=== PATIENT | male | born 1955 | race American Indian/Alaskan Native ===

== ENCOUNTER 2017-03-02 21:44 | Inpatient (IN) | payer OTHER ==
--- NOTE | 2017-03-02 22:15 | C.PDOC ---
Time Seen by Provider: 03/02/17 22:15 Chief Complaint (Nursing): Weakness/Neurological Deficit Past Medical History Reviewed: Historical Data, Nursing Documentation, Vital Signs Vital Signs: Last Vital Signs Temp 98.1 F 03/02/17 22:05 Pulse 71 03/02/17 22:05 Resp 20 03/02/17 22:05 BP 162/70 H 03/02/17 22:05 Pulse Ox 100 03/02/17 22:15 - Medical History PMH: Anemia, Benign Prostatic Hyperplasia, HTN - Social History Hx Alcohol Use: No Hx Substance Use: No - Immunization History Hx Tetanus Toxoid Vaccination: No Hx Influenza Vaccination: No Hx Pneumococcal Vaccination: No ED Course And Treatment ECG: Interpreted By Me, Viewed By Me ECG Rhythm: Sinus Rhythm (77), Nonspecific Changes O2 Sat by Pulse Oximetry: 100 Pulse Ox Interpretation: Normal Disposition Counseled Patient/Family Regarding: Studies Performed, Diagnosis - Disposition Disposition Time: 22:15
--- NOTE | 2017-03-02 22:20 | C.PDOC ---
History Of Present Illness 61 year old patient presents to the ED complaining increased generalized weakness and fatigue for the past couple of days. Patient went to see his urologist for his symptoms. Blood work was done and he was found to be anemic. Patient denies chest pain, palpitations, or shortness of breath. Time Seen by Provider: 03/02/17 22:15 Chief Complaint (Nursing): Weakness/Neurological Deficit History Per: Patient History/Exam Limitations: no limitations Onset/Duration Of Symptoms: Days (couple) Current Symptoms Are (Timing): Still Present Severity: Mild Pain Scale Rating Of: 3 Reports Recently: Treated By A Physician Recent travel outside of the [place]: No Past Medical History Reviewed: Historical Data, Nursing Documentation, Vital Signs Vital Signs: Last Vital Signs Temp 98.4 F 03/03/17 00:36 Pulse 78 03/03/17 00:36 Resp 20 03/03/17 00:36 BP 147/72 03/03/17 00:36 Pulse Ox 100 03/03/17 00:51 - Medical History PMH: Anemia, Benign Prostatic Hyperplasia, HTN Family History: States: No Known Family Hx - Social History Hx Alcohol Use: No Hx Substance Use: No - Immunization History Hx Tetanus Toxoid Vaccination: No Hx Influenza Vaccination: No Hx Pneumococcal Vaccination: No Review Of Systems Constitutional: Positive for: Weakness (generalized), Other (fatigue) Eyes: Negative for: Vision Change ENT: Negative for: Throat Pain Cardiovascular: Negative for: Chest Pain, Palpitations Respiratory: Negative for: Shortness of Breath Gastrointestinal: Positive for: Abdominal Pain. Negative for: Nausea, Vomiting Genitourinary: Positive for: Frequency Musculoskeletal: Negative for: Back Pain Skin: Negative for: Rash, Lesions, Jaundice, Bruising Neurological: Negative for: Weakness Psych: Negative for: Anxiety Physical Exam - Physical Exam Appears: Non-toxic, No Acute Distress Skin: Warm, Dry Head: Atraumatic, Normacephalic Eye(s): bilateral: Normal Inspection, Conjunctiva Pale Oral Mucosa: Moist Neck: Trachea Midline, Supple Chest: Symmetrical Cardiovascular: Rhythm Regular Respiratory: No Rales, No Rhonchi, No Wheezing Gastrointestinal/Abdominal: Soft, No Tenderness, Distention (poss bladder), No Rebound, Other (unbilical hernia) Back: No CVA Tenderness Extremity: Normal ROM Extremity: Bilateral: Atraumatic, Normal Color And Temperature, Normal ROM Pulses: Left Dorsalis Pedis: Normal, Right Dorsalis Pedis: Normal Neurological/Psych: Oriented x3, Normal Speech, Normal Cranial Nerves Gait: Steady ED Course And Treatment - Laboratory Results Result Diagrams: 03/02/17 22:13 03/02/17 22:13 O2 Sat by Pulse Oximetry: 100 (room air) Pulse Ox Interpretation: Normal - Radiology CXR: Interpreted by Me, Viewed By Me CXR Interpretation: No: Infiltrates, Fracture, Pnemothorax Progress Note: Plan: EKG, Labs, Chest x-ray, IV fluids Critical Care Time - Critical Care Note Total Time (in mins): 30 Documented critical care: time excludes all time spent performing seperately billable procedures. Disposition Discussed With DrJimmy: Karoline Reeves Comment: accepted the pt [facility] is service and took over the care at 11:33 PM Doctor Will See Patient In The: Hospital Counseled Patient/Family Regarding: Studies Performed, Diagnosis - Disposition Disposition: HOSPITALIZED Disposition Time: 22:19 Condition: GUARDED - POA Present On Arrival: None - Clinical Impression Clinical Impression: Anemia, Renal failure, acute, Acute urinary retention - Scribe Statement The provider has reviewed the documentation as recorded by the Scribe Isabela Reeves Provider Attestation: All medical record entries made by the Scribe were at my direction and personally dictated by me. I have reviewed the chart and agree that the record accurately reflects my personal performance of the history, physical exam, medical decision making, and the department course for this patient. I have also personally directed, reviewed, and agree with the discharge instructions and disposition.
[2017-03-02] MEDS ORDERED: Sodium Chloride 0.9% 1,000 ML IV ONE (22:21)
[2017-03-02 22:25] LABS: BASO # 0.1 K/uL (0.0-0.2); BASO % 1.3 % (0.0-2.0); EOS % 0.8 % (0.0-4.0); HEMATOCRIT 14.1 % (35.0-51.0); LYMPH # 0.7 K/uL (1.0-4.3); LYMPH % 12.3 % (20.0-40.0); MEAN CELL VOLUME 83.7 fL (80.0-94.0); MEAN CORPUSCULAR HEMOGLOBIN 29.4 pg (27.0-31.0); MEAN CORPUSCULAR HGB CONC 35.2 g/dL (33.0-37.0); MEAN PLATELET VOLUME 9.3 fL (7.2-11.7); MONO # 0.4 K/uL (0.0-0.8); MONO % 7.8 % (0.0-10.0); NRBC % 0.2 % (0.0-2.0); RED CELL DISTRIBUTION WIDTH 18.1 % (11.5-14.5); WHITE BLOOD COUNT 5.4 K/uL (4.8-10.8)
[2017-03-02] MEDS ORDERED: Sodium Chloride 0.9% 1,000 ML ONE (22:25)
[2017-03-02 22:29] LABS: INR 1.2
[2017-03-02 22:34] LABS: CHLORIDE 107 mmol/L (98-107); SODIUM 142 mmol/L (132-148)
[2017-03-02 22:36] LABS: GFR AFRICAN-AMERICAN 8
[2017-03-02 22:37] LABS: ALB/GLOB RATIO 1.9 (1.0-2.1); ALKALINE PHOSPHATASE 64 U/L (38-126); ALT/SGPT 18 U/L (21-72); AST/SGOT 10 U/L (17-59); BLOOD UREA NITROGEN 79 mg/dL (9-20); CARBON DIOXIDE 18 mmol/L (22-30); GLUCOSE,RANDOM 91 mg/dL (75-110); TOTAL PROTEIN 7.4 g/dL (6.3-8.3)
[2017-03-02 22:38] LABS: CALCIUM 8.3 mg/dl (8.6-10.4)
[2017-03-02] MEDS ORDERED: Lidocaine 2% Jelly (Uro-Jet) ONE (23:17)
[2017-03-02 23:44] LABS: URINE BACTERIA OCC (<OCC); URINE BILIRUBIN NEGATIVE (NEGATIVE); URINE BLOOD NEGATIVE (NEGATIVE); URINE COLOR Straw (YELLOW); URINE GLUCOSE (UA) NORMAL (Normal); URINE KETONE NEGATIVE (NEGATIVE); URINE LEUKOCYTE ESTERASE 2+ Leu/uL (Negative); URINE PROTEIN NEGATIVE (NEGATIVE); URINE UROBILINOGEN NORMAL mg/dL (0.2-1.0); WBC URINE 23 /hpf (0-5)
[2017-03-03 07:20] LABS: BASO % 1.1 % (0.0-2.0); EOS % 1.1 % (0.0-4.0); HEMATOCRIT 15.1 % (35.0-51.0); LYMPH # 0.6 K/uL (1.0-4.3); LYMPH % 13.8 % (20.0-40.0); MEAN CELL VOLUME 84.7 fL (80.0-94.0); MEAN CORPUSCULAR HEMOGLOBIN 30.2 pg (27.0-31.0); MEAN CORPUSCULAR HGB CONC 35.6 g/dL (33.0-37.0); MEAN PLATELET VOLUME 9.2 fL (7.2-11.7); MONO # 0.3 K/uL (0.0-0.8); MONO % 6.8 % (0.0-10.0); NRBC % 0.1 % (0.0-2.0); WHITE BLOOD COUNT 4.2 K/uL (4.8-10.8)
[2017-03-03 07:57] LABS: POTASSIUM 5.3 mmol/L (3.6-5.2)
[2017-03-03 08:00] LABS: ALB/GLOB RATIO 1.4 (1.0-2.1); BILIRUBIN,TOTAL 1.1 mg/dL (0.2-1.3); CALCIUM 8.1 mg/dl (8.6-10.4); TOTAL PROTEIN 6.3 g/dL (6.3-8.3)
--- NOTE | 2017-03-03 08:14 | RAD ---
PROCEDURE: CHEST RADIOGRAPH, 1 VIEW HISTORY: SOB COMPARISON: None available. FINDINGS: LUNGS: Clear. PLEURA: No pneumothorax or pleural fluid seen. CARDIOVASCULAR: Probable mild left ventricular enlargement OSSEOUS STRUCTURES: No significant abnormalities. VISUALIZED UPPER ABDOMEN: Normal. OTHER FINDINGS: None. IMPRESSION: No acute pulmonary pathology appreciated. Probable mild left ventricular enlargement
--- NOTE | 2017-03-03 08:50 | PCM.URO ---
Urology Progress Note - Objective Lab Results Last 24 Hours: Laboratory Results - last 24 hr 03/02/17 03/02/17 03/03/17 23:10 23:38 07:07 WBC 4.2 L RBC 1.78 L Hgb 5.4 L* Hct 15.1 L MCV 84.7 MCH 30.2 MCHC 35.6 RDW 17.0 H Plt Count 162 MPV 9.2 Neut % (Auto) 77.2 H Lymph % (Auto) 13.8 L [place] % (Auto) 6.8 Eos % (Auto) 1.1 Baso % (Auto) 1.1 Neut # 3.2 Lymph # 0.6 L [place] # 0.3 Eos # 0.0 Baso # 0.0 Sodium Potassium Chloride Carbon Dioxide Anion Gap BUN Creatinine Est GFR ( Amer) Est GFR (Non-Af Amer) Random Glucose Calcium Total Bilirubin AST ALT Alkaline Phosphatase Total Protein Albumin Globulin Albumin/Globulin Ratio Urine Color Straw Urine Clarity Clear Urine pH 5.0 Ur Specific [place] 1.006 Urine Protein Negative Urine Glucose (UA) Normal Urine Ketones Negative Urine Blood Negative Urine Nitrate Negative Urine Bilirubin Negative Urine Urobilinogen Normal Ur Leukocyte Esterase 2+ H Urine WBC (Auto) 23 H Urine Bacteria Occ H Stool Occult Blood Negative 03/03/17 07:07 WBC RBC Hgb Hct MCV MCH MCHC RDW Plt Count MPV Neut % (Auto) Lymph % (Auto) [place] % (Auto) Eos % (Auto) Baso % (Auto) Neut # Lymph # [place] # Eos # Baso # Sodium 142 Potassium 5.3 H Chloride 110 H Carbon Dioxide 17 L Anion Gap 20 BUN 74 H Creatinine 8.0 H* Est GFR ( Amer) 8 Est GFR (Non-Af Amer) 7 Random Glucose 92 Calcium 8.1 L Total Bilirubin 1.1 AST 9 L ALT 10 L D Alkaline Phosphatase 50 Total Protein 6.3 Albumin 3.6 Globulin 2.7 Albumin/Globulin Ratio 1.4 Urine Color Urine Clarity Urine pH Ur Specific [place] Urine Protein Urine Glucose (UA) Urine Ketones Urine Blood Urine Nitrate Urine Bilirubin Urine Urobilinogen Ur Leukocyte Esterase Urine WBC (Auto) Urine Bacteria Stool Occult Blood Intake & Output: Intake & Output 03/02/17 03/03/17 03/03/17 18:59 06:59 18:59 Intake Total 690 Output Total 3800 Balance -3110 Intake: Oral 340 Blood Product 350 Output: Urine 3800 Urethral (Garcia) 1999 Other: Voiding Method Indwelling Catheter Vital Signs: Vital Signs - 24 hr 03/03/17 03/03/17 03/03/17 00:36 01:09 01:20 Temperature 98.4 F 98.5 F Pulse Rate 78 69 Respiratory 20 20 Rate Blood Pressure 147/72 135/72 O2 Sat by Pulse 100 100 98 Oximetry 03/03/17 03/03/17 03/03/17 02:08 02:33 02:52 Temperature 97.6 F 98.7 F Pulse Rate 67 60 Respiratory 20 20 18 Rate Blood Pressure 143/73 150/76 O2 Sat by Pulse 100 100 Oximetry 03/03/17 03/03/17 03:15 04:25 Temperature 98.4 F 97.6 F Pulse Rate 67 67 Respiratory 20 20 Rate Blood Pressure 139/71 148/77 O2 Sat by Pulse 99 Oximetry
--- NOTE | 2017-03-03 09:25 | CT ---
PROCEDURE: CT Abdomen and Pelvis without intravenous contrast HISTORY: severe anemia, renal failure , hematuria COMPARISON: None. TECHNIQUE: Without contrast.. Contrast Dose: 0 Radiation dose: Total exam DLP = 589.42 mGy-cm. This CT exam was performed using one or more of the following dose reduction techniques: Automated exposure control, adjustment of the mA and/or kV according to patient size, and/or use of iterative reconstruction technique. FINDINGS: LOWER THORAX: Cardiomegaly. No infiltrate/ effusion. LIVER: Hepatomegaly. The liver measures approximately 20 cm craniocaudal. The liver is mildly increased in attenuation, diffusely. This is a nonspecific finding. Consider the possibility of hemochromatosis or amiodarone therapy. Smooth contour. No mass. No biliary dilatation. GALLBLADDER AND BILE DUCTS: Cholelithiasis. Contracted gallbladder. No evidence of cholecystitis. PANCREAS: Unremarkable. No gross lesion or ductal dilatation. SPLEEN: Splenomegaly. The spleen measures approximately 17.1 cm in greatest dimension. No focal mass. ADRENALS: Mild bilateral adrenal hypertrophy, nonspecific. KIDNEYS AND URETERS: Moderate bilateral hydronephrosis. Extra renal pelvis bilaterally. Bilateral hydroureter. Findings likely secondary to bladder wall pathology. VASCULATURE: Unremarkable. No aortic aneurysm. BOWEL: Unremarkable. No obstruction. No gross mural thickening. APPENDIX: Unremarkable. Normal appendix. PERITONEUM: No evidence of ascites or pneumoperitoneum. Small umbilical hernia containing only mesenteric fat. LYMPH NODES: Unremarkable. No enlarged lymph nodes. BLADDER: Markedly diffusely thickened bladder wall. Possible cystitis. Please correlate with urinalysis. Garcia catheter noted. Bladder decompressed. REPRODUCTIVE: Unremarkable prostate. BONES: No acute fracture. OTHER FINDINGS: None. IMPRESSION: Hepatosplenomegaly. Diffusely increased attenuation of the liver, nonspecific. Cholelithiasis without evidence of cholecystitis. Moderate bilateral hydronephrosis and hydroureter. Diffusely markedly thickened bladder wall suggestive of cystitis, possibly infectious or inflammatory. Please note that there is no significant perivesical inflammatory change. Garcia catheter noted. Cardiomegaly. Mild bilateral adrenal hypertrophy. Preliminary interpretation of this examination was reported by [employer] at 12:38 a.m. on 03/03/2017. There is concurrence of this report with the preliminary interpretation.
[2017-03-03] MEDS: Sodium Chloride 0.9% 1,000 ML IV SCH (10:55)
[2017-03-03 11:51] LABS: BASO # 0.1 K/uL (0.0-0.2); BASO % 1.3 % (0.0-2.0); HEMATOCRIT 17.2 % (35.0-51.0); LYMPH # 0.4 K/uL (1.0-4.3); LYMPH % 9.7 % (20.0-40.0); MEAN CELL VOLUME 85.1 fL (80.0-94.0); MEAN CORPUSCULAR HEMOGLOBIN 29.3 pg (27.0-31.0); MEAN CORPUSCULAR HGB CONC 34.5 g/dL (33.0-37.0); MEAN PLATELET VOLUME 9.3 fL (7.2-11.7); MONO # 0.3 K/uL (0.0-0.8); MONO % 6.8 % (0.0-10.0); PLATELET COUNT 169 K/uL (130-400); WHITE BLOOD COUNT 4.1 K/uL (4.8-10.8)
[2017-03-03 12:32] LABS: EOSINOPHIL 1 % (0-4); NEUTROPHIL 81 % (50-75); TOTAL CELLS COUNTED 100
[2017-03-03 12:36] LABS: LARGE PLATELETS PRESENT
--- NOTE | 2017-03-03 14:18 | CP.PCM.CON ---
History of Present Illness - History of Present Illness History of Present Illness: 61 year old male with a history of HTN, gout, BPH, found to be anemic and told to report to the ER. In the ER he was found to have a hgb of 5. He denies abnormal bleeding and bruising. He notes his fatigue was progressive and over several weeks. He denies chest pain and shortness of breath. He is currently receiving PRBC transfusion support and reports to feeling better. peripheral smear: no significatnt abnormality WBC, no blast, anisopoikilocytosis, no increase in schistocytes, normal platelet count Past medical history: HTN, gout, BPH Past surgical history: None Family history: Denies tobacco, alcohol, and illicit drug use. Allergies: NKA Review of systems: All remaining review of systems including HEENT, cardiovascular, respiratory, gastrointestinal, genitourinary, musculoskeletal, dermatologic and neurologic are negative unless mentioned in the HPI. Past Patient History - Past Medical History & Family History Past Medical History?: Yes - Past Social History Smoking Status: Never Smoked - CARDIAC Hx Cardiac Disorders: Yes Hx Hypertension: Yes - PULMONARY Hx Respiratory Disorders: No - NEUROLOGICAL Hx Neurological Disorder: No - HEENT Hx HEENT Problems: No - RENAL Hx Chronic Kidney Disease: No - ENDOCRINE/METABOLIC Hx Endocrine Disorders: No - HEMATOLOGICAL/ONCOLOGICAL Hx Blood Disorders: Yes Hx Anemia: Yes - INTEGUMENTARY Hx Dermatological Problems: No - MUSCULOSKELETAL/RHEUMATOLOGICAL Hx Falls: No - GASTROINTESTINAL Hx Gastrointestinal Disorders: No - GENITOURINARY/GYNECOLOGICAL Hx Genitourinary Disorders: Yes Hx Prostate Problems: Yes - PSYCHIATRIC Hx Substance Use: No - SURGICAL HISTORY Hx Surgeries: Yes Hx Parathyroidectomy: Yes (R KNEE, L FOOT) - ANESTHESIA Hx Anesthesia: Yes Hx Anesthesia Reactions: No Hx Malignant Hyperthermia: No Has any member of the family had a problem w/ anesthesia?: No Meds Allergies/Adverse Reactions: Allergies Allergy/AdvReac Type Severity Reaction Status Date / Time No Known Allergies Allergy Unverified 03/02/17 21:59 - Medications Medications: Current Medications Sodium Chloride (Sodium Chloride 0.9%) 1,000 mls @ 100 mls/hr IV .Q10H [facility] Last Admin: 03/03/17 10:55 Dose: 100 mls/hr Ceftriaxone Sodium 1 gm/ (Sodium Chloride) 100 mls @ 100 mls/hr IVPB DAILY [facility] Pantoprazole Sodium (Protonix Inj) 40 mg IVP DAILY [facility] Stop: 03/04/17 23:13 Last Admin: 03/03/17 09:50 Dose: 40 mg Pneumococcal Polyvalent Vaccine (Pneumovax 23 Vaccine) 0.5 ml IM .ONCE ONE Stop: 03/04/17 10:01 Tamsulosin HCl (Flomax) 0.4 mg PO DAILY [facility] Last Admin: 03/03/17 09:50 Dose: 0.4 mg Physical Exam - Head Exam Head Exam: ATRAUMATIC - Eye Exam Eye Exam: Normal appearance - ENT Exam ENT Exam: Mucous Membranes Dry - Respiratory Exam Respiratory Exam: NORMAL BREATHING PATTERN - Cardiovascular Exam Cardiovascular Exam: +S1, +S2 - GI/Abdominal Exam GI & Abdominal Exam: Normal Bowel Sounds - Extremities Exam Extremities exam: Positive for: normal inspection - Neurological Exam Neurological exam: Oriented x3 - Psychiatric Exam Psychiatric exam: Normal Affect, Normal Mood - Skin Skin Exam: Warm Results - Vital Signs Recent Vital Signs: Last Vital Signs Temp 98 F 03/03/17 13:51 Pulse 81 03/03/17 13:51 Resp 20 03/03/17 13:51 BP 139/79 03/03/17 13:51 Pulse Ox 100 03/03/17 08:00 - Labs Result Diagrams: 03/03/17 11:44 03/03/17 07:07 Labs: Laboratory Results - last 24 hr 03/02/17 03/02/17 03/03/17 23:10 23:38 07:07 WBC 4.2 L RBC 1.78 L Hgb 5.4 L* Hct 15.1 L MCV 84.7 MCH 30.2 MCHC 35.6 RDW 17.0 H Plt Count 162 MPV 9.2 Neut % (Auto) 77.2 H Lymph % (Auto) 13.8 L [place] % (Auto) 6.8 Eos % (Auto) 1.1 Baso % (Auto) 1.1 Neut # 3.2 Lymph # 0.6 L [place] # 0.3 Eos # 0.0 Baso # 0.0 Neutrophils % (Manual) Lymphocytes % (Manual) Monocytes % (Manual) Eosinophils % (Manual) Platelet Estimate Large Platelets Poikilocytosis (manual Anisocytosis (manual) Ovalocytes Sodium Potassium Chloride Carbon Dioxide Anion Gap BUN Creatinine Est GFR ( Amer) Est GFR (Non-Af Amer) Random Glucose Calcium Total Bilirubin AST ALT Alkaline Phosphatase Total Protein Albumin Globulin Albumin/Globulin Ratio Urine Color Straw Urine Clarity Clear Urine pH 5.0 Ur Specific [place] 1.006 Urine Protein Negative Urine Glucose (UA) Normal Urine Ketones Negative Urine Blood Negative Urine Nitrate Negative Urine Bilirubin Negative Urine Urobilinogen Normal Ur Leukocyte Esterase 2+ H Urine WBC (Auto) 23 H Urine Bacteria Occ H Stool Occult Blood Negative 03/03/17 03/03/17 07:07 11:44 WBC 4.1 L RBC 2.02 L Hgb 5.9 L* Hct 17.2 L MCV 85.1 MCH 29.3 MCHC 34.5 RDW 17.0 H Plt Count 169 MPV 9.3 Neut % (Auto) 81.2 H Lymph % (Auto) 9.7 L [place] % (Auto) 6.8 Eos % (Auto) 1.0 Baso % (Auto) 1.3 Neut # 3.3 Lymph # 0.4 L [place] # 0.3 Eos # 0.0 Baso # 0.1 Neutrophils % (Manual) 81 H Lymphocytes % (Manual) 10 L Monocytes % (Manual) 8 Eosinophils % (Manual) 1 Platelet Estimate Normal Large Platelets Present Poikilocytosis (manual Slight Anisocytosis (manual) Slight Ovalocytes Moderate Sodium 142 Potassium 5.3 H Chloride 110 H Carbon Dioxide 17 L Anion Gap 20 BUN 74 H Creatinine 8.0 H* Est GFR ( Amer) 8 Est GFR (Non-Af Amer) 7 Random Glucose 92 Calcium 8.1 L Total Bilirubin 1.1 AST 9 L ALT 10 L D Alkaline Phosphatase 50 Total Protein 6.3 Albumin 3.6 Globulin 2.7 Albumin/Globulin Ratio 1.4 Urine Color Urine Clarity Urine pH Ur Specific [place] Urine Protein Urine Glucose (UA) Urine Ketones Urine Blood Urine Nitrate Urine Bilirubin Urine Urobilinogen Ur Leukocyte Esterase Urine WBC (Auto) Urine Bacteria Stool Occult Blood Assessment & Plan (1) Anemia Assessment and Plan: will check ferritin, retic count, b12, folate, FOBT to further characterize ?CKD anemia of CKD transfusion support Status: Acute (2) Leukopenia Assessment and Plan: mild no neutropenia Thank you for this interesting consult. Status: Acute
[2017-03-03 15:46] VITALS: RESP 20
--- NOTE | 2017-03-03 16:24 | CON ---
DATE: 03/03/2017 REASON FOR CONSULTATION: Retention. HISTORY OF PRESENT ILLNESS: The patient is a very pleasant gentleman. I met him for the first time. He is 61 years old. Admitt ed for the first time Tuesday afternoon/evening in my office. He had previously seen a Dr. Levy in [facility]. He had voiding dysfunction. A very pleasant gentleman. We found a liter in his bladder. At that johanna e, we discussed options, including Garcia catheter insertion. He just wanted the Flomax. At that johanna e, though, we also check labs -- a CBC, an SMA-7, PSA, etc. Then, I got a panic call yesterday that his hematocrit was below 20% and it was repeated. Creatinine was 8. So I reached out to the patient s everal times during the day until finally I reached him in the evening hours. I called his cellphone , texted him, etc. Then, when he called back, I explained to him that there is very little that we c jackyld do in the office and this was really actually a dire emergency. Brought into the hospital. Upon evaluation in the hospital, they have done other imaging and labs, etc., and they found him to be se verely anemic, with retention. In the meantime, they put a Garcia catheter in. He actually received transfusion of a couple units of blood. Urology is consulted at this point. naye the plans listed below. PAST MEDICAL AND SURGICAL HISTORY: As listed. REVIEW OF SYSTEMS: In retrospect, he says he has been feeling a little weak. His review of systems is significant for t hat, but no other major issues. SOCIAL HISTORY: He is still actively working. PHYSICAL EXAMINATION GENERAL: He is a well-nourished male. He is currently resting comfortably in the bed. ABDOMEN: Now relatively soft. The urine is relatively clear. BACK: No real CVA tenderness. DIAGNOSES: Urinary retention, renal failure, severe anemia, severe renal failure, and urinary retention and bila teral hydronephrosis. PLAN: As follows: For now, we are going to keep the Garcia in place. At some point, we may consider further diagnostic studies but we will wait until he stabilizes. We will see what the new hematocrit is, see what the PSA is. This looks like a significant amount of urinary retention and we will see how the patient recover, de pending on his BUN and creatinine labs, etc., and then we will discuss working up his prostate. Particularly, in this setting, the patient could develop renal failure without any obvious external s igns. Further plans in the meantime as follows: 1. Labs. 2. PSA. 3. Follow the BUN and creatinine. Follow the urine output. Watch for postobstructive diuresis. Then, further diagnostic studies to be considered. Transfusions, etc., the other doctors. We will follow along. Thank you for the urology consultation. Jose Alejandro Roque MD cc: [phone] TT: 03/03/2017 16:23:30 Confirmation # [id number] Dictation # [id number] ln
[2017-03-03 18:14] LABS: FOLATE 9.3 ng/mL
--- NOTE | 2017-03-03 18:23 | CP.PCM.PN ---
Subjective - Date & Time of Evaluation Date of Evaluation: 03/03/17 Objective - Vital Signs/Intake and Output Vital Signs (last 24 hours): Temp Pulse Resp BP Pulse Ox 97 F L 56 L 20 130/78 100 03/03/17 15:55 03/03/17 15:55 03/03/17 15:55 03/03/17 15:55 03/03/17 15:55 Intake and Output: 03/03/17 03/03/17 06:59 18:59 Intake Total 690 1650 Output Total 3800 2100 Balance -3110 -450 - Medications Medications: Current Medications Sodium Chloride (Sodium Chloride 0.9%) 1,000 mls @ 100 mls/hr IV .Q10H [facility] Last Admin: 03/03/17 10:55 Dose: 100 mls/hr Ceftriaxone Sodium 1 gm/ (Sodium Chloride) 100 mls @ 100 mls/hr IVPB DAILY [facility] Last Admin: 03/03/17 14:40 Dose: 100 mls/hr Pantoprazole Sodium (Protonix Inj) 40 mg IVP DAILY [facility] Stop: 03/04/17 23:13 Last Admin: 03/03/17 09:50 Dose: 40 mg Pneumococcal Polyvalent Vaccine (Pneumovax 23 Vaccine) 0.5 ml IM .ONCE ONE Stop: 03/04/17 10:01 Tamsulosin HCl (Flomax) 0.4 mg PO DAILY [facility] Last Admin: 03/03/17 09:50 Dose: 0.4 mg - Labs Labs: 03/03/17 11:44 03/03/17 07:07 PT 13.7 SECONDS (9.7-12.2) H 03/02/17 22:13 INR 1.2 03/02/17 22:13 APTT 35 SECONDS (21-34) H 03/02/17 22:13 Assessment and Plan - Assessment and Plan (Free Text) Plan: c3cr hepb an dhp c 24horu protien renal sonogram urine na urine osmo ua rpr spip harjit same
[2017-03-03 20:21] LABS: BASO % 0.8 % (0.0-2.0); EOS # 0.1 K/uL (0.0-0.7); HEMATOCRIT 19.2 % (35.0-51.0); LYMPH # 0.4 K/uL (1.0-4.3); LYMPH % 8.3 % (20.0-40.0); MEAN CELL VOLUME 85.6 fL (80.0-94.0); MEAN CORPUSCULAR HEMOGLOBIN 29.7 pg (27.0-31.0); MEAN CORPUSCULAR HGB CONC 34.8 g/dL (33.0-37.0); MEAN PLATELET VOLUME 9.8 fL (7.2-11.7); MONO # 0.3 K/uL (0.0-0.8); MONO % 6.8 % (0.0-10.0); PLATELET COUNT 168 K/uL (130-400); RED CELL DISTRIBUTION WIDTH 16.6 % (11.5-14.5); WHITE BLOOD COUNT 5.1 K/uL (4.8-10.8)
[2017-03-03 20:33] LABS: POTASSIUM 4.9 mmol/L (3.6-5.2)
[2017-03-03 20:36] LABS: ALB/GLOB RATIO 1.3 (1.0-2.1); BILIRUBIN,TOTAL 1.2 mg/dL (0.2-1.3); CALCIUM 8.3 mg/dl (8.6-10.4); TOTAL PROTEIN 6.3 g/dL (6.3-8.3)
[2017-03-03 22:23] LABS: BASOPHIL 1 % (0-2); EOSINOPHIL 1 % (0-4); NEUTROPHIL 85 % (50-75); TOTAL CELLS COUNTED 100
[2017-03-03 22:24] LABS: GIANT PLATELETS PRESENT
[2017-03-04] MEDS: Sodium Chloride 0.9% 1,000 ML IV SCH (04:45)
[2017-03-04 06:15] LABS: BASO % 0.7 % (0.0-2.0); EOS # 0.1 K/uL (0.0-0.7); EOS % 1.1 % (0.0-4.0); HEMATOCRIT 19.8 % (35.0-51.0); LYMPH # 0.4 K/uL (1.0-4.3); LYMPH % 7.7 % (20.0-40.0); MEAN CELL VOLUME 84.6 fL (80.0-94.0); MEAN CORPUSCULAR HEMOGLOBIN 29.8 pg (27.0-31.0); MEAN CORPUSCULAR HGB CONC 35.2 g/dL (33.0-37.0); MEAN PLATELET VOLUME 9.3 fL (7.2-11.7); MONO # 0.3 K/uL (0.0-0.8); MONO % 6.8 % (0.0-10.0); PLATELET COUNT 163 K/uL (130-400); RED CELL DISTRIBUTION WIDTH 16.5 % (11.5-14.5); WHITE BLOOD COUNT 4.9 K/uL (4.8-10.8)
[2017-03-04 06:36] LABS: CHLORIDE 112 mmol/L (98-107); POTASSIUM 5.1 mmol/L (3.6-5.2); SODIUM 142 mmol/L (132-148)
[2017-03-04 06:39] LABS: BLOOD UREA NITROGEN 64 mg/dL (9-20); CARBON DIOXIDE 17 mmol/L (22-30); GFR AFRICAN-AMERICAN 10; GLUCOSE,RANDOM 97 mg/dL (75-110)
[2017-03-04 06:40] LABS: CALCIUM 8.4 mg/dl (8.6-10.4)
[2017-03-04 08:39] LABS: BASOPHIL 1 % (0-2); EOSINOPHIL 2 % (0-4); NEUTROPHIL 81 % (50-75); TOTAL CELLS COUNTED 100
[2017-03-04 09:01] LABS: ERYTHROCYTE SEDIMENTATION RATE 15 mm/hr (0-15)
[2017-03-04] MEDS ORDERED: Pneumococcal 23-Valent Vaccine IM ONE (10:00)
--- NOTE | 2017-03-04 11:24 | US ---
PROCEDURE: Ultrasound of the Kidneys HISTORY: [facility] COMPARISON: CT abdomen and pelvis from 03/02/2017. TECHNIQUE: Grayscale imaging was performed. FINDINGS: RIGHT KIDNEY: Measures: 11.4 cm. Normal in size, contour and echogenicity. There is moderate hydronephrosis and distention of the renal pelvis. No stone or solid mass lesion visualized. LEFT KIDNEY: Measures: 13.8 cm. Normal in size, contour and echogenicity. There is moderate hydronephrosis and dilatation of the visualized upper ureteral. . No stone or solid mass lesion visualized. OTHER FINDINGS: There is an indwelling Garcia catheter within the urinary bladder with echogenic debris. Incidentally noted are multiple gallstones. IMPRESSION: Moderate bilateral hydronephrosis and dilatation of the visualized left upper ureters.
[2017-03-04 11:54] LABS: ANA TITER 1:40
--- NOTE | 2017-03-04 16:43 | CP.PCM.PN ---
Subjective - Date & Time of Evaluation Date of Evaluation: 03/04/17 Time of Evaluation: 08:40 - Subjective Subjective: clinically same Objective - Vital Signs/Intake and Output Vital Signs (last 24 hours): Temp Pulse Resp BP Pulse Ox 98 F 70 20 158/80 H 99 03/04/17 16:25 03/04/17 16:25 03/04/17 16:25 03/04/17 16:25 03/04/17 16:25 Intake and Output: 03/04/17 03/04/17 06:59 18:59 Intake Total 1250 1125 Output Total 2200 1200 Balance -950 -75 - Medications Medications: Current Medications Sodium Chloride (Sodium Chloride 0.9%) 1,000 mls @ 100 mls/hr IV .Q10H [facility] Last Admin: 03/04/17 04:45 Dose: Not Given Ceftriaxone Sodium 1 gm/ (Sodium Chloride) 100 mls @ 100 mls/hr IVPB DAILY [facility] Last Admin: 03/04/17 11:10 Dose: 100 mls/hr Pantoprazole Sodium (Protonix Inj) 40 mg IVP DAILY [facility] Stop: 03/04/17 23:13 Last Admin: 03/04/17 10:07 Dose: 40 mg Tamsulosin HCl (Flomax) 0.4 mg PO DAILY [facility] Last Admin: 03/04/17 10:07 Dose: 0.4 mg - Labs Labs: 03/04/17 06:06 03/04/17 06:06 PT 13.7 SECONDS (9.7-12.2) H 03/02/17 22:13 INR 1.2 03/02/17 22:13 APTT 35 SECONDS (21-34) H 03/02/17 22:13 - Constitutional Appears: Well - Head Exam Head Exam: ATRAUMATIC, NORMAL INSPECTION, NORMOCEPHALIC - Eye Exam Eye Exam: EOMI, Normal appearance, PERRL Pupil Exam: NORMAL ACCOMODATION, PERRL - ENT Exam ENT Exam: Mucous Membranes Moist, Normal Exam - Neck Exam Neck Exam: Full ROM, Normal Inspection. absent: Lymphadenopathy - Respiratory Exam Respiratory Exam: Decreased Breath Sounds - Cardiovascular Exam Cardiovascular Exam: REGULAR RHYTHM, +S1, +S2 - GI/Abdominal Exam GI & Abdominal Exam: Soft, Diminished Bowel Sounds - Rectal Exam Rectal Exam: Deferred
--- NOTE | 2017-03-04 17:11 | PCM.URO ---
Urology Progress Note - General General: Tolerating Diet - Subjective Abdominal Pain: No Flank Pain: No Nausea: No Vomiting: No Voiding Well: No (catheter in place) Hematuria: No Chest Pain: No Fever & Chills: No - Objective Lab Studies: Reviewed (renal failure, some improvement of creatinine) Lab Results Last 24 Hours: Laboratory Results - last 24 hr 03/03/17 03/03/17 03/03/17 16:40 20:06 20:06 WBC 5.1 RBC 2.24 L Hgb 6.7 L Hct 19.2 L MCV 85.6 MCH 29.7 MCHC 34.8 RDW 16.6 H Plt Count 168 MPV 9.8 Neut % (Auto) 83.1 H Lymph % (Auto) 8.3 L [place] % (Auto) 6.8 Eos % (Auto) 1.0 Baso % (Auto) 0.8 Neut # 4.2 Lymph # 0.4 L [place] # 0.3 Eos # 0.1 Baso # 0.0 Neutrophils % (Manual) 85 H Lymphocytes % (Manual) 7 L Monocytes % (Manual) 6 Eosinophils % (Manual) 1 Basophils % (Manual) 1 Platelet Estimate Normal Giant Platelets Present Poikilocytosis (manual Anisocytosis (manual) Slight Tear Drop Cells Slight Ovalocytes Moderate ESR Sodium Potassium Chloride Carbon Dioxide Anion Gap BUN Creatinine Est GFR ( Amer) Est GFR (Non-Af Amer) Random Glucose Calcium Ferritin 1220.0 Total Bilirubin AST ALT Alkaline Phosphatase Total Protein Albumin Globulin Albumin/Globulin Ratio Vitamin B12 657 Folate 9.3 CATRACHITA 6 Profile Positive H CATRACHITA Titer 1:40 H CATRACHITA Pattern Speckled H Complement C3 Complement C4 Hep Bs Antigen Hep Bs Antibody Hepatitis C Antibody 03/03/17 03/04/17 03/04/17 20:06 06:06 06:06 WBC 4.9 RBC 2.34 L Hgb 7.0 L Hct 19.8 L MCV 84.6 MCH 29.8 MCHC 35.2 RDW 16.5 H Plt Count 163 MPV 9.3 Neut % (Auto) 83.7 H Lymph % (Auto) 7.7 L [place] % (Auto) 6.8 Eos % (Auto) 1.1 Baso % (Auto) 0.7 Neut # 4.1 Lymph # 0.4 L [place] # 0.3 Eos # 0.1 Baso # 0.0 Neutrophils % (Manual) 81 H Lymphocytes % (Manual) 10 L Monocytes % (Manual) 6 Eosinophils % (Manual) 2 Basophils % (Manual) 1 Platelet Estimate Normal Giant Platelets Poikilocytosis (manual Slight Anisocytosis (manual) Slight Tear Drop Cells Ovalocytes Moderate ESR 15 Sodium 141 142 Potassium 4.9 5.1 Chloride 112 H 112 H Carbon Dioxide 16 L 17 L Anion Gap 18 18 BUN 68 H 64 H Creatinine 7.7 H* 6.8 H Est GFR ( Amer) 9 10 Est GFR (Non-Af Amer) 7 8 Random Glucose 120 H 97 Calcium 8.3 L 8.4 L Ferritin Total Bilirubin 1.2 AST 7 L D ALT 13 L D Alkaline Phosphatase 49 Total Protein 6.3 Albumin 3.6 Globulin 2.7 Albumin/Globulin Ratio 1.3 Vitamin B12 Folate CATRACHITA 6 Profile CATRACHITA Titer CATRACHITA Pattern Complement C3 Complement C4 Hep Bs Antigen Negative Hep Bs Antibody Hepatitis C Antibody 03/04/17 03/04/17 03/04/17 06:06 06:06 06:06 WBC RBC Hgb Hct MCV MCH MCHC RDW Plt Count MPV Neut % (Auto) Lymph % (Auto) [place] % (Auto) Eos % (Auto) Baso % (Auto) Neut # Lymph # [place] # Eos # Baso # Neutrophils % (Manual) Lymphocytes % (Manual) Monocytes % (Manual) Eosinophils % (Manual) Basophils % (Manual) Platelet Estimate Giant Platelets Poikilocytosis (manual Anisocytosis (manual) Tear Drop Cells Ovalocytes ESR Sodium Potassium Chloride Carbon Dioxide Anion Gap BUN Creatinine Est GFR ( Amer) Est GFR (Non-Af Amer) Random Glucose Calcium Ferritin Total Bilirubin AST ALT Alkaline Phosphatase Total Protein Albumin Globulin Albumin/Globulin Ratio Vitamin B12 Folate CATRACHITA 6 Profile CATRACHITA Titer CATRACHITA Pattern Complement C3 48.0 L Complement C4 24.9 Hep Bs Antigen Hep Bs Antibody Negative Hepatitis C Antibody Negative Intake & Output: Intake & Output 03/03/17 03/04/17 03/04/17 18:59 06:59 18:59 Intake Total 1650 1250 1125 Output Total 2100 2200 1200 Balance -450 -950 -75 Intake: Intake, IV Amount 800 800 Right Antecubital 800 800 Oral 1000 450 0 Blood Product 650 325 Red Blood Cells Cpd As1 0 Lr Unit [id number] Red Blood Cells Cpd As1 325 Lr Unit [id number] Red Blood Cells Cpd As1 325 Lr Unit [id number] Output: Urine 2100 2200 1200 Urethral (Garcia) 2100 2200 1200 Vital Signs: Vital Signs - 24 hr 03/04/17 03/04/17 03/04/17 00:00 08:11 12:57 Temperature 98.4 F 98.6 F Pulse Rate 61 65 Respiratory 20 20 Rate Blood Pressure 159/91 H 163/90 H 150/82 O2 Sat by Pulse 100 100 Oximetry 03/04/17 03/04/17 03/04/17 13:22 13:37 13:52 Temperature 98 F 97.6 F 98 F Pulse Rate 77 78 77 Respiratory 20 20 20 Rate Blood Pressure 138/80 148/78 139/80 O2 Sat by Pulse Oximetry 03/04/17 03/04/17 15:00 16:25 Temperature 98.7 F 98 F Pulse Rate 86 70 Respiratory 18 20 Rate Blood Pressure 161/87 H 158/80 H O2 Sat by Pulse 100 99 Oximetry - Physical Exam Abdominal Exam: Soft, Non-Tender, Non-Distended Back: No CVA Tenderness Genitalia: Without Inflammation Urinary Catheter Draining Well: Yes Urine Color: Clear, Light Kenisha - Plan Additional Information: IMP: RENAL FALURE. OBSTRUCTIVE UROPATHY. UURINARY RETENTION. STABLE P CYSTO. REC/PLAN: CATHETER IN PLACE. MONITOR OUTPUT. MONITOR RENAL FUNCTION. FURTHER THERAPY T/F RE RETENTION. DISCUSSED W PT, FAMILY, AND PRIMARY PHYSICIAN - Date & Time of Note Date: 03/04/17 Time: 11:15
--- NOTE | 2017-03-04 20:53 | CP.PCM.PN ---
Subjective - Date & Time of Evaluation Date of Evaluation: 03/04/17 Time of Evaluation: 13:00 - Subjective Subjective: Feeling better s/p 2U PRBC and for 2 additional units Objective - Vital Signs/Intake and Output Vital Signs (last 24 hours): Temp Pulse Resp BP Pulse Ox 98 F 70 20 148/76 99 03/04/17 19:50 03/04/17 19:50 03/04/17 19:50 03/04/17 19:50 03/04/17 16:25 Intake and Output: 03/04/17 03/05/17 18:59 06:59 Intake Total 1125 240 Output Total 1200 Balance -75 240 - Medications Medications: Current Medications Sodium Chloride (Sodium Chloride 0.9%) 1,000 mls @ 100 mls/hr IV .Q10H MOHSEN Last Admin: 03/04/17 04:45 Dose: Not Given Ceftriaxone Sodium 1 gm/ (Sodium Chloride) 100 mls @ 100 mls/hr IVPB DAILY MOHSEN Last Admin: 03/04/17 11:10 Dose: 100 mls/hr Pantoprazole Sodium (Protonix Inj) 40 mg IVP DAILY MOHSEN Stop: 03/04/17 23:13 Last Admin: 03/04/17 10:07 Dose: 40 mg Tamsulosin HCl (Flomax) 0.4 mg PO DAILY MOHSEN Last Admin: 03/04/17 10:07 Dose: 0.4 mg - Labs Labs: 03/04/17 06:06 03/04/17 06:06 PT 13.7 SECONDS (9.7-12.2) H 03/02/17 22:13 INR 1.2 03/02/17 22:13 APTT 35 SECONDS (21-34) H 03/02/17 22:13 - Head Exam Head Exam: ATRAUMATIC - Eye Exam Eye Exam: Normal appearance - ENT Exam ENT Exam: Mucous Membranes Dry - Respiratory Exam Respiratory Exam: NORMAL BREATHING PATTERN - Cardiovascular Exam Cardiovascular Exam: +S1, +S2 - GI/Abdominal Exam GI & Abdominal Exam: Normal Bowel Sounds - Extremities Exam Extremities Exam: Normal Inspection Assessment and Plan (1) Anemia Assessment & Plan: chronic disease ?CKD s/p 2U PRBC for 2 additional units of PRBC today Status: Acute (2) Leukopenia Assessment & Plan: benign Status: Acute
[2017-03-05] MEDS: Sodium Chloride 0.9% 1,000 ML IV SCH ×3 (04:00→21:53)
--- NOTE | 2017-03-05 12:34 | CP.PCM.PN ---
Subjective - Date & Time of Evaluation Date of Evaluation: 03/05/17 Time of Evaluation: 09:00 - Subjective Subjective: clinically same Objective - Vital Signs/Intake and Output Vital Signs (last 24 hours): Temp Pulse Resp BP Pulse Ox 98.3 F 75 20 168/87 H 99 03/05/17 08:39 03/05/17 08:39 03/05/17 08:39 03/05/17 08:39 03/05/17 08:39 Intake and Output: 03/05/17 03/05/17 06:59 18:59 Intake Total 1240 Output Total 1000 Balance 240 - Medications Medications: Current Medications Sodium Chloride (Sodium Chloride 0.9%) 1,000 mls @ 100 mls/hr IV .Q10H MOHSEN Last Admin: 03/05/17 04:00 Dose: 100 mls/hr Ceftriaxone Sodium 1 gm/ (Sodium Chloride) 100 mls @ 100 mls/hr IVPB DAILY MOHSEN Last Admin: 03/05/17 10:53 Dose: 100 mls/hr Tamsulosin HCl (Flomax) 0.4 mg PO DAILY MOHSEN Last Admin: 03/05/17 10:53 Dose: 0.4 mg - Labs Labs: 03/04/17 06:06 03/05/17 10:15 PT 13.7 SECONDS (9.7-12.2) H 03/02/17 22:13 INR 1.2 03/02/17 22:13 APTT 35 SECONDS (21-34) H 03/02/17 22:13 - Constitutional Appears: Well - Head Exam Head Exam: ATRAUMATIC, NORMAL INSPECTION, NORMOCEPHALIC - Eye Exam Eye Exam: EOMI, Normal appearance, PERRL Pupil Exam: NORMAL ACCOMODATION, PERRL - ENT Exam ENT Exam: Mucous Membranes Moist, Normal Exam - Neck Exam Neck Exam: Full ROM, Normal Inspection. absent: Lymphadenopathy - Respiratory Exam Respiratory Exam: Decreased Breath Sounds - Cardiovascular Exam Cardiovascular Exam: REGULAR RHYTHM, +S1, +S2 - GI/Abdominal Exam GI & Abdominal Exam: Soft, Diminished Bowel Sounds - Rectal Exam Rectal Exam: Deferred
--- NOTE | 2017-03-05 20:27 | CP.PCM.PN ---
Subjective - Date & Time of Evaluation Date of Evaluation: 03/05/17 Time of Evaluation: 16:00 - Subjective Subjective: Feeling better Objective - Vital Signs/Intake and Output Vital Signs (last 24 hours): Temp Pulse Resp BP Pulse Ox 97.5 F L 64 20 167/90 H 98 03/05/17 15:00 03/05/17 15:00 03/05/17 15:00 03/05/17 15:00 03/05/17 15:00 Intake and Output: 03/05/17 03/06/17 18:59 06:59 Intake Total 1100 Output Total 1200 Balance -100 - Medications Medications: Current Medications Sodium Chloride (Sodium Chloride 0.9%) 1,000 mls @ 100 mls/hr IV .Q10H MOHSEN Last Admin: 03/05/17 13:56 Dose: Not Given Ceftriaxone Sodium 1 gm/ (Sodium Chloride) 100 mls @ 100 mls/hr IVPB DAILY MOHSEN Last Admin: 03/05/17 10:53 Dose: 100 mls/hr Tamsulosin HCl (Flomax) 0.4 mg PO DAILY MOHSEN Last Admin: 03/05/17 10:53 Dose: 0.4 mg - Labs Labs: 03/04/17 06:06 03/05/17 10:15 PT 13.7 SECONDS (9.7-12.2) H 03/02/17 22:13 INR 1.2 03/02/17 22:13 APTT 35 SECONDS (21-34) H 03/02/17 22:13 - Head Exam Head Exam: ATRAUMATIC - Eye Exam Eye Exam: Normal appearance - ENT Exam ENT Exam: Mucous Membranes Dry - Respiratory Exam Respiratory Exam: NORMAL BREATHING PATTERN - Cardiovascular Exam Cardiovascular Exam: +S1, +S2 - GI/Abdominal Exam GI & Abdominal Exam: Normal Bowel Sounds - Extremities Exam Extremities Exam: Normal Inspection Assessment and Plan (1) Anemia Assessment & Plan: chronic disease, ckd s/p transfusion support Status: Acute (2) Leukopenia Assessment & Plan: benign Status: Acute
[2017-03-06 01:10] VITALS: O2SAT 100
[2017-03-06] MEDS: Sodium Chloride 0.9% 1,000 ML IV SCH (06:27)
[2017-03-06 07:33] LABS: HEMATOCRIT 23.3 % (35.0-51.0); MEAN CELL VOLUME 84.4 fL (80.0-94.0); MEAN CORPUSCULAR HEMOGLOBIN 29.5 pg (27.0-31.0); MEAN PLATELET VOLUME 9.7 fL (7.2-11.7); RED CELL DISTRIBUTION WIDTH 15.9 % (11.5-14.5)
[2017-03-06 13:58] LABS: CALCIUM 8.4 mg/dl (8.6-10.4)
--- NOTE | 2017-03-06 15:22 | CP.PCM.PN ---
Subjective - Date & Time of Evaluation Date of Evaluation: 03/06/17 Time of Evaluation: 11:45 - Subjective Subjective: clinically same Objective - Vital Signs/Intake and Output Vital Signs (last 24 hours): Temp Pulse Resp BP Pulse Ox 98.8 F 69 20 171/83 H 100 03/06/17 08:37 03/06/17 08:37 03/06/17 08:37 03/06/17 08:37 03/06/17 08:37 Intake and Output: 03/06/17 03/06/17 06:59 18:59 Intake Total 2090 1800 Output Total 2300 3650 Balance -210 -1750 - Medications Medications: Current Medications Ceftriaxone Sodium 1 gm/ (Sodium Chloride) 100 mls @ 100 mls/hr IVPB DAILY MOHSEN Last Admin: 03/06/17 10:38 Dose: 100 mls/hr Tamsulosin HCl (Flomax) 0.4 mg PO DAILY MOHSEN Last Admin: 03/06/17 10:39 Dose: 0.4 mg - Labs Labs: 03/06/17 07:00 03/06/17 13:37 PT 13.7 SECONDS (9.7-12.2) H 03/02/17 22:13 INR 1.2 03/02/17 22:13 APTT 35 SECONDS (21-34) H 03/02/17 22:13 Assessment and Plan - Assessment and Plan (Free Text) Plan: f/u Dr. gabriella lombardi. Ceftriaxone harjit. Flomax
[2017-03-06 16:53] VITALS: BP 180/92; PULSE 70; TEMP 98.6
--- NOTE | 2017-03-06 17:12 | PCM.URO ---
Urology Progress Note - General General: No Complaints, Tolerating Diet - Subjective Abdominal Pain: No Flank Pain: No Nausea: No Vomiting: No Voiding Well: No (catheter in place) Hematuria: No Dsypnea: No Chest Pain: No Fever & Chills: No - Objective Lab Studies: Reviewed Lab Results Last 24 Hours: Laboratory Results - last 24 hr 03/06/17 03/06/17 07:00 13:37 WBC 5.0 RBC 2.76 L Hgb 8.1 L Hct 23.3 L MCV 84.4 MCH 29.5 MCHC 35.0 RDW 15.9 H Plt Count 159 MPV 9.7 Sodium 141 Potassium 5.0 Chloride 112 H Carbon Dioxide 18 L Anion Gap 16 BUN 50 H Creatinine 5.0 H Est GFR ( Amer) 14 Est GFR (Non-Af Amer) 12 Random Glucose 98 Calcium 8.4 L Intake & Output: Intake & Output 03/05/17 03/06/17 03/06/17 18:59 06:59 18:59 Intake Total 1100 2090 1800 Output Total 1200 2300 3650 Balance -100 -210 -1850 Intake: Intake, IV Amount 800 1600 800 Right Antecubital 800 1600 800 Oral [phone] Output: Urine 1200 2300 3650 Urethral (Garcia) 1200 2300 3650 Other: # Bowel Movements 0 0 Vital Signs: Vital Signs - 24 hr 03/06/17 03/06/17 03/06/17 00:00 06:43 08:37 Temperature 98.7 F 98.8 F Pulse Rate 73 77 69 Respiratory 20 20 Rate Blood Pressure 170/90 H 171/90 H 171/83 H O2 Sat by Pulse 100 100 Oximetry 03/06/17 15:00 Temperature 98.6 F Pulse Rate 70 Respiratory 20 Rate Blood Pressure 180/92 H O2 Sat by Pulse 100 Oximetry - Physical Exam Abdominal Exam: Soft, Non-Tender, Non-Distended Back: No CVA Tenderness Genitalia: Without Inflammation Urinary Catheter Draining Well: Yes Urine Color: Clear, Yellow - Male Phallus: Normal - Plan Catheter Care: Yes Ambulation - Out of Bed: Yes Intake & Output: Yes Additional Information: IMP: URINARY RETENTION. OBSTRUCTIVE UROPATHY. REC/ PLAN: CATHETER IN PLACE. HYDRATION. MONITOR RENAL FUNCTION. DISCUSSED W PT. - Date & Time of Note Date: 03/06/17 Time: 09:45
[2017-03-07 00:16] LABS: IGG,SERUM 1160 mg/dL (694-1618); IGM,SERUM 91 mg/dL (48-271)
[2017-03-07 06:20] LABS: KAPPA/LAMBDA FREE RATIO 1.67 (0.26-1.65)
[2017-03-07 18:30] LABS: BETA 1 GLOBULIN 0.2 g/dL (0.4-0.6); BETA 2 GLOBULIN 0.2 g/dL (0.2-0.5); GAMMA GLOBULIN 1.2 g/dL (0.8-1.7)
--- NOTE | 2017-03-08 08:03 | CON ---
DATE: 03/03/2017 REASON FOR CONSULTATION: Urinary retention. See history and physical further details and history and physical and see my office notes. A very pleasant gentleman who presents with renal failure, urinary retention with greater than a lite r and a half in the bladder. Creatinine up to 8 and urology was consulted for further recommendations. See the plan below. PAST MEDICAL AND SURGICAL HISTORY: Otherwise, as listed. REVIEW OF SYSTEMS: He says he was feeling weak, but did not make much of it. PHYSICAL EXAMINATION: GENERAL: Well-nourished male currently resting comfortably. ABDOMEN: Relatively soft. No real CVA tenderness. Garcia catheter is draining clear yellow urine. DIAGNOSES: Urinary retention, voiding dysfunction, urinary retention, renal failure and severe anemi a. I discussed with the patient options. At this point, in his course, we have to wait to see what the BUN and creatinine end up doing. See how far down they will go. And then, we will see the recoverability. Renal consult. Urology griffin, leave the Garcia in. I did briefly without being overly alarming to the patient, I mentioned all our findings and recommen dations. And our concerns that this is a development of a neurogenic, myogenic bladder situation. But perhaps there will be further recoverability. It depends really on how he does clinically and th en further plans will follow. Jose Alejandro Roque MD cc: [phone] TT: 03/07/2017 20:27:34 Confirmation # [id number] Dictation # [id number] mn
== END 2017-03-06 18:00 | disposition home or self-care (01) | DRG 694 ==
LOC: C.ER 21:44 → C.9E 23:09 → C.3T 03-03 00:47
PROVIDERS: ADMIT Internal Medicine Nephrology; ATTEND Internal Medicine Nephrology
DX: N13.30 Unspecified hydronephrosis (principal); I12.9 Hypertensive chronic kidney disease with stage 1 through stage 4 chronic kidney disease, or unspecified chronic kidney disease; N40.0 Benign prostatic hyperplasia without lower urinary tract symptoms; M10.9 Gout, unspecified; N18.9 Chronic kidney disease, unspecified; D63.1 Anemia in chronic kidney disease

== ENCOUNTER 2017-05-31 18:48 | Inpatient (IN) | payer OTHER ==
[2017-05-31 20:08] LABS: BASO # 0.1 K/uL (0.0-0.2); BASO % 1.3 % (0.0-2.0); EOS # 0.1 K/uL (0.0-0.7); EOS % 1.2 % (0.0-4.0); HEMATOCRIT 11.9 % (35.0-51.0); LYMPH # 0.5 K/uL (1.0-4.3); LYMPH % 9.1 % (20.0-40.0); MEAN CELL VOLUME 83.1 fL (80.0-94.0); MEAN CORPUSCULAR HEMOGLOBIN 30.5 pg (27.0-31.0); MEAN CORPUSCULAR HGB CONC 36.7 g/dL (33.0-37.0); MEAN PLATELET VOLUME 9.4 fL (7.2-11.7); MONO # 0.5 K/uL (0.0-0.8); MONO % 8.5 % (0.0-10.0); NRBC % 0.1 % (0.0-2.0); PLATELET COUNT 186 K/uL (130-400); RED CELL DISTRIBUTION WIDTH 17.5 % (11.5-14.5); WHITE BLOOD COUNT 5.4 K/uL (4.8-10.8)
[2017-05-31] MEDS ORDERED: Lidocaine 2% Jelly (Uro-Jet) ONE (20:15)
[2017-05-31 20:16] LABS: INR 1.2
[2017-05-31 20:30] LABS: CHLORIDE 107 mmol/L (98-107)
[2017-05-31 20:31] LABS: POTASSIUM 5.2 mmol/L (3.6-5.2); SODIUM 140 mmol/L (132-148)
[2017-05-31 20:34] LABS: ALB/GLOB RATIO 1.5 (1.0-2.1); ALKALINE PHOSPHATASE 49 U/L (38-126); ALT/SGPT 18 U/L (21-72); AST/SGOT 12 U/L (17-59); BILIRUBIN,TOTAL 0.8 mg/dL (0.2-1.3); CALCIUM 8.4 mg/dl (8.6-10.4); CARBON DIOXIDE 15 mmol/L (22-30); GLUCOSE,RANDOM 92 mg/dL (75-110); TOTAL PROTEIN 7.4 g/dL (6.3-8.3)
[2017-05-31 20:42] LABS: BASOPHIL 1 % (0-2); EOSINOPHIL 1 % (0-4); NEUTROPHIL 82 % (50-75); TOTAL CELLS COUNTED 100
[2017-05-31 20:43] LABS: LARGE PLATELETS PRESENT
[2017-05-31 20:58] LABS: GFR AFRICAN-AMERICAN 4
--- NOTE | 2017-05-31 21:05 | C.PDOC ---
History Of Present Illness 61 y/o male with a Hx of urinary retention, was referred today by Dr. Dyllan Reeves for paleness, urinary dribbling, and severe anemia with a hemoglobin of 5.5 with transfusion and BUN/creatinine of 82/7.1 in March. Patient denies fever, chills, chest pain, SOB, or any other complaints. Time Seen by Provider: 05/31/17 19:39 Chief Complaint (Nursing): Abnormal Labs History Per: Patient History/Exam Limitations: no limitations Onset/Duration Of Symptoms: Days (Since March) Current Symptoms Are (Timing): Still Present Severity: Mild Reports Recently: Treated By A Physician (Dyllan Reeves) Recent travel outside of the [place]: No Additional History Per: Patient Past Medical History Reviewed: Historical Data, Nursing Documentation, Vital Signs Vital Signs: Last Vital Signs Temp 98.4 F 06/04/17 00:00 Pulse 77 06/04/17 00:00 Resp 20 06/04/17 00:00 BP 170/101 H 06/04/17 00:00 Pulse Ox 100 06/04/17 00:00 - Medical History PMH: Anemia, Benign Prostatic Hyperplasia, HTN Denies: Chronic Kidney Disease Family History: States: Unknown Family Hx - Social History Hx Alcohol Use: No Hx Substance Use: No - Immunization History Hx Tetanus Toxoid Vaccination: No Hx Influenza Vaccination: No Hx Pneumococcal Vaccination: No Review Of Systems Except As Marked, All Systems Reviewed And Found Negative. Constitutional: Positive for: Other (Paleness. Severe anemia. Urinary dribbling. ). Negative for: Fever, Chills Cardiovascular: Negative for: Chest Pain Respiratory: Negative for: Shortness of Breath Physical Exam - Physical Exam Appears: Non-toxic, No Acute Distress, Other (Black male) Skin: Warm, Dry, Pale Head: Atraumatic, Normacephalic Eye(s): bilateral: Conjunctiva Pale Oral Mucosa: Moist Chest: Symmetrical Cardiovascular: Rhythm Regular Respiratory: Normal Breath Sounds, No Rales, No Rhonchi, No Wheezing Gastrointestinal/Abdominal: Soft, No Tenderness, Distention (Suprapubic fullness ) Back: No CVA Tenderness, Other (Bladder US greater than a litter) Extremity: Pedal Edema (2/4 pitting edema to the lower extremity), Capillary Refill (<2secs) Pulses: Left Dorsalis Pedis: Normal, Right Dorsalis Pedis: Normal Neurological/Psych: Oriented x3, Normal Speech, Normal Cognition Gait: Steady ED Course And Treatment - Laboratory Results Result Diagrams: 06/03/17 07:52 06/03/17 07:52 O2 Sat by Pulse Oximetry: 100 (RA) Pulse Ox Interpretation: Normal Medical Decision Making Medical Decision Making: Plans: * Blood work up * cart * CXR * IV fluids * UA 20:45. Spoke Dr. Cecil Roque and sullivan placed in pt. 21:00. Spoke with Dr. Motley, procedure in the morning as needed, protect the left arm. Disposition Doctor Will See Patient In The: Hospital Counseled Patient/Family Regarding: Studies Performed, Diagnosis - Disposition Disposition: HOSPITALIZED Disposition Time: 00:00 Condition: FAIR - Clinical Impression Clinical Impression: Anemia - Scribe Statement The provider has reviewed the documentation as recorded by the Scribe Daniela pina All medical record entries made by the Ericaibe were at my direction and personally dictated by me. I have reviewed the chart and agree that the record accurately reflects my personal performance of the history, physical exam, medical decision making, and the department course for this patient. I have also personally directed, reviewed, and agree with the discharge instructions and disposition.
--- NOTE | 2017-05-31 22:57 | CP.PCM.HP ---
<Terry Cooper - Last Filed: 06/01/17 09:31> History of Present Illness - History of Present Illness History of Present Illness: CC: Severe anemia HPI: Patient is a 61 year old male with a PMH of Anemia, uncontrolled HTN, Arthritis, BPH and Gout who was sent from his PMDs office to the ED due severe anemia. Patient reports associated weakness, headache, lightheadedness, SOB, 1- 2 episodes of vomiting a week ago, black stools, and muscle cramps. He was admitted to the hospital back in February of this year and was transfused 4 units of PRBCs. Anemia was thought to be due to renal failure secondary to a bladder obstruction and patient was instructed to follow up with Dr. Viktoria Roque (Urology ) to remove the obstruction. He admits to never following up and notes that his energy progressively started to worsen with symptoms of shortness of breath with exertion. He saw his PMD today because he is starting a new job soon and wanted to be sure he would be able to work without his ability being limited. Patient denies fever, chills, vision changes, chest pain, palpitations, abdominal pain, dysuria, hematuria, hematochezia and appetite changes. PMD: Dyllan Reeves PMHx: HTN (uncontrolled); Arthritis; Gout PSHx: Bunyan removal; R. Knee Arthroscopy FHx: Father at 83 due to renal failure Medications: Allopurinol, flomax and Benicar (stopped using a month ago) Allergies: None Social Hx: Lives with . 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 Admit to social drinker Present on Admission - Present on Admission Any Indicators Present on Admission: No Review of Systems - Constitutional Constitutional: Headache, Weakness. absent: Chills, Fever, Night Sweats - EENT Eyes: absent: Blurred Vision Ears: Dizziness - Cardiovascular Cardiovascular: Dyspnea, Dyspnea on Exertion, Lightheadedness. absent: Chest Pain, Chest Pain at Rest, Diaphoresis, Orthopnea, Palpitations - Respiratory Respiratory: Dyspnea, Dyspnea on Exertion - Gastrointestinal Gastrointestinal: Nausea, Vomiting. absent: Abdominal Pain, Constipation, Diarrhea - Genitourinary Genitourinary: absent: Hematuria, Pyuria, Urinary Frequency - Musculoskeletal Musculoskeletal: Muscle Cramps - Neurological Neurological: Dizziness, Weakness - Endocrine Endocrine: absent: Fatigue, Palpitations Past Patient History - Past Medical History & Family History Past Medical History?: Yes - Past Social History Smoking Status: Never Smoked - CARDIAC Hx Hypertension: Yes - PULMONARY Hx Respiratory Disorders: No - NEUROLOGICAL Hx Neurological Disorder: No - HEENT Hx HEENT Problems: No - RENAL Hx Chronic Kidney Disease: No - ENDOCRINE/METABOLIC Hx Endocrine Disorders: No - HEMATOLOGICAL/ONCOLOGICAL Hx Anemia: Yes - INTEGUMENTARY Hx Dermatological Problems: No - MUSCULOSKELETAL/RHEUMATOLOGICAL Hx Falls: No - GASTROINTESTINAL Hx Gastrointestinal Disorders: No - GENITOURINARY/GYNECOLOGICAL Hx Genitourinary Disorders: Yes Hx Prostate Problems: Yes - PSYCHIATRIC Hx Substance Use: No - SURGICAL HISTORY Hx Surgeries: Yes Hx Parathyroidectomy: Yes (R KNEE, L FOOT) - ANESTHESIA Hx Anesthesia: Yes Hx Anesthesia Reactions: No Hx Malignant Hyperthermia: No Meds Allergies/Adverse Reactions: Allergies Allergy/AdvReac Type Severity Reaction Status Date / Time No Known Allergies Allergy Verified 05/31/17 19:16 Physical Exam - Constitutional Appears: Well, No Acute Distress - Head Exam Head Exam: ATRAUMATIC, NORMAL INSPECTION - Eye Exam Eye Exam: EOMI, Normal appearance - Respiratory Exam Respiratory Exam: Clear to Auscultation Bilateral, NORMAL BREATHING PATTERN - Cardiovascular Exam Cardiovascular Exam: REGULAR RHYTHM, +S1, +S2 - GI/Abdominal Exam GI & Abdominal Exam: Normal Bowel Sounds, Soft - Extremities Exam Extremities exam: Positive for: pedal edema. Negative for: calf tenderness, tenderness - Back Exam Back exam: absent: CVA tenderness (L), CVA tenderness (R) - Neurological Exam Neurological exam: Alert, Oriented x3 - Psychiatric Exam Psychiatric exam: Normal Affect, Normal Mood - Skin Skin Exam: Warm Results - Vital Signs Recent Vital Signs: Last Vital Signs Temp 99.5 F 05/31/17 22:45 Pulse 70 05/31/17 22:45 Resp 18 05/31/17 22:45 BP 162/79 H 05/31/17 22:45 Pulse Ox 100 05/31/17 22:45 - Labs Result Diagrams: 06/01/17 07:32 06/01/17 07:32 Assessment & Plan (1) Anemia Assessment and Plan: On admission: * H/H: 4.9/11.9 * Transfused 1 unit in the ED and transfused 1 unit on the floor, - Repeat CBC: 5.9/16.5 - To be transfused 2 units F/u stool occult F/u TIBC, Iron, % Iron saturation F/u echo Status: Acute (2) Acute urinary retention Assessment and Plan: Urology, Dr. Cecil Roque---> help appreciated * F/u recommendation -Garcia in place -Flomax 0.4mg PO daily -Monitor input and output Status: Acute (3) Renal failure, acute Assessment and Plan: Possibly secondary obstructive uropathy On admission: * BUN/Cr: >20/14.7 * Volume overload, AG 23, Hco3 15, maintained K, no acute need of HD Bufferer, Dr. Garrison ( Help appreciated) Surgical Consult, Dr. Motley (Help appreciated) F/u Vit D and PTH F/u renal ultrasound Status: Acute (4) Prophylactic measure Assessment and Plan: Protonix 40mg PO daily SCDs contraindicated due to LE edema Anticoagulation due to worsening kidney function and suspicious of GI bleed Status: Acute <Sidney Jacobo P - Last Filed: 06/04/17 19:36> Results - Vital Signs Recent Vital Signs: Last Vital Signs Temp 98.4 F 06/04/17 16:24 Pulse 95 H 06/04/17 18:31 Resp 20 06/04/17 16:24 BP 155/84 H 06/04/17 16:24 Pulse Ox 99 06/04/17 16:24 - Labs Result Diagrams: 06/04/17 08:18 06/04/17 08:18 Labs: Laboratory Results - last 24 hr 06/04/17 06/04/17 08:18 08:18 WBC 10.8 D RBC 2.45 L Hgb 7.4 L Hct 20.9 L MCV 85.1 MCH 30.2 MCHC 35.5 RDW 17.5 H Plt Count 161 MPV 9.3 Neut % (Auto) 84.3 H Lymph % (Auto) 5.1 L [place] % (Auto) 8.5 Eos % (Auto) 1.4 Baso % (Auto) 0.7 Neut # 9.1 H Lymph # 0.6 L [place] # 0.9 H Eos # 0.1 Baso # 0.1 Neutrophils % (Manual) 85 H Lymphocytes % (Manual) 6 L Monocytes % (Manual) 9 Platelet Estimate Normal Polychromasia Slight Hypochromasia (manual) Slight Poikilocytosis (manual Slight Basophilic Stippling Slight Anisocytosis (manual) Moderate Microcytosis (manual) Slight Ovalocytes Slight [place] Cells Slight Schistocytes Slight Sodium 143 Potassium 4.6 Chloride 101 Carbon Dioxide 24 Anion Gap 23 H BUN 71 H Creatinine 9.1 H* Est GFR ( Amer) 7 Est GFR (Non-Af Amer) 6 Random Glucose 108 Uric Acid 8.4 Calcium 9.0 Phosphorus 6.3 H Magnesium 1.9 Total Bilirubin 1.1 AST 13 L ALT 16 L Alkaline Phosphatase 50 Total Protein 6.9 Albumin 3.7 Globulin 3.2 Albumin/Globulin Ratio 1.2 Attending/Attestation - Attestation I have personally seen and examined this patient.: Yes I have fully participated in the care of the patient.: Yes I have reviewed all pertinent clinical information: Yes Notes (Text): See note on the same day, by me.
[2017-05-31 23:02] LABS: RBC URINE 18 /hpf (0-3); URINE BACTERIA OCC (<OCC); URINE BILIRUBIN NEGATIVE (NEGATIVE); URINE BLOOD 3+ (NEGATIVE); URINE COLOR Yellow (YELLOW); URINE GLUCOSE (UA) NORMAL (Normal); URINE KETONE NEGATIVE (NEGATIVE); URINE LEUKOCYTE ESTERASE 2+ Leu/uL (Negative); URINE PROTEIN NEGATIVE (NEGATIVE); URINE UROBILINOGEN NORMAL mg/dL (0.2-1.0); WBC URINE 18 /hpf (0-5)
--- NOTE | 2017-06-01 01:09 | CP.PCM.CON ---
History of Present Illness - History of Present Illness History of Present Illness: Surgery: Dr. Motley Reason for consult: requested for permacath placement CC: fatigue HPI: Patient is a 61 y/o male w/ known history of obstructive uropathy presents from doctor's office complaining of increased lethargy and urinary hesitancy. Patient was sent in by Dr. Dyllan Reeves as well for severe anemia of Hgb 5.5. Patient reports over the past couple of weeks he has been feeling more and more fatigued. Patient was recently hospitalized back in February 2017 for anemia, and found to have new onset acute renal failure 2/2 /obstructive uropathy as well as severe anemia. Prior to previous hospitalization patient had been in normal state of health. He does state that when the fatigue kicked in he stopped taking his routine medications thinking they were causing side effects. Patient denies n/v/f/c diarrhea or constipation. Patient denies chest pain or Shortness of breath. PMH: HTN, gout, BPH, obstructive uropathy, arthritis PSH: right knee arthroscopy, left bunion; Denies: colonoscopy or EGD Social: denies ETOH, tobacco, or drug use Family: denies family history of DM, colon CA, or ESRD requiring HD Review of Systems - Review of Systems All systems: reviewed and no additional remarkable complaints except Review of Systems: unless stated in HPI Past Patient History - Past Medical History & Family History Past Medical History?: Yes - Past Social History Smoking Status: Never Smoked - CARDIAC Hx Hypertension: Yes - PULMONARY Hx Respiratory Disorders: No - NEUROLOGICAL Hx Neurological Disorder: No - HEENT Hx HEENT Problems: No - RENAL Hx Chronic Kidney Disease: No - ENDOCRINE/METABOLIC Hx Endocrine Disorders: No - HEMATOLOGICAL/ONCOLOGICAL Hx Anemia: Yes - INTEGUMENTARY Hx Dermatological Problems: No - MUSCULOSKELETAL/RHEUMATOLOGICAL Hx Falls: No - GASTROINTESTINAL Hx Gastrointestinal Disorders: No - GENITOURINARY/GYNECOLOGICAL Hx Genitourinary Disorders: Yes Hx Prostate Problems: Yes - PSYCHIATRIC Hx Substance Use: No - SURGICAL HISTORY Hx Surgeries: Yes Hx Parathyroidectomy: Yes (R KNEE, L FOOT) - ANESTHESIA Hx Anesthesia: Yes Hx Anesthesia Reactions: No Hx Malignant Hyperthermia: No Meds Allergies/Adverse Reactions: Allergies Allergy/AdvReac Type Severity Reaction Status Date / Time No Known Allergies Allergy Verified 05/31/17 19:16 - Medications Medications: Current Medications Sodium Chloride (Sodium Chloride 0.9%) 1,000 mls @ 75 mls/hr IV .[id number] [facility] Pantoprazole Sodium (Protonix Ec Tab) 40 mg PO DAILY [facility] Tamsulosin HCl (Flomax) 0.4 mg PO DAILY [facility] Physical Exam - Constitutional Appears: Non-toxic, No Acute Distress - Head Exam Head Exam: ATRAUMATIC, NORMOCEPHALIC - Eye Exam Eye Exam: EOMI, Normal appearance - ENT Exam ENT Exam: Mucous Membranes Moist - Respiratory Exam Respiratory Exam: NORMAL BREATHING PATTERN. absent: Respiratory Distress - Cardiovascular Exam Cardiovascular Exam: REGULAR RHYTHM. absent: Tachycardia - GI/Abdominal Exam GI & Abdominal Exam: Soft. absent: Distended, Tenderness - Rectal Exam Additional comments: negative FOB - Extremities Exam Extremities exam: Positive for: normal inspection. Negative for: calf tenderness - Neurological Exam Neurological exam: Alert, Oriented x3 - Psychiatric Exam Psychiatric exam: Normal Affect, Normal Mood - Skin Skin Exam: Dry, Normal Color, Warm Results - Vital Signs Recent Vital Signs: Last Vital Signs Temp 98.4 F 06/01/17 00:08 Pulse 75 06/01/17 00:08 Resp 14 06/01/17 00:08 BP 168/80 H 06/01/17 00:08 Pulse Ox 100 05/31/17 23:50 - Labs Result Diagrams: 05/31/17 20:01 05/31/17 20:01 Labs: Laboratory Results - last 24 hr 05/31/17 05/31/17 22:53 23:26 Urine Color Yellow Urine Clarity Clear Urine pH 6.0 Ur Specific [place] 1.008 Urine Protein Negative Urine Glucose (UA) Normal Urine Ketones Negative Urine Blood 3+ H Urine Nitrate Negative Urine Bilirubin Negative Urine Urobilinogen Normal Ur Leukocyte Esterase 2+ H Urine WBC (Auto) 18 H Urine RBC (Auto) 18 H Urine Bacteria Occ H Stool Occult Blood Negative Assessment & Plan - Assessment and Plan (Free Text) Assessment: 61 y/o male w/ acute renal failure 2/2 obstructive uropathy s/p sullivan insertion as well as severe anemia Plan: -agree with PRBC transfusion -plan for permacath today -f/u am labs -pending nephrology recs determines if longer HD access with be required -f/u urology recs -monitor urine output -gentle fluid hydration -NPO pmn for procedure -d/w Dr. Motley [facility] PGY3
[2017-06-01] MEDS: Sodium Chloride 0.9% 1,000 ML IV SCH ×2 (01:20→14:35)
--- NOTE | 2017-06-01 04:54 | CP.PCM.PN ---
Subjective - Date & Time of Evaluation Date of Evaluation: 05/31/17 Time of Evaluation: 22:00 - Subjective Subjective: Assessment GERI from obstructive uropathy creat 14, drained about 2lit of urine in ER cath inserted by Dr Roque Anemia from above also mentions melanotic stools intermittently, guiac sent to lab, but stool color yellow. Slight volume overload, AG 23, Hco3 15, maintained K, no acute need of HD Plan PRBC x2 IVF type and volume dependent of the urine output and electrolytes Iron, tibc, fa, b12, tsh, echo Urology, nephrology consult GI prophylaxis protonix, BD DVT prophylaxis scds/ avoid heparin due to history suspicious of the gi bleed Objective - Vital Signs/Intake and Output Vital Signs (last 24 hours): Temp Pulse Resp BP Pulse Ox 98.5 F 73 17 163/86 H 98 06/01/17 03:30 06/01/17 03:30 06/01/17 03:30 06/01/17 03:30 06/01/17 03:30 Intake and Output: 05/31/17 06/01/17 18:59 06:59 Intake Total 0 Output Total 1999 Balance -1999 - Medications Medications: Current Medications Sodium Chloride (Sodium Chloride 0.9%) 1,000 mls @ 75 mls/hr IV .[id number] [facility] Last Admin: 06/01/17 01:20 Dose: 75 mls/hr Pantoprazole Sodium (Protonix Ec Tab) 40 mg PO DAILY [facility] Tamsulosin HCl (Flomax) 0.4 mg PO DAILY [facility] - Labs Labs: PT 14.0 SECONDS (9.7-12.2) H 05/31/17 20:01 INR 1.2 05/31/17 20:01 APTT 28 SECONDS (21-34) 05/31/17 20:01
[2017-06-01 07:58] LABS: BASO # 0.1 K/uL (0.0-0.2); BASO % 1.2 % (0.0-2.0); EOS # 0.1 K/uL (0.0-0.7); EOS % 1.2 % (0.0-4.0); HEMATOCRIT 16.5 % (35.0-51.0); LYMPH # 0.7 K/uL (1.0-4.3); LYMPH % 10.3 % (20.0-40.0); MEAN CORPUSCULAR HEMOGLOBIN 30.4 pg (27.0-31.0); MEAN CORPUSCULAR HGB CONC 35.7 g/dL (33.0-37.0); MEAN PLATELET VOLUME 9.4 fL (7.2-11.7); MONO # 0.6 K/uL (0.0-0.8); WHITE BLOOD COUNT 6.9 K/uL (4.8-10.8)
[2017-06-01 08:12] LABS: MEAN CELL VOLUME 85.2 fL (80.0-94.0)
--- NOTE | 2017-06-01 08:13 | PCM.URO ---
Urology Progress Note - Objective Lab Results Last 24 Hours: Laboratory Results - last 24 hr 05/31/17 05/31/17 05/31/17 22:53 23:26 23:58 WBC RBC Hgb Hct MCV MCH MCHC RDW Plt Count MPV Neut % (Auto) Lymph % (Auto) [place] % (Auto) Eos % (Auto) Baso % (Auto) Neut # Lymph # [place] # Eos # Baso # Ferritin 1920.0 Urine Color Yellow Urine Clarity Clear Urine pH 6.0 Ur Specific [place] 1.008 Urine Protein Negative Urine Glucose (UA) Normal Urine Ketones Negative Urine Blood 3+ H Urine Nitrate Negative Urine Bilirubin Negative Urine Urobilinogen Normal Ur Leukocyte Esterase 2+ H Urine WBC (Auto) 18 H Urine RBC (Auto) 18 H Urine Bacteria Occ H Stool Occult Blood Negative 06/01/17 07:32 WBC 6.9 RBC 1.94 L Hgb 5.9 L* Hct 16.5 L MCV 85.2 D MCH 30.4 MCHC 35.7 RDW 17.0 H Plt Count 169 MPV 9.4 Neut % (Auto) 79.3 H Lymph % (Auto) 10.3 L [place] % (Auto) 8.0 Eos % (Auto) 1.2 Baso % (Auto) 1.2 Neut # 5.5 Lymph # 0.7 L [place] # 0.6 Eos # 0.1 Baso # 0.1 Ferritin Urine Color Urine Clarity Urine pH Ur Specific [place] Urine Protein Urine Glucose (UA) Urine Ketones Urine Blood Urine Nitrate Urine Bilirubin Urine Urobilinogen Ur Leukocyte Esterase Urine WBC (Auto) Urine RBC (Auto) Urine Bacteria Stool Occult Blood Intake & Output: Intake & Output 05/31/17 06/01/17 06/01/17 18:59 06:59 18:59 Intake Total 0 Output Total 2200 Balance -2200 Intake: Blood Product 0 Apheresis Rbc Cp2d As3 Lr 0 1st Unit [id number] Output: Urine 2200 Urethral (Garcia) 200 Other: Voiding Method Indwelling Catheter Vital Signs: Vital Signs - 24 hr 05/31/17 05/31/17 05/31/17 21:28 21:55 22:15 Temperature 98.7 F 98.9 F Pulse Rate 88 80 Respiratory 18 18 Rate Blood Pressure 166/83 H 166/83 H O2 Sat by Pulse 100 100 100 Oximetry 05/31/17 05/31/17 06/01/17 22:45 23:50 00:08 Temperature 99.5 F 98 F 98.4 F Pulse Rate 70 74 75 Respiratory 18 18 14 Rate Blood Pressure 162/79 H 178/87 H 168/80 H O2 Sat by Pulse 100 100 Oximetry 06/01/17 06/01/17 06/01/17 01:03 01:50 02:15 Temperature 98 F 98 F Pulse Rate 72 77 79 Respiratory 17 15 Rate Blood Pressure 163/83 H 161/84 H O2 Sat by Pulse 100 Oximetry 06/01/17 06/01/17 06/01/17 02:30 02:45 03:30 Temperature 97.8 F 98.1 F 98.5 F Pulse Rate 70 72 73 Respiratory 16 15 17 Rate Blood Pressure 166/82 H 167/81 H 163/86 H O2 Sat by Pulse 97 99 98 Oximetry 06/01/17 06/01/17 06/01/17 04:30 05:30 06:01 Temperature 98.2 F 98.4 F 98.6 F Pulse Rate 79 71 77 Respiratory 16 18 16 Rate Blood Pressure 157/81 H 160/82 H 163/83 H O2 Sat by Pulse 96 98 97 Oximetry
[2017-06-01 08:14] LABS: POTASSIUM 5.5 mmol/L (3.6-5.2)
[2017-06-01 08:16] LABS: BILIRUBIN,TOTAL 1.1 mg/dL (0.2-1.3)
[2017-06-01 08:17] LABS: ALB/GLOB RATIO 1.5 (1.0-2.1); CALCIUM 8.3 mg/dl (8.6-10.4); TOTAL PROTEIN 6.9 g/dL (6.3-8.3)
--- NOTE | 2017-06-01 09:55 | CP.PCM.PN ---
<iGovanniMelissa DamarisJimmy - Last Filed: 06/01/17 13:10> Subjective - Date & Time of Evaluation Date of Evaluation: 06/01/17 Time of Evaluation: 09:30 - Subjective Subjective: Medicine Progress Note: Patient was seen and examined at bedside in the AM. Patient states he came to the hospital because he went to his primary physician for clearance to start a new job and his doctor sent him over to the hospital right away. Patient states he felt tired early but is feeling better. Patient states he did have a bowel movement and his stool is dark but he also started taking iron supplements. Patient states he does have history of trouble urinating in the past. Objective - Vital Signs/Intake and Output Vital Signs (last 24 hours): Temp Pulse Resp BP Pulse Ox 98.3 F 68 20 161/94 H 100 06/01/17 08:12 06/01/17 08:12 06/01/17 08:12 06/01/17 08:12 06/01/17 08:12 Intake and Output: 06/01/17 06/01/17 06:59 18:59 Intake Total 0 Output Total 2200 Balance -2200 - Medications Medications: Current Medications Sodium Chloride (Sodium Chloride 0.9%) 1,000 mls @ 75 mls/hr IV .[id number] [facility] [place] Last Admin: 06/01/17 01:20 Dose: 75 mls/hr Pantoprazole Sodium (Protonix Ec Tab) 40 mg PO DAILY [facility] [place] Pneumococcal Polyvalent Vaccine (Pneumovax 23 Vaccine) 0.5 ml IM .ONCE ONE Stop: 06/03/17 10:01 Tamsulosin HCl (Flomax) 0.4 mg PO DAILY [facility] [place] - Labs Labs: 06/01/17 07:32 06/01/17 07:32 PT 14.0 SECONDS (9.7-12.2) H 05/31/17 20:01 INR 1.2 05/31/17 20:01 APTT 28 SECONDS (21-34) 05/31/17 20:01 - Constitutional Appears: No Acute Distress - Head Exam Head Exam: ATRAUMATIC, NORMAL INSPECTION, NORMOCEPHALIC - Eye Exam Eye Exam: EOMI, Normal appearance, PERRL Pupil Exam: NORMAL ACCOMODATION, PERRL - ENT Exam ENT Exam: Mucous Membranes Moist - Respiratory Exam Respiratory Exam: Clear to Ausculation Bilateral, NORMAL BREATHING PATTERN - Cardiovascular Exam Cardiovascular Exam: REGULAR RHYTHM, RRR, +S1, +S2 - GI/Abdominal Exam GI & Abdominal Exam: Soft, Normal Bowel Sounds. absent: Tenderness - Extremities Exam Extremities Exam: Normal Inspection. absent: Joint Swelling, Pedal Edema, Tenderness - Neurological Exam Neurological Exam: Alert, Awake, Oriented x3 - Psychiatric Exam Psychiatric exam: Normal Affect, Normal Mood - Skin Skin Exam: Normal Color, Warm Assessment and Plan - Assessment and Plan (Free Text) Plan: 1.) Anemia On admission: * H/H: 4.9/11.9 * Transfused 1 unit in the ED and transfused 1 unit on the floor, - Repeat CBC: 5.9/16.5 - To be transfused 2 units - Monitor repeat CBC stool occult blood (06/01): Negative F/u TIBC, % Iron saturation Ferritin: 1920 F/u echo 2.) History of urinary retention Urology, Dr. Cecil Roque---> help appreciated * F/u recommendation -Garcia in place -Flomax 0.4mg PO daily -Monitor input and output 3.) Renal failure, acute Possibly secondary obstructive uropathy On admission: * BUN/Cr: >20/14.7 * Volume overload, AG 23, Hco3 15, maintained K, no acute need of HD [employer], Dr. Garrison --> Help appreciated - f/u renal ultrasound Surgical Consult, Dr. Motley --> Help appreciated - Permacath will be placed 06/01 F/u Vit D and PTH 4.) Prophylactic measure Protonix 40mg PO daily SCDs contraindicated due to LE edema Anticoagulation due to worsening kidney function and suspicious of GI bleed Case Discussed with Dr. Sandra Davila PGY-1 <Ector Flores H - Last Filed: 06/01/17 17:30> Objective - Vital Signs/Intake and Output Vital Signs (last 24 hours): Temp Pulse Resp BP Pulse Ox 98.0 F 64 18 151/83 H 100 06/01/17 15:05 06/01/17 15:05 06/01/17 15:05 06/01/17 15:05 06/01/17 08:12 Intake and Output: 06/01/17 06/01/17 06:59 18:59 Intake Total 0 876 Output Total 2201 2158 Balance -2200 -1274 - Medications Medications: Current Medications Hydromorphone HCl (Dilaudid) 0.5 mg IVP Q10M PRN PRN Reason: Pain, severe (8-10) Stop: 06/01/17 18:46 Last Admin: 06/01/17 17:05 Dose: 0.5 mg Sodium Chloride (Sodium Chloride 0.9%) 1,000 mls @ 75 mls/hr IV .[id number] [facility] [place] Last Admin: 06/01/17 14:35 Dose: Not Given Oxycodone/Acetaminophen (Percocet 5/325 Mg Tab) 2 tab PO Q4H PRN PRN Reason: Pain, moderate (4-7) Stop: 06/04/17 16:41 Pantoprazole Sodium (Protonix Ec Tab) 40 mg PO DAILY [facility] [place] Last Admin: 06/01/17 10:26 Dose: 40 mg Pneumococcal Polyvalent Vaccine (Pneumovax 23 Vaccine) 0.5 ml IM .ONCE ONE Stop: 06/03/17 10:01 Tamsulosin HCl (Flomax) 0.4 mg PO DAILY [facility] [place] Last Admin: 06/01/17 10:26 Dose: 0.4 mg - Labs Labs: 06/01/17 07:32 06/01/17 07:32 PT 14.0 SECONDS (9.7-12.2) H 05/31/17 20:01 INR 1.2 05/31/17 20:01 APTT 28 SECONDS (21-34) 05/31/17 20:01 Attending/Attestation - Attestation I have personally seen and examined this patient.: Yes I have fully participated in the care of the patient.: Yes I have reviewed all pertinent clinical information, including history, physical exam and plan: Yes Notes (Text): 06/01/17 17:27 Medical Attending: Patient was seen and examined by me. Agree with the above note by the resident I also spoke with the patient's PMD who sent him to the hospital Patient has gotten 2 units of PRBCs so far and will be getting additional. Will need to check the CXRAY as well as monitor for shortness of breath in case he becomes fluid overload. Abdirashid anemia of chronic disease from CKD and urinary obstruction. Also there are plans for a permacath as it appears he will need temporary HD. He expressed hope that his kidney function will improve again thank you Ector Flores
[2017-06-01] MEDS: Pantoprazole 40 mg EC Tab PO SCH (10:26)
--- NOTE | 2017-06-01 10:29 | RAD ---
PROCEDURE: CHEST RADIOGRAPH, 1 VIEW HISTORY: SOB COMPARISON: Portable chest 03/02/2017. FINDINGS: LUNGS: Clear. PLEURA: No pneumothorax or pleural fluid seen. CARDIOVASCULAR: Prominent cardiac silhouette is again seen due to magnification or intrinsic enlarged once again. No pulmonary vascular derangement nevertheless. OSSEOUS STRUCTURES: No significant abnormalities. VISUALIZED UPPER ABDOMEN: Normal. OTHER FINDINGS: None. IMPRESSION: No signal change. No acute infiltrate pleural effusion or pneumothorax. Cardiomediastinal silhouette appears stable.
[2017-06-01] MEDS ORDERED: Lidocaine 1% Inj (20ml) ONE (11:17)
[2017-06-01] MEDS ORDERED: Lactated Ringer's 1,000 ML IV ONE (15:45)
[2017-06-01] MEDS ORDERED: Sodium Chloride 0.9% 500 ML IV ONE (15:45)
--- NOTE | 2017-06-01 15:59 | CP.PCM.CON ---
History of Present Illness - History of Present Illness History of Present Illness: HPI: Patient is a 61 year old male with a PMH of Anemia, uncontrolled HTN, Arthritis, BPH and Gout who was sent from his PMDs office to the ED due severe anemia. Patient reports associated weakness, headache, lightheadedness, SOB, 1- 2 episodes of vomiting a week ago, black stools, and muscle cramps. He was admitted to the hospital back in February of this year and was transfused 4 units of PRBCs. Anemia was thought to be due to renal failure secondary to a bladder obstruction and patient was instructed to follow up with Dr. Viktoria Roque (Urology ) to remove the obstruction. He admits to never following up and notes that his energy progressively started to worsen with symptoms of shortness of breath with exertion. He saw his PMD today because he is starting a new job soon and wanted to be sure he would be able to work without his ability being limited. Patient denies fever, chills, vision changes, chest pain, palpitations, abdominal pain, dysuria, hematuria, hematochezia and appetite changes. PMD: Dyllan Reeves PMHx: HTN (uncontrolled); Arthritis; Gout PSHx: Bunyan removal; R. Knee Arthroscopy FHx: Father at 83 due to renal failure Medications: Allopurinol, flomax and Benicar (stopped using a month ago) Allergies: None Social Hx: Lives with . 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 Admit to social drinker DIALYSIS CATH BEING PLACED NOW PATIENT JUST SEDATED- WILL OBTAIN CONSENT FOR DIALYSIS LATER Review of Systems - Review of Systems Systems not reviewed;Unavailable: Other Review of Systems: SEDATED NOW Past Patient History - Past Medical History & Family History Past Medical History?: Yes Past Family History: Reviewed and not pertinent - Past Social History Smoking Status: Never Smoked Chewing Tobacco Use: No Cigar Use: No Alcohol: Occasional Drugs: Denies - CARDIAC Hx Hypertension: Yes - PULMONARY Hx Respiratory Disorders: No - NEUROLOGICAL Hx Neurological Disorder: No - HEENT Hx HEENT Problems: No - RENAL Hx Chronic Kidney Disease: No - ENDOCRINE/METABOLIC Hx Endocrine Disorders: No - HEMATOLOGICAL/ONCOLOGICAL Hx Anemia: Yes - INTEGUMENTARY Hx Dermatological Problems: No - MUSCULOSKELETAL/RHEUMATOLOGICAL Hx Falls: No - GASTROINTESTINAL Hx Gastrointestinal Disorders: No - GENITOURINARY/GYNECOLOGICAL Hx Genitourinary Disorders: Yes Hx Prostate Problems: Yes - PSYCHIATRIC Hx Substance Use: No - SURGICAL HISTORY Hx Surgeries: Yes Hx Parathyroidectomy: Yes (R KNEE, L FOOT) - ANESTHESIA Hx Anesthesia: Yes Hx Anesthesia Reactions: No Hx Malignant Hyperthermia: No Meds Allergies/Adverse Reactions: Allergies Allergy/AdvReac Type Severity Reaction Status Date / Time No Known Allergies Allergy Verified 05/31/17 19:16 - Medications Medications: Current Medications Sodium Chloride (Sodium Chloride 0.9%) 1,000 mls @ 75 mls/hr IV .[id number] [facility] Last Admin: 06/01/17 01:20 Dose: 75 mls/hr Pantoprazole Sodium (Protonix Ec Tab) 40 mg PO DAILY [facility] Last Admin: 06/01/17 10:26 Dose: 40 mg Pneumococcal Polyvalent Vaccine (Pneumovax 23 Vaccine) 0.5 ml IM .ONCE ONE Stop: 06/03/17 10:01 Tamsulosin HCl (Flomax) 0.4 mg PO DAILY [facility] Last Admin: 06/01/17 10:26 Dose: 0.4 mg Physical Exam - Head Exam Head Exam: ATRAUMATIC, NORMAL INSPECTION - Eye Exam Eye Exam: EOMI, Normal appearance - Neck Exam Neck exam: Positive for: Normal Inspection. Negative for: Tenderness - Respiratory Exam Respiratory Exam: Clear to Auscultation Bilateral, NORMAL BREATHING PATTERN - Cardiovascular Exam Cardiovascular Exam: REGULAR RHYTHM, +S1 - GI/Abdominal Exam GI & Abdominal Exam: Soft. absent: Tenderness - Extremities Exam Extremities exam: Positive for: normal inspection. Negative for: tenderness - Neurological Exam Neurological exam: Altered, CN II-XII Intact - Skin Skin Exam: Dry, Warm Results - Vital Signs Recent Vital Signs: Last Vital Signs Temp 98.0 F 06/01/17 15:05 Pulse 64 06/01/17 15:05 Resp 18 06/01/17 15:05 BP 151/83 H 06/01/17 15:05 Pulse Ox 100 06/01/17 08:12 - Labs Result Diagrams: 06/01/17 07:32 06/01/17 07:32 Labs: Laboratory Results - last 24 hr 05/31/17 05/31/17 05/31/17 22:53 23:26 23:58 WBC RBC Hgb Hct MCV MCH MCHC RDW Plt Count MPV Neut % (Auto) Lymph % (Auto) [place] % (Auto) Eos % (Auto) Baso % (Auto) Neut # Lymph # [place] # Eos # Baso # Sodium Potassium Chloride Carbon Dioxide Anion Gap BUN Creatinine Est GFR ( Amer) Est GFR (Non-Af Amer) Random Glucose Calcium Ferritin 1920.0 Total Bilirubin AST ALT Alkaline Phosphatase Total Protein Albumin Globulin Albumin/Globulin Ratio Urine Color Yellow Urine Clarity Clear Urine pH 6.0 Ur Specific [place] 1.008 Urine Protein Negative Urine Glucose (UA) Normal Urine Ketones Negative Urine Blood 3+ H Urine Nitrate Negative Urine Bilirubin Negative Urine Urobilinogen Normal Ur Leukocyte Esterase 2+ H Urine WBC (Auto) 18 H Urine RBC (Auto) 18 H Urine Bacteria Occ H Stool Occult Blood Negative 06/01/17 06/01/17 07:32 07:32 WBC 6.9 RBC 1.94 L Hgb 5.9 L* Hct 16.5 L MCV 85.2 D MCH 30.4 MCHC 35.7 RDW 17.0 H Plt Count 169 MPV 9.4 Neut % (Auto) 79.3 H Lymph % (Auto) 10.3 L [place] % (Auto) 8.0 Eos % (Auto) 1.2 Baso % (Auto) 1.2 Neut # 5.5 Lymph # 0.7 L [place] # 0.6 Eos # 0.1 Baso # 0.1 Sodium 143 Potassium 5.5 H Chloride 110 H Carbon Dioxide 15 L Anion Gap 24 H BUN 119 H* D Creatinine 14.8 H* Est GFR ( Amer) 4 Est GFR (Non-Af Amer) 3 Random Glucose 92 Calcium 8.3 L Ferritin Total Bilirubin 1.1 AST 8 L D ALT 18 L Alkaline Phosphatase 45 Total Protein 6.9 Albumin 4.1 Globulin 2.8 Albumin/Globulin Ratio 1.5 Urine Color Urine Clarity Urine pH Ur Specific [place] Urine Protein Urine Glucose (UA) Urine Ketones Urine Blood Urine Nitrate Urine Bilirubin Urine Urobilinogen Ur Leukocyte Esterase Urine WBC (Auto) Urine RBC (Auto) Urine Bacteria Stool Occult Blood Assessment & Plan (1) Obstructive and reflux uropathy Status: Acute (2) Hypertensive chronic kidney disease with stage 5 chronic kidney disease or end stage renal disease Status: Acute (3) Chronic kidney disease, stage V Status: Acute - Assessment and Plan (Free Text) Plan: WILL NEED DIALYSIS POST CATH INSERTION
[2017-06-01] MEDS: HEPARIN-NS 5,000 UNITS/500 ML 5,000 UNIT/500 ML BAG IV ONE ×2 (16:10→16:14)
--- NOTE | 2017-06-01 16:44 | PCM.SURG1 ---
Surgeon's Initial Post Op Note - Surgeon's Notes Surgeon: Dr. Motley Regulatory Affairs Internship: leslie Dee PGY2 Type of Anesthesia: IV Sedation, Local Pre-Operative Diagnosis: ESRD needing HD Operative Findings: NA Post-Operative Diagnosis: Same Operation Performed: Alireza VAUGHN Specimen/Specimens Removed: none Estimated Blood Loss: EBL {In ML}: 5 Blood Products Given: N/A Drains Used: No Drains Post-Op Condition: Good Date of Surgery/Procedure: 06/01/17 Time of Surgery/Procedure: 16:44
[2017-06-01] MEDS: HYDROmorphone 0.5 mg/0.5 ml ISec IVP PRN ×2 (17:05→17:47)
[2017-06-01 17:32] LABS: BASO # 0.1 K/uL (0.0-0.2); BASO % 1.1 % (0.0-2.0); EOS # 0.1 K/uL (0.0-0.7); EOS % 1.2 % (0.0-4.0); HEMATOCRIT 20.8 % (35.0-51.0); LYMPH # 0.5 K/uL (1.0-4.3); LYMPH % 9.7 % (20.0-40.0); MEAN CELL VOLUME 86.4 fL (80.0-94.0); MEAN CORPUSCULAR HEMOGLOBIN 30.3 pg (27.0-31.0); MEAN CORPUSCULAR HGB CONC 35.1 g/dL (33.0-37.0); MEAN PLATELET VOLUME 8.9 fL (7.2-11.7); MONO # 0.5 K/uL (0.0-0.8); MONO % 8.9 % (0.0-10.0); PLATELET COUNT 138 K/uL (130-400); RED CELL DISTRIBUTION WIDTH 16.6 % (11.5-14.5); WHITE BLOOD COUNT 5.5 K/uL (4.8-10.8)
--- NOTE | 2017-06-01 17:38 | PCM.URO ---
Urology Progress Note - General General: No Complaints, Tolerating Diet - Subjective Abdominal Pain: No Flank Pain: No Nausea: No Vomiting: No Hematuria: No [place]: No Dsypnea: No Chest Pain: No Fever & Chills: No - Objective Lab Studies: Reviewed Lab Results Last 24 Hours: Laboratory Results - last 24 hr 05/31/17 05/31/17 05/31/17 22:53 23:26 23:58 WBC RBC Hgb Hct MCV MCH MCHC RDW Plt Count MPV Neut % (Auto) Lymph % (Auto) [place] % (Auto) Eos % (Auto) Baso % (Auto) Neut # Lymph # [place] # Eos # Baso # Sodium Potassium Chloride Carbon Dioxide Anion Gap BUN Creatinine Est GFR ( Amer) Est GFR (Non-Af Amer) Random Glucose Calcium Ferritin 1920.0 Total Bilirubin AST ALT Alkaline Phosphatase Total Protein Albumin Globulin Albumin/Globulin Ratio Urine Color Yellow Urine Clarity Clear Urine pH 6.0 Ur Specific [place] 1.008 Urine Protein Negative Urine Glucose (UA) Normal Urine Ketones Negative Urine Blood 3+ H Urine Nitrate Negative Urine Bilirubin Negative Urine Urobilinogen Normal Ur Leukocyte Esterase 2+ H Urine WBC (Auto) 18 H Urine RBC (Auto) 18 H Urine Bacteria Occ H Stool Occult Blood Negative 06/01/17 06/01/17 06/01/17 07:32 07:32 17:28 WBC 6.9 5.5 RBC 1.94 L 2.41 L Hgb 5.9 L* 7.3 L Hct 16.5 L 20.8 L MCV 85.2 D 86.4 MCH 30.4 30.3 MCHC 35.7 35.1 RDW 17.0 H 16.6 H Plt Count 169 138 MPV 9.4 8.9 Neut % (Auto) 79.3 H 79.1 H Lymph % (Auto) 10.3 L 9.7 L [place] % (Auto) 8.0 8.9 Eos % (Auto) 1.2 1.2 Baso % (Auto) 1.2 1.1 Neut # 5.5 4.4 Lymph # 0.7 L 0.5 L [place] # 0.6 0.5 Eos # 0.1 0.1 Baso # 0.1 0.1 Sodium 143 Potassium 5.5 H Chloride 110 H Carbon Dioxide 15 L Anion Gap 24 H BUN 119 H* D Creatinine 14.8 H* Est GFR ( Amer) 4 Est GFR (Non-Af Amer) 3 Random Glucose 92 Calcium 8.3 L Ferritin Total Bilirubin 1.1 AST 8 L D ALT 18 L Alkaline Phosphatase 45 Total Protein 6.9 Albumin 4.1 Globulin 2.8 Albumin/Globulin Ratio 1.5 Urine Color Urine Clarity Urine pH Ur Specific [place] Urine Protein Urine Glucose (UA) Urine Ketones Urine Blood Urine Nitrate Urine Bilirubin Urine Urobilinogen Ur Leukocyte Esterase Urine WBC (Auto) Urine RBC (Auto) Urine Bacteria Stool Occult Blood Intake & Output: Intake & Output 05/31/17 06/01/17 06/01/17 18:59 06:59 18:59 Intake Total 0 876 Output Total 2200 2150 Balance -2200 -1274 Intake: Blood Product 0 876 Apheresis Rbc Cp2d As3 Lr 0 325 1st Unit [id number] Apheresis Rbc Cp2d As3 Lr 273 2nd Unit [id number] Output: Urine 2200 2150 Urethral (Garcia) 200 1800 Other: Voiding Method Indwelling Catheter Vital Signs: Vital Signs - 24 hr 05/31/17 05/31/17 05/31/17 21:28 21:55 22:15 Temperature 98.7 F 98.9 F Pulse Rate 88 80 Respiratory 18 18 Rate Blood Pressure 166/83 H 166/83 H O2 Sat by Pulse 100 100 100 Oximetry 05/31/17 05/31/17 06/01/17 22:45 23:50 00:08 Temperature 99.5 F 98 F 98.4 F Pulse Rate 70 74 75 Respiratory 18 18 14 Rate Blood Pressure 162/79 H 178/87 H 168/80 H O2 Sat by Pulse 100 100 Oximetry 06/01/17 06/01/17 06/01/17 01:03 01:50 02:15 Temperature 98 F 98 F Pulse Rate 72 77 79 Respiratory 17 15 Rate Blood Pressure 163/83 H 161/84 H O2 Sat by Pulse 100 Oximetry 06/01/17 06/01/17 06/01/17 02:30 02:45 03:30 Temperature 97.8 F 98.1 F 98.5 F Pulse Rate 70 72 73 Respiratory 16 15 17 Rate Blood Pressure 166/82 H 167/81 H 163/86 H O2 Sat by Pulse 97 99 98 Oximetry 06/01/17 06/01/17 06/01/17 04:30 05:30 06:01 Temperature 98.2 F 98.4 F 98.6 F Pulse Rate 79 71 77 Respiratory 16 18 16 Rate Blood Pressure 157/81 H 160/82 H 163/83 H O2 Sat by Pulse 96 98 97 Oximetry 06/01/17 06/01/17 06/01/17 08:12 12:02 12:54 Temperature 98.3 F 98.3 F Pulse Rate 68 69 69 Respiratory 20 18 Rate Blood Pressure 161/94 H 138/74 O2 Sat by Pulse 100 Oximetry 06/01/17 06/01/17 06/01/17 13:05 13:20 13:35 Temperature 97.9 F 98.0 F 98.1 F Pulse Rate 65 65 67 Respiratory 18 18 18 Rate Blood Pressure 145/81 149/85 147/82 O2 Sat by Pulse Oximetry 06/01/17 06/01/17 06/01/17 13:50 14:05 14:20 Temperature 98.0 F 98.0 F 98.1 F Pulse Rate 66 65 66 Respiratory 18 18 18 Rate Blood Pressure 148/84 149/85 148/88 O2 Sat by Pulse Oximetry 06/01/17 06/01/17 06/01/17 14:35 14:50 15:05 Temperature 98.2 F 98.2 F 98.0 F Pulse Rate 67 66 64 Respiratory 18 18 18 Rate Blood Pressure 147/85 143/87 151/83 H O2 Sat by Pulse Oximetry - Physical Exam Abdominal Exam: Soft, Non-Tender, Non-Distended Back: No CVA Tenderness Genitalia: Without Inflammation Urinary Catheter Draining Well: Yes Urine Color: Yellow - Plan Catheter Care: Yes Additional Information: IMP: RENAL FAILURE. URINARY RETENTION. STABLE P CATHETERIZATION. REC/PLAN: MONITOR URINE OUTPUT. MONITOR RENAL FUNCTION. PSA. URINE CULTURE. HEMODIALYSIS, PER NEPHROLOGY - Date & Time of Note Date: 06/01/17 Time: 17:40
--- NOTE | 2017-06-01 17:59 | RAD ---
HISTORY: s/p PRBCs COMPARISON: Chest x-ray performed 05/31/17 TECHNIQUE: Chest, one view. FINDINGS: IJ approach central venous catheter extends to the expected location of the SVC. External wires and leads obscure evaluation of the underlying parenchyma. LUNGS: The lung apices are excluded from view. No focal consolidation. Please note that chest x-ray has limited sensitivity for the detection of pulmonary masses. PLEURA: No significant pleural effusion identified. No definite pneumothorax . CARDIOVASCULAR: Heart size appears top normal. OSSEOUS STRUCTURES: No acute osseous abnormality identified. VISUALIZED UPPER ABDOMEN: Unremarkable. OTHER FINDINGS: None. IMPRESSION: Right IJ approach central venous catheter extends to the expected location of the SVC. Superior most lung apices excluded from view.
[2017-06-01 18:36] LABS: BASOPHIL 2 % (0-2); EOSINOPHIL 2 % (0-4); TOTAL CELLS COUNTED 100
[2017-06-01 18:37] LABS: NEUTROPHIL 73 % (50-75)
[2017-06-01] MEDS: Oxycodone/Acetaminophen 5/325 mg Tab PO PRN (18:58)
--- NOTE | 2017-06-02 02:24 | OP ---
PROCEDURE DATE: 06/01/2017 PREOPERATIVE DIAGNOSIS: Renal failure. POSTOPERATIVE DIAGNOSIS: Renal failure. PROCEDURE CARRIED OUT: Placement of PermCath at the right jugular vein with C-arm fluoroscopy, ultrasound-guided puncture and micropuncture technique. SURGEON: Dr. Motley. INTRAOPERATIVE NEURO TECH: Dr. Dee. ANESTHESIOLOGIST: Dr. Johnson. TYPE OF ANESTHESIA: Local sedation. The patient is an older middle aged male with renal insufficiency, who requires a PermCath dialysis. OPERATIVE FINDINGS: Catheter was inserted uneventfully via the jugular vein. PROCEDURE: The patient was given local anesthesia using ultrasound guidance and micropuncture technique, the right jugular vein was cannulated. Under fluoroscopic control, a guidewire was advanced centrally. This was changed to an 0.35 wire. A sheath dilator was passed over this. The catheter was positioned with good flow and checked for good flow in the superior vena cava and right atrial junction.. This was then tunneled and brought down on the skin and sutured to the skin. Blood loss of the procedure was 5 to 10 mL. There were no operative complications. The operation carried out with PermCath. Right jugular vein with ultrasound guidance and micropuncture technique. Ultrasound images of the neck showed the vein was approximately 13 mm in the transverse diameter with no evidence of intraluminal thrombosis. Vasquez Motley Jr., MD
[2017-06-02 08:18] LABS: BASO % 0.8 % (0.0-2.0); EOS # 0.1 K/uL (0.0-0.7); EOS % 1.7 % (0.0-4.0); LYMPH # 0.4 K/uL (1.0-4.3); LYMPH % 6.9 % (20.0-40.0); MEAN CELL VOLUME 85.9 fL (80.0-94.0); MEAN CORPUSCULAR HEMOGLOBIN 30.2 pg (27.0-31.0); MEAN CORPUSCULAR HGB CONC 35.2 g/dL (33.0-37.0); MEAN PLATELET VOLUME 8.8 fL (7.2-11.7); MONO # 0.6 K/uL (0.0-0.8); MONO % 9.5 % (0.0-10.0); PLATELET COUNT 157 K/uL (130-400); RED CELL DISTRIBUTION WIDTH 17.2 % (11.5-14.5); WHITE BLOOD COUNT 6.3 K/uL (4.8-10.8)
[2017-06-02 08:38] LABS: ALB/GLOB RATIO 1.2 (1.0-2.1); ALKALINE PHOSPHATASE 51 U/L (38-126); ALT/SGPT 22 U/L (21-72); AST/SGOT 14 U/L (17-59); CALCIUM 8.7 mg/dl (8.6-10.4); CARBON DIOXIDE 19 mmol/L (22-30); CHLORIDE 107 mmol/L (98-107); GFR AFRICAN-AMERICAN 4; GLUCOSE,RANDOM 102 mg/dL (75-110); MAGNESIUM 1.7 mg/dL (1.6-2.3); PHOSPHOROUS 7.8 mg/dL (2.5-4.5); SODIUM 145 mmol/L (132-148); TOTAL PROTEIN 6.8 g/dL (6.3-8.3)
[2017-06-02 09:02] LABS: BLOOD UREA NITROGEN 115 mg/dL (9-20)
--- NOTE | 2017-06-02 09:02 | CP.PCM.PN ---
<Melissa Davila - Last Filed: 06/02/17 14:51> Subjective - Date & Time of Evaluation Date of Evaluation: 06/02/17 Time of Evaluation: 07:30 - Subjective Subjective: Medicine Progress Note: Patient was seen and examined in the AM at bedside. Patient states he still has dysuria. Patient denies shortness of breath, headache, lightheadedness or any other complaints at this time. Objective - Vital Signs/Intake and Output Vital Signs (last 24 hours): Temp Pulse Resp BP Pulse Ox 98.1 F 60 20 141/79 97 06/01/17 23:35 06/02/17 04:10 06/01/17 23:35 06/02/17 04:10 06/01/17 23:35 Intake and Output: 06/02/17 06/02/17 06:59 18:59 Output Total 1000 Balance -1000 - Medications Medications: Current Medications Sodium Chloride (Sodium Chloride 0.9%) 1,000 mls @ 75 mls/hr IV .[id number] [facility] Last Admin: 06/01/17 14:35 Dose: Not Given Ondansetron HCl (Zofran Inj) 4 mg IVP Q4H PRN PRN Reason: Nausea/Vomiting Last Admin: 06/01/17 23:49 Dose: 4 mg Oxycodone/Acetaminophen (Percocet 5/325 Mg Tab) 2 tab PO Q4H PRN PRN Reason: Pain, moderate (4-7) Stop: 06/04/17 16:41 Last Admin: 06/01/17 18:58 Dose: 2 tab Pantoprazole Sodium (Protonix Ec Tab) 40 mg PO DAILY [facility] Last Admin: 06/01/17 10:26 Dose: 40 mg Pneumococcal Polyvalent Vaccine (Pneumovax 23 Vaccine) 0.5 ml IM .ONCE ONE Stop: 06/03/17 10:01 Tamsulosin HCl (Flomax) 0.4 mg PO DAILY [facility] Last Admin: 06/01/17 10:26 Dose: 0.4 mg - Labs Labs: 06/02/17 08:11 06/01/17 07:32 PT 14.0 SECONDS (9.7-12.2) H 05/31/17 20:01 INR 1.2 05/31/17 20:01 APTT 28 SECONDS (21-34) 05/31/17 20:01 - Constitutional Appears: No Acute Distress - Head Exam Head Exam: ATRAUMATIC, NORMAL INSPECTION, NORMOCEPHALIC - Eye Exam Eye Exam: EOMI, Normal appearance, PERRL Pupil Exam: NORMAL ACCOMODATION - ENT Exam ENT Exam: Mucous Membranes Moist - Respiratory Exam Respiratory Exam: Clear to Ausculation Bilateral, NORMAL BREATHING PATTERN - Cardiovascular Exam Cardiovascular Exam: REGULAR RHYTHM, RRR, +S1, +S2 - GI/Abdominal Exam GI & Abdominal Exam: Soft, Normal Bowel Sounds. absent: Tenderness - Extremities Exam Extremities Exam: Normal Inspection. absent: Calf Tenderness, Pedal Edema, Tenderness - Neurological Exam Neurological Exam: Alert, Awake, Oriented x3 - Psychiatric Exam Psychiatric exam: Normal Affect, Normal Mood - Skin Skin Exam: Normal Color, Warm Assessment and Plan - Assessment and Plan (Free Text) Plan: 1.) Anemia secondary to CKD * H/H (06/02/17): 7.4/21.0 * Transfused 1 unit in the ED and transfused 1 unit on the floor (06/01/17) - To be transfused 2 units 06/01/17 - Monitor repeat CBC stool occult blood (06/01): Negative F/u TIBC, 20% Iron saturation Ferritin: 1920 F/u echo 2.) History of urinary retention Urology, Dr. Cecil Roque---> help appreciated -Garcia in place -Flomax 0.4mg PO daily -Monitor input and output 3.) Renal failure, acute secondary to chronic obstructive nephropathy History of BPH BUN/Cr: 115/13.9 Skin Piler, Dr. Garrison/Dr. Paul --> Help appreciated - f/u renal ultrasound - Dialysis started today 06/02/17 - f/u CATRACHITA, p-ANCA, c-ANCA Surgical Consult, Dr. Motley --> Help appreciated - Permacath will be placed 06/01 F/u Vit D and PTH 4.) Prophylactic measure Protonix 40mg PO daily SCDs contraindicated due to LE edema Anticoagulation due to worsening kidney function and suspicious of GI bleed Case Discussed with Dr. Sandra Davila PGY-1 <Ector Flores - Last Filed: 06/02/17 17:55> Objective - Vital Signs/Intake and Output Vital Signs (last 24 hours): Temp Pulse Resp BP Pulse Ox 97.8 F 64 16 171/106 H 97 06/02/17 14:05 06/02/17 14:05 06/02/17 14:05 06/02/17 15:45 06/01/17 23:35 Intake and Output: 06/02/17 06/02/17 06:59 18:59 Intake Total 400 Output Total 1000 Balance -1000 400 - Medications Medications: Current Medications Epoetin Johnson (Procrit) 10,000 unit IV TTS [facility] Last Admin: 06/02/17 16:36 Dose: 10,000 unit Ondansetron HCl (Zofran Inj) 4 mg IVP Q4H PRN PRN Reason: Nausea/Vomiting Last Admin: 06/01/17 23:49 Dose: 4 mg Oxycodone/Acetaminophen (Percocet 5/325 Mg Tab) 2 tab PO Q4H PRN PRN Reason: Pain, moderate (4-7) Stop: 06/04/17 16:41 Last Admin: 06/01/17 18:58 Dose: 2 tab Pantoprazole Sodium (Protonix Ec Tab) 40 mg PO DAILY [facility] Last Admin: 06/02/17 09:39 Dose: 40 mg Pneumococcal Polyvalent Vaccine (Pneumovax 23 Vaccine) 0.5 ml IM .ONCE ONE Stop: 06/03/17 10:01 Tamsulosin HCl (Flomax) 0.4 mg PO DAILY [facility] Last Admin: 06/02/17 09:39 Dose: 0.4 mg - Labs Labs: 06/02/17 15:27 06/02/17 08:11 PT 14.0 SECONDS (9.7-12.2) H 05/31/17 20:01 INR 1.2 05/31/17 20:01 APTT 28 SECONDS (21-34) 05/31/17 20:01 Attending/Attestation - Attestation I have personally seen and examined this patient.: Yes I have fully participated in the care of the patient.: Yes I have reviewed all pertinent clinical information, including history, physical exam and plan: Yes Notes (Text): Medical attending: Patient was seen and examined by me, agrees the above note by medical policy specialist. Today when we saw him, the patient's hemoglobin had came up to 7.4. He reported feeling much better than when he came in. He is not short of breath and his CXRAY appears stable after he was given 4 units of PRBCs. However we explained to him that he's not completely out of the coy yet as he does have a CK D. He now has a permacath, and it was planned is to start hemodialysis sometime later on today. We again discussed the reasons for his anemia, most likely this is secondary to ongoing CKD that he's been having. He also has had some urine output via the Garcia catheter as well. Also I spoke with the phone with the patient's primary medical doctor and gave her an update with regard to the patient's situation thank you, Ector Flores
[2017-06-02] MEDS: Pantoprazole 40 mg EC Tab PO SCH (09:39)
[2017-06-02 10:01] LABS: EOSINOPHIL 1 % (0-4); NEUTROPHIL 82 % (50-75); TOTAL CELLS COUNTED 100
--- NOTE | 2017-06-02 10:32 | CP.PCM.PN ---
Subjective - Date & Time of Evaluation Date of Evaluation: 06/02/17 Time of Evaluation: 10:28 - Subjective Subjective: Patient was seen and examined at bedside in no acute distress. Patient has no complaints and feels well. 12 point review of systems otherwise negative. Objective - Vital Signs/Intake and Output Vital Signs (last 24 hours): Temp Pulse Resp BP Pulse Ox 98.1 F 69 20 141/79 97 06/01/17 23:35 06/02/17 08:00 06/01/17 23:35 06/02/17 04:10 06/01/17 23:35 Intake and Output: 06/02/17 06/02/17 06:59 18:59 Output Total 1000 Balance -1000 - Medications Medications: Current Medications Sodium Chloride (Sodium Chloride 0.9%) 1,000 mls @ 75 mls/hr IV .[id number] [facility] Last Admin: 06/01/17 14:35 Dose: Not Given Ondansetron HCl (Zofran Inj) 4 mg IVP Q4H PRN PRN Reason: Nausea/Vomiting Last Admin: 06/01/17 23:49 Dose: 4 mg Oxycodone/Acetaminophen (Percocet 5/325 Mg Tab) 2 tab PO Q4H PRN PRN Reason: Pain, moderate (4-7) Stop: 06/04/17 16:41 Last Admin: 06/01/17 18:58 Dose: 2 tab Pantoprazole Sodium (Protonix Ec Tab) 40 mg PO DAILY [facility] Last Admin: 06/02/17 09:39 Dose: 40 mg Pneumococcal Polyvalent Vaccine (Pneumovax 23 Vaccine) 0.5 ml IM .ONCE ONE Stop: 06/03/17 10:01 Tamsulosin HCl (Flomax) 0.4 mg PO DAILY [facility] Last Admin: 06/02/17 09:39 Dose: 0.4 mg - Labs Labs: 06/02/17 08:11 06/02/17 08:11 PT 14.0 SECONDS (9.7-12.2) H 05/31/17 20:01 INR 1.2 05/31/17 20:01 APTT 28 SECONDS (21-34) 05/31/17 20:01 - Head Exam Head Exam: ATRAUMATIC, NORMAL INSPECTION - Eye Exam Eye Exam: Normal appearance - ENT Exam ENT Exam: Mucous Membranes Moist - Respiratory Exam Respiratory Exam: NORMAL BREATHING PATTERN. absent: Respiratory Distress - Cardiovascular Exam Cardiovascular Exam: +S1, +S2. absent: Bradycardia, Tachycardia - GI/Abdominal Exam GI & Abdominal Exam: Soft. absent: Distended, Firm - Neurological Exam Neurological Exam: Alert, Awake, Oriented x3 - Psychiatric Exam Psychiatric exam: Normal Affect, Normal Mood - Skin Skin Exam: Dry, Intact, Normal Color, Warm Additional comments: Permacath clean dry and intact. Assessment and Plan - Assessment and Plan (Free Text) Assessment: 61 year old male s/p permacath placement, POD #1. - Okay to use permacath. - No surgical intervention at this time. - Continue medical management as per hospitalist team.
--- NOTE | 2017-06-02 10:57 | RAD ---
PROCEDURE: Intraoperative Fluoroscopy. HISTORY: DIALYSIS INSERTION FINDINGS: Fluoroscopic assistance was provided for right central venous catheter insertion. Please refer to the operative report from
--- NOTE | 2017-06-02 11:00 | CP.PCM.PN ---
Subjective - Date & Time of Evaluation Date of Evaluation: 06/02/17 Time of Evaluation: 10:57 - Subjective Subjective: Undergoing US testing Will need dialysis today. Hg improved post transfusion Still very weak, nauseated. Objective - Vital Signs/Intake and Output Vital Signs (last 24 hours): Temp Pulse Resp BP Pulse Ox 98.1 F 69 20 141/79 97 06/01/17 23:35 06/02/17 08:00 06/01/17 23:35 06/02/17 04:10 06/01/17 23:35 Intake and Output: 06/02/17 06/02/17 06:59 18:59 Output Total 1000 Balance -1000 - Medications Medications: Current Medications Sodium Chloride (Sodium Chloride 0.9%) 1,000 mls @ 75 mls/hr IV .[id number] [facility] Last Admin: 06/01/17 14:35 Dose: Not Given Ondansetron HCl (Zofran Inj) 4 mg IVP Q4H PRN PRN Reason: Nausea/Vomiting Last Admin: 06/01/17 23:49 Dose: 4 mg Oxycodone/Acetaminophen (Percocet 5/325 Mg Tab) 2 tab PO Q4H PRN PRN Reason: Pain, moderate (4-7) Stop: 06/04/17 16:41 Last Admin: 06/01/17 18:58 Dose: 2 tab Pantoprazole Sodium (Protonix Ec Tab) 40 mg PO DAILY [facility] Last Admin: 06/02/17 09:39 Dose: 40 mg Pneumococcal Polyvalent Vaccine (Pneumovax 23 Vaccine) 0.5 ml IM .ONCE ONE Stop: 06/03/17 10:01 Tamsulosin HCl (Flomax) 0.4 mg PO DAILY [facility] Last Admin: 06/02/17 09:39 Dose: 0.4 mg - Labs Labs: 06/02/17 08:11 06/02/17 08:11 PT 14.0 SECONDS (9.7-12.2) H 05/31/17 20:01 INR 1.2 05/31/17 20:01 APTT 28 SECONDS (21-34) 05/31/17 20:01 - Constitutional Appears: No Acute Distress, Chronically Ill - Head Exam Head Exam: ATRAUMATIC, NORMAL INSPECTION - Eye Exam Eye Exam: EOMI, Normal appearance - Neck Exam Neck Exam: Normal Inspection. absent: Tenderness - Respiratory Exam Respiratory Exam: Clear to Ausculation Bilateral, NORMAL BREATHING PATTERN - Cardiovascular Exam Cardiovascular Exam: REGULAR RHYTHM, +S1 - GI/Abdominal Exam GI & Abdominal Exam: Soft. absent: Tenderness - Extremities Exam Extremities Exam: Normal Inspection. absent: Tenderness - Neurological Exam Neurological Exam: Awake, CN II-XII Intact - Skin Skin Exam: Dry, Warm Assessment and Plan (1) Obstructive and reflux uropathy Status: Acute (2) Hypertensive chronic kidney disease with stage 5 chronic kidney disease or end stage renal disease Status: Acute (3) Chronic kidney disease, stage V Status: Acute - Assessment and Plan (Free Text) Plan: Check US Will need av access Schedule dialysis today.
--- NOTE | 2017-06-02 11:29 | US ---
PROCEDURE: Ultrasound of the Kidneys HISTORY: CKD COMPARISON: Renal ultrasound performed 03/04/17 TECHNIQUE: Sonogram of the kidneys. FINDINGS: RIGHT KIDNEY: Measures: 10.8 x 5.7 x 6.6 cm. Moderate hydronephrosis. No obstructing calculus identified. LEFT KIDNEY: Measures: 4.3 x 6.2 x 6.2 cm. Moderate hydronephrosis. No obstructing calculus identified. OTHER FINDINGS: Garcia catheter within the urinary bladder. Debris is noted surrounding the Garcia catheter. IMPRESSION: Moderate bilateral hydronephrosis. Debris within the urinary bladder which is decompressed with Garcia catheter.
[2017-06-02] MEDS ORDERED: EPOETIN ALFA 10,000 UNIT/ML ML IV SCH (11:30)
[2017-06-02 15:33] LABS: MEAN CELL VOLUME 84.9 fL (80.0-94.0); MEAN CORPUSCULAR HEMOGLOBIN 30.8 pg (27.0-31.0); MEAN CORPUSCULAR HGB CONC 36.3 g/dL (33.0-37.0); MEAN PLATELET VOLUME 9.4 fL (7.2-11.7); WHITE BLOOD COUNT 6.7 K/uL (4.8-10.8)
[2017-06-02 16:23] LABS: PROSTATE SPECIFIC ANTIGEN 3.93 ng/mL (0.00-4.0)
[2017-06-02] MEDS: Epoetin Alfa 10,000 unit/ml Dialysis IV SCH (16:36)
--- NOTE | 2017-06-02 18:04 | CARD ---
APPROVED REPORT EKG Measurement Heart [id number] <Conclusion> Normal sinus rhythm Nonspecific T wave abnormality Abnormal ECG
[2017-06-03 08:05] LABS: BASO # 0.1 K/uL (0.0-0.2); BASO % 0.9 % (0.0-2.0); EOS # 0.2 K/uL (0.0-0.7); EOS % 2.7 % (0.0-4.0); HEMATOCRIT 20.4 % (35.0-51.0); LYMPH # 0.6 K/uL (1.0-4.3); LYMPH % 8.4 % (20.0-40.0); MEAN CORPUSCULAR HGB CONC 35.3 g/dL (33.0-37.0); MEAN PLATELET VOLUME 9.3 fL (7.2-11.7); MONO # 0.8 K/uL (0.0-0.8); MONO % 11.9 % (0.0-10.0); PLATELET COUNT 157 K/uL (130-400); WHITE BLOOD COUNT 6.6 K/uL (4.8-10.8)
[2017-06-03 08:14] LABS: POTASSIUM 4.8 mmol/L (3.6-5.2)
[2017-06-03 08:15] LABS: BILIRUBIN,TOTAL 1.2 mg/dL (0.2-1.3)
[2017-06-03 08:16] LABS: ALB/GLOB RATIO 1.4 (1.0-2.1); CALCIUM 8.4 mg/dl (8.6-10.4); MAGNESIUM 1.5 mg/dL (1.6-2.3); PHOSPHOROUS 5.6 mg/dL (2.5-4.5); TOTAL PROTEIN 6.8 g/dL (6.3-8.3)
--- NOTE | 2017-06-03 08:47 | PCM.URO ---
Urology Progress Note - Objective Lab Results Last 24 Hours: Laboratory Results - last 24 hr 06/02/17 06/02/17 06/02/17 08:11 08:11 08:11 WBC RBC Hgb Hct MCV MCH MCHC RDW Plt Count MPV Neut % (Auto) Lymph % (Auto) [place] % (Auto) Eos % (Auto) Baso % (Auto) Neut # Lymph # [place] # Eos # Baso # Neutrophils % (Manual) 82 H Lymphocytes % (Manual) 10 L Monocytes % (Manual) 7 Eosinophils % (Manual) 1 Platelet Estimate Normal Hypochromasia (manual) Slight Poikilocytosis (manual Slight Anisocytosis (manual) Slight Tear Drop Cells Slight Ovalocytes Slight [place] Cells Slight Sodium 145 Potassium 5.0 Chloride 107 Carbon Dioxide 19 L Anion Gap 24 H BUN 115 H* Creatinine 13.9 H* Est GFR ( Amer) 4 Est GFR (Non-Af Amer) 4 Random Glucose 102 Calcium 8.7 Phosphorus 7.8 H Magnesium 1.7 % Saturation 20 Ferritin 1770.0 Total Bilirubin 1.0 AST 14 L D ALT 22 Alkaline Phosphatase 51 Total Protein 6.8 Albumin 3.7 Globulin 3.0 Albumin/Globulin Ratio 1.2 Prostate Specific Ag 3.93 Hep Bs Antigen Negative Hep Bs Antibody Hep B Core IgM Ab Hepatitis C Antibody 06/02/17 06/02/17 06/02/17 08:11 08:11 15:27 WBC 6.7 RBC 2.36 L Hgb 7.3 L Hct 20.0 L MCV 84.9 MCH 30.8 MCHC 36.3 RDW 17.0 H Plt Count 155 MPV 9.4 Neut % (Auto) Lymph % (Auto) [place] % (Auto) Eos % (Auto) Baso % (Auto) Neut # Lymph # [place] # Eos # Baso # Neutrophils % (Manual) Lymphocytes % (Manual) Monocytes % (Manual) Eosinophils % (Manual) Platelet Estimate Hypochromasia (manual) Poikilocytosis (manual Anisocytosis (manual) Tear Drop Cells Ovalocytes [place] Cells Sodium Potassium Chloride Carbon Dioxide Anion Gap BUN Creatinine Est GFR ( Amer) Est GFR (Non-Af Amer) Random Glucose Calcium Phosphorus Magnesium % Saturation Ferritin Total Bilirubin AST ALT Alkaline Phosphatase Total Protein Albumin Globulin Albumin/Globulin Ratio Prostate Specific Ag Hep Bs Antigen Hep Bs Antibody Negative Hep B Core IgM Ab Negative Hepatitis C Antibody Negative 06/03/17 06/03/17 07:52 07:52 WBC 6.6 RBC 2.40 L Hgb 7.2 L Hct 20.4 L MCV 85.0 MCH 30.0 MCHC 35.3 RDW 17.0 H Plt Count 157 MPV 9.3 Neut % (Auto) 76.1 H Lymph % (Auto) 8.4 L [place] % (Auto) 11.9 H Eos % (Auto) 2.7 Baso % (Auto) 0.9 Neut # 5.0 Lymph # 0.6 L [place] # 0.8 Eos # 0.2 Baso # 0.1 Neutrophils % (Manual) Lymphocytes % (Manual) Monocytes % (Manual) Eosinophils % (Manual) Platelet Estimate Hypochromasia (manual) Poikilocytosis (manual Anisocytosis (manual) Tear Drop Cells Ovalocytes Feng Cells Sodium 142 Potassium 4.8 Chloride 102 Carbon Dioxide 26 Anion Gap 19 BUN 67 H Creatinine 8.7 H* D Est GFR ( Amer) 8 Est GFR (Non-Af Amer) 6 Random Glucose 95 Calcium 8.4 L Phosphorus 5.6 H Magnesium 1.5 L % Saturation Ferritin Total Bilirubin 1.2 AST 13 L ALT 19 L Alkaline Phosphatase 43 Total Protein 6.8 Albumin 3.9 Globulin 2.9 Albumin/Globulin Ratio 1.4 Prostate Specific Ag Hep Bs Antigen Hep Bs Antibody Hep B Core IgM Ab Hepatitis C Antibody Intake & Output: Intake & Output 06/02/17 06/03/17 06/03/17 18:59 06:59 18:59 Intake Total 400 Output Total 1250 Balance 400 -1250 Intake: Oral 400 Output: Urine 1250 Urethral (Garcia) 1250 Other: # Voids Urethral (Garcia) 1,050 Vital Signs: Vital Signs - 24 hr 06/02/17 06/02/17 06/02/17 14:05 15:15 15:45 Temperature 97.8 F Pulse Rate 64 Respiratory 16 Rate Blood Pressure 171/98 H Blood Pressure 161/101 H 171/106 H [Right Arm] O2 Sat by Pulse Oximetry 06/02/17 06/02/17 06/02/17 16:20 16:50 17:15 Temperature Pulse Rate Respiratory Rate Blood Pressure Blood Pressure 174/102 H 179/97 H 188/100 H [Right Arm] O2 Sat by Pulse Oximetry 06/02/17 06/02/1717 18:00 20:03 23:21 Temperature 98.1 F 99.4 F Pulse Rate 80 90 83 Respiratory 20 20 Rate Blood Pressure 154/94 H 165/90 H Blood Pressure [Right Arm] O2 Sat by Pulse 97 99 Oximetry 06/03/17 06/03/17 01:00 07:48 Temperature 99.3 F Pulse Rate 85 88 Respiratory 20 Rate Blood Pressure 151/95 H Blood Pressure [Right Arm] O2 Sat by Pulse 98 Oximetry
[2017-06-03 09:16] LABS: EOSINOPHIL 1 % (0-4); NEUTROPHIL 87 % (50-75); TOTAL CELLS COUNTED 100
--- NOTE | 2017-06-03 09:47 | CP.PCM.PN ---
<Melissa Davila - Last Filed: 06/03/17 15:36> Subjective - Date & Time of Evaluation Date of Evaluation: 06/03/17 Time of Evaluation: 09:30 - Subjective Subjective: Medicine Progress Note: Patient was seen and examined in the AM at bedside. Patient states he still has dysuria. Patient denies shortness of breath, chest pain, palpitations or lightheadedness. Patient states he did have a headache overnight but denies a current headache. Patient states he right knee is a bit swollen and slightly tender when he is ambulating. He states he did have laproscopic surgery in the past on his knee and he started ambulating more yesterday because he is not used to being so sedentary at home. Objective - Vital Signs/Intake and Output Vital Signs (last 24 hours): Temp Pulse Resp BP Pulse Ox 99.3 F 91 H 20 151/95 H 98 06/03/17 07:48 06/03/17 08:00 06/03/17 07:48 06/03/17 07:48 06/03/17 07:48 Intake and Output: 06/03/17 06/03/17 06:59 18:59 Output Total 1250 Balance -1250 - Medications Medications: Current Medications Epoetin Johnson (Procrit) 10,000 unit IV TTS [facility] Last Admin: 06/02/17 16:36 Dose: 10,000 unit Magnesium Sulfate/Dextrose (Magnesium Sulfate 1 Gm/100 Ml D5w) 1 gm in 100 mls @ 300 mls/hr IVPB Q30M [facility] Stop: 06/03/17 10:34 Ondansetron HCl (Zofran Inj) 4 mg IVP Q4H PRN PRN Reason: Nausea/Vomiting Last Admin: 06/01/17 23:49 Dose: 4 mg Oxycodone/Acetaminophen (Percocet 5/325 Mg Tab) 2 tab PO Q4H PRN PRN Reason: Pain, moderate (4-7) Stop: 06/04/17 16:41 Last Admin: 06/01/17 18:58 Dose: 2 tab Pantoprazole Sodium (Protonix Ec Tab) 40 mg PO DAILY [facility] Last Admin: 06/02/17 09:39 Dose: 40 mg Pneumococcal Polyvalent Vaccine (Pneumovax 23 Vaccine) 0.5 ml IM .ONCE ONE Stop: 06/03/17 10:01 Tamsulosin HCl (Flomax) 0.4 mg PO DAILY [facility] Last Admin: 06/02/17 09:39 Dose: 0.4 mg - Labs Labs: 06/03/17 07:52 06/03/17 07:52 PT 14.0 SECONDS (9.7-12.2) H 05/31/17 20:01 INR 1.2 05/31/17 20:01 APTT 28 SECONDS (21-34) 05/31/17 20:01 - Constitutional Appears: No Acute Distress - Head Exam Head Exam: ATRAUMATIC, NORMAL INSPECTION, NORMOCEPHALIC - Eye Exam Eye Exam: EOMI, Normal appearance, PERRL Pupil Exam: NORMAL ACCOMODATION - ENT Exam ENT Exam: Mucous Membranes Moist - Respiratory Exam Respiratory Exam: Clear to Ausculation Bilateral, NORMAL BREATHING PATTERN - Cardiovascular Exam Cardiovascular Exam: REGULAR RHYTHM, RRR, +S1, +S2 - GI/Abdominal Exam GI & Abdominal Exam: Soft, Normal Bowel Sounds. absent: Tenderness - Exam Additional comments: Garcia Catheter in place. Hematuria. - Extremities Exam Extremities Exam: Joint Swelling (right knee swelling). absent: Pedal Edema, Tenderness - Neurological Exam Neurological Exam: Alert, Awake, Oriented x3 - Psychiatric Exam Psychiatric exam: Normal Affect, Normal Mood - Skin Skin Exam: Normal Color, Warm Assessment and Plan - Assessment and Plan (Free Text) Plan: 1.) Anemia secondary to CKD * H/H (06/03/17): 7.2/20.4 * Transfused 1 unit in the ED and transfused 1 unit on the floor (06/01/17) - Transfused 2 units 06/01/17 - Monitor repeat CBC stool occult blood (06/01): Negative F/u TIBC, 20% Iron saturation Ferritin: 1920 F/u echo 2.) History of urinary retention Urology, Dr. Cecil Roque---> help appreciated -Garcia in place - continues to have hematuria - Spoke with Dr. Roque may have a cystoscopy done on Wednesday 06/06 -Flomax 0.4mg PO daily -Monitor input and output - PSA 3.93 3.) Renal failure, acute secondary to chronic obstructive nephropathy History of BPH BUN/Cr: 115/13.9 It Service Continuity Supervisor, Dr. Garrison/Dr. Paul --> Help appreciated - Renal ultrasound: Moderate bilateral hydronephrosis; Debris within the urinary bladder which is decompressed with Garcia catheter - Dialysis started today 06/02/17 - f/u [facility]RACHITA, p-ANCA, c-ANCA Surgical Consult, Dr. Motley --> Help appreciated - Permacath will be placed 06/01 F/u Vit D and PTH 4.) Right Knee Swelling - PT - Ice and elevation when on bed 5.) Hypertension - Started (06/03) 12.5mg Losartan PO daily 6.) Prophylactic measure Protonix 40mg PO daily SCDs contraindicated due to LE edema Anticoagulation due to worsening kidney function and suspicious of GI bleed Case Discussed with Dr. Sandra Davila PGY-1 <Ector Flores H - Last Filed: 06/03/17 17:06> Objective - Vital Signs/Intake and Output Vital Signs (last 24 hours): Temp Pulse Resp BP Pulse Ox 98.5 F 85 20 144/85 98 06/03/17 16:58 06/03/17 16:58 06/03/17 16:58 06/03/17 16:58 06/03/17 16:58 Intake and Output: 06/03/17 06/03/17 06:59 18:59 Intake Total 600 Output Total 1250 750 Balance -1250 -150 - Medications Medications: Current Medications Calcium Acetate (Phoslo) 667 mg PO TIDCC [facility] Last Admin: 06/03/17 16:51 Dose: 667 mg Epoetin Johnson (Procrit) 10,000 unit IV TTS [facility] Last Admin: 06/02/17 16:36 Dose: 10,000 unit Losartan Potassium (Cozaar) 12.5 mg PO DAILY [facility] Last Admin: 06/03/17 12:20 Dose: 12.5 mg Ondansetron HCl (Zofran Inj) 4 mg IVP Q4H PRN PRN Reason: Nausea/Vomiting Last Admin: 06/01/17 23:49 Dose: 4 mg Oxycodone/Acetaminophen (Percocet 5/325 Mg Tab) 2 tab PO Q4H PRN PRN Reason: Pain, moderate (4-7) Stop: 06/04/17 16:41 Last Admin: 06/03/17 16:51 Dose: 2 tab Pantoprazole Sodium (Protonix Ec Tab) 40 mg PO DAILY [facility] Last Admin: 06/03/17 10:36 Dose: 40 mg Pneumococcal Polyvalent Vaccine (Pneumovax 23 Vaccine) 0.5 ml IM .ONCE ONE Stop: 06/05/17 14:34 Tamsulosin HCl (Flomax) 0.4 mg PO DAILY [facility] Last Admin: 06/03/17 10:37 Dose: 0.4 mg - Labs Labs: 06/03/17 07:52 06/03/17 07:52 PT 14.0 SECONDS (9.7-12.2) H 05/31/17 20:01 INR 1.2 05/31/17 20:01 APTT 28 SECONDS (21-34) 05/31/17 20:01 Attending/Attestation - Attestation I have personally seen and examined this patient.: Yes I have fully participated in the care of the patient.: Yes I have reviewed all pertinent clinical information, including history, physical exam and plan: Yes Notes (Text): Medical attending: Patient was seen and examined by me, agrees the above note by medical radiation therapist. The patient successfully had session of hemodialysis yesterday he reported that he doesn't have any chest pain or shortness of breath today. He also had venous mapping done on his upper extremity or potential AV fistula creation. Today we had a discussion as to regards of what this was. Furthermore his hemoglobin has so far remained semi-stable. Today the hemoglobin was 7.2, yesterday was 7.4 - will continue to monitor this. As mentioned previously the patient had 4 units of PRBCs given. It appears the anemia is secondary to chronic kidney disease Currently the patient reported that he's feeling okay besides some suprapubic area discomfort area and he currently still has the Garcia catheter in at this time Thank you very much, Ector Flores
[2017-06-03] MEDS ORDERED: Influenza Virus Vaccine 45 mcg/0.5 ml Syr IM ONE (10:00)
[2017-06-03] MEDS ORDERED: Pneumococcal 23-Valent Vaccine IM ONE (10:00)
[2017-06-03] MEDS: Magnesium Sulfate 1 gm in D5W 1 GM/100 ML BAG IVPB SCH ×2 (10:35→11:12)
[2017-06-03] MEDS: Pantoprazole 40 mg EC Tab PO SCH (10:36)
--- NOTE | 2017-06-03 11:01 | VASCLAB ---
PROCEDURE: Bilateral Upper Extremity Vein Mapping HISTORY: ESRD, Pre-op AVF PRIORS: None. TECHNIQUE: Bilateral upper extremity, internal jugular, subclavian, axillary, brachial, ulnar, radial, basilic and upper cephalic veins were evaluated. Flow was assessed with color Doppler, compressibility, assessment of phasic flow and augmentation response. Report prepared by BRIANNE Pressley FINDINGS: RIGHT: 1. Internal Jugular Vein: Unable to image due to dialysis catheter 2. Subclavian Vein: Unable to image due to dialysis catheter 3. Axillary Vein: Compressibility - Fully compressible: Thrombus - None 4. Brachial Vein: Compressibility - Fully compressible: Thrombus - None 5. Ulnar Vein:Compressibility - Fully compressible: Thrombus - None 6. Radial Vein:Compressibility - Fully compressible: Thrombus - None 7. Cephalic Vein: Compressibility - Fully compressible: thrombus - None 7.1. Upper Arm: Proximal Diameter: 0.23cm. Mid Diameter: 0.17cm. 7.2. Forearm: Not visible due to small caliber at this level 8. Basilic Vein:Compressibility - Fully compressible: thrombus - None 8.1. Upper Arm:Proximal Diameter: 0.50cm. Mid Diameter: 0.24cm. Distal Diameter: 0.29cm. 8.2. Forearm: Proximal Diameter: 0.13cm. Mid Diameter:0.14cm. Distal Diameter: 0.11cm. LEFT: 1. Internal Jugular Vein: Compressibility - Fully compressible: Thrombus - None : Flow - Phasic 2. Subclavian Vein:Compressibility - Fully compressible: Thrombus - None : Flow - Phasic 3. Axillary Vein: Compressibility - Fully compressible: Thrombus - None 4. Brachial Vein: Compressibility - Fully compressible: Thrombus - None 5. Ulnar Vein:Compressibility - Fully compressible: Thrombus - None 6. Radial Vein:Compressibility - Fully compressible: Thrombus - None 7. Cephalic Vein: Compressibility - Fully compressible: thrombus - None 7.1. Upper Arm: Proximal Diameter: 0.10cm. Mid Diameter: 0.11cm. Distal Diameter: 0.10cm. 7.2. Forearm: Proximal Diameter: 0.10cm. Limited view 8. Basilic Vein:Compressibility - Fully compressible: thrombus - None 8.1. Upper Arm:Proximal Diameter: 0.29cm. Mid Diameter: 0.29cm. Distal Diameter: 0.18cm. 8.2. Forearm: Proximal Diameter: 0.13cm. Mid Diameter:0.13cm. Distal Diameter: 0.09cm. OTHER FINDINGS: Right: None. Left: None. IMPRESSION: 1. No evidence of venous thrombosis in bilateral upper extremities. 2. Please refer to the above listed measurements, for vein size.
[2017-06-03] MEDS: Losartan 12.5 MG TAB PO SCH (12:20)
--- NOTE | 2017-06-03 14:52 | CP.PCM.PN ---
Subjective - Date & Time of Evaluation Date of Evaluation: 06/03/17 Time of Evaluation: 14:50 - Subjective Subjective: stable first dialysis 06/02; UF 800ml Still with UO- sanguinous feels better renal US shows small left kidney; bilat moderate hydro Objective - Vital Signs/Intake and Output Vital Signs (last 24 hours): Temp Pulse Resp BP Pulse Ox 99.3 F 81 20 151/95 H 98 06/03/17 07:48 06/03/17 12:00 06/03/17 07:48 06/03/17 07:48 06/03/17 07:48 Intake and Output: 06/03/17 06/03/17 06:59 18:59 Output Total 1250 Balance -1250 - Medications Medications: Current Medications Epoetin Johnson (Procrit) 10,000 unit IV TTS [facility] Last Admin: 06/02/17 16:36 Dose: 10,000 unit Losartan Potassium (Cozaar) 12.5 mg PO DAILY [facility] Last Admin: 06/03/17 12:20 Dose: 12.5 mg Ondansetron HCl (Zofran Inj) 4 mg IVP Q4H PRN PRN Reason: Nausea/Vomiting Last Admin: 06/01/17 23:49 Dose: 4 mg Oxycodone/Acetaminophen (Percocet 5/325 Mg Tab) 2 tab PO Q4H PRN PRN Reason: Pain, moderate (4-7) Stop: 06/04/17 16:41 Last Admin: 06/01/17 18:58 Dose: 2 tab Pantoprazole Sodium (Protonix Ec Tab) 40 mg PO DAILY [facility] Last Admin: 06/03/17 10:36 Dose: 40 mg Pneumococcal Polyvalent Vaccine (Pneumovax 23 Vaccine) 0.5 ml IM .ONCE ONE Stop: 06/05/17 14:34 Tamsulosin HCl (Flomax) 0.4 mg PO DAILY [facility] Last Admin: 06/03/17 10:37 Dose: 0.4 mg - Labs Labs: 06/03/17 07:52 06/03/17 07:52 PT 14.0 SECONDS (9.7-12.2) H 05/31/17 20:01 INR 1.2 05/31/17 20:01 APTT 28 SECONDS (21-34) 05/31/17 20:01 - Constitutional Appears: No Acute Distress, Chronically Ill - Head Exam Head Exam: ATRAUMATIC, NORMAL INSPECTION - Eye Exam Eye Exam: EOMI, Normal appearance - Neck Exam Neck Exam: Normal Inspection. absent: Tenderness - Cardiovascular Exam Cardiovascular Exam: REGULAR RHYTHM, +S1 - GI/Abdominal Exam GI & Abdominal Exam: Soft. absent: Tenderness - Extremities Exam Extremities Exam: Normal Inspection. absent: Tenderness - Neurological Exam Neurological Exam: Awake, CN II-XII Intact - Skin Skin Exam: Dry, Warm Assessment and Plan (1) Obstructive and reflux uropathy Status: Acute (2) Hypertensive chronic kidney disease with stage 5 chronic kidney disease or end stage renal disease Status: Acute (3) Chronic kidney disease, stage V Status: Acute - Assessment and Plan (Free Text) Plan: follow up Renal function scan- check chronicity of obstruction Add phoslo Next HD in AM
[2017-06-03] MEDS: Oxycodone/Acetaminophen 5/325 mg Tab PO PRN (16:51)
[2017-06-04] MEDS: Oxycodone/Acetaminophen 5/325 mg Tab PO PRN ×2 (00:21→15:24)
[2017-06-04 08:31] LABS: BASO # 0.1 K/uL (0.0-0.2); BASO % 0.7 % (0.0-2.0); EOS # 0.1 K/uL (0.0-0.7); EOS % 1.4 % (0.0-4.0); HEMATOCRIT 20.9 % (35.0-51.0); LYMPH # 0.6 K/uL (1.0-4.3); LYMPH % 5.1 % (20.0-40.0); MEAN CELL VOLUME 85.1 fL (80.0-94.0); MEAN CORPUSCULAR HEMOGLOBIN 30.2 pg (27.0-31.0); MEAN CORPUSCULAR HGB CONC 35.5 g/dL (33.0-37.0); MEAN PLATELET VOLUME 9.3 fL (7.2-11.7); MONO # 0.9 K/uL (0.0-0.8); MONO % 8.5 % (0.0-10.0); PLATELET COUNT 161 K/uL (130-400); RED CELL DISTRIBUTION WIDTH 17.5 % (11.5-14.5); WHITE BLOOD COUNT 10.8 K/uL (4.8-10.8)
[2017-06-04 08:50] LABS: ALB/GLOB RATIO 1.2 (1.0-2.1); BILIRUBIN,TOTAL 1.1 mg/dL (0.2-1.3); MAGNESIUM 1.9 mg/dL (1.6-2.3); PHOSPHOROUS 6.3 mg/dL (2.5-4.5); POTASSIUM 4.6 mmol/L (3.6-5.2); TOTAL PROTEIN 6.9 g/dL (6.3-8.3)
[2017-06-04] MEDS: Losartan 12.5 MG TAB PO SCH ×2 (08:55→10:08)
[2017-06-04] MEDS: Pantoprazole 40 mg EC Tab PO SCH (09:30)
[2017-06-04 09:32] LABS: NEUTROPHIL 85 % (50-75); TOTAL CELLS COUNTED 100
[2017-06-04] MEDS: Epoetin Alfa 10,000 unit/ml Dialysis IV SCH (11:11)
--- NOTE | 2017-06-04 11:36 | NM ---
PROCEDURE: Renal scan, flow study HISTORY: check chronicity of hydro COMPARISON: 06/02/2017 renal ultrasound. Summary of findings on the comparison examination: Moderate bilateral hydronephrosis. 03/04/2017 renal ultrasound TECHNIQUE: 23.1 mCi technetium 99 M DTPA administered intravenously. Study performed per institutional protocol. FINDINGS: Right Kidney: Flow component: Asymmetrical perfusion, a diminished perfusion of the right kidney compared to the left kidney. Time to peak: 1.5 minutes Peak to T1/2 Peak: 12 minutes Left Kidney: Flow component: Asymmetrical profusion, left kidney better perfused on the right. Time to peak: 20.5 minutes Peak to T1/2 Peak: Not applicable Split Renal Function: Right kidney 40.0 % Left kidney 60.0 % IMPRESSION: Obstructive uropathy, failure to clear radionuclide bilaterally identified. The findings are consistent with bilateral hydronephrosis identified on recent renal ultrasound examinations. Split renal function studies assigned 40% of activity to the right kidney, remaining 60% to the left kidney.
--- NOTE | 2017-06-04 11:39 | CP.PCM.PN ---
Addendum entered and electronically signed by Samaria Marte DO 06/04/17 13 :13: F/U Renal Nuclear Scan results to check for chronicity of obstruction. Original Note: <Samaria Marte - Last Filed: 06/04/17 12:54> Subjective - Date & Time of Evaluation Date of Evaluation: 06/04/17 Time of Evaluation: 11:15 - Subjective Subjective: PGY 2 Medicine Note- Dr. Flores's service Pt seen and examined in no acute distress. Patient feels that he is having a gout flareup. He states that he typically experiences pain in his elbows and phalangeal joints when the flareups occur. He currently denies subjective fevers or chills, nausea, vomiting, chest pain, palpitations, lightheadedness, diarrhea or constipation at this time. Objective - Vital Signs/Intake and Output Vital Signs (last 24 hours): Temp Pulse Resp BP Pulse Ox 98.3 F 85 18 166/86 H 100 06/04/17 11:15 06/04/17 11:15 06/04/17 11:15 06/04/17 11:30 06/04/17 11:15 Intake and Output: 06/04/17 06/04/17 06:59 18:59 Intake Total 100 Output Total 1400 Balance -1300 - Medications Medications: Current Medications Calcium Acetate (Phoslo) 667 mg PO TIDCC [facility] Last Admin: 06/04/17 08:33 Dose: 667 mg Epoetin Johnson (Procrit) 10,000 unit IV TTS [facility] Last Admin: 06/04/17 11:11 Dose: 10,000 unit Losartan Potassium (Cozaar) 12.5 mg PO DAILY [facility] Last Admin: 06/04/17 08:55 Dose: 12.5 mg Ondansetron HCl (Zofran Inj) 4 mg IVP Q4H PRN PRN Reason: Nausea/Vomiting Last Admin: 06/01/17 23:49 Dose: 4 mg Oxycodone/Acetaminophen (Percocet 5/325 Mg Tab) 2 tab PO Q4H PRN PRN Reason: Pain, moderate (4-7) Stop: 06/04/17 16:41 Last Admin: 06/04/17 00:21 Dose: 2 tab Pantoprazole Sodium (Protonix Ec Tab) 40 mg PO DAILY [facility] Last Admin: 06/04/17 09:30 Dose: 40 mg Pneumococcal Polyvalent Vaccine (Pneumovax 23 Vaccine) 0.5 ml IM .ONCE ONE Stop: 06/05/17 14:34 Tamsulosin HCl (Flomax) 0.4 mg PO DAILY [facility] Last Admin: 06/04/17 09:30 Dose: 0.4 mg - Labs Labs: 06/04/17 08:18 06/04/17 08:18 PT 14.0 SECONDS (9.7-12.2) H 05/31/17 20:01 INR 1.2 05/31/17 20:01 APTT 28 SECONDS (21-34) 05/31/17 20:01 - Constitutional Appears: Non-toxic, No Acute Distress - Head Exam Head Exam: ATRAUMATIC, NORMAL INSPECTION, NORMOCEPHALIC - Eye Exam Eye Exam: EOMI, Normal appearance, PERRL Pupil Exam: NORMAL ACCOMODATION - ENT Exam ENT Exam: Mucous Membranes Moist - Neck Exam Neck Exam: Full ROM - Respiratory Exam Respiratory Exam: NORMAL BREATHING PATTERN. absent: Wheezes - Cardiovascular Exam Cardiovascular Exam: +S1, +S2 - GI/Abdominal Exam GI & Abdominal Exam: Soft, Normal Bowel Sounds. absent: Tenderness - Extremities Exam Extremities Exam: Full ROM, Joint Swelling (in elbows and second phalangeal joints bilaterally), Normal Capillary Refill, Pedal Edema, Tenderness - Back Exam Back Exam: Full ROM, NORMAL INSPECTION - Neurological Exam Neurological Exam: Alert, Awake, Oriented x3 - Psychiatric Exam Psychiatric exam: Normal Affect, Normal Mood - Skin Skin Exam: Dry, Intact, Normal Color, Warm Assessment and Plan - Assessment and Plan (Free Text) Assessment: Anemia secondary to CKD * H/H (06/04/17): 7.4/20.9. Stable at this time. 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 Motley --> Help appreciated History of urinary retention Urology, Dr. Cecil Roque---> help appreciated -Garcia in place - continues to have hematuria - Discussion with Dr. Roque regarding possible cystoscopy on Wednesday 06/06 -Flomax 0.4mg PO daily -Monitor input and output - PSA 3.93 Gout Flareup F/U Uric acid level Toradol 30mg IV Q6 PRN Solumedrol 40mg IV BID Ice therapy as well Right Knee Swelling - Continued physical therapy - Ice and elevation when on bed -Pain control (Toradol PRN) Hypertension - Started (06/03) 12.5mg Losartan PO daily Prophylactic measure Protonix 40mg PO daily SCDs contraindicated due to LE edema VTE contraindications due to suspected active hemorrhage on admission Anticoagulation due to worsening kidney function and suspicious of GI bleed <Ector Flores H - Last Filed: 06/04/17 15:58> Objective - Vital Signs/Intake and Output Vital Signs (last 24 hours): Temp Pulse Resp BP Pulse Ox 98.3 F 93 H 18 139/83 100 06/04/17 14:30 06/04/17 14:30 06/04/17 14:30 06/04/17 14:30 06/04/17 14:30 Intake and Output: 06/04/17 06/04/17 06:59 18:59 Intake Total 100 Output Total 1400 Balance -1300 - Medications Medications: Current Medications Calcium Acetate (Phoslo) 667 mg PO TIDCC [facility] Last Admin: 06/04/17 13:26 Dose: Not Given Epoetin Johnson (Procrit) 10,000 unit IV TTS [facility] Last Admin: 06/04/17 11:11 Dose: 10,000 unit Ketorolac Tromethamine (Toradol) 30 mg IVP Q6 PRN PRN Reason: Pain, Mild (1-3) Losartan Potassium (Cozaar) 12.5 mg PO DAILY [facility] Last Admin: 06/04/17 10:08 Dose: Not Given Methylprednisolone (Solu-Medrol) 40 mg IV Q12 [facility] Ondansetron HCl (Zofran Inj) 4 mg IVP Q4H PRN PRN Reason: Nausea/Vomiting Last Admin: 06/01/17 23:49 Dose: 4 mg Oxycodone/Acetaminophen (Percocet 5/325 Mg Tab) 2 tab PO Q4H PRN PRN Reason: Pain, moderate (4-7) Stop: 06/04/17 16:41 Last Admin: 06/04/17 15:24 Dose: 2 tab Pantoprazole Sodium (Protonix Ec Tab) 40 mg PO DAILY [facility] Last Admin: 06/04/17 09:30 Dose: 40 mg Pneumococcal Polyvalent Vaccine (Pneumovax 23 Vaccine) 0.5 ml IM .ONCE ONE Stop: 06/05/17 14:34 Tamsulosin HCl (Flomax) 0.4 mg PO DAILY [facility] Last Admin: 06/04/17 09:30 Dose: 0.4 mg - Labs Labs: 06/04/17 08:18 06/04/17 08:18 PT 14.0 SECONDS (9.7-12.2) H 05/31/17 20:01 INR 1.2 05/31/17 20:01 APTT 28 SECONDS (21-34) 05/31/17 20:01 Attending/Attestation - Attestation I have personally seen and examined this patient.: Yes I have fully participated in the care of the patient.: Yes I have reviewed all pertinent clinical information, including history, physical exam and plan: Yes Notes (Text): 06/04/17 15:54 Medical Attending: Patient was seen and examined by me. Agree with the above note by the resident. The patient was seen by us while he was at HD. He denied shortness of breath, denied chest pain, denied headache He did report his right knee being + swollen, + tender. There is a history of gout. Will check uric acid level. Add toradol as well as solumedrol IV BID thank you Ector Flores
[2017-06-04 11:59] LABS: URIC ACID 8.4 mg/dL (3.5-8.5)
--- NOTE | 2017-06-04 12:23 | CP.PCM.PN ---
Subjective - Date & Time of Evaluation Date of Evaluation: 06/04/17 Time of Evaluation: 12:20 - Subjective Subjective: Notes reviewed Comfortable just completed nuclear scan Seen in hd unit on dialysis qb 250 ROS 10 point negative Objective - Vital Signs/Intake and Output Vital Signs (last 24 hours): Temp Pulse Resp BP Pulse Ox 98.3 F 85 18 158/89 H 100 06/04/17 11:15 06/04/17 11:15 06/04/17 11:15 06/04/17 12:00 06/04/17 11:15 Intake and Output: 06/04/17 06/04/17 06:59 18:59 Intake Total 100 Output Total 1400 Balance -1300 - Medications Medications: Current Medications Calcium Acetate (Phoslo) 667 mg PO [facility]CC [facility] Last Admin: 06/04/17 08:33 Dose: 667 mg Epoetin Johnson (Procrit) 10,000 unit IV TTS [facility] Last Admin: 06/04/17 11:11 Dose: 10,000 unit Ketorolac Tromethamine (Toradol) 30 mg IVP Q6 [facility] Losartan Potassium (Cozaar) 12.5 mg PO DAILY [facility] Last Admin: 06/04/17 10:08 Dose: Not Given Methylprednisolone (Solu-Medrol) 40 mg IV BID [facility] Ondansetron HCl (Zofran Inj) 4 mg IVP Q4H PRN PRN Reason: Nausea/Vomiting Last Admin: 06/01/17 23:49 Dose: 4 mg Oxycodone/Acetaminophen (Percocet 5/325 Mg Tab) 2 tab PO Q4H PRN PRN Reason: Pain, moderate (4-7) Stop: 06/04/17 16:41 Last Admin: 06/04/17 00:21 Dose: 2 tab Pantoprazole Sodium (Protonix Ec Tab) 40 mg PO DAILY [facility] Last Admin: 06/04/17 09:30 Dose: 40 mg Pneumococcal Polyvalent Vaccine (Pneumovax 23 Vaccine) 0.5 ml IM .ONCE ONE Stop: 06/05/17 14:34 Tamsulosin HCl (Flomax) 0.4 mg PO DAILY [facility] Last Admin: 06/04/17 09:30 Dose: 0.4 mg - Labs Labs: 06/04/17 08:18 06/04/17 08:18 PT 14.0 SECONDS (9.7-12.2) H 05/31/17 20:01 INR 1.2 05/31/17 20:01 APTT 28 SECONDS (21-34) 05/31/17 20:01 - Constitutional Appears: Well, Non-toxic - Head Exam Head Exam: ATRAUMATIC, NORMAL INSPECTION - Eye Exam Eye Exam: EOMI, Normal appearance - ENT Exam ENT Exam: Mucous Membranes Moist, Normal Oropharynx - Respiratory Exam Respiratory Exam: Clear to Ausculation Bilateral. absent: Rales, Rhonchi - Cardiovascular Exam Cardiovascular Exam: REGULAR RHYTHM, +S1, +S2 - GI/Abdominal Exam GI & Abdominal Exam: Soft, Normal Bowel Sounds - Neurological Exam Neurological Exam: Alert, Awake, Oriented x3 - Skin Skin Exam: Dry, Intact Assessment and Plan (1) Anemia Status: Acute (2) Hypertensive chronic kidney disease with stage 5 chronic kidney disease or end stage renal disease Status: Acute (3) Obstructive and reflux uropathy Status: Acute (4) Renal failure, acute Status: Acute - Assessment and Plan (Free Text) Assessment: Tolerating start of dialysis well UF as tolerated Await renal scan and urology follow up Continue current medication monitor bp
[2017-06-04] MEDS ORDERED: MethylPREDNISolone 40 mg Vial IV SCH ×2 (13:00→15:45)
[2017-06-04] MEDS ORDERED: MethylPREDNISolone 40 mg Vial IVP SCH (22:00)
[2017-06-05] MEDS ORDERED: MethylPREDNISolone 40 mg Vial IVP SCH (03:45)
--- NOTE | 2017-06-05 08:36 | CP.PCM.PN ---
<Samaria Marte - Last Filed: 06/05/17 10:17> Subjective - Date & Time of Evaluation Date of Evaluation: 06/05/17 Time of Evaluation: 09:05 - Subjective Subjective: PGY 2 Medicine Note- Dr. Flores's service Pt seen and examined in no acute distress. Patient states that he sometimes experiences intermittent nausea and vomiting at times when he is brushing his teeth in the morning. He states that he has experienced this at home as well. He states that he still has some knee pain. He states that the pain medications and steroids helped his gout. Patient asked for his primary medical doctor ( Dr. Reeves) to be updated tomorrow. Patient denied associated headaches, trauma, chest pain, vomiting, diarrhea or constipation at this time. Objective - Vital Signs/Intake and Output Vital Signs (last 24 hours): Temp Pulse Resp BP Pulse Ox 98.9 F 98 H 20 133/88 97 06/05/17 08:04 06/05/17 08:04 06/05/17 08:04 06/05/17 08:04 06/05/17 08:04 Intake and Output: 06/05/17 06/05/17 06:59 18:59 Intake Total 740 Output Total 600 Balance 140 - Medications Medications: Current Medications Calcium Acetate (Phoslo) 667 mg PO TIDCC [facility] Last Admin: 06/04/17 17:34 Dose: 667 mg Epoetin Johnson (Procrit) 10,000 unit IV TTS [facility] Last Admin: 06/04/17 11:11 Dose: 10,000 unit Ketorolac Tromethamine (Toradol) 30 mg IVP Q6 PRN PRN Reason: Pain, Mild (1-3) Last Admin: 06/04/17 22:21 Dose: 30 mg Losartan Potassium (Cozaar) 12.5 mg PO DAILY [facility] Last Admin: 06/04/17 10:08 Dose: Not Given Methylprednisolone (Solu-Medrol) 40 mg IVP Q12H [facility] Ondansetron HCl (Zofran Inj) 4 mg IVP Q4H PRN PRN Reason: Nausea/Vomiting Last Admin: 06/01/17 23:49 Dose: 4 mg Pantoprazole Sodium (Protonix Ec Tab) 40 mg PO DAILY [facility] Last Admin: 06/04/17 09:30 Dose: 40 mg Pneumococcal Polyvalent Vaccine (Pneumovax 23 Vaccine) 0.5 ml IM .ONCE ONE Stop: 06/05/17 14:34 Tamsulosin HCl (Flomax) 0.4 mg PO DAILY [facility] Last Admin: 06/04/17 09:30 Dose: 0.4 mg - Labs Labs: 06/04/17 08:18 06/04/17 08:18 PT 14.0 SECONDS (9.7-12.2) H 05/31/17 20:01 INR 1.2 05/31/17 20:01 APTT 28 SECONDS (21-34) 05/31/17 20:01 - Constitutional Appears: Non-toxic, No Acute Distress - Head Exam Head Exam: ATRAUMATIC, NORMAL INSPECTION, NORMOCEPHALIC - Eye Exam Eye Exam: EOMI, Normal appearance, PERRL Pupil Exam: NORMAL ACCOMODATION, PERRL - ENT Exam ENT Exam: Mucous Membranes Moist - Neck Exam Neck Exam: Full ROM - Respiratory Exam Respiratory Exam: NORMAL BREATHING PATTERN. absent: Wheezes - Cardiovascular Exam Cardiovascular Exam: +S1, +S2 - GI/Abdominal Exam GI & Abdominal Exam: Soft, Normal Bowel Sounds. absent: Tenderness - Extremities Exam Extremities Exam: Full ROM, Joint Swelling ((in elbows and second phalangeal joints bilaterally),), Normal Capillary Refill, Tenderness. absent: Pedal Edema - Back Exam Back Exam: Full ROM - Neurological Exam Neurological Exam: Alert, Awake, Oriented x3 - Psychiatric Exam Psychiatric exam: Normal Affect, Normal Mood - Skin Skin Exam: Dry, Normal Color, Warm Assessment and Plan - Assessment and Plan (Free Text) Assessment: Anemia secondary to CKD H/H (06/04/17): 7.4/20.9. Stable at this time. Labs not drawn. Will likely have to wait better dialysis. 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 Motley --> Help appreciated Renal Scan confirms obstructive uropathy. Findings identifying bilateral hydronephrosis. Split renal function studies assigned 40% of activity to the right kidney; remaining 60% to the left kidney. F/U with Nephro amd Urology recommendations History of urinary retention Urology, Dr. Cecil Roque---> help appreciated -Garcia in place - continues to have hematuria - Discussion with Dr. Roque regarding possible cystoscopy on Wednesday 06/06 -Flomax 0.4mg PO daily -Monitor input and output - PSA 3.93 Gout Flareup Uric acid level 8.4 Toradol 30mg IV Q6 PRN Solumedrol 40mg IV BID Ice therapy as well Right Knee Swelling - Continued physical therapy - Ice and elevation when on bed -Pain control (Toradol PRN) -Ambulation as tolerated Hypertension - Started (06/03) 12.5mg Losartan PO daily Prophylactic measure Protonix 40mg PO daily SCDs contraindicated due to LE edema VTE contraindications due to suspected active hemorrhage on admission Anticoagulation due to worsening kidney function and suspicions of GI bleed. Now held in prep for surgical procedure tmrw <Ector Flores H - Last Filed: 06/05/17 15:09> Objective - Vital Signs/Intake and Output Vital Signs (last 24 hours): Temp Pulse Resp BP Pulse Ox 98.9 F 98 H 20 133/88 97 06/05/17 08:04 06/05/17 08:04 06/05/17 08:04 06/05/17 08:04 06/05/17 08:04 Intake and Output: 06/05/17 06/05/17 06:59 18:59 Intake Total 740 480 Output Total 600 300 Balance 140 180 - Medications Medications: Current Medications Calcium Acetate (Phoslo) 667 mg PO TIDCC [facility] Last Admin: 06/05/17 12:30 Dose: 667 mg Epoetin Johnson (Procrit) 10,000 unit IV TTS [facility] Last Admin: 06/04/17 11:11 Dose: 10,000 unit Ketorolac Tromethamine (Toradol) 30 mg IVP Q6 PRN PRN Reason: Pain, Mild (1-3) Last Admin: 06/04/17 22:21 Dose: 30 mg Losartan Potassium (Cozaar) 12.5 mg PO DAILY [facility] Last Admin: 06/05/17 09:07 Dose: 12.5 mg Methylprednisolone (Solu-Medrol) 40 mg IVP Q12H [facility] Last Admin: 06/05/17 09:08 Dose: 40 mg Ondansetron HCl (Zofran Inj) 4 mg IVP Q4H PRN PRN Reason: Nausea/Vomiting Last Admin: 06/01/17 23:49 Dose: 4 mg Pantoprazole Sodium (Protonix Ec Tab) 40 mg PO DAILY [facility] Last Admin: 06/05/17 09:07 Dose: 40 mg Tamsulosin HCl (Flomax) 0.4 mg PO DAILY [facility] Last Admin: 06/05/17 09:07 Dose: 0.4 mg - Labs Labs: 06/05/17 11:27 06/05/17 11:27 PT 14.0 SECONDS (9.7-12.2) H 05/31/17 20:01 INR 1.2 05/31/17 20:01 APTT 28 SECONDS (21-34) 05/31/17 20:01 Attending/Attestation - Attestation I have personally seen and examined this patient.: Yes I have fully participated in the care of the patient.: Yes I have reviewed all pertinent clinical information, including history, physical exam and plan: Yes Notes (Text): 06/05/17 15:07 Medical Attending: Patient was seen and examined by me. Agree with the above note by the resident. He had his second HD yesterday and did ok. Today he was not short of breath, denied chest pain, denied palpitations, he has been trying to walk around As mentioned previously the patient reported his knee and elbow were better after getting Toradol and IV solumedrol for what is likely a gouty flair up. Also later Hgb returned and it was low. He is pending two units of PRBCs to be given. Likely will be going for AVF at some point. thank you Ector Flores
[2017-06-05] MEDS: Pantoprazole 40 mg EC Tab PO SCH (09:07)
[2017-06-05] MEDS: Losartan 12.5 MG TAB PO SCH (09:07)
[2017-06-05] MEDS: MethylPREDNISolone 40 mg Vial IVP SCH ×2 (09:08→21:58)
--- NOTE | 2017-06-05 11:04 | CARD ---
APPROVED REPORT EXAM: Two-dimensional and M-mode echocardiogram with Doppler and color Doppler. Other Information Quality : GoodRhythm : NSR INDICATION Dizziness and Vertigo RISK FACTORS Hypertension 2D DIMENSIONS IVSd1.1 (0.7-1.1cm)Aortic Root (2D)3.0 (2.0-3.7cm) LVDd6.2 (3.9-5.9cm)PWd1.2 (0.7-1.1cm) LVDs4.1 (2.5-4.0cm)FS (%) 34.0 % LVEF (%)61.9 (>50%) M-Mode DIMENSIONS RVDd2.67 (2.1-3.2cm)Left Atrium (MM)4.75 (2.5-4.0cm) IVSd1.35 (0.7-1.1cm)Aortic Root3.47 (2.2-3.7cm) LVDd6.04 (4.0-5.6cm)Aortic Cusp Exc.2.19 (1.5-2.0cm) PWd1.39 (0.7-1.1cm)FS (%) 60 % LVDs2.43 (2.0-3.8cm)LVEF (%)89 (>50%) Mitral Valve MV E Ygimizwt86.2cm/sMV A Xdxmrwif11.6cm/sE/A ratio0.7 TDI E/Lateral E'0.0E/Medial E'0.0 Tricuspid Valve TR Peak [id number]/sTR Peak [id number] <Conclusion> Left ventricle: thickness: mild concentric thickening; size: normal; overall ejection fraction: 55%: diastolic filling pressures: normal Mitral valve: annulus: normal: leaflets: normal: excursion: normal; no significant trans-mitral gradient: no significant incompetence: left atrium: upper limit of normal Aortic valve: leaflets: normal: excursion: normal; no significant trans-aortic gradient: No significant incompetence: aortic root: normal Right sided Structures: Pulmonary valve: normal;mild incompetence; Tricuspid valve: normal; no significant incompetence: Intra-cardiac hemodynamics: pulmonary systolic pressures:45mmhg; central venous pressures: normal No pericardial effusion
[2017-06-05 11:31] LABS: BASO % 0.3 % (0.0-2.0); EOS % 0.4 % (0.0-4.0); HEMATOCRIT 19.3 % (35.0-51.0); LYMPH # 0.2 K/uL (1.0-4.3); LYMPH % 1.7 % (20.0-40.0); MEAN CELL VOLUME 86.4 fL (80.0-94.0); MEAN CORPUSCULAR HEMOGLOBIN 29.6 pg (27.0-31.0); MEAN CORPUSCULAR HGB CONC 34.2 g/dL (33.0-37.0); MEAN PLATELET VOLUME 9.4 fL (7.2-11.7); MONO # 0.8 K/uL (0.0-0.8); MONO % 7.1 % (0.0-10.0); PLATELET COUNT 153 K/uL (130-400); RED CELL DISTRIBUTION WIDTH 17.4 % (11.5-14.5); WHITE BLOOD COUNT 11.9 K/uL (4.8-10.8)
[2017-06-05 11:50] LABS: EOSINOPHIL 1 % (0-4); NEUTROPHIL 91 % (50-75); TOTAL CELLS COUNTED 100
[2017-06-05 11:51] LABS: ALB/GLOB RATIO 1.2 (1.0-2.1); BILIRUBIN,TOTAL 1.1 mg/dL (0.2-1.3); CALCIUM 9.1 mg/dl (8.6-10.4); MAGNESIUM 1.8 mg/dL (1.6-2.3); PHOSPHOROUS 5.4 mg/dL (2.5-4.5); POTASSIUM 4.4 mmol/L (3.6-5.2); TOTAL PROTEIN 6.7 g/dL (6.3-8.3)
[2017-06-05 11:52] LABS: LARGE PLATELETS PRESENT
[2017-06-05] MEDS ORDERED: Pneumococcal 23-Valent Vaccine IM ONE (14:33)
[2017-06-06 07:07] LABS: BASO % 0.2 % (0.0-2.0); EOS % 0.1 % (0.0-4.0); LYMPH # 0.3 K/uL (1.0-4.3); LYMPH % 3.1 % (20.0-40.0); MEAN CELL VOLUME 85.1 fL (80.0-94.0); MEAN CORPUSCULAR HEMOGLOBIN 29.4 pg (27.0-31.0); MEAN CORPUSCULAR HGB CONC 34.6 g/dL (33.0-37.0); MEAN PLATELET VOLUME 9.7 fL (7.2-11.7); MONO # 0.6 K/uL (0.0-0.8); MONO % 5.2 % (0.0-10.0); PLATELET COUNT 157 K/uL (130-400); RED CELL DISTRIBUTION WIDTH 17.5 % (11.5-14.5); WHITE BLOOD COUNT 11.1 K/uL (4.8-10.8)
[2017-06-06 07:27] LABS: ALB/GLOB RATIO 1.3 (1.0-2.1); BILIRUBIN,TOTAL 0.9 mg/dL (0.2-1.3); TOTAL PROTEIN 6.5 g/dL (6.3-8.3)
[2017-06-06 07:28] LABS: MAGNESIUM 1.8 mg/dL (1.6-2.3); PHOSPHOROUS 5.8 mg/dL (2.5-4.5)
[2017-06-06 08:33] LABS: NEUTROPHIL 89 % (50-75); TOTAL CELLS COUNTED 100
--- NOTE | 2017-06-06 09:27 | CP.PCM.PN ---
<Melissa Davila - Last Filed: 06/06/17 16:29> Subjective - Date & Time of Evaluation Date of Evaluation: 06/06/17 Time of Evaluation: 07:00 - Subjective Subjective: Medicine Progress Note: Patient was seen and examined at bedside in the AM. Patient states he slept well overnight. He states his right knee is not swollen and does not cause him pain. Patient states he usually gets gout attacks when the weather changes. Patient denies shortness of breath, difficulty breathing, chest pain, nausea or vomiting. Objective - Vital Signs/Intake and Output Vital Signs (last 24 hours): Temp Pulse Resp BP Pulse Ox 98.4 F 74 20 169/96 H 95 06/06/17 08:00 06/06/17 08:00 06/06/17 08:00 06/06/17 08:00 06/06/17 08:00 Intake and Output: 06/06/17 06/06/17 06:59 18:59 Intake Total 325 Output Total 550 Balance -225 - Medications Medications: Current Medications Calcium Acetate (Phoslo) 667 mg PO TIDCC [facility] Last Admin: 06/06/17 08:26 Dose: 667 mg Epoetin Johnson (Procrit) 10,000 unit IV TTS [facility] Last Admin: 06/04/17 11:11 Dose: 10,000 unit Ketorolac Tromethamine (Toradol) 30 mg IVP Q6 PRN PRN Reason: Pain, Mild (1-3) Last Admin: 06/04/17 22:21 Dose: 30 mg Losartan Potassium (Cozaar) 12.5 mg PO DAILY [facility] Last Admin: 06/05/17 09:07 Dose: 12.5 mg Methylprednisolone (Solu-Medrol) 40 mg IVP Q12H [facility] Last Admin: 06/05/17 21:58 Dose: 40 mg Ondansetron HCl (Zofran Inj) 4 mg IVP Q4H PRN PRN Reason: Nausea/Vomiting Last Admin: 06/01/17 23:49 Dose: 4 mg Pantoprazole Sodium (Protonix Ec Tab) 40 mg PO DAILY [facility] Last Admin: 06/05/17 09:07 Dose: 40 mg Tamsulosin HCl (Flomax) 0.4 mg PO DAILY [facility] Last Admin: 06/05/17 09:07 Dose: 0.4 mg - Labs Labs: 06/06/17 06:52 06/06/17 06:52 PT 14.0 SECONDS (9.7-12.2) H 05/31/17 20:01 INR 1.2 05/31/17 20:01 APTT 28 SECONDS (21-34) 05/31/17 20:01 - Constitutional Appears: No Acute Distress - Head Exam Head Exam: ATRAUMATIC, NORMAL INSPECTION, NORMOCEPHALIC - Eye Exam Eye Exam: EOMI, Normal appearance, PERRL Pupil Exam: NORMAL ACCOMODATION - ENT Exam ENT Exam: Mucous Membranes Moist - Respiratory Exam Respiratory Exam: Clear to Ausculation Bilateral, NORMAL BREATHING PATTERN - Cardiovascular Exam Cardiovascular Exam: REGULAR RHYTHM, RRR, +S1, +S2 - GI/Abdominal Exam GI & Abdominal Exam: Soft, Normal Bowel Sounds. absent: Tenderness - Extremities Exam Extremities Exam: absent: Joint Swelling, Normal Inspection (right knee is a bit warmer to touch; bilateral elbows have tophi deposits ), Pedal Edema, Tenderness - Neurological Exam Neurological Exam: Alert, Awake, Oriented x3 - Psychiatric Exam Psychiatric exam: Normal Affect, Normal Mood - Skin Skin Exam: Dry, Normal Color, Warm (right knee is a bit warmer than the left knee ). absent: Rash Assessment and Plan - Assessment and Plan (Free Text) Plan: 1.) Anemia secondary to CKD * H/H (06/06/17): 8.0/23.0 * Transfused 2 units of PRBC 06/05 because H/H: 6.6/19.3 * - Monitor repeat CBC * Transfused 1 unit in the ED and transfused 1 unit on the floor (06/01/17) - Transfused 2 units 06/01/17 stool occult blood (06/01): Negative 20% Iron saturation Ferritin: 1920 2.) History of urinary retention Urology, Dr. Cecil Roque---> help appreciated - Garcia in place - continues to have hematuria - Spoke with Dr. Roque cystoscopy done on Wednesday 06/06 - Flomax 0.4mg PO daily - Monitor input and output - PSA 3.93 3.) Renal failure, acute secondary to chronic obstructive nephropathy vs. 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 Garrison/Dr. Paul --> Help appreciated - Renal ultrasound: Moderate bilateral hydronephrosis; Debris within the urinary bladder which is decompressed with Garcia catheter Surgical Consult, Dr. Motley --> Help appreciated - Permacath will be placed 06/01 - Dialysis started today 06/02/17: Schedule is Tuesday, , Tuesday - CATRACHITA: Positive; CATRACHITA titer 1:80 (high); CATRACHITA pattern - homogenous (high) - PTH: 236 (high) - f/u p-ANCA, c-ANCA - F/u Vit D 4.) Hypertension - Started (06/06): Carvedilol 6.25mg PO BID - Echo: Left ventricle thickness, mild concentric thickening; ejection fraction 55% 5.) UTI - UA: Leukocyte esterase 3+; urine WBC 115; urine bacteria Occ High - Started (06/06): rocephin - f/u Urine culture 6.) Gout- Right Knee - Started on Prednisone 40mg daily - Started on Allopurinol 100mg PO daily 7.) Prophylactic measure Protonix 40mg PO daily Anticoagulation due to worsening kidney function and anemia Physical Therapy Case Discussed with Dr. Tayo Davila PGY-1 <Amilcar Cr - Last Filed: 06/06/17 17:16> Objective - Vital Signs/Intake and Output Vital Signs (last 24 hours): Temp Pulse Resp BP Pulse Ox 97.9 F 67 20 157/97 H 97 06/06/17 16:22 06/06/17 16:22 06/06/17 16:22 06/06/17 16:22 06/06/17 16:22 Intake and Output: 06/06/17 06/06/17 06:59 18:59 Intake Total 325 50 Output Total 550 350 Balance -225 -300 - Medications Medications: Current Medications Allopurinol (Zyloprim) 100 mg PO DAILY [facility] Calcium Acetate (Phoslo) 667 mg PO TIDCC [facility] Last Admin: 06/06/17 13:25 Dose: 667 mg Carvedilol (Coreg) 6.25 mg PO BID [facility] Last Admin: 06/06/17 15:20 Dose: 6.25 mg Epoetin Johnson (Procrit) 10,000 unit IV TTS [facility] Last Admin: 06/04/17 11:11 Dose: 10,000 unit Ceftriaxone Sodium 1 gm/ (Sodium Chloride) 100 mls @ 100 mls/hr IVPB Q24H [facility] Ketorolac Tromethamine (Toradol) 30 mg IVP Q6 PRN PRN Reason: Pain, Mild (1-3) Last Admin: 06/04/17 22:21 Dose: 30 mg Ondansetron HCl (Zofran Inj) 4 mg IVP Q4H PRN PRN Reason: Nausea/Vomiting Last Admin: 06/01/17 23:49 Dose: 4 mg Pantoprazole Sodium (Protonix Ec Tab) 40 mg PO DAILY [facility] Last Admin: 06/06/17 09:49 Dose: 40 mg Prednisone (Prednisone Tab) 40 mg PO DAILY [facility] Tamsulosin HCl (Flomax) 0.4 mg PO DAILY [facility] Last Admin: 06/06/17 09:48 Dose: 0.4 mg - Labs Labs: 06/06/17 06:52 06/06/17 06:52 PT 14.0 SECONDS (9.7-12.2) H 05/31/17 20:01 INR 1.2 05/31/17 20:01 APTT 28 SECONDS (21-34) 05/31/17 20:01 Attending/Attestation - Attestation I have personally seen and examined this patient.: Yes I have fully participated in the care of the patient.: Yes I have reviewed all pertinent clinical information, including history, physical exam and plan: Yes Notes (Text): 06/06/17 17:15 Patient was seen and examined at bedside with the resident Patient states that the knee swelling and pain has improved We will change IV steroids to oral prednisone for acute flare of gout. We will start the patient on allopurinol We will start the patient on medication for hypertension Plan for cystoscopy todayfollow-up recommendations of urology. start the patient on IV antibiotics for UTI. Continue hemodialysis as per schedulerenal is on board. I discussed the plan of care with the resident and agree with the history and physical and assessment/plan documented.
[2017-06-06] MEDS: MethylPREDNISolone 40 mg Vial IVP SCH (09:48)
[2017-06-06] MEDS: Losartan 12.5 MG TAB PO SCH (09:48)
[2017-06-06] MEDS: Pantoprazole 40 mg EC Tab PO SCH (09:49)
--- NOTE | 2017-06-06 13:23 | CP.PCM.PN ---
Subjective - Date & Time of Evaluation Date of Evaluation: 06/06/17 Time of Evaluation: 13:21 - Subjective Subjective: Stable dialysis sessions nuclear study confirms obstructive uropathy for cysto soon BP elevated- will start BP meds Objective - Vital Signs/Intake and Output Vital Signs (last 24 hours): Temp Pulse Resp BP Pulse Ox 98.4 F 76 20 156/97 H 95 06/06/17 08:00 06/06/17 09:50 06/06/17 08:00 06/06/17 09:50 06/06/17 08:00 Intake and Output: 06/06/17 06/06/17 06:59 18:59 Intake Total 325 Output Total 550 Balance -225 - Medications Medications: Current Medications Calcium Acetate (Phoslo) 667 mg PO TIDCC [facility] Last Admin: 06/06/17 08:26 Dose: 667 mg Epoetin Johnson (Procrit) 10,000 unit IV TTS [facility] Last Admin: 06/04/17 11:11 Dose: 10,000 unit Ketorolac Tromethamine (Toradol) 30 mg IVP Q6 PRN PRN Reason: Pain, Mild (1-3) Last Admin: 06/04/17 22:21 Dose: 30 mg Losartan Potassium (Cozaar) 12.5 mg PO DAILY [facility] Last Admin: 06/06/17 09:48 Dose: 12.5 mg Methylprednisolone (Solu-Medrol) 40 mg IVP Q12H [facility] Last Admin: 06/06/17 09:48 Dose: 40 mg Ondansetron HCl (Zofran Inj) 4 mg IVP Q4H PRN PRN Reason: Nausea/Vomiting Last Admin: 06/01/17 23:49 Dose: 4 mg Pantoprazole Sodium (Protonix Ec Tab) 40 mg PO DAILY [facility] Last Admin: 06/06/17 09:49 Dose: 40 mg Tamsulosin HCl (Flomax) 0.4 mg PO DAILY [facility] Last Admin: 06/06/17 09:48 Dose: 0.4 mg - Labs Labs: 06/06/17 06:52 06/06/17 06:52 PT 14.0 SECONDS (9.7-12.2) H 05/31/17 20:01 INR 1.2 05/31/17 20:01 APTT 28 SECONDS (21-34) 05/31/17 20:01 - Constitutional Appears: No Acute Distress, Chronically Ill - Head Exam Head Exam: ATRAUMATIC, NORMAL INSPECTION - Eye Exam Eye Exam: EOMI, Normal appearance - Neck Exam Neck Exam: Normal Inspection. absent: Tenderness - Respiratory Exam Respiratory Exam: Clear to Ausculation Bilateral, NORMAL BREATHING PATTERN - Cardiovascular Exam Cardiovascular Exam: REGULAR RHYTHM, +S1 - GI/Abdominal Exam GI & Abdominal Exam: Soft. absent: Tenderness - Extremities Exam Extremities Exam: Normal Inspection. absent: Tenderness - Neurological Exam Neurological Exam: Awake, CN II-XII Intact - Skin Skin Exam: Dry, Warm Assessment and Plan (1) Obstructive and reflux uropathy Status: Acute (2) Hypertensive chronic kidney disease with stage 5 chronic kidney disease or end stage renal disease Status: Acute (3) Chronic kidney disease, stage V Status: Acute - Assessment and Plan (Free Text) Plan: cysto pending dialysis TTS start carvedilol
[2017-06-06 14:15] LABS: RBC URINE 69 /hpf (0-3); URINE BACTERIA OCC (<OCC); URINE BILIRUBIN NEGATIVE (NEGATIVE); URINE BLOOD 3+ (NEGATIVE); URINE COLOR Yellow (YELLOW); URINE GLUCOSE (UA) NORMAL (Normal); URINE HYALINE CAST 0-2 /lpf (0-2); URINE KETONE NEGATIVE (NEGATIVE); URINE LEUKOCYTE ESTERASE 3+ Leu/uL (Negative); URINE PROTEIN 2+ mg/dL (NEGATIVE); URINE UROBILINOGEN NORMAL mg/dL (0.2-1.0); WBC URINE 115 /hpf (0-5)
--- NOTE | 2017-06-06 16:33 | PCM.URO ---
Urology Progress Note - Objective Lab Results Last 24 Hours: Laboratory Results - last 24 hr 06/03/17 06/05/17 06/05/17 07:52 14:30 16:43 WBC RBC Hgb Hct MCV MCH MCHC RDW Plt Count MPV Neut % (Auto) Lymph % (Auto) [place] % (Auto) Eos % (Auto) Baso % (Auto) Neut # Lymph # [place] # Eos # Baso # Neutrophils % (Manual) Lymphocytes % (Manual) Monocytes % (Manual) Toxic Granulation Platelet Estimate Hypochromasia (manual) Poikilocytosis (manual Basophilic Stippling Anisocytosis (manual) Ovalocytes [place] Cells Sodium Potassium Chloride Carbon Dioxide Anion Gap BUN Creatinine Est GFR ( Amer) Est GFR (Non-Af Amer) Random Glucose Uric Acid 6.4 Calcium Phosphorus Magnesium Total Bilirubin AST ALT Alkaline Phosphatase Total Protein Albumin Globulin Albumin/Globulin Ratio Urine Color Urine Clarity Urine pH Ur Specific [place] Urine Protein Urine Glucose (UA) Urine Ketones Urine Blood Urine Nitrate Urine Bilirubin Urine Urobilinogen Ur Leukocyte Esterase Urine WBC (Auto) Urine RBC (Auto) Ur Squamous Epith Cells Urine Bacteria Hyaline Casts CATRACHITA 6 Profile Positive H CATRACHITA Titer 1:80 H CATRACHITA Pattern Homogenous H Blood Type O POSITIVE Antibody Screen Negative 06/06/17 06/06/17 06/06/17 06:52 06:52 13:57 WBC 11.1 H RBC 2.71 L Hgb 8.0 L Hct 23.0 L MCV 85.1 MCH 29.4 MCHC 34.6 RDW 17.5 H Plt Count 157 MPV 9.7 Neut % (Auto) 91.4 H Lymph % (Auto) 3.1 L [place] % (Auto) 5.2 Eos % (Auto) 0.1 Baso % (Auto) 0.2 Neut # 10.1 H Lymph # 0.3 L [place] # 0.6 Eos # 0.0 Baso # 0.0 Neutrophils % (Manual) 89 H Lymphocytes % (Manual) 5 L Monocytes % (Manual) 6 Toxic Granulation Present Platelet Estimate Normal Hypochromasia (manual) Slight Poikilocytosis (manual Slight Basophilic Stippling Slight Anisocytosis (manual) Slight Ovalocytes Slight [place] Cells Slight Sodium 139 Potassium 5.0 Chloride 97 L Carbon Dioxide 25 Anion Gap 22 H BUN 75 H Creatinine 7.6 H* Est GFR ( Amer) 9 Est GFR (Non-Af Amer) 7 Random Glucose 125 H Uric Acid Calcium 9.0 Phosphorus 5.8 H Magnesium 1.8 Total Bilirubin 0.9 AST 11 L ALT 15 L Alkaline Phosphatase 47 Total Protein 6.5 Albumin 3.6 Globulin 2.9 Albumin/Globulin Ratio 1.3 Urine Color Yellow Urine Clarity Hazy Urine pH 6.0 Ur Specific [place] 1.012 Urine Protein 2+ H Urine Glucose (UA) Normal Urine Ketones Negative Urine Blood 3+ H Urine Nitrate Negative Urine Bilirubin Negative Urine Urobilinogen Normal Ur Leukocyte Esterase 3+ H Urine WBC (Auto) 115 H Urine RBC (Auto) 69 H Ur Squamous Epith Cells < 1 Urine Bacteria Occ H Hyaline Casts 0-2 CATRACHITA 6 Profile CATRACHITA Titer CATRACHITA Pattern Blood Type Antibody Screen Intake & Output: Intake & Output 06/05/17 06/06/17 06/06/17 18:59 06:59 18:59 Intake Total 480 325 Output Total 300 550 Balance 180 -225 Intake: Oral 480 Blood Product 0 325 Red Blood Cells Cpd As1 0 Lr Unit [id number] Red Blood Cells Cpd As1 0 325 Lr Unit [id number] Output: Urine 300 550 Urethral (Garcia) 300 550 Vital Signs: Vital Signs - 24 hr 06/05/17 06/05/17 06/05/17 16:39 16:54 17:24 Temperature 98.1 F 97.9 F Pulse Rate 74 72 Respiratory 20 18 Rate Blood Pressure 170/95 H 144/66 128/78 O2 Sat by Pulse Oximetry 06/05/17 06/05/17 06/05/17 18:00 20:22 22:06 Temperature 97.8 F 98.1 F Pulse Rate 30 L 82 79 Respiratory 18 18 Rate Blood Pressure 147/54 L 136/81 O2 Sat by Pulse 99 Oximetry 06/05/17 06/05/17 06/05/17 22:26 22:58 23:45 Temperature 98.1 F 98.4 F 98.3 F Pulse Rate 79 82 69 Respiratory 18 18 20 Rate Blood Pressure 136/81 164/89 H 145/82 O2 Sat by Pulse Oximetry 06/05/17 06/06/17 06/06/17 23:47 08:00 09:50 Temperature 98.3 F 98.4 F Pulse Rate 69 74 76 Respiratory 20 20 Rate Blood Pressure 145/82 169/96 H 156/97 H O2 Sat by Pulse 97 95 Oximetry 06/06/17 06/06/17 13:24 16:22 Temperature 97.9 F Pulse Rate 106 H 67 Respiratory 20 Rate Blood Pressure 159/86 H 157/97 H O2 Sat by Pulse 97 Oximetry
[2017-06-07] MEDS ORDERED: Bisacodyl 5mg EC Tab PO ONE (07:41)
[2017-06-07 08:38] LABS: BASO # 0.1 K/uL (0.0-0.2); BASO % 0.6 % (0.0-2.0); EOS # 0.1 K/uL (0.0-0.7); HEMATOCRIT 27.5 % (35.0-51.0); LYMPH # 1.3 K/uL (1.0-4.3); LYMPH % 9.2 % (20.0-40.0); MEAN CORPUSCULAR HGB CONC 35.3 g/dL (33.0-37.0); MEAN PLATELET VOLUME 9.6 fL (7.2-11.7); MONO # 1.6 K/uL (0.0-0.8); NRBC % 0.1 % (0.0-2.0); PLATELET COUNT 230 K/uL (130-400); RED CELL DISTRIBUTION WIDTH 17.6 % (11.5-14.5); WHITE BLOOD COUNT 14.2 K/uL (4.8-10.8)
[2017-06-07 08:49] LABS: POTASSIUM 4.8 mmol/L (3.6-5.2)
[2017-06-07 08:51] LABS: ALB/GLOB RATIO 1.3 (1.0-2.1); BILIRUBIN,TOTAL 0.9 mg/dL (0.2-1.3); TOTAL PROTEIN 7.1 g/dL (6.3-8.3)
[2017-06-07 08:52] LABS: CALCIUM 8.7 mg/dl (8.6-10.4); MAGNESIUM 1.9 mg/dL (1.6-2.3); PHOSPHOROUS 6.1 mg/dL (2.5-4.5)
--- NOTE | 2017-06-07 09:13 | CP.PCM.PN ---
<Melissa Davila - Last Filed: 06/07/17 14:15> Subjective - Date & Time of Evaluation Date of Evaluation: 06/07/17 Time of Evaluation: 07:40 - Subjective Subjective: Medicine Progress Note: Patient was seen and examined at bedside in the AM. Patient was sitting in the chair comfortably and well groomed. Patient denies shortness of breath, difficulty breathing, chest pain, nausea or vomiting. Patient states his right knee is still a bit swollen when he compares it to his left knee but the pain is gone. Patient states he was also working with physical therapy yesterday and that seemed to help his knee. Patient stated he did not have his surgery with Dr. Roque yesterday because the doctor told him he did not need the cystoscopy at this time. Objective - Vital Signs/Intake and Output Vital Signs (last 24 hours): Temp Pulse Resp BP Pulse Ox 97.3 F L 67 20 155/108 H 97 06/07/17 07:05 06/07/17 07:05 06/07/17 07:05 06/07/17 07:05 06/07/17 07:05 Intake and Output: 06/07/17 06/07/17 06:59 18:59 Intake Total 450 Output Total 500 Balance -50 - Medications Medications: Current Medications Allopurinol (Zyloprim) 100 mg PO DAILY [facility] Calcium Acetate (Phoslo) 667 mg PO TIDCC [facility] Last Admin: 06/07/17 07:57 Dose: 667 mg Carvedilol (Coreg) 6.25 mg PO BID [facility] Last Admin: 06/06/17 19:07 Dose: 6.25 mg Epoetin Johnson (Procrit) 10,000 unit IV TTS [facility] Last Admin: 06/04/17 11:11 Dose: 10,000 unit Ceftriaxone Sodium 1 gm/ (Sodium Chloride) 100 mls @ 100 mls/hr IVPB Q24H [facility] Last Admin: 06/06/17 21:58 Dose: 100 mls/hr Ketorolac Tromethamine (Toradol) 30 mg IVP Q6 PRN PRN Reason: Pain, Mild (1-3) Last Admin: 06/06/17 22:07 Dose: 30 mg Ondansetron HCl (Zofran Inj) 4 mg IVP Q4H PRN PRN Reason: Nausea/Vomiting Last Admin: 06/01/17 23:49 Dose: 4 mg Pantoprazole Sodium (Protonix Ec Tab) 40 mg PO DAILY [facility] Last Admin: 06/06/17 09:49 Dose: 40 mg Prednisone (Prednisone Tab) 40 mg PO DAILY [facility] Tamsulosin HCl (Flomax) 0.4 mg PO DAILY [facility] Last Admin: 06/06/17 09:48 Dose: 0.4 mg - Labs Labs: 06/07/17 08:19 06/07/17 08:19 PT 14.0 SECONDS (9.7-12.2) H 05/31/17 20:01 INR 1.2 05/31/17 20:01 APTT 28 SECONDS (21-34) 05/31/17 20:01 - Constitutional Appears: No Acute Distress - Head Exam Head Exam: ATRAUMATIC, NORMAL INSPECTION, NORMOCEPHALIC - Eye Exam Eye Exam: EOMI, Normal appearance, PERRL Pupil Exam: NORMAL ACCOMODATION - ENT Exam ENT Exam: Mucous Membranes Moist - Respiratory Exam Respiratory Exam: Clear to Ausculation Bilateral, NORMAL BREATHING PATTERN. absent: Rales, Rhonchi, Wheezes, Stridor - Cardiovascular Exam Cardiovascular Exam: REGULAR RHYTHM, RRR, +S1, +S2 - GI/Abdominal Exam GI & Abdominal Exam: Soft, Normal Bowel Sounds. absent: Tenderness - Extremities Exam Extremities Exam: Joint Swelling (right knee swelling ). absent: Calf Tenderness, Pedal Edema, Tenderness - Neurological Exam Neurological Exam: Alert, Awake, Oriented x3 - Psychiatric Exam Psychiatric exam: Normal Affect, Normal Mood - Skin Skin Exam: Normal Color, Warm Assessment and Plan - Assessment and Plan (Free Text) Plan: 1.) Chronic Anemia secondary to CKD vs. Bone Marrow Disorder - H/H (06/07/17): 9.7/27.5 * Transfused 2 units of PRBC 06/05 because H/H: 6.6/19.3 * Transfused 1 unit in the ED and transfused 1 unit on the floor (06/01/17) * Transfused 2 units 06/01/17 * Monitor CBC - stool occult blood (06/01): Negative - 20% Iron saturation; Ferritin: 1920 Heme/Onc Consult: Dr. Velez --> help appreciated 2.) History of urinary retention Urology, Dr. Cecil Roque---> help appreciated - Garcia in place - continues to have hematuria - Spoke with Dr. Roque cystoscopy was not done 06/06 and he states the patient does not a procedure at this time - Flomax 0.4mg PO daily - Monitor input and output - PSA 3.93 3.) Renal failure, acute secondary to chronic obstructive nephropathy vs. 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 Paul --> Help appreciated - Dialysis started today 06/02/17: Schedule is Tuesday, , Tuesday - Per Dr. Stark's note patient needs AV fistula - Spoke with surgical elastic knitter hand frame will evaluate patient tomorrow 06/08 Surgical Consult, Dr. Motley --> Help appreciated - Permacath placed 06/01 - CATRACHITA: Positive; CATRACHITA titer 1:80 (high); CATRACHITA pattern - homogenous (high) * f/u p-ANCA, c-ANCA - PTH: 236 (high) - F/u Vit D 4.) Hypertension - Started (06/06): Carvedilol 6.25mg PO BID - Echo: Left ventricle thickness, mild concentric thickening; ejection fraction 55% 5.) UTI - UA: Leukocyte esterase 3+; urine WBC 115; urine bacteria Occ High - Started (06/06): rocephin - Urine culture: No growth 6.) Gout- Right Knee - Started on Prednisone 40mg daily - Will start to taper 06/08 to 30mg for 2 days; 20mg x2; 10mg x2 - Started on Allopurinol 100mg PO daily 7.) Prophylactic measure Protonix 40mg PO daily Anticoagulation due to worsening kidney function and anemia Physical Therapy Disposition: Pending dialysis placement Case Discussed with Dr. Tayo Davila PGY-1 <Amilcar Cr - Last Filed: 06/07/17 17:13> Objective - Vital Signs/Intake and Output Vital Signs (last 24 hours): Temp Pulse Resp BP Pulse Ox 98.4 F 75 18 138/72 100 06/07/17 15:54 06/07/17 16:00 06/07/17 15:54 06/07/17 15:54 06/07/17 15:54 Intake and Output: 06/07/17 06/07/17 06:59 18:59 Intake Total 450 Output Total 500 300 Balance -50 -300 - Medications Medications: Current Medications Allopurinol (Zyloprim) 100 mg PO DAILY [facility] Last Admin: 06/07/17 13:47 Dose: 100 mg Calcium Acetate (Phoslo) 667 mg PO TIDCC [facility] Last Admin: 06/07/17 13:47 Dose: 667 mg Carvedilol (Coreg) 6.25 mg PO BID [facility] Last Admin: 06/07/17 13:46 Dose: 6.25 mg Epoetin Johnson (Procrit) 10,000 unit IV TTS [facility] Last Admin: 06/07/17 11:53 Dose: 10,000 unit Ceftriaxone Sodium 1 gm/ (Sodium Chloride) 100 mls @ 100 mls/hr IVPB Q24H [facility] Last Admin: 06/06/17 21:58 Dose: 100 mls/hr Ketorolac Tromethamine (Toradol) 30 mg IVP Q6 PRN PRN Reason: Pain, Mild (1-3) Last Admin: 06/06/17 22:07 Dose: 30 mg Ondansetron HCl (Zofran Inj) 4 mg IVP Q4H PRN PRN Reason: Nausea/Vomiting Last Admin: 06/01/17 23:49 Dose: 4 mg Pantoprazole Sodium (Protonix Ec Tab) 40 mg PO DAILY [facility] Last Admin: 06/07/17 13:47 Dose: 40 mg Prednisone (Prednisone Tab) 40 mg PO DAILY [facility] Last Admin: 06/07/17 13:47 Dose: 40 mg Tamsulosin HCl (Flomax) 0.4 mg PO DAILY [facility] Last Admin: 06/07/17 13:46 Dose: 0.4 mg - Labs Labs: 06/07/17 08:19 06/07/17 08:19 PT 14.0 SECONDS (9.7-12.2) H 05/31/17 20:01 INR 1.2 05/31/17 20:01 APTT 28 SECONDS (21-34) 05/31/17 20:01 Attending/Attestation - Attestation I have personally seen and examined this patient.: Yes I have fully participated in the care of the patient.: Yes I have reviewed all pertinent clinical information, including history, physical exam and plan: Yes Notes (Text): 06/07/17 17:11 Patient was seen and examined at bedside on hemodialysis Patient appears comfortable without any acute distress We will continue steroids for gout flare We'll taper the steroids Patient will need any fistula placement We will consult vascular surgery for placement of a fistula Discussed with Dr. Roque. Patient does not need cystoscopy for surgical procedure for BPH Keep the Garcia's catheter in place as per Dr. Roque. I discussed the plan of care with the resident and agree with the history and physical and assessment/plan documented.
[2017-06-07 09:30] LABS: BASOPHIL 1 % (0-2); EOSINOPHIL 3 % (0-4); TOTAL CELLS COUNTED 100
[2017-06-07 09:37] LABS: NEUTROPHIL 74 % (50-75)
[2017-06-07] MEDS: Epoetin Alfa 10,000 unit/ml Dialysis IV SCH (11:53)
--- NOTE | 2017-06-07 11:55 | CP.PCM.PN ---
Subjective - Date & Time of Evaluation Date of Evaluation: 06/07/17 Time of Evaluation: 11:53 - Subjective Subjective: seen on hd tolerating well sullivan in place Objective - Vital Signs/Intake and Output Vital Signs (last 24 hours): Temp Pulse Resp BP Pulse Ox 97.9 F 64 18 154/90 H 98 06/07/17 10:00 06/07/17 11:00 06/07/17 10:00 06/07/17 11:00 06/07/17 11:00 Intake and Output: 06/07/17 06/07/17 06:59 18:59 Intake Total 450 Output Total 500 Balance -50 - Medications Medications: Current Medications Allopurinol (Zyloprim) 100 mg PO DAILY [facility] Calcium Acetate (Phoslo) 667 mg PO TIDCC [facility] Last Admin: 06/07/17 07:57 Dose: 667 mg Carvedilol (Coreg) 6.25 mg PO BID [facility] Last Admin: 06/06/17 19:07 Dose: 6.25 mg Epoetin Johnson (Procrit) 10,000 unit IV TTS [facility] Last Admin: 06/07/17 11:53 Dose: 10,000 unit Ceftriaxone Sodium 1 gm/ (Sodium Chloride) 100 mls @ 100 mls/hr IVPB Q24H [facility] Last Admin: 06/06/17 21:58 Dose: 100 mls/hr Ketorolac Tromethamine (Toradol) 30 mg IVP Q6 PRN PRN Reason: Pain, Mild (1-3) Last Admin: 06/06/17 22:07 Dose: 30 mg Ondansetron HCl (Zofran Inj) 4 mg IVP Q4H PRN PRN Reason: Nausea/Vomiting Last Admin: 06/01/17 23:49 Dose: 4 mg Pantoprazole Sodium (Protonix Ec Tab) 40 mg PO DAILY [facility] Last Admin: 06/06/17 09:49 Dose: 40 mg Prednisone (Prednisone Tab) 40 mg PO DAILY [facility] Tamsulosin HCl (Flomax) 0.4 mg PO DAILY [facility] Last Admin: 06/06/17 09:48 Dose: 0.4 mg - Labs Labs: 06/07/17 08:19 06/07/17 08:19 PT 14.0 SECONDS (9.7-12.2) H 05/31/17 20:01 INR 1.2 05/31/17 20:01 APTT 28 SECONDS (21-34) 05/31/17 20:01 - Constitutional Appears: Non-toxic, No Acute Distress - Head Exam Head Exam: NORMAL INSPECTION - Eye Exam Eye Exam: Normal appearance - ENT Exam ENT Exam: Mucous Membranes Moist, Normal Exam - Neck Exam Neck Exam: Normal Inspection - Respiratory Exam Respiratory Exam: Clear to Ausculation Bilateral, NORMAL BREATHING PATTERN - Cardiovascular Exam Cardiovascular Exam: REGULAR RHYTHM, RRR - GI/Abdominal Exam GI & Abdominal Exam: Distended, Soft - Extremities Exam Extremities Exam: Normal Inspection Assessment and Plan (1) ESRD (end stage renal disease) on dialysis Status: Acute (2) Anemia Status: Acute (3) Obstructive and reflux uropathy Status: Acute (4) Acute urinary retention Status: Acute - Assessment and Plan (Free Text) Assessment: maintain hd needs av fistula sullivan per urology.
[2017-06-07] MEDS: Pantoprazole 40 mg EC Tab PO SCH (13:47)
--- NOTE | 2017-06-08 06:29 | CP.PCM.PN ---
<Melissa Davila - Last Filed: 06/08/17 17:38> Subjective - Date & Time of Evaluation Date of Evaluation: 06/08/17 Time of Evaluation: 07:40 - Subjective Subjective: Medicine Progress Note: Patient was seen and examined at bedside in the AM. Patient was sitting in the chair comfortably and well groomed. Patient denies shortness of breath, difficulty breathing, chest pain, nausea or vomiting. Patient states his right knee swelling has significantly improved and he denies knee pain. Objective - Vital Signs/Intake and Output Vital Signs (last 24 hours): Temp Pulse Resp BP Pulse Ox 98.5 F 67 20 144/79 98 06/07/17 23:05 06/08/17 01:00 06/07/17 23:05 06/07/17 23:05 06/07/17 23:05 Intake and Output: 06/07/17 06/08/17 18:59 06:59 Output Total 300 600 Balance -300 -600 - Medications Medications: Current Medications Allopurinol (Zyloprim) 100 mg PO DAILY [facility] Last Admin: 06/07/17 13:47 Dose: 100 mg Calcium Acetate (Phoslo) 667 mg PO TIDCC [facility] Last Admin: 06/07/17 18:12 Dose: 667 mg Carvedilol (Coreg) 6.25 mg PO BID [facility] Last Admin: 06/07/17 18:12 Dose: 6.25 mg Epoetin Johnson (Procrit) 10,000 unit IV TTS [facility] Last Admin: 06/07/17 11:53 Dose: 10,000 unit Ceftriaxone Sodium 1 gm/ (Sodium Chloride) 100 mls @ 100 mls/hr IVPB Q24H [facility] Last Admin: 06/07/17 18:12 Dose: 100 mls/hr Ketorolac Tromethamine (Toradol) 30 mg IVP Q6 PRN PRN Reason: Pain, Mild (1-3) Last Admin: 06/06/17 22:07 Dose: 30 mg Ondansetron HCl (Zofran Inj) 4 mg IVP Q4H PRN PRN Reason: Nausea/Vomiting Last Admin: 06/01/17 23:49 Dose: 4 mg Pantoprazole Sodium (Protonix Ec Tab) 40 mg PO DAILY [facility] Last Admin: 06/07/17 13:47 Dose: 40 mg Prednisone (Prednisone Tab) 40 mg PO DAILY [facility] Last Admin: 06/07/17 13:47 Dose: 40 mg Tamsulosin HCl (Flomax) 0.4 mg PO DAILY [facility] Last Admin: 06/07/17 13:46 Dose: 0.4 mg - Labs Labs: 06/07/17 08:19 06/07/17 08:19 PT 14.0 SECONDS (9.7-12.2) H 05/31/17 20:01 INR 1.2 05/31/17 20:01 APTT 28 SECONDS (21-34) 05/31/17 20:01 - Constitutional Appears: No Acute Distress - Head Exam Head Exam: ATRAUMATIC, NORMAL INSPECTION, NORMOCEPHALIC - Eye Exam Eye Exam: EOMI, Normal appearance, PERRL Pupil Exam: NORMAL ACCOMODATION - ENT Exam ENT Exam: Mucous Membranes Moist - Respiratory Exam Respiratory Exam: Clear to Ausculation Bilateral, NORMAL BREATHING PATTERN - Cardiovascular Exam Cardiovascular Exam: REGULAR RHYTHM, RRR, +S1, +S2 - GI/Abdominal Exam GI & Abdominal Exam: Soft, Normal Bowel Sounds. absent: Tenderness - Extremities Exam Extremities Exam: Normal Inspection. absent: Tenderness - Neurological Exam Neurological Exam: Alert, Awake, Oriented x3 - Psychiatric Exam Psychiatric exam: Normal Affect, Normal Mood - Skin Skin Exam: Normal Color, Warm Assessment and Plan - Assessment and Plan (Free Text) Plan: 1.) Chronic Anemia secondary to CKD vs. Bone Marrow Disorder - H/H (06/07/17): 9.7/27.5 * Transfused 2 units of PRBC 06/05 because H/H: 6.6/19.3 * Transfused 1 unit in the ED and transfused 1 unit on the floor (06/01/17) * Transfused 2 units 06/01/17 * Monitor CBC - stool occult blood (06/01): Negative - 20% Iron saturation; Ferritin: 1920 Heme/Onc Consult: Dr. Velez --> help appreciated - per Dr. Velez's note: f/u with ferritin, retic, B12, folate, monoclonal protein w/u 2.) History of urinary retention Urology, Dr. Cecil Roque---> help appreciated - Garcia in place - continues to have hematuria - Spoke with Dr. Roque cystoscopy was not done 06/06 and he states the patient does not a procedure at this time - Flomax 0.4mg PO daily - Monitor input and output - PSA 3.93 3.) Renal failure, acute secondary to chronic obstructive nephropathy vs. autoimmune disorder History of BPH - Renal ultrasound: Moderate bilateral hydronephrosis; Debris within the urinary bladder which is decompressed with Garcia catheter - BUN/Cr: 94/8.0 Pediatric Licensed Practical Nurse: Dr. Paul --> Help appreciated - Dialysis started today 06/02/17: Schedule is Tuesday, , Tuesday - Per Dr. Stark's note patient needs AV fistula Surgical Consult, Dr. Motley --> Help appreciated - Permacath placed 06/01 - Left arm brachio-basilic fistula placed 06/08/17 - CATRACHITA: Positive; CATRACHITA titer 1:80 (high); CATRACHITA pattern - homogenous (high) * f/u p-ANCA, c-ANCA - PTH: 236 (high) - F/u Vit D 4.) Hypertension - Started (06/06): Carvedilol 6.25mg PO BID - Echo: Left ventricle thickness, mild concentric thickening; ejection fraction 55% 5.) UTI - UA: Leukocyte esterase 3+; urine WBC 115; urine bacteria Occ High - Started (06/06): rocephin - Urine culture: No growth 6.) Gout- Right Knee - Started on Prednisone 40mg daily - Will start to taper 06/08 to 30mg for 2 days; 20mg x2; 10mg x2 - Started on Allopurinol 100mg PO daily 7.) Prophylactic measure Protonix 40mg PO daily Anticoagulation due to worsening kidney function and anemia Physical Therapy Disposition: Pending dialysis placement Case Discussed with Dr. Tayo Davila PGY-1 <Amilcar Cr - Last Filed: 06/09/17 09:42> Objective - Vital Signs/Intake and Output Vital Signs (last 24 hours): Temp Pulse Resp BP Pulse Ox 98.3 F 68 20 153/89 H 100 06/09/17 08:00 06/09/17 08:00 06/09/17 08:00 06/09/17 08:00 06/09/17 08:00 Intake and Output: 06/09/17 06/09/17 06:59 18:59 Output Total 400 Balance -400 - Medications Medications: Current Medications Allopurinol (Zyloprim) 100 mg PO DAILY [facility] Last Admin: 06/08/17 09:37 Dose: 100 mg Calcium Acetate (Phoslo) 667 mg PO TIDCC [facility] Last Admin: 06/08/17 16:05 Dose: 667 mg Carvedilol (Coreg) 6.25 mg PO BID [facility] Last Admin: 06/08/17 17:06 Dose: Not Given Epoetin Johnson (Procrit) 10,000 unit IV TTS [facility] Last Admin: 06/07/17 11:53 Dose: 10,000 unit Hydromorphone HCl (Dilaudid) 0.5 mg IVP Q10M PRN PRN Reason: Pain, moderate (4-7) Ceftriaxone Sodium 1 gm/ (Sodium Chloride) 100 mls @ 100 mls/hr IVPB Q24H [facility] Last Admin: 06/08/17 18:57 Dose: 100 mls/hr Sodium Chloride (Sodium Chloride 0.9%) 1,000 mls @ 100 mls/hr IV .Q10H [facility] Last Admin: 06/09/17 04:29 Dose: 100 mls/hr Ondansetron HCl (Zofran Inj) 4 mg IVP Q4H PRN PRN Reason: Nausea/Vomiting Last Admin: 06/01/17 23:49 Dose: 4 mg Oxycodone/Acetaminophen (Percocet 5/325 Mg Tab) 1 tab PO Q4H PRN PRN Reason: Pain, moderate (4-7) Stop: 06/11/17 14:24 Last Admin: 06/08/17 22:16 Dose: 1 tab Pantoprazole Sodium (Protonix Ec Tab) 40 mg PO DAILY [facility] Last Admin: 06/08/17 09:37 Dose: 40 mg Prednisone (Prednisone Tab) 30 mg PO DAILY [facility] Tamsulosin HCl (Flomax) 0.4 mg PO DAILY [facility] Last Admin: 06/08/17 09:37 Dose: 0.4 mg - Labs Labs: 06/09/17 07:42 06/09/17 07:42 PT 14.0 SECONDS (9.7-12.2) H 05/31/17 20:01 INR 1.2 05/31/17 20:01 APTT 28 SECONDS (21-34) 05/31/17 20:01 Attending/Attestation - Attestation I have personally seen and examined this patient.: Yes I have fully participated in the care of the patient.: Yes I have reviewed all pertinent clinical information, including history, physical exam and plan: Yes Notes (Text): 06/09/17 09:41 Patient was seen and examined at bedside with the resident I discussed the plan of care with the resident Patient is for AV fistula today Continue steroid taper for gout which is improving Continue hemodialysis as per schedule Discussed with hematology. Severe anemia likely secondary to chronic kidney disease. However if the patient continues to have anemia patient will be a candidate for bone marrow biopsy as per . I agree with assessment and plan documented by the resident.
[2017-06-08 08:32] LABS: BASO % 0.3 % (0.0-2.0); EOS % 0.3 % (0.0-4.0); HEMATOCRIT 26.3 % (35.0-51.0); LYMPH # 0.7 K/uL (1.0-4.3); LYMPH % 6.6 % (20.0-40.0); MEAN CELL VOLUME 84.4 fL (80.0-94.0); MEAN CORPUSCULAR HGB CONC 35.5 g/dL (33.0-37.0); MEAN PLATELET VOLUME 9.3 fL (7.2-11.7); MONO # 1.3 K/uL (0.0-0.8); MONO % 13.2 % (0.0-10.0); PLATELET COUNT 205 K/uL (130-400); RED CELL DISTRIBUTION WIDTH 17.3 % (11.5-14.5)
[2017-06-08 08:48] LABS: POTASSIUM 4.6 mmol/L (3.6-5.2)
[2017-06-08 08:50] LABS: ALB/GLOB RATIO 1.3 (1.0-2.1); CALCIUM 8.9 mg/dl (8.6-10.4)
[2017-06-08 08:51] LABS: MAGNESIUM 1.8 mg/dL (1.6-2.3)
[2017-06-08 09:18] LABS: NEUTROPHIL 82 % (50-75); TOTAL CELLS COUNTED 100
[2017-06-08] MEDS: Pantoprazole 40 mg EC Tab PO SCH (09:37)
[2017-06-08] MEDS ORDERED: HEPARIN-NS 5,000 UNITS/500 ML 5,000 UNIT/500 ML BAG IV ONE (12:09)
--- NOTE | 2017-06-08 12:21 | CP.PCM.CON ---
History of Present Illness - History of Present Illness History of Present Illness: 61 year old male with a history of HTN, gout, BPH, admitted with anemia and found to be in renal failure, now on dialysis. In the ER he was found to have a hgb of 4.4. He denies abnormal bleeding and bruising. He notes his fatigue was progressive and over several weeks. He denies chest pain and shortness of breath. He is PRBC transfusion support and reports to feeling better. peripheral smear: no significatnt abnormality WBC, no blast, anisopoikilocytosis, no increase in schistocytes, normal platelet count Past medical history: HTN, gout, BPH Past surgical history: None Family history: Denies tobacco, alcohol, and illicit drug use. Allergies: NKA Review of systems: All remaining review of systems including HEENT, cardiovascular, respiratory, gastrointestinal, genitourinary, musculoskeletal, dermatologic and neurologic are negative unless mentioned in the HPI. Past Patient History - Past Medical History & Family History Past Medical History?: Yes Past Family History: Reviewed and not pertinent - Past Social History Smoking Status: Never Smoked Chewing Tobacco Use: No Cigar Use: No Alcohol: Occasional Drugs: Denies - CARDIAC Hx Hypertension: Yes - PULMONARY Hx Respiratory Disorders: No - NEUROLOGICAL Hx Neurological Disorder: No - HEENT Hx HEENT Problems: No - RENAL Hx Chronic Kidney Disease: No - ENDOCRINE/METABOLIC Hx Endocrine Disorders: No - HEMATOLOGICAL/ONCOLOGICAL Hx Anemia: Yes - INTEGUMENTARY Hx Dermatological Problems: No - MUSCULOSKELETAL/RHEUMATOLOGICAL Hx Falls: No - GASTROINTESTINAL Hx Gastrointestinal Disorders: No - GENITOURINARY/GYNECOLOGICAL Hx Genitourinary Disorders: Yes Hx Prostate Problems: Yes - PSYCHIATRIC Hx Substance Use: No - SURGICAL HISTORY Hx Surgeries: Yes Hx Parathyroidectomy: Yes (R KNEE, L FOOT) - ANESTHESIA Hx Anesthesia: Yes Hx Anesthesia Reactions: No Hx Malignant Hyperthermia: No Meds Allergies/Adverse Reactions: Allergies Allergy/AdvReac Type Severity Reaction Status Date / Time No Known Allergies Allergy Verified 05/31/17 19:16 - Medications Medications: Current Medications Allopurinol (Zyloprim) 100 mg PO DAILY [facility] Last Admin: 06/08/17 09:37 Dose: 100 mg Calcium Acetate (Phoslo) 667 mg PO TIDCC [facility] Last Admin: 06/08/17 08:10 Dose: 667 mg Carvedilol (Coreg) 6.25 mg PO BID [facility] Last Admin: 06/08/17 09:37 Dose: 6.25 mg Epoetin Johnson (Procrit) 10,000 unit IV TTS [facility] Last Admin: 06/07/17 11:53 Dose: 10,000 unit Ceftriaxone Sodium 1 gm/ (Sodium Chloride) 100 mls @ 100 mls/hr IVPB Q24H [facility] Last Admin: 06/07/17 18:12 Dose: 100 mls/hr Ketorolac Tromethamine (Toradol) 30 mg IVP Q6 PRN PRN Reason: Pain, Mild (1-3) Last Admin: 06/06/17 22:07 Dose: 30 mg Ondansetron HCl (Zofran Inj) 4 mg IVP Q4H PRN PRN Reason: Nausea/Vomiting Last Admin: 06/01/17 23:49 Dose: 4 mg Pantoprazole Sodium (Protonix Ec Tab) 40 mg PO DAILY [facility] Last Admin: 06/08/17 09:37 Dose: 40 mg Prednisone (Prednisone Tab) 30 mg PO DAILY [facility] Tamsulosin HCl (Flomax) 0.4 mg PO DAILY [facility] Last Admin: 06/08/17 09:37 Dose: 0.4 mg Physical Exam - Head Exam Head Exam: ATRAUMATIC - Eye Exam Eye Exam: Normal appearance - ENT Exam ENT Exam: Mucous Membranes Dry - Respiratory Exam Respiratory Exam: NORMAL BREATHING PATTERN - Cardiovascular Exam Cardiovascular Exam: +S1, +S2 - GI/Abdominal Exam GI & Abdominal Exam: Normal Bowel Sounds - Extremities Exam Extremities exam: Positive for: normal inspection - Neurological Exam Neurological exam: Oriented x3 - Psychiatric Exam Psychiatric exam: Normal Affect, Normal Mood - Skin Skin Exam: Warm Results - Vital Signs Recent Vital Signs: Last Vital Signs Temp 98.1 F 06/08/17 08:00 Pulse 75 06/08/17 08:00 Resp 20 06/08/17 08:00 BP 154/94 H 06/08/17 08:00 Pulse Ox 97 06/08/17 08:00 - Labs Result Diagrams: 06/08/17 08:15 06/08/17 08:15 Labs: Laboratory Results - last 24 hr 06/08/17 06/08/17 08:15 08:15 WBC 10.0 RBC 3.12 L Hgb 9.3 L Hct 26.3 L MCV 84.4 MCH 30.0 MCHC 35.5 RDW 17.3 H Plt Count 205 MPV 9.3 Neut % (Auto) 79.6 H Lymph % (Auto) 6.6 L [place] % (Auto) 13.2 H Eos % (Auto) 0.3 Baso % (Auto) 0.3 Neut # 7.9 H Lymph # 0.7 L [place] # 1.3 H Eos # 0.0 Baso # 0.0 Neutrophils % (Manual) 82 H Lymphocytes % (Manual) 6 L Monocytes % (Manual) 12 H Platelet Estimate Normal Polychromasia Slight Hypochromasia (manual) Slight Poikilocytosis (manual Slight Anisocytosis (manual) Slight Microcytosis (manual) Slight Tear Drop Cells Slight Ovalocytes Slight Sodium 139 Potassium 4.6 Chloride 99 Carbon Dioxide 27 Anion Gap 18 BUN 55 H Creatinine 5.4 H Est GFR ( Amer) 13 Est GFR (Non-Af Amer) 11 Random Glucose 89 Calcium 8.9 Phosphorus 4.0 Magnesium 1.8 Total Bilirubin 1.0 AST 13 L ALT 17 L Alkaline Phosphatase 50 Total Protein 7.0 Albumin 3.9 Globulin 3.1 Albumin/Globulin Ratio 1.3 Assessment & Plan (1) Anemia Assessment and Plan: likely CKD agree with procrit will check ferritin, retic, b12, folate to further characterize monoclonal protein w/u Thank you for this interesting consult. Status: Acute
[2017-06-08] MEDS ORDERED: ceFAZolin IV 1 gm in Dextrose 1 GM/50 ML BAG IVPB ONE (12:24)
[2017-06-08] MEDS ORDERED: Lidocaine 1% Inj (20ml) ONE (12:24)
[2017-06-08] MEDS ORDERED: Sodium Chloride 0.9% 500 ML IV ONE (12:30)
[2017-06-08] MEDS ORDERED: Midazolam 2 MG/2 ML VIAL ONE (12:42)
[2017-06-08] MEDS ORDERED: Propofol 10 mg/ml Inj (20 ML) ONE ×2 (12:42→13:54)
--- NOTE | 2017-06-08 14:23 | PCM.SURG1 ---
Surgeon's Initial Post Op Note - Surgeon's Notes Surgeon: Dr Motley Weight Analyst: Dr Orta PGY3, Matthew MS3 Type of Anesthesia: General IV, Local Pre-Operative Diagnosis: renal failure Operative Findings: see report Post-Operative Diagnosis: as above Operation Performed: left arm brachio-basilic fistula Specimen/Specimens Removed: none Estimated Blood Loss: EBL {In ML}: 25 Blood Products Given: N/A Drains Used: No Drains Post-Op Condition: Good Date of Surgery/Procedure: 06/08/17 Time of Surgery/Procedure: 14:23
[2017-06-08] MEDS ORDERED: HYDROmorphone 0.5 mg/0.5 ml ISec IVP PRN (14:41)
[2017-06-08] MEDS: Sodium Chloride 0.9% 1,000 ML IV SCH ×2 (15:54→16:08)
[2017-06-08] MEDS: Oxycodone/Acetaminophen 5/325 mg Tab PO PRN ×2 (16:05→22:16)
--- NOTE | 2017-06-08 16:09 | CP.PCM.PN ---
Subjective - Date & Time of Evaluation Date of Evaluation: 06/08/17 Time of Evaluation: 14:30 - Subjective Subjective: seen in pacu post left colt no acute complaints good bruit feels better with HD sullivan remains in no chest pain no sob, wearing nasal cannula no rash no headache no fever appetite good no abdominal pain muscle aches - Objective - Vital Signs/Intake and Output Vital Signs (last 24 hours): Temp Pulse Resp BP Pulse Ox 97.3 F L 64 14 153/78 H 100 06/08/17 15:25 06/08/17 15:25 06/08/17 15:25 06/08/17 15:25 06/08/17 15:25 Intake and Output: 06/08/17 06/08/17 06:59 18:59 Intake Total 60 Output Total 600 200 Balance -600 -140 - Medications Medications: Current Medications Allopurinol (Zyloprim) 100 mg PO DAILY [facility] Last Admin: 06/08/17 09:37 Dose: 100 mg Calcium Acetate (Phoslo) 667 mg PO TIDCC [facility] Last Admin: 06/08/17 12:37 Dose: Not Given Carvedilol (Coreg) 6.25 mg PO BID [facility] Last Admin: 06/08/17 09:37 Dose: 6.25 mg Epoetin Johnson (Procrit) 10,000 unit IV TTS [facility] Last Admin: 06/07/17 11:53 Dose: 10,000 unit Hydromorphone HCl (Dilaudid) 0.5 mg IVP Q10M PRN PRN Reason: Pain, moderate (4-7) Ceftriaxone Sodium 1 gm/ (Sodium Chloride) 100 mls @ 100 mls/hr IVPB Q24H [facility] Last Admin: 06/07/17 18:12 Dose: 100 mls/hr Sodium Chloride (Sodium Chloride 0.9%) 1,000 mls @ 100 mls/hr IV .Q10H [facility] Last Admin: 06/08/17 15:54 Dose: Not Given Ondansetron HCl (Zofran Inj) 4 mg IVP Q4H PRN PRN Reason: Nausea/Vomiting Last Admin: 06/01/17 23:49 Dose: 4 mg Oxycodone/Acetaminophen (Percocet 5/325 Mg Tab) 1 tab PO Q4H PRN PRN Reason: Pain, moderate (4-7) Stop: 06/11/17 14:24 Pantoprazole Sodium (Protonix Ec Tab) 40 mg PO DAILY [facility] Last Admin: 06/08/17 09:37 Dose: 40 mg Prednisone (Prednisone Tab) 30 mg PO DAILY [facility] Tamsulosin HCl (Flomax) 0.4 mg PO DAILY [facility] Last Admin: 06/08/17 09:37 Dose: 0.4 mg - Labs Labs: 06/08/17 08:15 06/08/17 08:15 PT 14.0 SECONDS (9.7-12.2) H 05/31/17 20:01 INR 1.2 05/31/17 20:01 APTT 28 SECONDS (21-34) 05/31/17 20:01 - Constitutional Appears: Non-toxic, No Acute Distress - Head Exam Head Exam: ATRAUMATIC, NORMAL INSPECTION - ENT Exam ENT Exam: Mucous Membranes Moist - Neck Exam Neck Exam: Full ROM. absent: Lymphadenopathy - Respiratory Exam Respiratory Exam: Clear to Ausculation Bilateral. absent: Accessory Muscle Use - GI/Abdominal Exam GI & Abdominal Exam: Soft. absent: Tenderness - Extremities Exam Extremities Exam: absent: Pedal Edema - Neurological Exam Neurological Exam: Alert, Oriented x3 Assessment and Plan - Assessment and Plan (Free Text) Assessment: dialyis dependent, obstructive uropathy sullivan in anemia improved HD in am await placement to HD unit
--- NOTE | 2017-06-08 22:37 | OP ---
PROCEDURE DATE: 06/08/2017 PREOPERATIVE DIAGNOSIS: Renal failure. POSTOPERATIVE DIAGNOSIS: Renal failure. PROCEDURE CARRIED OUT: Brachio-brachial fistula, left elbow. SURGEON: Dr. Motley. BOX SHOOK PATCHER: Dr. Orta. ANESTHESIOLOGIST: Mr. Alea Montoya. INDICATIONS: The patient is a older middle-aged man with renal insufficiency, who requires dialysis access. He had a Perm-A-Cath inserted previously. Preoperative vein mapping did not note any veins in his arms, which could be utilized for access except for the adjacent brachial vein. Because of this, a [id number] fistula was created with ligation of the distal segment at the elbow. The anastomosis was carried out using loop magnification and heparin anticoagulation, which was regressed at the end of the procedure. PROCEDURE: The patient was given local anesthesia, intravenous antibiotics. Incision was made after vein mapping having carried out, both previously and also today looking for better veins, but then we created a [id number] anastomosis after the vessels were mobilized. There were two adjacent veins, one was ligated. After the anastomoses had been completed and there was excellent thrill and excellent pulse of the wrist. We terminated the procedure and closed the wounds with Monocryl and fine sutures on the skin. Blood loss was less than 25 mL. Operation carried out is brachio-brachial fistula of left elbow. Vasquez Motley Jr., MD
[2017-06-09] MEDS: Sodium Chloride 0.9% 1,000 ML IV SCH ×2 (04:29→13:20)
[2017-06-09 07:58] LABS: BASO # 0.1 K/uL (0.0-0.2); BASO % 0.5 % (0.0-2.0); EOS # 0.1 K/uL (0.0-0.7); EOS % 0.8 % (0.0-4.0); HEMATOCRIT 26.8 % (35.0-51.0); LYMPH # 1.2 K/uL (1.0-4.3); LYMPH % 10.1 % (20.0-40.0); MEAN CELL VOLUME 84.4 fL (80.0-94.0); MEAN CORPUSCULAR HEMOGLOBIN 29.5 pg (27.0-31.0); MEAN CORPUSCULAR HGB CONC 34.9 g/dL (33.0-37.0); MEAN PLATELET VOLUME 9.2 fL (7.2-11.7); MONO # 1.4 K/uL (0.0-0.8); MONO % 12.2 % (0.0-10.0); NRBC % 0.1 % (0.0-2.0); RED CELL DISTRIBUTION WIDTH 17.6 % (11.5-14.5); WHITE BLOOD COUNT 11.7 K/uL (4.8-10.8)
[2017-06-09 08:20] LABS: POTASSIUM 4.6 mmol/L (3.6-5.2)
[2017-06-09 08:23] LABS: ALB/GLOB RATIO 1.2 (1.0-2.1); BILIRUBIN,TOTAL 0.8 mg/dL (0.2-1.3); CALCIUM 8.5 mg/dl (8.6-10.4); MAGNESIUM 1.8 mg/dL (1.6-2.3); PHOSPHOROUS 4.6 mg/dL (2.5-4.5); TOTAL PROTEIN 6.8 g/dL (6.3-8.3)
--- NOTE | 2017-06-09 08:37 | CP.PCM.PN ---
Subjective - Date & Time of Evaluation Date of Evaluation: 06/09/17 Time of Evaluation: 06:00 - Subjective Subjective: Vascular Surgery- Dr. Motley Pt S&E at bedside. LUE Dressing had strikethrough last night. bandage was changed, no hematoma detected, site actively oozing. clean dressing was reapplied in sterile fashion. Dressing now C/D/I no strikethrough. Good radial pulse. Palpable thrill. Denies F/C CP/SOB N/V/D heart palpitation. Objective - Vital Signs/Intake and Output Vital Signs (last 24 hours): Temp Pulse Resp BP Pulse Ox 98.3 F 68 20 153/89 H 100 06/09/17 08:00 06/09/17 08:00 06/09/17 08:00 06/09/17 08:00 06/09/17 08:00 Intake and Output: 06/09/17 06/09/17 06:59 18:59 Output Total 400 Balance -400 - Medications Medications: Current Medications Allopurinol (Zyloprim) 100 mg PO DAILY [facility] Last Admin: 06/08/17 09:37 Dose: 100 mg Calcium Acetate (Phoslo) 667 mg PO TIDCC [facility] Last Admin: 06/08/17 16:05 Dose: 667 mg Carvedilol (Coreg) 6.25 mg PO BID [facility] Last Admin: 06/08/17 17:06 Dose: Not Given Epoetin Johnson (Procrit) 10,000 unit IV TTS [facility] Last Admin: 06/07/17 11:53 Dose: 10,000 unit Hydromorphone HCl (Dilaudid) 0.5 mg IVP Q10M PRN PRN Reason: Pain, moderate (4-7) Ceftriaxone Sodium 1 gm/ (Sodium Chloride) 100 mls @ 100 mls/hr IVPB Q24H [facility] Last Admin: 06/08/17 18:57 Dose: 100 mls/hr Sodium Chloride (Sodium Chloride 0.9%) 1,000 mls @ 100 mls/hr IV .Q10H [facility] Last Admin: 06/09/17 04:29 Dose: 100 mls/hr Ondansetron HCl (Zofran Inj) 4 mg IVP Q4H PRN PRN Reason: Nausea/Vomiting Last Admin: 06/01/17 23:49 Dose: 4 mg Oxycodone/Acetaminophen (Percocet 5/325 Mg Tab) 1 tab PO Q4H PRN PRN Reason: Pain, moderate (4-7) Stop: 06/11/17 14:24 Last Admin: 06/08/17 22:16 Dose: 1 tab Pantoprazole Sodium (Protonix Ec Tab) 40 mg PO DAILY [facility] Last Admin: 06/08/17 09:37 Dose: 40 mg Prednisone (Prednisone Tab) 30 mg PO DAILY [facility] Tamsulosin HCl (Flomax) 0.4 mg PO DAILY [facility] Last Admin: 06/08/17 09:37 Dose: 0.4 mg - Labs Labs: 06/09/17 07:42 06/09/17 07:42 PT 14.0 SECONDS (9.7-12.2) H 05/31/17 20:01 INR 1.2 05/31/17 20:01 APTT 28 SECONDS (21-34) 05/31/17 20:01 - Constitutional Appears: No Acute Distress - Head Exam Head Exam: ATRAUMATIC - Eye Exam Eye Exam: EOMI - ENT Exam ENT Exam: Mucous Membranes Moist - Respiratory Exam Respiratory Exam: NORMAL BREATHING PATTERN. absent: Accessory Muscle Use, Rhonchi, Wheezes - Cardiovascular Exam Cardiovascular Exam: +S1, +S2 - GI/Abdominal Exam GI & Abdominal Exam: Soft. absent: Distended, Tenderness - Extremities Exam Additional comments: dressing C/D/I radial pulse +2 - Neurological Exam Neurological Exam: Alert, Awake, Oriented x3 - Psychiatric Exam Psychiatric exam: Normal Mood - Skin Skin Exam: Normal Color, Warm Assessment and Plan - Assessment and Plan (Free Text) Assessment: 61M renal failure s/p left arm brachio-basilic fistula POD#1 Plan: - monitor H/H and dressing site - OOB - medical recs - further recs per Dr. Tiesha Al PGY1
--- NOTE | 2017-06-09 09:23 | CP.PCM.PN ---
<Melissa Davila - Last Filed: 06/09/17 13:45> Subjective - Date & Time of Evaluation Date of Evaluation: 06/09/17 Time of Evaluation: 08:00 - Subjective Subjective: Medicine Progress note: Patient was seen and examined at bedside in the AM. Patient states he is well today. He states they placed the fistula yesterday in his left arm and it is taking him some time to get used to it. He states the pain on urination has subsided and the hematuria has subsided. He denies shortness of breath, chest pain, nausea, vomiting. He states his right knee is doing much better and it is back to his normal. Objective - Vital Signs/Intake and Output Vital Signs (last 24 hours): Temp Pulse Resp BP Pulse Ox 98.3 F 68 20 153/89 H 100 06/09/17 08:00 06/09/17 08:00 06/09/17 08:00 06/09/17 08:00 06/09/17 08:00 Intake and Output: 06/09/17 06/09/17 06:59 18:59 Output Total 400 Balance -400 - Medications Medications: Current Medications Allopurinol (Zyloprim) 100 mg PO DAILY REPLACED BY [facility] Last Admin: 06/08/17 09:37 Dose: 100 mg Calcium Acetate (Phoslo) 667 mg PO TIDCC REPLACED BY [facility] Last Admin: 06/08/17 16:05 Dose: 667 mg Carvedilol (Coreg) 6.25 mg PO BID REPLACED BY [facility] Last Admin: 06/08/17 17:06 Dose: Not Given Epoetin Johnson (Procrit) 10,000 unit IV TTS REPLACED BY [facility] Last Admin: 06/07/17 11:53 Dose: 10,000 unit Hydromorphone HCl (Dilaudid) 0.5 mg IVP Q10M PRN PRN Reason: Pain, moderate (4-7) Ceftriaxone Sodium 1 gm/ (Sodium Chloride) 100 mls @ 100 mls/hr IVPB Q24H REPLACED BY [facility] Last Admin: 06/08/17 18:57 Dose: 100 mls/hr Sodium Chloride (Sodium Chloride 0.9%) 1,000 mls @ 100 mls/hr IV .Q10H REPLACED BY [facility] Last Admin: 06/09/17 04:29 Dose: 100 mls/hr Ondansetron HCl (Zofran Inj) 4 mg IVP Q4H PRN PRN Reason: Nausea/Vomiting Last Admin: 06/01/17 23:49 Dose: 4 mg Oxycodone/Acetaminophen (Percocet 5/325 Mg Tab) 1 tab PO Q4H PRN PRN Reason: Pain, moderate (4-7) Stop: 06/11/17 14:24 Last Admin: 06/08/17 22:16 Dose: 1 tab Pantoprazole Sodium (Protonix Ec Tab) 40 mg PO DAILY REPLACED BY [facility] Last Admin: 06/08/17 09:37 Dose: 40 mg Prednisone (Prednisone Tab) 30 mg PO DAILY REPLACED BY [facility] Tamsulosin HCl (Flomax) 0.4 mg PO DAILY REPLACED BY [facility] Last Admin: 06/08/17 09:37 Dose: 0.4 mg - Labs Labs: 06/09/17 07:42 06/09/17 07:42 PT 14.0 SECONDS (9.7-12.2) H 05/31/17 20:01 INR 1.2 05/31/17 20:01 APTT 28 SECONDS (21-34) 05/31/17 20:01 - Constitutional Appears: No Acute Distress - Head Exam Head Exam: ATRAUMATIC, NORMAL INSPECTION, NORMOCEPHALIC - Eye Exam Eye Exam: EOMI, Normal appearance, PERRL Pupil Exam: NORMAL ACCOMODATION - ENT Exam ENT Exam: Mucous Membranes Moist - Respiratory Exam Respiratory Exam: Clear to Ausculation Bilateral, NORMAL BREATHING PATTERN - Cardiovascular Exam Cardiovascular Exam: REGULAR RHYTHM, +S1, +S2 - GI/Abdominal Exam GI & Abdominal Exam: Soft, Normal Bowel Sounds. absent: Tenderness - Extremities Exam Extremities Exam: Normal Inspection. absent: Pedal Edema, Tenderness Additional comments: Left arm AV fistula - Neurological Exam Neurological Exam: Alert, Awake, Oriented x3 - Psychiatric Exam Psychiatric exam: Normal Affect, Normal Mood - Skin Skin Exam: Normal Color, Warm Assessment and Plan - Assessment and Plan (Free Text) Plan: 1.) Chronic Anemia secondary to CKD - H/H (06/09/17): 9.3/26.8 * Transfused 2 units of PRBC 06/05 because H/H: 6.6/19.3 * Transfused 1 unit in the ED and transfused 1 unit on the floor (06/01/17) * Transfused 2 units 06/01/17 * Monitor CBC - stool occult blood (06/01): Negative - 20% Iron saturation; Ferritin: 1920 Heme/Onc Consult: Dr. Velez --> help appreciated - per Dr. Velez's note: monoclonal protein w/u - B12 859; folate 4.9; Ferritin 2180; Retic 2.7 - Spoke with Dr. Velez and he believes the Chronic Anemia is due to patient' s renal failure if his hemoglobin become unstable again then possible bone marrow biopsy 2.) History of urinary retention Urology, Dr. Cecil Roque---> help appreciated - Garcia in place - continues to have hematuria - Spoke with Dr. Roque cystoscopy was not done 06/06 and he states the patient does not a procedure at this time - Flomax 0.4mg PO daily - Monitor input and output - PSA 3.93 3.) Renal failure, acute secondary to chronic obstructive nephropathy vs. autoimmune disorder History of BPH - Renal ultrasound: Moderate bilateral hydronephrosis; Debris within the urinary bladder which is decompressed with Garcia catheter - BUN/Cr: 94/8.0 Piccoloist: Dr. Paul --> Help appreciated - Dialysis started today 06/02/17: Schedule is Tuesday, , Tuesday - Per Dr. Stark's note patient needs AV fistula Surgical Consult, Dr. Motley --> Help appreciated - Permacath placed 06/01 - Left arm brachio-basilic fistula placed 06/08/17 - CATRACHITA: Positive; CATRACHITA titer 1:80 (high); CATRACHITA pattern - homogenous (high) * f/u p-ANCA, c-ANCA - PTH: 236 (high) - F/u Vit D 4.) Hypertension - Carvedilol 12.5mg PO BID - spoke with Dr. Paul and increased the Carvedilol 06/09 for better B/P control - Echo: Left ventricle thickness, mild concentric thickening; ejection fraction 55% 5.) UTI - UA: Leukocyte esterase 3+; urine WBC 115; urine bacteria Occ High - Started (06/06): rocephin (day 5 for a total of 7 days) - Urine culture: No growth 6.) Gout- Right Knee - Started on Prednisone 40mg daily - Will start to taper 06/08 to 30mg for 2 days; 20mg x2; 10mg x2 (orders have been placed) - Started on Allopurinol 100mg PO daily 7.) Prophylactic measure Protonix 40mg PO daily Anticoagulation due to worsening kidney function and anemia Physical Therapy Disposition: Pending dialysis placement Case Discussed with Dr. Tayo Davila PGY-1 <Amilcar Cr - Last Filed: 06/14/17 00:03> Objective - Vital Signs/Intake and Output Vital Signs (last 24 hours): Temp Pulse Resp BP Pulse Ox 97.9 F 71 20 146/85 100 06/11/17 13:15 06/11/17 13:15 06/11/17 13:15 06/11/17 15:37 06/11/17 13:15 - Labs Labs: 06/11/17 09:10 06/11/17 09:10 PT 14.0 SECONDS (9.7-12.2) H 05/31/17 20:01 INR 1.2 05/31/17 20:01 APTT 28 SECONDS (21-34) 05/31/17 20:01 Attending/Attestation - Attestation I have personally seen and examined this patient.: Yes I have fully participated in the care of the patient.: Yes I have reviewed all pertinent clinical information, including history, physical exam and plan: Yes Notes (Text): 06/14/17 00:02 patient was seen and examined at bedside with the resident he is status post AV fistula placement Continue hemodialysis as per schedule Discharge planning when outpatient hemodialysis spot is available.
[2017-06-09 09:29] LABS: FOLATE 4.9 ng/mL
[2017-06-09] MEDS: Pantoprazole 40 mg EC Tab PO SCH (10:30)
--- NOTE | 2017-06-09 11:16 | CP.PCM.PN ---
Subjective - Date & Time of Evaluation Date of Evaluation: 06/09/17 Time of Evaluation: 11:14 - Subjective Subjective: Alert; NAD s/p av fistula- mhas bruit for dialysis today outpt dialysis arranged Objective - Vital Signs/Intake and Output Vital Signs (last 24 hours): Temp Pulse Resp BP Pulse Ox 98.3 F 68 20 153/89 H 100 06/09/17 08:00 06/09/17 08:00 06/09/17 08:00 06/09/17 08:00 06/09/17 08:00 Intake and Output: 06/09/17 06/09/17 06:59 18:59 Output Total 400 Balance -400 - Medications Medications: Current Medications Allopurinol (Zyloprim) 100 mg PO DAILY [facility] Last Admin: 06/08/17 09:37 Dose: 100 mg Calcium Acetate (Phoslo) 667 mg PO TIDCC [facility] Last Admin: 06/08/17 16:05 Dose: 667 mg Carvedilol (Coreg) 6.25 mg PO BID [facility] Last Admin: 06/08/17 17:06 Dose: Not Given Epoetin Johnson (Procrit) 10,000 unit IV TTS [facility] Last Admin: 06/07/17 11:53 Dose: 10,000 unit Hydromorphone HCl (Dilaudid) 0.5 mg IVP Q10M PRN PRN Reason: Pain, moderate (4-7) Ceftriaxone Sodium 1 gm/ (Sodium Chloride) 100 mls @ 100 mls/hr IVPB Q24H [facility] Last Admin: 06/08/17 18:57 Dose: 100 mls/hr Sodium Chloride (Sodium Chloride 0.9%) 1,000 mls @ 100 mls/hr IV .Q10H [facility] Last Admin: 06/09/17 04:29 Dose: 100 mls/hr Ondansetron HCl (Zofran Inj) 4 mg IVP Q4H PRN PRN Reason: Nausea/Vomiting Last Admin: 06/01/17 23:49 Dose: 4 mg Oxycodone/Acetaminophen (Percocet 5/325 Mg Tab) 1 tab PO Q4H PRN PRN Reason: Pain, moderate (4-7) Stop: 06/11/17 14:24 Last Admin: 06/08/17 22:16 Dose: 1 tab Pantoprazole Sodium (Protonix Ec Tab) 40 mg PO DAILY [facility] Last Admin: 06/08/17 09:37 Dose: 40 mg Prednisone (Prednisone Tab) 30 mg PO DAILY [facility] Tamsulosin HCl (Flomax) 0.4 mg PO DAILY [facility] Last Admin: 06/08/17 09:37 Dose: 0.4 mg - Labs Labs: 06/09/17 07:42 06/09/17 07:42 PT 14.0 SECONDS (9.7-12.2) H 05/31/17 20:01 INR 1.2 05/31/17 20:01 APTT 28 SECONDS (21-34) 05/31/17 20:01 - Constitutional Appears: No Acute Distress, Chronically Ill - Head Exam Head Exam: ATRAUMATIC, NORMAL INSPECTION - Eye Exam Eye Exam: EOMI, Normal appearance - Neck Exam Neck Exam: Normal Inspection. absent: Tenderness - Respiratory Exam Respiratory Exam: Clear to Ausculation Bilateral, NORMAL BREATHING PATTERN - Cardiovascular Exam Cardiovascular Exam: REGULAR RHYTHM, +S1 - GI/Abdominal Exam GI & Abdominal Exam: Soft. absent: Tenderness - Extremities Exam Extremities Exam: Normal Inspection. absent: Tenderness - Neurological Exam Neurological Exam: Alert, CN II-XII Intact - Skin Skin Exam: Dry, Warm Assessment and Plan (1) Obstructive and reflux uropathy Status: Acute (2) Hypertensive chronic kidney disease with stage 5 chronic kidney disease or end stage renal disease Status: Acute (3) Chronic kidney disease, stage V Status: Acute (4) ESRD (end stage renal disease) on dialysis Status: Acute - Assessment and Plan (Free Text) Plan: dialysis TTS arrange for starting outpt dialysis soon
[2017-06-09] MEDS: Epoetin Alfa 10,000 unit/ml Dialysis IV SCH (16:26)
[2017-06-09] MEDS: Oxycodone/Acetaminophen 5/325 mg Tab PO PRN (19:09)
--- NOTE | 2017-06-10 02:26 | CP.PCM.PN ---
Subjective - Date & Time of Evaluation Date of Evaluation: 06/09/17 Time of Evaluation: 15:15 - Subjective Subjective: No complaints. Objective - Vital Signs/Intake and Output Vital Signs (last 24 hours): Temp Pulse Resp BP Pulse Ox 97.7 F 76 20 128/72 97 06/10/17 00:00 06/10/17 00:00 06/10/17 00:00 06/10/17 00:00 06/10/17 00:00 Intake and Output: 06/09/17 06/10/17 18:59 06:59 Intake Total 450 Output Total 350 650 Balance 100 -650 - Medications Medications: Current Medications Allopurinol (Zyloprim) 100 mg PO DAILY [facility] Last Admin: 06/09/17 10:30 Dose: 100 mg Calcium Acetate (Phoslo) 667 mg PO TIDCC [facility] Last Admin: 06/09/17 18:05 Dose: 667 mg Carvedilol (Coreg) 12.5 mg PO BID [facility] Last Admin: 06/09/17 18:06 Dose: 12.5 mg Epoetin Johnson (Procrit) 10,000 unit IV TTS [facility] Last Admin: 06/09/17 16:26 Dose: 10,000 unit Hydromorphone HCl (Dilaudid) 0.5 mg IVP Q10M PRN PRN Reason: Pain, moderate (4-7) Ceftriaxone Sodium 1 gm/ (Sodium Chloride) 100 mls @ 100 mls/hr IVPB Q24H [facility] Stop: 06/12/17 00:00 Last Admin: 06/09/17 18:06 Dose: 100 mls/hr Ondansetron HCl (Zofran Inj) 4 mg IVP Q4H PRN PRN Reason: Nausea/Vomiting Last Admin: 06/01/17 23:49 Dose: 4 mg Oxycodone/Acetaminophen (Percocet 5/325 Mg Tab) 1 tab PO Q4H PRN PRN Reason: Pain, moderate (4-7) Stop: 06/11/17 14:24 Last Admin: 06/09/17 19:09 Dose: 1 tab Pantoprazole Sodium (Protonix Ec Tab) 40 mg PO DAILY [facility] Last Admin: 06/09/17 10:30 Dose: 40 mg Prednisone (Prednisone Tab) 20 mg PO DAILY [facility] Stop: 06/12/17 00:00 Prednisone (Prednisone Tab) 10 mg PO DAILY [facility] Stop: 06/14/17 00:00 Tamsulosin HCl (Flomax) 0.4 mg PO DAILY [facility] Last Admin: 06/09/17 10:30 Dose: 0.4 mg - Labs Labs: 06/09/17 07:42 06/09/17 07:42 PT 14.0 SECONDS (9.7-12.2) H 05/31/17 20:01 INR 1.2 05/31/17 20:01 APTT 28 SECONDS (21-34) 05/31/17 20:01 - Head Exam Head Exam: ATRAUMATIC - Eye Exam Eye Exam: Normal appearance - ENT Exam ENT Exam: Mucous Membranes Dry - Respiratory Exam Respiratory Exam: NORMAL BREATHING PATTERN - Cardiovascular Exam Cardiovascular Exam: +S1, +S2 - GI/Abdominal Exam GI & Abdominal Exam: Normal Bowel Sounds - Extremities Exam Extremities Exam: Normal Inspection Assessment and Plan (1) Anemia Assessment & Plan: anemia of CKD Procrit per renal H/H stable s/p PRBC transfusion Status: Acute
[2017-06-10 04:45] LABS: TOTAL PROTEIN, SERUM 6.5 g/dL (6.1-8.1)
[2017-06-10 07:39] LABS: BASO % 0.5 % (0.0-2.0); EOS # 0.1 K/uL (0.0-0.7); EOS % 0.8 % (0.0-4.0); HEMATOCRIT 21.1 % (35.0-51.0); LYMPH # 0.9 K/uL (1.0-4.3); LYMPH % 12.7 % (20.0-40.0); MEAN CELL VOLUME 83.9 fL (80.0-94.0); MEAN CORPUSCULAR HEMOGLOBIN 29.7 pg (27.0-31.0); MEAN CORPUSCULAR HGB CONC 35.4 g/dL (33.0-37.0); MEAN PLATELET VOLUME 8.9 fL (7.2-11.7); MONO # 0.9 K/uL (0.0-0.8); MONO % 12.1 % (0.0-10.0); RED CELL DISTRIBUTION WIDTH 17.5 % (11.5-14.5); WHITE BLOOD COUNT 7.1 K/uL (4.8-10.8)
[2017-06-10 08:07] LABS: POTASSIUM 4.3 mmol/L (3.6-5.2)
[2017-06-10 08:09] LABS: ALB/GLOB RATIO 1.2 (1.0-2.1); BILIRUBIN,TOTAL 0.7 mg/dL (0.2-1.3); PHOSPHOROUS 3.8 mg/dL (2.5-4.5); TOTAL PROTEIN 5.3 g/dL (6.3-8.3)
[2017-06-10 08:10] LABS: CALCIUM 7.9 mg/dl (8.6-10.4); MAGNESIUM 1.6 mg/dL (1.6-2.3)
[2017-06-10] MEDS: Pantoprazole 40 mg EC Tab PO SCH (10:32)
[2017-06-10 10:59] LABS: BETA 1 GLOBULIN 0.3 g/dL (0.4-0.6); BETA 2 GLOBULIN 0.3 g/dL (0.2-0.5); GAMMA GLOBULIN 1.2 g/dL (0.8-1.7)
--- NOTE | 2017-06-10 12:48 | CP.PCM.PN ---
<Phuong Genao - Last Filed: 06/10/17 17:35> Subjective - Date & Time of Evaluation Date of Evaluation: 06/10/17 Time of Evaluation: 07:00 - Subjective Subjective: PGY1- Medicine Note- Dr. Flores's Service Patient seen and examined at bedside and in no acute distress. Patient says he is more tired today because he did not sleep well from noise, but overall feeling better than yesterday. Patient's left arm av fistula is not causing him pain. Patient's knee pain has also diminished. Patient denies headache, shortness of breath, chest pain, abdominal pain, nausea, vomiting, constipation or diarrhea. Objective - Vital Signs/Intake and Output Vital Signs (last 24 hours): Temp Pulse Resp BP Pulse Ox 98.7 F 70 20 116/64 97 06/10/17 07:52 06/10/17 07:52 06/10/17 07:52 06/10/17 10:33 06/10/17 07:52 Intake and Output: 06/10/17 06/10/17 06:59 18:59 Output Total 650 Balance -650 - Medications Medications: Current Medications Allopurinol (Zyloprim) 100 mg PO DAILY [facility] Last Admin: 06/10/17 10:32 Dose: 100 mg Calcium Acetate (Phoslo) 667 mg PO TIDCC [facility] Last Admin: 06/10/17 12:03 Dose: 667 mg Carvedilol (Coreg) 12.5 mg PO BID [facility] Last Admin: 06/10/17 10:33 Dose: Not Given Epoetin Johnson (Procrit) 10,000 unit IV TTS [facility] Last Admin: 06/09/17 16:26 Dose: 10,000 unit Hydromorphone HCl (Dilaudid) 0.5 mg IVP Q10M PRN PRN Reason: Pain, moderate (4-7) Ceftriaxone Sodium 1 gm/ (Sodium Chloride) 100 mls @ 100 mls/hr IVPB Q24H [facility] Stop: 06/12/17 00:00 Last Admin: 06/09/17 18:06 Dose: 100 mls/hr Ondansetron HCl (Zofran Inj) 4 mg IVP Q4H PRN PRN Reason: Nausea/Vomiting Last Admin: 06/01/17 23:49 Dose: 4 mg Oxycodone/Acetaminophen (Percocet 5/325 Mg Tab) 1 tab PO Q4H PRN PRN Reason: Pain, moderate (4-7) Stop: 06/11/17 14:24 Last Admin: 06/09/17 19:09 Dose: 1 tab Pantoprazole Sodium (Protonix Ec Tab) 40 mg PO DAILY [facility] Last Admin: 06/10/17 10:32 Dose: 40 mg Prednisone (Prednisone Tab) 20 mg PO DAILY [facility] Stop: 06/12/17 00:00 Prednisone (Prednisone Tab) 10 mg PO DAILY [facility] Stop: 06/14/17 00:00 Tamsulosin HCl (Flomax) 0.4 mg PO DAILY [facility] Last Admin: 06/10/17 10:32 Dose: 0.4 mg - Labs Labs: 06/10/17 07:23 06/10/17 07:23 PT 14.0 SECONDS (9.7-12.2) H 05/31/17 20:01 INR 1.2 05/31/17 20:01 APTT 28 SECONDS (21-34) 05/31/17 20:01 - Constitutional Appears: Non-toxic, No Acute Distress - Head Exam Head Exam: ATRAUMATIC, NORMAL INSPECTION, NORMOCEPHALIC - Eye Exam Eye Exam: EOMI, Normal appearance - ENT Exam ENT Exam: Mucous Membranes Moist - Neck Exam Neck Exam: Full ROM. absent: Tenderness - Respiratory Exam Respiratory Exam: Clear to Ausculation Bilateral, NORMAL BREATHING PATTERN. absent: Rales, Rhonchi, Wheezes, Respiratory Distress, Stridor - Cardiovascular Exam Cardiovascular Exam: REGULAR RHYTHM, RRR. absent: Gallop, Rubs, Murmur - GI/Abdominal Exam GI & Abdominal Exam: Soft, Normal Bowel Sounds - Extremities Exam Extremities Exam: Full ROM. absent: Pedal Edema Additional comments: left arm av fistula bandaged, clear, dry and intact - Neurological Exam Neurological Exam: Alert, Awake, Oriented x3 - Psychiatric Exam Psychiatric exam: Normal Affect, Normal Mood - Skin Skin Exam: Intact, Normal Color, Warm Assessment and Plan - Assessment and Plan (Free Text) Assessment: 1.) Chronic Anemia secondary to CKD -H/H (06/10): 7.5/21.1, will transfuse tomorrow if Hg drops below 6 - H/H (06/09/17): 9.3/26.8 * Transfused 2 units of PRBC 06/05 because H/H: 6.6/19.3 * Transfused 4 units (06/01/17) * Monitor CBC - stool occult blood (06/01): Negative - 20% Iron saturation; Ferritin: 1920 Heme/Onc Consult: Dr. Velez --> help appreciated - per Dr. Velez's note: monoclonal protein w/u - B12 859; folate 4.9; Ferritin 2180; Retic 2.7 - Spoke with Dr. Velez and he believes the Chronic Anemia is due to patient' s renal failure if his hemoglobin become unstable again then possible bone marrow biopsy - f/u stool occult blood 2.) History of urinary retention Urology, Dr. Cecil Roque---> help appreciated - Garcia in place - continues to have hematuria - Spoke with Dr. Roque cystoscopy was not done 06/06 and he states the patient does not a procedure at this time - Flomax 0.4mg PO daily - Monitor input and output - PSA 3.93 3.) Renal failure, acute secondary to chronic obstructive nephropathy vs. autoimmune disorder History of BPH - Renal ultrasound: Moderate bilateral hydronephrosis; Debris within the urinary bladder which is decompressed with Garcia catheter - BUN/Cr: 94/8.0 Sealer Sander: Dr. Paul --> Help appreciated - Dialysis started today 06/02/17: Schedule is Tuesday, , Tuesday - Per Dr. Stark's note patient needs AV fistula Surgical Consult, Dr. Motley --> Help appreciated - Permacath placed 06/01 - Left arm brachio-basilic fistula placed 06/08/17 - CATRACHITA: Positive; CATRACHITA titer 1:80 (high); CATRACHITA pattern - homogenous (high) * f/u p-ANCA, c-ANCA - PTH: 236 (high) - F/u Vit D 4.) Hypertension - Carvedilol 12.5mg PO BID - spoke with Dr. Paul and increased the Carvedilol 06/09 for better B/P control - Echo: Left ventricle thickness, mild concentric thickening; ejection fraction 55% 5.) UTI - UA: Leukocyte esterase 3+; urine WBC 115; urine bacteria Occ High - Started (06/06): rocephin (day 5 for a total of 7 days) - Urine culture: No growth 6.) Gout- Right Knee - Started on Prednisone 40mg daily - Will start to taper 06/08 to 30mg for 2 days; 20mg x2; 10mg x2 (orders have been placed) - Started on Allopurinol 100mg PO daily 7.) Prophylactic measure Protonix 40mg PO daily Anticoagulation due to worsening kidney function and anemia Physical Therapy Disposition: Pending dialysis placement Case Discussed with Dr. Flores <Ector Flores - Last Filed: 06/11/17 07:22> Objective - Vital Signs/Intake and Output Vital Signs (last 24 hours): Temp Pulse Resp BP Pulse Ox 97.9 F 75 18 142/75 100 06/10/17 23:23 06/10/17 23:23 06/10/17 23:23 06/10/17 23:23 06/10/17 23:23 Intake and Output: 06/11/17 06/11/17 06:59 18:59 Output Total 950 Balance -950 - Medications Medications: Current Medications Allopurinol (Zyloprim) 100 mg PO DAILY [facility] Last Admin: 06/10/17 10:32 Dose: 100 mg Calcium Acetate (Phoslo) 667 mg PO TIDCC [facility] Last Admin: 06/10/17 17:24 Dose: 667 mg Carvedilol (Coreg) 12.5 mg PO BID [facility] Last Admin: 06/10/17 17:24 Dose: 12.5 mg Epoetin Johnson (Procrit) 10,000 unit IV TTS [facility] Last Admin: 06/09/17 16:26 Dose: 10,000 unit Hydromorphone HCl (Dilaudid) 0.5 mg IVP Q10M PRN PRN Reason: Pain, moderate (4-7) Ceftriaxone Sodium 1 gm/ (Sodium Chloride) 100 mls @ 100 mls/hr IVPB Q24H [facility] Stop: 06/12/17 00:00 Last Admin: 06/10/17 17:24 Dose: 100 mls/hr Ondansetron HCl (Zofran Inj) 4 mg IVP Q4H PRN PRN Reason: Nausea/Vomiting Last Admin: 06/01/17 23:49 Dose: 4 mg Oxycodone/Acetaminophen (Percocet 5/325 Mg Tab) 1 tab PO Q4H PRN PRN Reason: Pain, moderate (4-7) Stop: 06/11/17 14:24 Last Admin: 06/10/17 17:24 Dose: 1 tab Pantoprazole Sodium (Protonix Ec Tab) 40 mg PO DAILY [facility] Last Admin: 06/10/17 10:32 Dose: 40 mg Prednisone (Prednisone Tab) 20 mg PO DAILY [facility] Stop: 06/12/17 00:00 Prednisone (Prednisone Tab) 10 mg PO DAILY [facility] Stop: 06/14/17 00:00 Tamsulosin HCl (Flomax) 0.4 mg PO DAILY [facility] Last Admin: 06/10/17 10:32 Dose: 0.4 mg - Labs Labs: 06/10/17 07:23 06/10/17 07:23 PT 14.0 SECONDS (9.7-12.2) H 05/31/17 20:01 INR 1.2 05/31/17 20:01 APTT 28 SECONDS (21-34) 05/31/17 20:01 Attending/Attestation - Attestation I have personally seen and examined this patient.: Yes I have fully participated in the care of the patient.: Yes I have reviewed all pertinent clinical information, including history, physical exam and plan: Yes Notes (Text): Medical Attending: Patient was seen and examined by me. Agree with the above note by the resident. The patient reported feeling ok. There is a low Hgb noted - he has had several transfusions in the past. When we asked the patient if he felt fatigued or symptomatic, he said no. For now will monitor the patient's CBC. If it remains this level then will not transfuse. However should it decrease further then will transfuse. His feccult occult blood studies have been negative in the past thank you Ector Flores
--- NOTE | 2017-06-10 14:43 | CP.PCM.PN ---
Subjective - Date & Time of Evaluation Date of Evaluation: 06/10/17 Time of Evaluation: 14:41 - Subjective Subjective: stable dialysis 06/09 +bruit AV fistula Hg dropped post surgery feels well otherwise Objective - Vital Signs/Intake and Output Vital Signs (last 24 hours): Temp Pulse Resp BP Pulse Ox 98.7 F 70 20 116/64 97 06/10/17 07:52 06/10/17 07:52 06/10/17 07:52 06/10/17 10:33 06/10/17 07:52 Intake and Output: 06/10/17 06/10/17 06:59 18:59 Output Total 650 Balance -650 - Medications Medications: Current Medications Allopurinol (Zyloprim) 100 mg PO DAILY [facility] Last Admin: 06/10/17 10:32 Dose: 100 mg Calcium Acetate (Phoslo) 667 mg PO TIDCC [facility] Last Admin: 06/10/17 12:03 Dose: 667 mg Carvedilol (Coreg) 12.5 mg PO BID [facility] Last Admin: 06/10/17 10:33 Dose: Not Given Epoetin Johnson (Procrit) 10,000 unit IV TTS [facility] Last Admin: 06/09/17 16:26 Dose: 10,000 unit Hydromorphone HCl (Dilaudid) 0.5 mg IVP Q10M PRN PRN Reason: Pain, moderate (4-7) Ceftriaxone Sodium 1 gm/ (Sodium Chloride) 100 mls @ 100 mls/hr IVPB Q24H [facility] Stop: 06/12/17 00:00 Last Admin: 06/09/17 18:06 Dose: 100 mls/hr Ondansetron HCl (Zofran Inj) 4 mg IVP Q4H PRN PRN Reason: Nausea/Vomiting Last Admin: 06/01/17 23:49 Dose: 4 mg Oxycodone/Acetaminophen (Percocet 5/325 Mg Tab) 1 tab PO Q4H PRN PRN Reason: Pain, moderate (4-7) Stop: 06/11/17 14:24 Last Admin: 06/09/17 19:09 Dose: 1 tab Pantoprazole Sodium (Protonix Ec Tab) 40 mg PO DAILY [facility] Last Admin: 06/10/17 10:32 Dose: 40 mg Prednisone (Prednisone Tab) 20 mg PO DAILY [facility] Stop: 06/12/17 00:00 Prednisone (Prednisone Tab) 10 mg PO DAILY [facility] Stop: 06/14/17 00:00 Tamsulosin HCl (Flomax) 0.4 mg PO DAILY [facility] Last Admin: 06/10/17 10:32 Dose: 0.4 mg - Labs Labs: 06/10/17 07:23 06/10/17 07:23 PT 14.0 SECONDS (9.7-12.2) H 05/31/17 20:01 INR 1.2 05/31/17 20:01 APTT 28 SECONDS (21-34) 05/31/17 20:01 - Constitutional Appears: No Acute Distress, Chronically Ill - Head Exam Head Exam: ATRAUMATIC, NORMAL INSPECTION - Eye Exam Eye Exam: EOMI, Normal appearance - Neck Exam Neck Exam: Normal Inspection. absent: Tenderness - Respiratory Exam Respiratory Exam: Clear to Ausculation Bilateral, NORMAL BREATHING PATTERN - Cardiovascular Exam Cardiovascular Exam: REGULAR RHYTHM, +S1 - GI/Abdominal Exam GI & Abdominal Exam: Soft. absent: Tenderness - Extremities Exam Extremities Exam: Normal Inspection. absent: Tenderness - Neurological Exam Neurological Exam: Alert, CN II-XII Intact - Skin Skin Exam: Dry, Warm Assessment and Plan (1) Obstructive and reflux uropathy Status: Acute (2) Hypertensive chronic kidney disease with stage 5 chronic kidney disease or end stage renal disease Status: Acute (3) Chronic kidney disease, stage V Status: Acute (4) ESRD (end stage renal disease) on dialysis Status: Acute - Assessment and Plan (Free Text) Plan: Dialysis 06/11 trnsfuse 1 unit prbcs at dialysis 06/11 then ok for discharge
[2017-06-10] MEDS: Oxycodone/Acetaminophen 5/325 mg Tab PO PRN (17:24)
--- NOTE | 2017-06-11 05:40 | CP.PCM.PN ---
<Melissa Davila - Last Filed: 06/11/17 05:37> Subjective - Date & Time of Evaluation Date of Evaluation: 06/11/17 Time of Evaluation: 00:00 - Subjective Subjective: Medicine Progress Note: Patient was seen and examined in the AM at bedside. Patient states he is doing well but his hemoglobin decreased today so his dialysis placement is getting pushed back to Tuesday. Patient states he hopes he does not have to spend his birthday next week in the hospital. Otherwise he states he is doing well and has no complaints. Objective - Vital Signs/Intake and Output Vital Signs (last 24 hours): Temp Pulse Resp BP Pulse Ox 97.9 F 75 18 142/75 100 06/10/17 23:23 06/10/17 23:23 06/10/17 23:23 06/10/17 23:23 06/10/17 23:23 Intake and Output: 06/10/17 06/11/17 18:59 06:59 Intake Total 820 Output Total 400 Balance 420 - Medications Medications: Current Medications Allopurinol (Zyloprim) 100 mg PO DAILY [facility] Last Admin: 06/10/17 10:32 Dose: 100 mg Calcium Acetate (Phoslo) 667 mg PO TIDCC [facility] Last Admin: 06/10/17 17:24 Dose: 667 mg Carvedilol (Coreg) 12.5 mg PO BID [facility] Last Admin: 06/10/17 17:24 Dose: 12.5 mg Epoetin Johnson (Procrit) 10,000 unit IV TTS [facility] Last Admin: 06/09/17 16:26 Dose: 10,000 unit Hydromorphone HCl (Dilaudid) 0.5 mg IVP Q10M PRN PRN Reason: Pain, moderate (4-7) Ceftriaxone Sodium 1 gm/ (Sodium Chloride) 100 mls @ 100 mls/hr IVPB Q24H [facility] Stop: 06/12/17 00:00 Last Admin: 06/10/17 17:24 Dose: 100 mls/hr Ondansetron HCl (Zofran Inj) 4 mg IVP Q4H PRN PRN Reason: Nausea/Vomiting Last Admin: 06/01/17 23:49 Dose: 4 mg Oxycodone/Acetaminophen (Percocet 5/325 Mg Tab) 1 tab PO Q4H PRN PRN Reason: Pain, moderate (4-7) Stop: 06/11/17 14:24 Last Admin: 06/10/17 17:24 Dose: 1 tab Pantoprazole Sodium (Protonix Ec Tab) 40 mg PO DAILY [facility] Last Admin: 06/10/17 10:32 Dose: 40 mg Prednisone (Prednisone Tab) 20 mg PO DAILY [facility] Stop: 06/12/17 00:00 Prednisone (Prednisone Tab) 10 mg PO DAILY [facility] Stop: 06/14/17 00:00 Tamsulosin HCl (Flomax) 0.4 mg PO DAILY [facility] Last Admin: 06/10/17 10:32 Dose: 0.4 mg - Labs Labs: 06/10/17 07:23 06/10/17 07:23 PT 14.0 SECONDS (9.7-12.2) H 05/31/17 20:01 INR 1.2 05/31/17 20:01 APTT 28 SECONDS (21-34) 05/31/17 20:01 - Constitutional Appears: No Acute Distress - Head Exam Head Exam: ATRAUMATIC, NORMAL INSPECTION, NORMOCEPHALIC - Eye Exam Eye Exam: EOMI, Normal appearance, PERRL Pupil Exam: NORMAL ACCOMODATION - ENT Exam ENT Exam: Mucous Membranes Moist - Respiratory Exam Respiratory Exam: Clear to Ausculation Bilateral, NORMAL BREATHING PATTERN - Cardiovascular Exam Cardiovascular Exam: REGULAR RHYTHM, RRR, +S1, +S2 - GI/Abdominal Exam GI & Abdominal Exam: Soft, Normal Bowel Sounds. absent: Tenderness - Extremities Exam Extremities Exam: Normal Inspection. absent: Pedal Edema, Tenderness Additional comments: AV fistula in left arm - Neurological Exam Neurological Exam: Alert, Awake, Oriented x3 - Psychiatric Exam Psychiatric exam: Normal Affect, Normal Mood - Skin Skin Exam: Normal Color, Warm Assessment and Plan - Assessment and Plan (Free Text) Assessment: 1.) Chronic Anemia secondary to CKD -H/H (06/10): 7.5/21.1, will transfuse tomorrow if Hg drops below 6 - H/H (06/09/17): 9.3/26.8 * Transfused 2 units of PRBC 06/05 because H/H: 6.6/19.3 * Transfused 4 units (06/01/17) * Monitor CBC - stool occult blood (06/01): Negative - 20% Iron saturation; Ferritin: 1920 Heme/Onc Consult: Dr. Velez --> help appreciated - per Dr. Velez's note: monoclonal protein w/u - B12 859; folate 4.9; Ferritin 2180; Retic 2.7 - Spoke with Dr. Velez and he believes the Chronic Anemia is due to patient' s renal failure if his hemoglobin become unstable again then possible bone marrow biopsy 2.) History of urinary retention Urology, Dr. Cecil Roque---> help appreciated - Garcia in place - continues to have hematuria - Spoke with Dr. Roque cystoscopy was not done 06/06 and he states the patient does not a procedure at this time - Flomax 0.4mg PO daily - Monitor input and output - PSA 3.93 3.) Renal failure, acute secondary to chronic obstructive nephropathy vs. autoimmune disorder History of BPH - Renal ultrasound: Moderate bilateral hydronephrosis; Debris within the urinary bladder which is decompressed with Garcia catheter - BUN/Cr: 94/8.0 Chief Dispatcher: Dr. Paul --> Help appreciated - Dialysis started today 06/02/17: Schedule is Tuesday, , Tuesday - Per Dr. Stark's note patient needs AV fistula Surgical Consult, Dr. Motley --> Help appreciated - Permacath placed 06/01 - Left arm brachio-basilic fistula placed 06/08/17 - CATRACHITA: Positive; CATRACHITA titer 1:80 (high); CATRACHITA pattern - homogenous (high) * f/u p-ANCA, c-ANCA - PTH: 236 (high) - F/u Vit D 4.) Hypertension - Carvedilol 12.5mg PO BID - spoke with Dr. Paul and increased the Carvedilol 06/09 for better B/P control - Echo: Left ventricle thickness, mild concentric thickening; ejection fraction 55% 5.) UTI - UA: Leukocyte esterase 3+; urine WBC 115; urine bacteria Occ High - Started (06/06): rocephin (day 5 for a total of 7 days) - Urine culture: No growth 6.) Gout- Right Knee - Started on Prednisone 40mg daily - Will start to taper 06/08 to 30mg for 2 days; 20mg x2; 10mg x2 (orders have been placed) - Started on Allopurinol 100mg PO daily 7.) Prophylactic measure Protonix 40mg PO daily Anticoagulation due to worsening kidney function and anemia Physical Therapy Disposition: Dialysis placement for Tuesday <SandraEctor H - Last Filed: 06/11/17 14:39> Objective - Vital Signs/Intake and Output Vital Signs (last 24 hours): Temp Pulse Resp BP Pulse Ox 97.9 F 71 20 136/86 100 06/11/17 13:15 06/11/17 13:15 06/11/17 13:15 06/11/17 13:15 06/11/17 13:15 Intake and Output: 06/11/17 06/11/17 06:59 18:59 Intake Total 50 Output Total 950 Balance -950 50 - Medications Medications: Current Medications Allopurinol (Zyloprim) 100 mg PO DAILY [facility] Last Admin: 06/10/17 10:32 Dose: 100 mg Calcium Acetate (Phoslo) 667 mg PO TIDCC [facility] Last Admin: 06/11/17 08:23 Dose: 667 mg Carvedilol (Coreg) 12.5 mg PO BID [facility] Last Admin: 06/10/17 17:24 Dose: 12.5 mg Epoetin Johnson (Procrit) 10,000 unit IV TTS [facility] Last Admin: 06/11/17 13:00 Dose: 10,000 unit Hydromorphone HCl (Dilaudid) 0.5 mg IVP Q10M PRN PRN Reason: Pain, moderate (4-7) Ceftriaxone Sodium 1 gm/ (Sodium Chloride) 100 mls @ 100 mls/hr IVPB Q24H [facility] Stop: 06/12/17 00:00 Last Admin: 06/10/17 17:24 Dose: 100 mls/hr Ondansetron HCl (Zofran Inj) 4 mg IVP Q4H PRN PRN Reason: Nausea/Vomiting Last Admin: 06/01/17 23:49 Dose: 4 mg Pantoprazole Sodium (Protonix Ec Tab) 40 mg PO DAILY [facility] Last Admin: 06/10/17 10:32 Dose: 40 mg Prednisone (Prednisone Tab) 20 mg PO DAILY [facility] Stop: 06/12/17 00:00 Prednisone (Prednisone Tab) 10 mg PO DAILY [facility] Stop: 06/14/17 00:00 Tamsulosin HCl (Flomax) 0.4 mg PO DAILY [facility] Last Admin: 06/10/17 10:32 Dose: 0.4 mg - Labs Labs: 06/11/17 09:10 06/11/17 09:10 PT 14.0 SECONDS (9.7-12.2) H 05/31/17 20:01 INR 1.2 05/31/17 20:01 APTT 28 SECONDS (21-34) 05/31/17 20:01 Attending/Attestation - Attestation I have personally seen and examined this patient.: Yes I have fully participated in the care of the patient.: Yes I have reviewed all pertinent clinical information, including history, physical exam and plan: Yes Notes (Text): 06/11/17 14:37 Medical attending: Patient was seen and examined by me. Agree with the above note by the resident. The patient feels well when we saw him in HD. He now has an outpatient HD center to go to with [facility] in [place] on TTS at 2PM. His first HD session with them is this comming Tuesday. Please also see the DC summary thank you Ector Flores
[2017-06-11 08:24] VITALS: RESP 20
[2017-06-11 09:14] LABS: BASO # 0.1 K/uL (0.0-0.2); EOS # 0.2 K/uL (0.0-0.7); EOS % 1.8 % (0.0-4.0); LYMPH # 0.7 K/uL (1.0-4.3); LYMPH % 6.8 % (20.0-40.0); MEAN CELL VOLUME 84.9 fL (80.0-94.0); MEAN CORPUSCULAR HEMOGLOBIN 29.4 pg (27.0-31.0); MEAN CORPUSCULAR HGB CONC 34.6 g/dL (33.0-37.0); MEAN PLATELET VOLUME 8.1 fL (7.2-11.7); MONO # 1.2 K/uL (0.0-0.8); MONO % 11.6 % (0.0-10.0); PLATELET COUNT 199 K/uL (130-400); RED CELL DISTRIBUTION WIDTH 17.5 % (11.5-14.5); WHITE BLOOD COUNT 10.4 K/uL (4.8-10.8)
[2017-06-11 09:29] LABS: POTASSIUM 4.5 mmol/L (3.6-5.2)
[2017-06-11 09:31] LABS: BILIRUBIN,TOTAL 0.9 mg/dL (0.2-1.3)
[2017-06-11 09:32] LABS: ALB/GLOB RATIO 1.2 (1.0-2.1); PHOSPHOROUS 3.8 mg/dL (2.5-4.5); TOTAL PROTEIN 6.3 g/dL (6.3-8.3)
[2017-06-11 09:33] LABS: CALCIUM 8.6 mg/dl (8.6-10.4); MAGNESIUM 1.6 mg/dL (1.6-2.3)
--- NOTE | 2017-06-11 11:09 | CP.PCM.PN ---
Subjective - Date & Time of Evaluation Date of Evaluation: 06/11/17 Time of Evaluation: 11:07 - Subjective Subjective: seen on dialysis feels fine no SOB Hb 8.6 today ROS- as per HPI, other than that 10 point RO S negative Objective - Vital Signs/Intake and Output Vital Signs (last 24 hours): Temp Pulse Resp BP Pulse Ox 98.4 F 73 20 142/74 98 06/11/17 10:54 06/11/17 10:54 06/11/17 10:54 06/11/17 10:54 06/11/17 08:22 Intake and Output: 06/11/17 06/11/17 06:59 18:59 Intake Total 0 Output Total 950 Balance -950 0 - Medications Medications: Current Medications Allopurinol (Zyloprim) 100 mg PO DAILY [facility] Last Admin: 06/10/17 10:32 Dose: 100 mg Calcium Acetate (Phoslo) 667 mg PO TIDCC [facility] Last Admin: 06/11/17 08:23 Dose: 667 mg Carvedilol (Coreg) 12.5 mg PO BID [facility] Last Admin: 06/10/17 17:24 Dose: 12.5 mg Epoetin Johnson (Procrit) 10,000 unit IV TTS [facility] Last Admin: 06/09/17 16:26 Dose: 10,000 unit Hydromorphone HCl (Dilaudid) 0.5 mg IVP Q10M PRN PRN Reason: Pain, moderate (4-7) Ceftriaxone Sodium 1 gm/ (Sodium Chloride) 100 mls @ 100 mls/hr IVPB Q24H [facility] Stop: 06/12/17 00:00 Last Admin: 06/10/17 17:24 Dose: 100 mls/hr Ondansetron HCl (Zofran Inj) 4 mg IVP Q4H PRN PRN Reason: Nausea/Vomiting Last Admin: 06/01/17 23:49 Dose: 4 mg Oxycodone/Acetaminophen (Percocet 5/325 Mg Tab) 1 tab PO Q4H PRN PRN Reason: Pain, moderate (4-7) Stop: 06/11/17 14:24 Last Admin: 06/10/17 17:24 Dose: 1 tab Pantoprazole Sodium (Protonix Ec Tab) 40 mg PO DAILY [facility] Last Admin: 06/10/17 10:32 Dose: 40 mg Prednisone (Prednisone Tab) 20 mg PO DAILY [facility] Stop: 06/12/17 00:00 Prednisone (Prednisone Tab) 10 mg PO DAILY [facility] Stop: 06/14/17 00:00 Tamsulosin HCl (Flomax) 0.4 mg PO DAILY [facility] Last Admin: 06/10/17 10:32 Dose: 0.4 mg - Labs Labs: 06/11/17 09:10 06/11/17 09:10 PT 14.0 SECONDS (9.7-12.2) H 05/31/17 20:01 INR 1.2 05/31/17 20:01 APTT 28 SECONDS (21-34) 05/31/17 20:01 - Constitutional Appears: Well, Non-toxic - Head Exam Head Exam: ATRAUMATIC, NORMOCEPHALIC - Eye Exam Eye Exam: EOMI, PERRL - ENT Exam ENT Exam: Mucous Membranes Moist - Neck Exam Neck Exam: Full ROM. absent: Lymphadenopathy - Respiratory Exam Respiratory Exam: Clear to Ausculation Bilateral. absent: Rhonchi, Wheezes - Cardiovascular Exam Cardiovascular Exam: REGULAR RHYTHM, +S1, +S2 - Neurological Exam Neurological Exam: Alert, Awake, Oriented x3 - Psychiatric Exam Psychiatric exam: Normal Affect, Normal Mood - Skin Skin Exam: Normal Color, Warm Assessment and Plan (1) Anemia Status: Acute (2) ESRD (end stage renal disease) on dialysis Status: Acute (3) Obstructive and reflux uropathy Status: Acute - Assessment and Plan (Free Text) Plan: HD today transfuse one unit Prbc
[2017-06-11 12:12] LABS: NEUTROPHIL 81 % (50-75); TOTAL CELLS COUNTED 100
[2017-06-11 12:13] LABS: SPHEROCYTES SLIGHT
[2017-06-11] MEDS: Epoetin Alfa 10,000 unit/ml Dialysis IV SCH (13:00)
[2017-06-11 14:08] VITALS: PULSE 71; TEMP 97.9; O2SAT 100
[2017-06-11] MEDS: Pantoprazole 40 mg EC Tab PO SCH (15:36)
[2017-06-11 15:38] VITALS: BP 146/85
--- NOTE | 2017-06-11 20:18 | CP.PCM.DIS ---
<Phuong Genao - Last Filed: 06/11/17 20:00> Provider - Provider Date of Admission: 05/31/17 21:21 Attending physician: Amilcar Cr MD Consults: Dr. Contreras (nephro), Dr. Duque (surgery) Dr. Roque (urology) Dr. Velez (heme/onc) Time Spent in preparation of Discharge (in minutes): 45 Hospital Course - Lab Results Lab Results: Micro Results 06/06/17 Unknown Urine,Catheterized Urine Culture - Final No Growth (<1,000 CFU/ML) Most Recent Lab Values WBC 10.4 K/uL (4.8-10.8) 06/11/17 09:10 RBC 2.94 Mil/uL (4.40-5.90) L 06/11/17 09:10 Hgb 8.6 g/dL (12.0-18.0) L 06/11/17 09:10 Hct 25.0 % (35.0-51.0) L 06/11/17 09:10 MCV 84.9 fL (80.0-94.0) 06/11/17 09:10 MCH 29.4 pg (27.0-31.0) 06/11/17 09:10 MCHC 34.6 g/dL (33.0-37.0) 06/11/17 09:10 RDW 17.5 % (11.5-14.5) H 06/11/17 09:10 Plt Count 199 K/uL (130-400) 06/11/17 09:10 MPV 8.1 fL (7.2-11.7) 06/11/17 09:10 Neut % (Auto) 78.8 % (50.0-75.0) H 06/11/17 09:10 Lymph % (Auto) 6.8 % (20.0-40.0) L 06/11/17 09:10 [place] % (Auto) 11.6 % (0.0-10.0) H 06/11/17 09:10 Eos % (Auto) 1.8 % (0.0-4.0) 06/11/17 09:10 Baso % (Auto) 1.0 % (0.0-2.0) 06/11/17 09:10 Neut # 8.2 K/uL (1.8-7.0) H 06/11/17 09:10 Lymph # 0.7 K/uL (1.0-4.3) L 06/11/17 09:10 [place] # 1.2 K/uL (0.0-0.8) H 06/11/17 09:10 Eos # 0.2 K/uL (0.0-0.7) 06/11/17 09:10 Baso # 0.1 K/uL (0.0-0.2) 06/11/17 09:10 Neutrophils % (Manual) 81 % (50-75) H 06/11/17 09:10 Band Neutrophils % 1 % (0-2) 06/11/17 09:10 Lymphocytes % (Manual) 7 % (20-40) L 06/11/17 09:10 Monocytes % (Manual) 11 % (0-10) H 06/11/17 09:10 Eosinophils % (Manual) 3 % (0-4) 06/07/17 08:19 Basophils % (Manual) 1 % (0-2) 06/07/17 08:19 Toxic Granulation Present 06/06/17 06:52 Platelet Estimate Normal (NORMAL) 06/11/17 09:10 Large Platelets Present 06/05/17 11:27 Polychromasia Slight 06/08/17 08:15 Hypochromasia (manual) Slight 06/08/17 08:15 Poikilocytosis (manual Slight 06/11/17 09:10 Basophilic Stippling Slight 06/06/17 06:52 Anisocytosis (manual) Slight 06/11/17 09:10 Microcytosis (manual) Slight 06/11/17 09:10 Macrocytosis (manual) Slight 05/31/17 20:01 Spherocytes Slight 06/11/17 09:10 Tear Drop Cells Slight 06/08/17 08:15 Ovalocytes Slight 06/11/17 09:10 [place]a Cells Slight 06/07/17 08:19 Schistocytes Slight 06/04/17 08:18 Retic Count 2.7 % (0.5-1.5) H D 06/09/17 07:42 PT 14.0 SECONDS (9.7-12.2) H 05/31/17 20:01 INR 1.2 05/31/17 20:01 APTT 28 SECONDS (21-34) 05/31/17 20:01 Sodium 140 mmol/L (132-148) 06/11/17 09:10 Potassium 4.5 mmol/L (3.6-5.2) 06/11/17 09:10 Chloride 99 mmol/L (98-107) 06/11/17 09:10 Carbon Dioxide 28 mmol/L (22-30) 06/11/17 09:10 Anion Gap 17 (10-20) 06/11/17 09:10 BUN 41 mg/dL (9-20) H 06/11/17 09:10 Creatinine 5.4 MG/DL (0.8-1.5) H 06/11/17 09:10 Est GFR ( Amer) 13 06/11/17 09:10 Est GFR (Non-Af Amer) 11 06/11/17 09:10 Random Glucose 103 mg/dL (75-110) 06/11/17 09:10 Uric Acid 6.4 mg/dL (3.5-8.5) 06/05/17 16:43 Calcium 8.6 mg/dl (8.6-10.4) 06/11/17 09:10 Phosphorus 3.8 mg/dL (2.5-4.5) 06/11/17 09:10 Magnesium 1.6 mg/dL (1.6-2.3) 06/11/17 09:10 % Saturation 20 (20-55) 06/02/17 08:11 Ferritin 2180.0 ng/mL 06/09/17 07:42 Total Bilirubin 0.9 mg/dL (0.2-1.3) 06/11/17 09:10 AST 11 U/L (17-59) L D 06/11/17 09:10 ALT 24 U/L (21-72) 06/11/17 09:10 Alkaline Phosphatase 48 U/L (38-126) 06/11/17 09:10 Troponin I < 0.0120 ng/mL (0.00-0.120) 05/31/17 20:01 NT-Pro-B Natriuret Pep 1580 pg/mL (0-900) H 05/31/17 20:01 Total Protein 6.3 g/dL (6.3-8.3) 06/11/17 09:10 Total Protein (PEP) 6.5 g/dL (6.1-8.1) 06/09/17 07:42 Albumin 3.5 g/dL (3.5-5.0) D 06/11/17 09:10 Albumin (PEP) 3.8 g/dL (3.8-4.8) 06/09/17 07:42 Globulin 2.8 gm/dL (2.2-3.9) 06/11/17 09:10 Albumin/Globulin Ratio 1.2 (1.0-2.1) 06/11/17 09:10 Hveaz-6-Txwnqmjqk 0.4 g/dL (0.2-0.3) H 06/09/17 07:42 Mctfr-8-Tpwfwlxki 0.5 g/dL (0.5-0.9) 06/09/17 07:42 Grpl-1-Gltiwplt 0.3 g/dL (0.4-0.6) L 06/09/17 07:42 Lcbs-6-Uaehtrak 0.3 g/dL (0.2-0.5) 06/09/17 07:42 Gamma Globulins 1.2 g/dL (0.8-1.7) 06/09/17 07:42 Abnorm Protein Band 1 TEST NOT PERFORMED 06/09/17 07:42 Abnorm Protein Band 2 TEST NOT PERFORMED 06/09/17 07:42 Abnorm Protein Band 3 TEST NOT PERFORMED 06/09/17 07:42 Prostate Specific Ag 3.93 ng/mL (0.00-4.0) 06/02/17 08:11 Vitamin B12 859 pg/mL (239-931) 06/09/17 07:42 Folate 4.9 ng/mL 06/09/17 07:42 PTH Intact Whole Molec 236 pg/mL (14-64) H 06/02/17 07:26 Urine Color Yellow (YELLOW) 06/06/17 13:57 Urine Clarity Hazy (Clear) 06/06/17 13:57 Urine pH 6.0 (5.0-8.0) 06/06/17 13:57 Ur Specific Dwight 1.012 (1.003-1.030) 06/06/17 13:57 Urine Protein 2+ mg/dL (NEGATIVE) H 06/06/17 13:57 Urine Glucose (UA) Normal mg/dL (Normal) 06/06/17 13:57 Urine Ketones Negative mg/dL (NEGATIVE) 06/06/17 13:57 Urine Blood 3+ (NEGATIVE) H 06/06/17 13:57 Urine Nitrate Negative (NEGATIVE) 06/06/17 13:57 Urine Bilirubin Negative (NEGATIVE) 06/06/17 13:57 Urine Urobilinogen Normal mg/dL (0.2-1.0) 06/06/17 13:57 Ur Leukocyte Esterase 3+ Dr/uL (Negative) H 06/06/17 13:57 Urine WBC (Auto) 115 /hpf (0-5) H 06/06/17 13:57 Urine RBC (Auto) 69 /hpf (0-3) H 06/06/17 13:57 Ur Squamous Epith Cells < 1 /hpf (0-5) 06/06/17 13:57 Urine Bacteria Occ (<OCC) H 06/06/17 13:57 Hyaline Casts 0-2 /lpf (0-2) 06/06/17 13:57 Stool Occult Blood Negative (NEGATIVE) 05/31/17 23:26 LASHONDA & SPEP Interp See note 06/09/17 07:42 Serum Immunofixation Not detected (Not Detected) 06/09/17 07:42 CATRACHITA 6 Profile Positive (NEGATIVE) H 06/03/17 07:52 CATRACHITA Titer 1:80 H 06/03/17 07:52 CATRACHITA Pattern Homogenous H 06/03/17 07:52 Proteinase 3 (PR3) <1.0 AI (<1.0) 06/03/17 14:03 Myeloperoxidase Ab <1.0 AI (<1.0) 06/03/17 14:03 Hep Bs Antigen Negative (NEGATIVE) 06/02/17 08:11 Hep Bs Antibody Negative (NEGATIVE) 06/02/17 08:11 Hep B Core IgM Ab Negative (NEGATIVE) 06/02/17 08:11 Hepatitis C Antibody Negative (NEGATIVE) 06/02/17 08:11 Blood Type O POSITIVE 06/10/17 14:45 Antibody Screen Negative 06/10/17 14:45 - Hospital Course Hospital Course: "CC: Severe anemia Patient is a 61 year old male with a PMH of Anemia, uncontrolled HTN, Arthritis , BPH and Gout who was sent from his PMDs office to the ED due severe anemia. Patient reports associated weakness, headache, lightheadedness, SOB, 1-2 episodes of vomiting a week ago, black stools, and muscle cramps. He was admitted to the hospital back in February of this year and was transfused 4 units of PRBCs. Anemia was thought to be due to renal failure secondary to a bladder obstruction and patient was instructed to follow up with Dr. Viktoria Roque (Urology ) to remove the obstruction. He admits to never following up and notes that his energy progressively started to worsen with symptoms of shortness of breath with exertion. He saw his PMD today because he is starting a new job soon and wanted to be sure he would be able to work without his ability being limited. Patient denies fever, chills, vision changes, chest pain, palpitations, abdominal pain, dysuria, hematuria, hematochezia and appetite changes. " Hospital course: Chronic Anemia secondary to CKD: On admission H/H: 4.9/11.9 and transfused 4 units (06/01/17). Stool occult blood was negative. Transfused 2 units of PRBC because H/H: 6.6/19.3. H/H (06/10): 7.5/21.1, transfused 2 units PRBC during dialysis on 06/11. Lab results showed B12 859; folate 4.9; Ferritin 2180; Retic 2.7. Dr. Velez (heme/onc) believes the Chronic Anemia is due to patient's renal failure if his hemoglobin become unstable again then possible bone marrow biopsy History of urinary retention: sullivan put in place. Flomax 0.4mg PO given daily. Input and output monitored. PSA was 3.93. Urology, Dr. Cecil Roque will follow up with patient as an outpatient. Renal failure, acute secondary to chronic obstructive nephropathy vs. autoimmune disorder :Renal ultrasound: Moderate bilateral hydronephrosis; Debris within the urinary bladder which is decompressed with Sullivan catheter. BUN /Cr: 94/8.0. 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 Surgical Consult, Dr. Tiesha spainacatliam placed 06/01. Left arm brachio-basilic fistula placed 06/08/17. CATRACHITA: Positive; CATRACHITA titer 1:80 (high); CATRACHITA pattern - homogenous (high), PTH: 236 (high) Hypertension: Patient treated with Carvedilol 12.5mg PO BID (Dr. Paul wanted Carvedilol at higher dose of 12.5 on 06/09 for better B/P control) Echo showed Left ventricle thickness, mild concentric thickening; ejection fraction 55% UTI: UA: Leukocyte esterase 3+; urine WBC 115; urine bacteria Occ High. Started (06/06): rocephin (day 5 for a total of 7 days). Urine culture showed no growth. Gout- Right Knee: Started on Prednisone 40mg daily. Started to taper 06/08 to 30mg for 2 days; 20mg x2; 10mg x2 Started on Allopurinol 100mg PO daily. Prophylactic measure: Protonix 40mg PO daily, anticoagulation due to worsening kidney function and anemia, physical therap Patient stable for discharge as per Dr. Flores. Please see chart for full details. Discharge Exam - Head Exam Head Exam: ATRAUMATIC, NORMOCEPHALIC - Eye Exam Eye Exam: EOMI, Normal appearance - ENT Exam ENT Exam: Mucous Membranes Moist - Neck Exam Neck exam: Full Rom - Respiratory Exam Respiratory Exam: Clear to PA & Lateral, NORMAL BREATHING PATTERN, UNREMARKABLE - Cardiovascular Exam Cardiovascular Exam: REGULAR RHYTHM, RRR - GI/Abdominal Exam GI & Abdominal Exam: Normal Bowel Sounds, Soft - Extremities Exam Extremities exam: full ROM, normal inspection - Neurological Exam Neurological exam: Alert, Oriented x3 - Psychiatric Exam Psychiatric exam: Normal Affect, Normal Mood - Skin Skin Exam: Intact, Normal Color, Warm Discharge Plan - Discharge Medications Prescriptions: Allopurinol [Zyloprim] 100 mg PO DAILY #30 tab Calcium Acetate [Phoslo] 667 mg PO TIDCC #90 tab Carvedilol [Coreg] 12.5 mg PO BID #60 tab Tamsulosin [Flomax] 0.4 mg PO DAILY #30 cap - Follow Up Plan Condition: FAIR Disposition: HOME/ ROUTINE Instructions: Allopurinol (By mouth), Pneumococcal Polyvalent Vaccine (By injection), Tamsulosin (By mouth), Carvedilol (By mouth), Calcium Acetate (By mouth), Hib Vaccine (DC), Care For Your Stitches (DC), Dialysis Diet (GEN), Sullivan Catheter Placement and Care (DC), Arteriovenous Fistula Creation for Hemodialysis (DC), Anemia (DC), End Stage Kidney Disease (DC), Urinary Leg Bag ( GEN) Additional Instructions: Patient stable for discharge as per Dr. Flores. Patient to follow up with Dr. Roque (urology) on Wednesday 06/13. Patient should follow up with PMD Dr. Reeves within two weeks. Patient will go to [facility] in [place] for dialysis , , Tuesday. Patient to take medications as prescribed. Patient should please return to emergency room immediately if symptoms worsen. Patient explained instructions who understands and agrees. Referrals: Goldy Reeves MD [Staff Provider] - Cecil Roque MD [Staff Provider] - <Ector Flores - Last Filed: 06/13/17 07:38> Provider - Provider Date of Admission: 05/31/17 21:21 Attending physician: Amilcar Cr MD Hospital Course - Lab Results Lab Results: Micro Results 06/06/17 Unknown Urine,Catheterized Urine Culture - Final No Growth (<1,000 CFU/ML) Most Recent Lab Values WBC 10.4 K/uL (4.8-10.8) 06/11/17 09:10 RBC 2.94 Mil/uL (4.40-5.90) L 06/11/17 09:10 Hgb 8.6 g/dL (12.0-18.0) L 06/11/17 09:10 Hct 25.0 % (35.0-51.0) L 06/11/17 09:10 MCV 84.9 fL (80.0-94.0) 06/11/17 09:10 MCH 29.4 pg (27.0-31.0) 06/11/17 09:10 MCHC 34.6 g/dL (33.0-37.0) 06/11/17 09:10 RDW 17.5 % (11.5-14.5) H 06/11/17 09:10 Plt Count 199 K/uL (130-400) 06/11/17 09:10 MPV 8.1 fL (7.2-11.7) 06/11/17 09:10 Neut % (Auto) 78.8 % (50.0-75.0) H 06/11/17 09:10 Lymph % (Auto) 6.8 % (20.0-40.0) L 06/11/17 09:10 [place] % (Auto) 11.6 % (0.0-10.0) H 06/11/17 09:10 Eos % (Auto) 1.8 % (0.0-4.0) 06/11/17 09:10 Baso % (Auto) 1.0 % (0.0-2.0) 06/11/17 09:10 Neut # 8.2 K/uL (1.8-7.0) H 06/11/17 09:10 Lymph # 0.7 K/uL (1.0-4.3) L 06/11/17 09:10 [place] # 1.2 K/uL (0.0-0.8) H 06/11/17 09:10 Eos # 0.2 K/uL (0.0-0.7) 06/11/17 09:10 Baso # 0.1 K/uL (0.0-0.2) 06/11/17 09:10 Neutrophils % (Manual) 81 % (50-75) H 06/11/17 09:10 Band Neutrophils % 1 % (0-2) 06/11/17 09:10 Lymphocytes % (Manual) 7 % (20-40) L 06/11/17 09:10 Monocytes % (Manual) 11 % (0-10) H 06/11/17 09:10 Eosinophils % (Manual) 3 % (0-4) 06/07/17 08:19 Basophils % (Manual) 1 % (0-2) 06/07/17 08:19 Toxic Granulation Present 06/06/17 06:52 Platelet Estimate Normal (NORMAL) 06/11/17 09:10 Large Platelets Present 06/05/17 11:27 Polychromasia Slight 06/08/17 08:15 Hypochromasia (manual) Slight 06/08/17 08:15 Poikilocytosis (manual Slight 06/11/17 09:10 Basophilic Stippling Slight 06/06/17 06:52 Anisocytosis (manual) Slight 06/11/17 09:10 Microcytosis (manual) Slight 06/11/17 09:10 Macrocytosis (manual) Slight 05/31/17 20:01 Spherocytes Slight 06/11/17 09:10 Tear Drop Cells Slight 06/08/17 08:15 Ovalocytes Slight 06/11/17 09:10 Feng Cells Slight 06/07/17 08:19 Schistocytes Slight 06/04/17 08:18 Retic Count 2.7 % (0.5-1.5) H D 06/09/17 07:42 PT 14.0 SECONDS (9.7-12.2) H 05/31/17 20:01 INR 1.2 05/31/17 20:01 APTT 28 SECONDS (21-34) 05/31/17 20:01 Sodium 140 mmol/L (132-148) 06/11/17 09:10 Potassium 4.5 mmol/L (3.6-5.2) 06/11/17 09:10 Chloride 99 mmol/L (98-107) 06/11/17 09:10 Carbon Dioxide 28 mmol/L (22-30) 06/11/17 09:10 Anion Gap 17 (10-20) 06/11/17 09:10 BUN 41 mg/dL (9-20) H 06/11/17 09:10 Creatinine 5.4 MG/DL (0.8-1.5) H 06/11/17 09:10 Est GFR ( Amer) 13 06/11/17 09:10 Est GFR (Non-Af Amer) 11 06/11/17 09:10 Random Glucose 103 mg/dL (75-110) 06/11/17 09:10 Uric Acid 6.4 mg/dL (3.5-8.5) 06/05/17 16:43 Calcium 8.6 mg/dl (8.6-10.4) 06/11/17 09:10 Phosphorus 3.8 mg/dL (2.5-4.5) 06/11/17 09:10 Magnesium 1.6 mg/dL (1.6-2.3) 06/11/17 09:10 % Saturation 20 (20-55) 06/02/17 08:11 Ferritin 2180.0 ng/mL 06/09/17 07:42 Total Bilirubin 0.9 mg/dL (0.2-1.3) 06/11/17 09:10 AST 11 U/L (17-59) L D 06/11/17 09:10 ALT 24 U/L (21-72) 06/11/17 09:10 Alkaline Phosphatase 48 U/L (38-126) 06/11/17 09:10 Troponin I < 0.0120 ng/mL (0.00-0.120) 05/31/17 20:01 NT-Pro-B Natriuret Pep 1580 pg/mL (0-900) H 05/31/17 20:01 Total Protein 6.3 g/dL (6.3-8.3) 06/11/17 09:10 Total Protein (PEP) 6.5 g/dL (6.1-8.1) 06/09/17 07:42 Albumin 3.5 g/dL (3.5-5.0) D 06/11/17 09:10 Albumin (PEP) 3.8 g/dL (3.8-4.8) 06/09/17 07:42 Globulin 2.8 gm/dL (2.2-3.9) 06/11/17 09:10 Albumin/Globulin Ratio 1.2 (1.0-2.1) 06/11/17 09:10 Ylrps-0-Rrwptowqf 0.4 g/dL (0.2-0.3) H 06/09/17 07:42 Rsszg-3-Epmhdwaws 0.5 g/dL (0.5-0.9) 06/09/17 07:42 Tqno-2-Kffjrlro 0.3 g/dL (0.4-0.6) L 06/09/17 07:42 Fntp-9-Qkpiswyd 0.3 g/dL (0.2-0.5) 06/09/17 07:42 Gamma Globulins 1.2 g/dL (0.8-1.7) 06/09/17 07:42 Abnorm Protein Band 1 TEST NOT PERFORMED 06/09/17 07:42 Abnorm Protein Band 2 TEST NOT PERFORMED 06/09/17 07:42 Abnorm Protein Band 3 TEST NOT PERFORMED 06/09/17 07:42 Prostate Specific Ag 3.93 ng/mL (0.00-4.0) 06/02/17 08:11 Vitamin B12 859 pg/mL (239-931) 06/09/17 07:42 Folate 4.9 ng/mL 06/09/17 07:42 PTH Intact Whole Molec 236 pg/mL (14-64) H 06/02/17 07:26 Urine Color Yellow (YELLOW) 06/06/17 13:57 Urine Clarity Hazy (Clear) 06/06/17 13:57 Urine pH 6.0 (5.0-8.0) 06/06/17 13:57 Ur Specific [place] 1.012 (1.003-1.030) 06/06/17 13:57 Urine Protein 2+ mg/dL (NEGATIVE) H 06/06/17 13:57 Urine Glucose (UA) Normal mg/dL (Normal) 06/06/17 13:57 Urine Ketones Negative mg/dL (NEGATIVE) 06/06/17 13:57 Urine Blood 3+ (NEGATIVE) H 06/06/17 13:57 Urine Nitrate Negative (NEGATIVE) 06/06/17 13:57 Urine Bilirubin Negative (NEGATIVE) 06/06/17 13:57 Urine Urobilinogen Normal mg/dL (0.2-1.0) 06/06/17 13:57 Ur Leukocyte Esterase 3+ Rd/uL (Negative) H 06/06/17 13:57 Urine WBC (Auto) 115 /hpf (0-5) H 06/06/17 13:57 Urine RBC (Auto) 69 /hpf (0-3) H 06/06/17 13:57 Ur Squamous Epith Cells < 1 /hpf (0-5) 06/06/17 13:57 Urine Bacteria Occ (<OCC) H 06/06/17 13:57 Hyaline Casts 0-2 /lpf (0-2) 06/06/17 13:57 Stool Occult Blood Negative (NEGATIVE) 05/31/17 23:26 LASHONDA & SPEP Interp See note 06/09/17 07:42 Serum Immunofixation Not detected (Not Detected) 06/09/17 07:42 CATRACHITA 6 Profile Positive (NEGATIVE) H 06/03/17 07:52 CATRACHITA Titer 1:80 H 06/03/17 07:52 CATRACHITA Pattern Homogenous H 06/03/17 07:52 Proteinase 3 (PR3) <1.0 AI (<1.0) 06/03/17 14:03 Myeloperoxidase Ab <1.0 AI (<1.0) 06/03/17 14:03 Hep Bs Antigen Negative (NEGATIVE) 06/02/17 08:11 Hep Bs Antibody Negative (NEGATIVE) 06/02/17 08:11 Hep B Core IgM Ab Negative (NEGATIVE) 06/02/17 08:11 Hepatitis C Antibody Negative (NEGATIVE) 06/02/17 08:11 Blood Type O POSITIVE 06/10/17 14:45 Antibody Screen Negative 06/10/17 14:45 Attending/Attestation - Attestation I have personally seen and examined this patient.: Yes I have fully participated in the care of the patient.: Yes I have reviewed all pertinent clinical information, including history, physical exam and plan: Yes Notes (Text): Medical Attending: Patient was seen and examined by me. Agree with the above note by the resident The patient now has HD placement in [facility]. He reported feeling well. He has been getting HD via permacath. He also has an AVF as well. He was discharged with the sullivan catheter and will need to follow up with urology for removal as well as likley intervention of prostate / obstruction thank you Ector Flores
== END 2017-06-11 16:16 | disposition home or self-care (01) | DRG 315 ==
LOC: C.ER 18:48 → C.9E 21:21 → C.5T 22:07 → C.5S 06-01 09:11
PROVIDERS: ADMIT Internal Medicine; ATTEND Internal Medicine
PROC: 02HV33Z Insertion of Infusion Device into Superior Vena Cava, Percutaneous Approach (ICD-10-PCS; principal; 2017-06-01 16:14)
PROC: 5A1D60Z (ICD-10-PCS; 2017-06-02)
PROC: 03180ZD Bypass Left Brachial Artery to Upper Arm Vein, Open Approach (ICD-10-PCS; 2017-06-08)
DX: N13.30 Unspecified hydronephrosis (principal); N17.9 Acute kidney failure, unspecified; I12.0 Hypertensive chronic kidney disease with stage 5 chronic kidney disease or end stage renal disease; E87.70 Fluid overload, unspecified; N13.8 Other obstructive and reflux uropathy; N39.0 Urinary tract infection, site not specified; N18.6 End stage renal disease; D63.1 Anemia in chronic kidney disease; M10.9 Gout, unspecified; N40.0 Benign prostatic hyperplasia without lower urinary tract symptoms; Z99.2 Dependence on renal dialysis

== ENCOUNTER 2017-09-02 10:58 | Emergency (ER) | payer MEDICARE, OTHER ==
[2017-09-02 11:03] VITALS: O2SAT 98
--- NOTE | 2017-09-02 13:16 | C.PDOC ---
History Of Present Illness 62 y/o male, with history of chronic anemia, is referred to ED from dialysis center for low hemoglobin levels. Pt has dialysis on Mon., Wed., Fri. Pt was due for dialysis today but was not able to complete it due to low hemoglobin of 5.6. Pt has been referred to hematology but has not followed up yet. Denies any active physical complaints at this time. Chief Complaint (Nursing): Abnormal Labs History Per: Patient History/Exam Limitations: no limitations Past Medical History Reviewed: Historical Data, Nursing Documentation, Vital Signs Vital Signs: Last Vital Signs Temp 98.7 F 09/02/17 13:16 Pulse 91 H 09/02/17 13:16 Resp 16 09/02/17 13:16 BP 173/82 H 09/02/17 13:16 Pulse Ox 98 09/02/17 15:26 - Medical History PMH: Anemia, Benign Prostatic Hyperplasia, HTN Denies: Chronic Kidney Disease - [facility] Procedures BYPASS LEFT BRACHIAL ARTERY TO UPPER ARM VEIN, OPEN APPROACH (05/31/17) INSERTION OF INFUSION DEV INTO SUP VENA CAVA, PERC APPROACH (05/31/17) PERFORMANCE OF URINARY FILTRATION, MULTIPLE (05/31/17) Family History: States: Unknown Family Hx - Social History Hx Alcohol Use: No Hx Substance Use: No - Immunization History Hx Tetanus Toxoid Vaccination: No Hx Influenza Vaccination: No Hx Pneumococcal Vaccination: No Review Of Systems Except As Marked, All Systems Reviewed And Found Negative. Constitutional: Negative for: Fever, Chills Cardiovascular: Negative for: Chest Pain, Palpitations Respiratory: Negative for: Shortness of Breath Gastrointestinal: Negative for: Nausea, Vomiting, Abdominal Pain Musculoskeletal: Negative for: Back Pain Neurological: Negative for: Headache, Dizziness Physical Exam - Physical Exam Appears: Non-toxic, No Acute Distress Skin: Warm, Dry, Pale (mild) Head: Atraumatic, Normacephalic Eye(s): bilateral: Normal Inspection Oral Mucosa: Moist Chest: Symmetrical Cardiovascular: Rhythm Regular, No Murmur Respiratory: Normal Breath Sounds, No Rales, No Rhonchi, No Wheezing Gastrointestinal/Abdominal: Soft, No Tenderness Extremity: Normal ROM Neurological/Psych: Oriented x3, Normal Speech ED Course And Treatment O2 Sat by Pulse Oximetry: 98 Pulse Ox Interpretation: Normal Medical Decision Making Medical Decision Making: HD pt with chronic anemia of ? 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 and f/u in ED tomorrow AM for Stat HD (brief admission as needed) with transfusion of 2 units of PRBC's pt to return to ED @ 0700 tomorrow 129 anticipating HD in AM Disposition Doctor Will See Patient In The: Office Counseled Patient/Family Regarding: Studies Performed, Diagnosis - Disposition Referrals: [facility] [Outside] [facility] [Outside] Frandy Paul MD [Staff Provider] - Disposition: HOME/ ROUTINE Disposition Time: 13:16 Condition: GOOD Additional Instructions: Return to ED @ 0700 in anticipating of brief admission and STAT HD with transfusion of [address] Paul- Nephrology. Then d/c home. Instructions: Anemia (ED), End Stage Kidney Disease (ED) Forms: [place] [employer] (Lithuanian) - Clinical Impression Clinical Impression: ESRD (end stage renal disease) on dialysis, Chronic anemia - Scribe Statement The provider has reviewed the documentation as recorded by the Scribnaye Reeves All medical record entries made by the Scribe were at my direction and personally dictated by me. I have reviewed the chart and agree that the record accurately reflects my personal performance of the history, physical exam, medical decision making, and the department course for this patient. I have also personally directed, reviewed, and agree with the discharge instructions and disposition.
[2017-09-02 13:17] VITALS: BP 173/82; PULSE 91; RESP 16; TEMP 98.7
== END 2017-09-02 13:21 | disposition home or self-care (01) ==
LOC: C.ER 10:58
DX: I12.0 Hypertensive chronic kidney disease with stage 5 chronic kidney disease or end stage renal disease (principal); N18.6 End stage renal disease; D63.1 Anemia in chronic kidney disease; Z99.2 Dependence on renal dialysis

== ENCOUNTER 2017-09-03 07:10 | Observation (INO) | payer MEDICARE ==
--- NOTE | 2017-09-03 08:03 | C.PDOC ---
History Of Present Illness 62 year old male, with PMHx of ESRD on hemodialysis, presents to ED for evaluation. Patient states he went for dialysis yesterday, but did not get dialyzed because his hemoglobin level was too low (5.6). Patient admits to history of chronic anemia, and has had multiple blood transfusions in the past. Patient was seen in ER yesterday, patient was discussed with Dr. Paul who instructed return today for admission for dialysis and transfusion. Pt denies chest pain, shortness of breath, cough, fever, abdominal pain, rectal bleeding. Time Seen by Provider: 09/03/17 07:31 Chief Complaint (Nursing): Medical Clearance History Per: Patient History/Exam Limitations: no limitations Reports Recently: Seen In ED (yesterday) Additional History Per: Patient Past Medical History Reviewed: Historical Data, Nursing Documentation, Vital Signs Vital Signs: Last Vital Signs Temp 98.1 F 09/03/17 18:30 Pulse 88 09/03/17 18:30 Resp 20 09/03/17 18:30 BP 175/85 H 09/03/17 18:42 Pulse Ox 98 09/03/17 18:30 - Medical History PMH: Anemia, Benign Prostatic Hyperplasia, HTN - [facility] Procedures BYPASS LEFT BRACHIAL ARTERY TO UPPER ARM VEIN, OPEN APPROACH (05/31/17) INSERTION OF INFUSION DEV INTO SUP VENA CAVA, PERC APPROACH (05/31/17) PERFORMANCE OF URINARY FILTRATION, MULTIPLE (05/31/17) Family History: States: No Known Family Hx - Social History Hx Alcohol Use: No Hx Substance Use: No - Immunization History Hx Tetanus Toxoid Vaccination: No Hx Influenza Vaccination: No Hx Pneumococcal Vaccination: No Review Of Systems Except As Marked, All Systems Reviewed And Found Negative. Constitutional: Negative for: Fever, Chills Cardiovascular: Negative for: Chest Pain, Palpitations Respiratory: Negative for: Cough, Shortness of Breath, Sputum Gastrointestinal: Negative for: Nausea, Vomiting, Abdominal Pain Neurological: Negative for: Headache, Dizziness Physical Exam - Physical Exam Appears: Well, Non-toxic, No Acute Distress Skin: Normal Color, Warm, Dry Eye(s): bilateral: Normal Inspection Oral Mucosa: Moist Cardiovascular: Rhythm Regular Respiratory: Normal Breath Sounds, No Rales, No Rhonchi, No Wheezing, Other ( speaking in full sentences) Gastrointestinal/Abdominal: Normal Exam, Bowel Sounds, Soft, No Tenderness Rectal: Rectal Tone (normal), No Heme Negative, No Melena, No Blood Streaked Stool, No Hemorrhoids, No Mass, No Tenderness Extremity: Normal ROM, No Deformity Neurological/Psych: Oriented x3 ED Course And Treatment - Laboratory Results Result Diagrams: 09/03/17 18:56 09/03/17 18:56 O2 Sat by Pulse Oximetry: 99 (RA) Pulse Ox Interpretation: Normal Progress Note: Blood work, UA ordered and reviewed. Blood transfusion ordered to be given with hemodialysis. Patient's side sawyer spoken with (Dr. Kumari) and will set up dialysis. Hospitalist spoken with and agrees with admisison to her service. - Physician Consult Information Physician Contacted: Brandy Mauricio Disposition - Disposition Disposition: HOSPITALIZED Disposition Time: 09:31 Condition: STABLE - Clinical Impression Clinical Impression: Severe anemia, ESRD (end stage renal disease) on dialysis - Scribe Statement The provider has reviewed the documentation as recorded by the Scribe Manuel Reeves All medical record entries made by the Scribe were at my direction and personally dictated by me. I have reviewed the chart and agree that the record accurately reflects my personal performance of the history, physical exam, medical decision making, and the department course for this patient. I have also personally directed, reviewed, and agree with the discharge instructions and disposition. Decision To Admit - Pt Status Changed To: Hospital Disposition Of: Observation - . Bed Request Type: Regular Admitting Physician: Brandy Mauricio Patient Diagnosis: Severe anemia, ESRD (end stage renal disease) on dialysis
[2017-09-03 08:31] LABS: BASO # 0.1 K/uL (0.0-0.2); BASO % 1.1 % (0.0-2.0); EOS # 0.1 K/uL (0.0-0.7); EOS % 1.5 % (0.0-4.0); LYMPH # 1.5 K/uL (1.0-4.3); LYMPH % 16.3 % (20.0-40.0); MEAN CORPUSCULAR HEMOGLOBIN 34.6 pg (27.0-31.0); MEAN CORPUSCULAR HGB CONC 36.6 g/dL (33.0-37.0); MEAN PLATELET VOLUME 8.9 fL (7.2-11.7); MONO # 0.7 K/uL (0.0-0.8); NRBC % 0.1 % (0.0-2.0); RED CELL DISTRIBUTION WIDTH 23.3 % (11.5-14.5); WHITE BLOOD COUNT 9.5 K/uL (4.8-10.8)
[2017-09-03 08:38] LABS: INR 1.1
[2017-09-03 08:42] LABS: MEAN CELL VOLUME 94.7 fL (80.0-94.0)
[2017-09-03 09:27] LABS: ALB/GLOB RATIO 1.8 (1.0-2.1); BILIRUBIN,TOTAL 1.4 mg/dL (0.2-1.3); POTASSIUM 3.7 mmol/L (3.6-5.2)
[2017-09-03] MEDS ORDERED: Epoetin Alfa 10,000 unit/ml Dialysis IV ONE ×2 (09:30→16:15)
--- NOTE | 2017-09-03 09:38 | CP.PCM.CON ---
History of Present Illness - History of Present Illness History of Present Illness: 62 yo male with ESRD since May 2017, history of obstructive uropathy. Last HD on 08/31. Pt referred for declining hemoglobin of 5.8 in HD unit. Noted to have hemoglobin less then 8 since May. Pt denies chest pain, sob, fatigue, blood in stool, change in stool. Patient has been referred to Heme and GI but has been "busy with work" and has been unable to follow up. Still using permcath for HD as well. Decreased u/o. Review of Systems - Constitutional Constitutional: absent: Fatigue, Fever - EENT Eyes: absent: Blurred Vision, Change in Vision Nose/Mouth/Throat: absent: Epistaxis, Nasal Congestion - Cardiovascular Cardiovascular: absent: Chest Pain, Diaphoresis - Respiratory Respiratory: absent: Cough, Dyspnea - Gastrointestinal Gastrointestinal: absent: Abdominal Pain, Bloating - Genitourinary Genitourinary: absent: Change in Urinary Stream, Difficulty Urinating - Musculoskeletal Musculoskeletal: absent: Abnormal Gait, Arthralgias - Neurological Neurological: absent: Abnormal Gait, Behavioral Changes - Hematologic/Lymphatic Hematologic: absent: Easy Bleeding, Easy Bruising Past Patient History - Infectious Disease Hx of Infectious Diseases: None - Past Medical History & Family History Past Medical History?: Yes - Past Social History Smoking Status: Never Smoked - CARDIAC Hx Hypertension: Yes - PULMONARY Hx Respiratory Disorders: No - NEUROLOGICAL Hx Neurological Disorder: No - HEENT Hx HEENT Problems: No - RENAL Hx Chronic Kidney Disease: Yes Type of Dialysis Access: permcath - ENDOCRINE/METABOLIC Hx Endocrine Disorders: No - HEMATOLOGICAL/ONCOLOGICAL Hx Anemia: Yes - INTEGUMENTARY Hx Dermatological Problems: No - MUSCULOSKELETAL/RHEUMATOLOGICAL Hx Musculoskeletal Disorders: Yes Hx Falls: No Hx Gout: Yes - GASTROINTESTINAL Hx Gastrointestinal Disorders: No - GENITOURINARY/GYNECOLOGICAL Hx Genitourinary Disorders: Yes Hx Prostate Problems: Yes - PSYCHIATRIC Hx Substance Use: No - SURGICAL HISTORY Hx Surgeries: Yes Hx Parathyroidectomy: Yes (R KNEE, L FOOT) - ANESTHESIA Hx Anesthesia: Yes Hx Anesthesia Reactions: No Hx Malignant Hyperthermia: No Meds Allergies/Adverse Reactions: Allergies Allergy/AdvReac Type Severity Reaction Status Date / Time No Known Allergies Allergy Verified 09/03/17 07:40 Physical Exam - Constitutional Appears: Non-toxic, No Acute Distress - Eye Exam Eye Exam: EOMI, Normal appearance - ENT Exam ENT Exam: Mucous Membranes Moist - Neck Exam Neck exam: Positive for: Full Rom. Negative for: Lymphadenopathy - Respiratory Exam Respiratory Exam: Clear to Auscultation Bilateral. absent: Accessory Muscle Use - Cardiovascular Exam Cardiovascular Exam: REGULAR RHYTHM. absent: Rubs - GI/Abdominal Exam GI & Abdominal Exam: Normal Bowel Sounds, Soft. absent: Tenderness - Extremities Exam Extremities exam: Negative for: pedal edema - Neurological Exam Neurological exam: Alert, Oriented x3 - Psychiatric Exam Psychiatric exam: Normal Affect, Normal Mood Results - Vital Signs Recent Vital Signs: Last Vital Signs Temp 98.5 F 09/03/17 07:22 Pulse 83 09/03/17 07:22 Resp 18 09/03/17 07:22 BP 169/88 H 09/03/17 07:22 Pulse Ox 99 09/03/17 08:52 - Labs Result Diagrams: 09/03/17 08:15 09/03/17 08:15 Labs: Laboratory Results - last 24 hr 09/03/17 09/03/17 09/03/17 08:15 08:15 08:15 WBC 9.5 RBC 1.58 L Hgb 5.5 L* Hct 15.0 L MCV 94.7 H D MCH 34.6 H MCHC 36.6 RDW 23.3 H Plt Count 197 D MPV 8.9 Neut % (Auto) 74.1 Lymph % (Auto) 16.3 L Pope % (Auto) 7.0 Eos % (Auto) 1.5 Baso % (Auto) 1.1 Neut # 7.0 Lymph # 1.5 Pope # 0.7 Eos # 0.1 Baso # 0.1 PT 12.2 INR 1.1 APTT 31 Sodium 143 Potassium 3.7 Chloride 103 Carbon Dioxide 27 Anion Gap 17 BUN 65 H Creatinine 8.8 H* D Est GFR ( Amer) 7 Est GFR (Non-Af Amer) 6 Random Glucose 95 Calcium 8.0 L Total Bilirubin 1.4 H AST 11 L ALT 25 Alkaline Phosphatase 74 Total Protein 6.0 L Albumin 3.8 Globulin 2.2 Albumin/Globulin Ratio 1.8 Stool Occult Blood Blood Type 09/03/17 09/03/17 08:15 08:52 WBC RBC Hgb Hct MCV MCH MCHC RDW Plt Count MPV Neut % (Auto) Lymph % (Auto) Pope % (Auto) Eos % (Auto) Baso % (Auto) Neut # Lymph # Pope # Eos # Baso # PT INR APTT Sodium Potassium Chloride Carbon Dioxide Anion Gap BUN Creatinine Est GFR ( Amer) Est GFR (Non-Af Amer) Random Glucose Calcium Total Bilirubin AST ALT Alkaline Phosphatase Total Protein Albumin Globulin Albumin/Globulin Ratio Stool Occult Blood Negative Blood Type O POSITIVE Assessment & Plan - Assessment and Plan (Free Text) Assessment: severe anemia, although asx esrd htn obstructive uropathy blood transfusion on HD today stool guaiac pending Heme and GI w/u
--- NOTE | 2017-09-03 15:49 | CP.PCM.HP ---
Addendum entered and electronically signed by Shwetha Shafer DO 09/03/17 16: 16: stool occult blood negative Original Note: <Shwetha Shafer - Last Filed: 09/03/17 15:43> History of Present Illness - History of Present Illness History of Present Illness: CC: Severe anemia HPI: Patient is a 62 year old male with a PMH of ESRD on dialysis MWF through [facility]acat, Anemia, uncontrolled HTN, Arthritis, BPH and Gout who had severe anemia at dialysis yesterday and was therefore sent to the ED. Patient has no complaints. He says he feels tired because he was unable to sleep last night but has not been feeling weak in general. Patient denies fatigue, dizziness, palpitations, gum bleeding, vomiting, diarrhea, melena, hematochezia, hematuria , blurry vision, recent travel. He was admitted to the hospital back in February and May of this year and was transfused 4 units of PRBCs. Anemia was thought to be due to renal failure secondary to a bladder obstruction and patient was instructed to follow up with Dr. Viktoria Roque (Urology) to remove the obstruction. He admits to never following up and says he has a lot of things to follow up in the new year. 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 PMD: AngelaJimmy Reeves PMHx: HTN (uncontrolled); Arthritis; Gout; ESRD PSHx: Bunyan removal; R. Knee Arthroscopy; permacath FHx: Father at 83 due to renal failure Allergies: NNKDA Social Hx: Lives with . 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 Admit to social drinker Present on Admission - Present on Admission Any Indicators Present on Admission: No Review of Systems - Constitutional Constitutional: absent: Chills, Fever - EENT Ears: absent: Dizziness Nose/Mouth/Throat: absent: Sore Throat - Cardiovascular Cardiovascular: absent: Chest Pain, Palpitations - Respiratory Respiratory: absent: Cough, Dyspnea, Wheezing - Gastrointestinal Gastrointestinal: absent: Abdominal Pain, Constipation, Diarrhea, Hematemesis, Hematochezia, Melena, Nausea, Vomiting - Genitourinary Genitourinary: absent: Dysuria, Hematuria - Musculoskeletal Musculoskeletal: absent: Back Pain - Integumentary Integumentary: absent: Dry Skin - Neurological Neurological: absent: Dizziness, Headaches - Psychiatric Psychiatric: absent: Anxiety - Endocrine Endocrine: absent: Fatigue, Palpitations - Hematologic/Lymphatic Hematologic: absent: Easy Bleeding, Easy Bruising Past Patient History - Infectious Disease Hx of Infectious Diseases: None - Past Medical History & Family History Past Medical History?: Yes Pertinent Family History: Father at 83 due to renal failure - Past Social History Smoking Status: Never Smoked 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 [employer] Alcohol: Occasional Drugs: Denies Home Situation {Lives}: With Family - CARDIAC Hx Hypertension: Yes - PULMONARY Hx Respiratory Disorders: No - NEUROLOGICAL Hx Neurological Disorder: No - HEENT Hx HEENT Problems: No - RENAL Hx Chronic Kidney Disease: Yes Type of Dialysis Access: permcath - ENDOCRINE/METABOLIC Hx Endocrine Disorders: No - HEMATOLOGICAL/ONCOLOGICAL Hx Anemia: Yes Other/Comment: chronic anemia - INTEGUMENTARY Hx Dermatological Problems: No - MUSCULOSKELETAL/RHEUMATOLOGICAL Hx Falls: No - GASTROINTESTINAL Hx Gastrointestinal Disorders: No - GENITOURINARY/GYNECOLOGICAL Hx Genitourinary Disorders: Yes Hx Prostate Problems: Yes - PSYCHIATRIC Hx Substance Use: No - SURGICAL HISTORY Hx Surgeries: Yes Hx Parathyroidectomy: Yes (R KNEE, L FOOT) - ANESTHESIA Hx Anesthesia: Yes Hx Anesthesia Reactions: No Hx Malignant Hyperthermia: No Meds Allergies/Adverse Reactions: Allergies Allergy/AdvReac Type Severity Reaction Status Date / Time No Known Allergies Allergy Verified 09/03/17 07:40 Physical Exam - Constitutional Appears: Non-toxic, No Acute Distress - Head Exam Head Exam: NORMAL INSPECTION - Eye Exam Eye Exam: EOMI Additional comments: conjunctival pallor - ENT Exam ENT Exam: Mucous Membranes Moist Additional comments: frenulum pallor - Respiratory Exam Respiratory Exam: Clear to Auscultation Bilateral, NORMAL BREATHING PATTERN. absent: Rales, Rhonchi, Wheezes - Cardiovascular Exam Cardiovascular Exam: REGULAR RHYTHM, +S1, +S2. absent: Gallop, Rubs, Systolic Murmur - GI/Abdominal Exam GI & Abdominal Exam: Normal Bowel Sounds, Soft. absent: Distended, Firm, Tenderness Additional comments: umbilical hernia - Extremities Exam Extremities exam: Negative for: pedal edema - Neurological Exam Neurological exam: Alert, Oriented x3 - Psychiatric Exam Psychiatric exam: Normal Affect, Normal Mood - Skin Skin Exam: Pallor, Warm Results - Vital Signs Recent Vital Signs: Last Vital Signs Temp 97.8 F 09/03/17 15:30 Pulse 68 09/03/17 15:30 Resp 20 09/03/17 15:30 BP 139/80 09/03/17 15:30 Pulse Ox 100 09/03/17 14:10 - Labs Result Diagrams: 09/03/17 08:15 09/03/17 08:15 Labs: Laboratory Results - last 24 hr 09/03/17 09/03/17 09/03/17 08:15 08:15 08:15 WBC 9.5 RBC 1.58 L Hgb 5.5 L* Hct 15.0 L MCV 94.7 H D MCH 34.6 H MCHC 36.6 RDW 23.3 H Plt Count 197 D MPV 8.9 Neut % (Auto) 74.1 Lymph % (Auto) 16.3 L [place] % (Auto) 7.0 Eos % (Auto) 1.5 Baso % (Auto) 1.1 Neut # 7.0 Lymph # 1.5 [place] # 0.7 Eos # 0.1 Baso # 0.1 PT 12.2 INR 1.1 APTT 31 Sodium 143 Potassium 3.7 Chloride 103 Carbon Dioxide 27 Anion Gap 17 BUN 65 H Creatinine 8.8 H* D Est GFR ( Amer) 7 Est GFR (Non-Af Amer) 6 Random Glucose 95 Calcium 8.0 L Total Bilirubin 1.4 H AST 11 L ALT 25 Alkaline Phosphatase 74 Total Protein 6.0 L Albumin 3.8 Globulin 2.2 Albumin/Globulin Ratio 1.8 Stool Occult Blood Blood Type Antibody Screen 09/03/17 09/03/17 08:15 08:52 WBC RBC Hgb Hct MCV MCH MCHC RDW Plt Count MPV Neut % (Auto) Lymph % (Auto) [place] % (Auto) Eos % (Auto) Baso % (Auto) Neut # Lymph # [place] # Eos # Baso # PT INR APTT Sodium Potassium Chloride Carbon Dioxide Anion Gap BUN Creatinine Est GFR ( Amer) Est GFR (Non-Af Amer) Random Glucose Calcium Total Bilirubin AST ALT Alkaline Phosphatase Total Protein Albumin Globulin Albumin/Globulin Ratio Stool Occult Blood Negative Blood Type O POSITIVE Antibody Screen Negative Assessment & Plan - Assessment and Plan (Free Text) Assessment: Severe Anemia Hgb 5.5 Hgb in the past is usually under 8 Transfuse 1 unit pRBCs Epoetin 10U IV stat in ER F/U CBC after transfusion Patient is adamant that he must go home today Will review bloodwork and make decision ESRD HD MWF, patient missed Tuesday so he is getting it today in the hospital with transfusion Nephrology consult - Dr. Contreras - help appreciated BUN/Cr: 65/8.8 F/U BMP after dialysis Continue home Phoslo 667mg PO TIDCC History of Gout Continue home Allopurinol 100mg PO daily History of HTN Continue home Coreg 12.5mg PO BID History of BPH Continue home Flomax 0.4mg PO daily Prophylaxis Protonix 40mg PO daily Heparin 5000U SC Q12 SCDs Discuss[address] with Dr. Mauricio, Shwetha Shafer, PGY3, DO <Brandy Mauricio - Last Filed: 09/03/17 17:36> Results - Vital Signs Recent Vital Signs: Last Vital Signs Temp 97.5 F L 09/03/17 16:55 Pulse 70 09/03/17 16:55 Resp 18 09/03/17 16:55 BP 150/85 09/03/17 17:25 Pulse Ox 100 09/03/17 14:10 - Labs Result Diagrams: 09/03/17 08:15 09/03/17 08:15 Labs: Laboratory Results - last 24 hr 09/03/17 09/03/17 09/03/17 08:15 08:15 08:15 WBC 9.5 RBC 1.58 L Hgb 5.5 L* Hct 15.0 L MCV 94.7 H D MCH 34.6 H MCHC 36.6 RDW 23.3 H Plt Count 197 D MPV 8.9 Neut % (Auto) 74.1 Lymph % (Auto) 16.3 L [place] % (Auto) 7.0 Eos % (Auto) 1.5 Baso % (Auto) 1.1 Neut # 7.0 Lymph # 1.5 [place] # 0.7 Eos # 0.1 Baso # 0.1 PT 12.2 INR 1.1 APTT 31 Sodium 143 Potassium 3.7 Chloride 103 Carbon Dioxide 27 Anion Gap 17 BUN 65 H Creatinine 8.8 H* D Est GFR ( Amer) 7 Est GFR (Non-Af Amer) 6 Random Glucose 95 Calcium 8.0 L Total Bilirubin 1.4 H AST 11 L ALT 25 Alkaline Phosphatase 74 Total Protein 6.0 L Albumin 3.8 Globulin 2.2 Albumin/Globulin Ratio 1.8 Stool Occult Blood Blood Type Antibody Screen 09/03/17 09/03/17 08:15 08:52 WBC RBC Hgb Hct MCV MCH MCHC RDW Plt Count MPV Neut % (Auto) Lymph % (Auto) [place] % (Auto) Eos % (Auto) Baso % (Auto) Neut # Lymph # [place] # Eos # Baso # PT INR APTT Sodium Potassium Chloride Carbon Dioxide Anion Gap BUN Creatinine Est GFR ( Amer) Est GFR (Non-Af Amer) Random Glucose Calcium Total Bilirubin AST ALT Alkaline Phosphatase Total Protein Albumin Globulin Albumin/Globulin Ratio Stool Occult Blood Negative Blood Type O POSITIVE Antibody Screen Negative Attending/Attestation - Attestation I have personally seen and examined this patient.: Yes I have fully participated in the care of the patient.: Yes I have reviewed all pertinent clinical information: Yes Notes (Text): Patient was seen and examined. Discussed with the resident Vivian wants to go home today after transfusion and dialysis 09/03/17 17:35
--- NOTE | 2017-09-03 18:42 | CP.PCM.DIS ---
Provider - Provider Date of Admission: 09/03/17 09:31 Attending physician: Brandy Mauricio MD Primary care physician: Dr. Dyllan Reeves Consults: Nephro - Dr. Contreras Time Spent in preparation of Discharge (in minutes): 35 Diagnosis - Discharge Diagnosis (1) Anemia Status: Acute Comment: Transfused 1 unit pRBCs. F/U CBC outpatient. Patient wants to go home very badly. Nephrology said this is okay. Patient needs to follow up outpatient with Dr. Velez (2) ESRD (end stage renal disease) on dialysis Status: Acute Comment: Patient missed Tuesday dialysis because of anemia. Patient had transfusions and dialysis in hospital today. Patient needs to follow up for Hd on Tuesday and with re recording mixer next week Hospital Course - Lab Results Lab Results: Most Recent Lab Values WBC 9.5 K/uL (4.8-10.8) 09/03/17 08:15 RBC 1.58 Mil/uL (4.40-5.90) L 09/03/17 08:15 Hgb 5.5 g/dL (12.0-18.0) L* 09/03/17 08:15 Hct 15.0 % (35.0-51.0) L 09/03/17 08:15 MCV 94.7 fL (80.0-94.0) H D 09/03/17 08:15 MCH 34.6 pg (27.0-31.0) H 09/03/17 08:15 MCHC 36.6 g/dL (33.0-37.0) 09/03/17 08:15 RDW 23.3 % (11.5-14.5) H 09/03/17 08:15 Plt Count 197 K/uL (130-400) D 09/03/17 08:15 MPV 8.9 fL (7.2-11.7) 09/03/17 08:15 Neut % (Auto) 74.1 % (50.0-75.0) 09/03/17 08:15 Lymph % (Auto) 16.3 % (20.0-40.0) L 09/03/17 08:15 [place] % (Auto) 7.0 % (0.0-10.0) 09/03/17 08:15 Eos % (Auto) 1.5 % (0.0-4.0) 09/03/17 08:15 Baso % (Auto) 1.1 % (0.0-2.0) 09/03/17 08:15 Neut # 7.0 K/uL (1.8-7.0) 09/03/17 08:15 Lymph # 1.5 K/uL (1.0-4.3) 09/03/17 08:15 [place] # 0.7 K/uL (0.0-0.8) 09/03/17 08:15 Eos # 0.1 K/uL (0.0-0.7) 09/03/17 08:15 Baso # 0.1 K/uL (0.0-0.2) 09/03/17 08:15 PT 12.2 SECONDS (9.7-12.2) 09/03/17 08:15 INR 1.1 09/03/17 08:15 APTT 31 SECONDS (21-34) 09/03/17 08:15 Sodium 143 mmol/L (132-148) 09/03/17 08:15 Potassium 3.7 mmol/L (3.6-5.2) 09/03/17 08:15 Chloride 103 mmol/L (98-107) 09/03/17 08:15 Carbon Dioxide 27 mmol/L (22-30) 09/03/17 08:15 Anion Gap 17 (10-20) 09/03/17 08:15 BUN 65 mg/dL (9-20) H 09/03/17 08:15 Creatinine 8.8 mg/dL (0.8-1.5) H* D 09/03/17 08:15 Est GFR ( Amer) 7 09/03/17 08:15 Est GFR (Non-Af Amer) 6 09/03/17 08:15 Random Glucose 95 mg/dL (75-110) 09/03/17 08:15 Calcium 8.0 mg/dl (8.6-10.4) L 09/03/17 08:15 Total Bilirubin 1.4 mg/dL (0.2-1.3) H 09/03/17 08:15 AST 11 U/L (17-59) L 09/03/17 08:15 ALT 25 U/L (21-72) 09/03/17 08:15 Alkaline Phosphatase 74 U/L (38-126) 09/03/17 08:15 Total Protein 6.0 g/dL (6.3-8.3) L 09/03/17 08:15 Albumin 3.8 g/dL (3.5-5.0) 09/03/17 08:15 Globulin 2.2 gm/dL (2.2-3.9) 09/03/17 08:15 Albumin/Globulin Ratio 1.8 (1.0-2.1) 09/03/17 08:15 Stool Occult Blood Negative (NEGATIVE) 09/03/17 08:52 Blood Type O POSITIVE 09/03/17 08:15 Antibody Screen Negative 09/03/17 08:15 - Hospital Course Hospital Course: On admission: CC: Severe anemia HPI: Patient is a 62 year old male with a PMH of ESRD on dialysis MWF through [facility], Anemia, uncontrolled HTN, Arthritis, BPH and Gout who had severe anemia at dialysis yesterday and was therefore sent to the ED. Patient has no complaints. He says he feels tired because he was unable to sleep last night but has not been feeling weak in general. Patient denies fatigue, dizziness, palpitations, gum bleeding, vomiting, diarrhea, melena, hematochezia, hematuria , blurry vision, recent travel. He was admitted to the hospital back in February and May of this year and was transfused 4 units of PRBCs. Anemia was thought to be due to renal failure secondary to a bladder obstruction and patient was instructed to follow up with Dr. Viktoria Roque (Urology) to remove the obstruction. He admits to never following up and says he has a lot of things to follow up in the new year. 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 PMD: Angela. Leandro PMHx: HTN (uncontrolled); Arthritis; Gout; ESRD PSHx: Bunyan removal; R. Knee Arthroscopy; permacath FHx: Father at 83 due to renal failure Allergies: NNKDA Social Hx: Lives with . 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 Admit to social drinker Hospital course; Patient was admitted for severe anemia. MCV is elevated. Stool occult blood is negative. Patient recieved 10U of Epoetin IV in the ER. Patient transfused 1 unit pRBCs. Patient dialyzed in hospital per Dr. Contreras's recommendations. Patient can be discharged home per Dr. Contreras. Patient will need to follow up with Dr. Velez outpatient. Patient will need to get HD on Tuesday. Discharge Exam - Head Exam Head Exam: NORMAL INSPECTION Discharge Plan - Follow Up Plan Condition: GOOD Disposition: HOME/ ROUTINE Additional Instructions: Patient to be discharged home per Dr. Mauricio and Dr. Contreras. Patient needs to follow up at HD on Tuesday and with Nephro and Heme/Onc, Dr. Velez, next week. Patient should resume all home medications. Patient should return to ED immediately if symptoms return or worsen. Referrals: Branden Velez MD [Staff Provider] - Frandy Paul MD [Staff Provider] - Kiel Zuñiga MD [Staff Provider] -
[2017-09-03 18:43] VITALS: BP 175/85
[2017-09-03 19:01] LABS: BASO # 0.1 K/uL (0.0-0.2); BASO % 1.4 % (0.0-2.0); EOS # 0.2 K/uL (0.0-0.7); EOS % 2.2 % (0.0-4.0); HEMATOCRIT 21.7 % (35.0-51.0); LYMPH # 1.5 K/uL (1.0-4.3); MEAN CORPUSCULAR HEMOGLOBIN 31.5 pg (27.0-31.0); MEAN CORPUSCULAR HGB CONC 36.4 g/dL (33.0-37.0); MEAN PLATELET VOLUME 8.1 fL (7.2-11.7); MONO # 0.3 K/uL (0.0-0.8); MONO % 3.9 % (0.0-10.0); NRBC % 0.1 % (0.0-2.0); RED CELL DISTRIBUTION WIDTH 26.4 % (11.5-14.5); WHITE BLOOD COUNT 8.8 K/uL (4.8-10.8)
[2017-09-03 19:11] VITALS: PULSE 88; RESP 20; TEMP 98.1
[2017-09-03 19:15] LABS: CALCIUM 7.9 mg/dl (8.6-10.4)
[2017-09-03 19:19] LABS: MEAN CELL VOLUME 86.6 fL (80.0-94.0)
[2017-09-04] MEDS ORDERED: Pantoprazole 40 mg EC Tab PO SCH (10:00)
[2017-09-04 16:58] VITALS: O2SAT 99
== END 2017-09-03 19:20 | disposition home or self-care (01) ==
LOC: C.ER 07:10 → UNDOADMOB 09:31 → C.9E 09:31 → C.3T 10:22 → C.9E 11:59 → C.3T 11:59 → UNDODISOB 19:20
PROVIDERS: ADMIT Internal Medicine; ATTEND Internal Medicine
DX: D64.9 Anemia, unspecified (principal); I12.0 Hypertensive chronic kidney disease with stage 5 chronic kidney disease or end stage renal disease; M10.9 Gout, unspecified; N18.6 End stage renal disease; N40.0 Benign prostatic hyperplasia without lower urinary tract symptoms; Z99.2 Dependence on renal dialysis
CPT/HCPCS: 36430; 80048; 80053; 85025; 85610; 85730; 86850; 86900; 86920; 99284; G0257; G0328; G0378; P9051; Q4081

== ENCOUNTER 2017-09-30 08:28 | Observation (INO) | payer MEDICARE, MEDICAID ==
[2017-09-30 08:32] VITALS: BMI 25.7
--- NOTE | 2017-09-30 09:46 | C.PDOC ---
History Of Present Illness 62yr old male with PMHx of ESRD, on dialysis M/W/F, presents to the ER stating yesterday he received a call stating his hemoglobin was 5.3 and was not able to be dialyzed. Last ER visit was 09/02/17 for anemia. Patient has a right anterior chest wall dialysis catheter and maturing left AV fistula. Denies fever, chills , chest pain, SOB, nausea, vomiting, abdominal pain, weakness or numbness. Time Seen by Provider: 09/30/17 09:19 Chief Complaint (Nursing): Medical Clearance History Per: Patient History/Exam Limitations: no limitations Past Medical History Reviewed: Historical Data, Nursing Documentation, Vital Signs Vital Signs: Last Vital Signs Temp 97.7 F 09/30/17 08:34 Pulse 78 09/30/17 08:34 Resp 18 09/30/17 08:34 BP 142/78 09/30/17 08:34 Pulse Ox 97 09/30/17 11:55 - Medical History PMH: Anemia, Benign Prostatic Hyperplasia, HTN, Chronic Kidney Disease - [facility] Procedures BYPASS LEFT BRACHIAL ARTERY TO UPPER ARM VEIN, OPEN APPROACH (05/31/17) INSERTION OF INFUSION DEV INTO SUP VENA CAVA, PERC APPROACH (05/31/17) PERFORMANCE OF URINARY FILTRATION, MULTIPLE (05/31/17) Family History: States: No Known Family Hx - Social History Hx Alcohol Use: No Hx Substance Use: No - Immunization History Hx Tetanus Toxoid Vaccination: Yes Hx Influenza Vaccination: Yes Hx Pneumococcal Vaccination: Yes Review Of Systems Except As Marked, All Systems Reviewed And Found Negative. Constitutional: Negative for: Fever, Chills Cardiovascular: Negative for: Chest Pain Respiratory: Negative for: Shortness of Breath Gastrointestinal: Negative for: Nausea, Vomiting, Abdominal Pain Neurological: Negative for: Weakness, Numbness Physical Exam - Physical Exam Appears: Non-toxic, No Acute Distress Skin: Warm, Dry, No Rash Head: Atraumatic, Normacephalic Eye(s): bilateral: Normal Inspection, PERRL, EOMI Oral Mucosa: Moist Chest: Other (Right anterior chest wall dialysis catheter) Cardiovascular: Rhythm Regular, No Murmur Respiratory: Normal Breath Sounds, No Rales, No Rhonchi, No Stridor, No Wheezing Gastrointestinal/Abdominal: Normal Exam, Soft, No Tenderness, No Guarding, No Rebound Extremity: Other (maturing left AV fistula with thrill) Neurological/Psych: Oriented x3, Normal Speech, Normal Motor ED Course And Treatment - Laboratory Results Result Diagrams: 09/30/17 10:17 09/30/17 10:17 ECG: Interpreted By Me, Viewed By Me ECG Rhythm: Sinus Rhythm ECG Interpretation: Normal Interpretation Of ECG: No ST/T wave abnormalities. Rate From EC (BPM) O2 Sat by Pulse Oximetry: 97 (RA) Pulse Ox Interpretation: Normal - Other Rad CXR X-Ray: Viewed By Me, Read By Radiologist Interpretation: PROCEDURE: CHEST RADIOGRAPH, 1 VIEW. HISTORY: Chest pain. COMPARISON: 06/01/2017. FINDINGS: The right-sided dialysis catheter terminates in the distal SVC. LUNGS: The lungs are well inflated and clear. PLEURA: No pneumothorax or pleural fluid seen. CARDIOVASCULAR: Normal. OSSEOUS STRUCTURES: No significant abnormalities. VISUALIZED UPPER ABDOMEN: Normal. OTHER FINDINGS: None. IMPRESSION: Right-sided dialysis catheter terminates in the distal SVC. No active pulmonary disease. Progress Note: Patient to be admitted under Dr. Price. Dr. Paul made aware of the patient. Patient to be admitted for symptomatic anemia and ESRD. Medical Decision Making Medical Decision Making: PLAN: * CXR * EKG * Troponin * CBC * CMP * BNP Disposition Discussed With : Kelsi Price Doctor Will See Patient In The: Hospital Counseled Patient/Family Regarding: Studies Performed, Diagnosis - Disposition Disposition: HOSPITALIZED Disposition Time: 11:55 Condition: FAIR - Clinical Impression Clinical Impression: Anemia, ESRD (end stage renal disease) on dialysis - Scribe Statement The provider has reviewed the documentation as recorded by the Mary Llanos Provider Attestation: All medical record entries made by the Mary were at my direction and personally dictated by me. I have reviewed the chart and agree that the record accurately reflects my personal performance of the history, physical exam, medical decision making, and the department course for this patient. I have also personally directed, reviewed, and agree with the discharge instructions and disposition.
[2017-09-30 10:23] LABS: BASO # 0.1 K/uL (0.0-0.2); BASO % 1.3 % (0.0-2.0); EOS # 0.1 K/uL (0.0-0.7); EOS % 0.7 % (0.0-4.0); LYMPH # 0.8 K/uL (1.0-4.3); LYMPH % 8.8 % (20.0-40.0); MEAN CELL VOLUME 86.4 fL (80.0-94.0); MEAN CORPUSCULAR HEMOGLOBIN 31.7 pg (27.0-31.0); MEAN CORPUSCULAR HGB CONC 36.7 g/dL (33.0-37.0); MEAN PLATELET VOLUME 8.4 fL (7.2-11.7); MONO # 0.4 K/uL (0.0-0.8); MONO % 4.1 % (0.0-10.0); NEUT # 7.5 K/uL (1.8-7.0); NEUT % 85.1 % (50.0-75.0); PLATELET COUNT 236 K/uL (130-400); RBC 1.76 Mil/uL (4.40-5.90); RED CELL DISTRIBUTION WIDTH 25.5 % (11.5-14.5); WHITE BLOOD COUNT 8.8 K/uL (4.8-10.8)
[2017-09-30 10:31] LABS: INR 1.2; PROTHROMBIN TIME 13.2 SECONDS (9.7-12.2)
[2017-09-30 10:32] LABS: HEMOGLOBIN 5.6 g/dL (12.0-18.0)
--- NOTE | 2017-09-30 10:35 | RAD ---
PROCEDURE: CHEST RADIOGRAPH, 1 VIEW HISTORY: Chest pain COMPARISON: 06/01/2017. FINDINGS: The right-sided dialysis catheter terminates in the distal SVC. LUNGS: The lungs are well inflated and clear. PLEURA: No pneumothorax or pleural fluid seen. CARDIOVASCULAR: Normal. OSSEOUS STRUCTURES: No significant abnormalities. VISUALIZED UPPER ABDOMEN: Normal. OTHER FINDINGS: None. IMPRESSION: Right-sided dialysis catheter terminates in the distal SVC. No active pulmonary disease.
[2017-09-30 11:22] LABS: ALB/GLOB RATIO 1.5 (1.0-2.1); ALT/SGPT 19 U/L (21-72); AST/SGOT 22 U/L (17-59); BLOOD UREA NITROGEN 38 mg/dL (9-20); CALCIUM 8.4 mg/dl (8.6-10.4); GFR AFRICAN-AMERICAN 9; GFR NON-AFRICAN AMERICAN 7
[2017-09-30 11:28] LABS: ANISOCYTOSIS MODERATE; LYMPHOCYTE 8 % (20-40); MICROCYTOSIS SLIGHT; MONOCYTE 3 % (0-10); NEUTROPHIL 89 % (50-75); PLATELET ESTIMATE NORMAL (NORMAL); TOTAL CELLS COUNTED 100
[2017-09-30 11:29] LABS: HYPOCHROMIC SLIGHT; OVALOCYTES SLIGHT; POLYCHROMIC SLIGHT
[2017-09-30 11:42] LABS: B-TYPE NATRIURETIC PEPTIDE 2100 pg/mL (0-900)
--- NOTE | 2017-09-30 13:45 | CP.PCM.HP ---
History of Present Illness - History of Present Illness History of Present Illness: pt was called to come his hgb 5.5 he has esrf on dialysis Present on Admission - Present on Admission Any Indicators Present on Admission: No Review of Systems - Review of Systems Systems not reviewed;Unavailable: Acuity of Condition - Constitutional Constitutional: As Per HPI - EENT Eyes: As Per HPI Ears: As Per HPI Nose/Mouth/Throat: As Per HPI - Cardiovascular Cardiovascular: As Per HPI - Respiratory Respiratory: As Per HPI - Gastrointestinal Gastrointestinal: As Per HPI - Genitourinary Genitourinary: As Per HPI - Reproductive: Male Reproductive:Male: As Per HPI - Musculoskeletal Musculoskeletal: As Per HPI - Integumentary Integumentary: As Per HPI - Neurological Neurological: As Per HPI - Psychiatric Psychiatric: As Per HPI - Endocrine Endocrine: As Per HPI - Hematologic/Lymphatic Hematologic: As Per HPI Past Patient History - Infectious Disease Hx of Infectious Diseases: None - Past Medical History & Family History Past Medical History?: Yes - Past Social History Smoking Status: Never Smoked - CARDIAC Hx Hypertension: Yes - PULMONARY Hx Respiratory Disorders: No - NEUROLOGICAL Hx Neurological Disorder: No - HEENT Hx HEENT Problems: No - RENAL Hx Chronic Kidney Disease: Yes - ENDOCRINE/METABOLIC Hx Endocrine Disorders: No - HEMATOLOGICAL/ONCOLOGICAL Hx Anemia: Yes - INTEGUMENTARY Hx Dermatological Problems: No - MUSCULOSKELETAL/RHEUMATOLOGICAL Hx Falls: No - GASTROINTESTINAL Hx Gastrointestinal Disorders: No - GENITOURINARY/GYNECOLOGICAL Hx Genitourinary Disorders: Yes - PSYCHIATRIC Hx Substance Use: No - SURGICAL HISTORY Hx Surgeries: Yes Hx Orthopedic Surgery: Yes (right knee , left foot) - ANESTHESIA Hx Anesthesia: Yes Hx Anesthesia Reactions: No Hx Malignant Hyperthermia: No Meds Allergies/Adverse Reactions: Allergies Allergy/AdvReac Type Severity Reaction Status Date / Time No Known Allergies Allergy Verified 09/30/17 08:32 Physical Exam - Constitutional Appears: Non-toxic - Head Exam Head Exam: NORMAL INSPECTION - Eye Exam Eye Exam: Normal appearance Pupil Exam: PERRL - ENT Exam ENT Exam: Mucous Membranes Moist - Neck Exam Neck exam: Positive for: Full Rom - Respiratory Exam Respiratory Exam: Clear to Auscultation Bilateral - Cardiovascular Exam Cardiovascular Exam: REGULAR RHYTHM - GI/Abdominal Exam GI & Abdominal Exam: Normal Bowel Sounds - Rectal Exam Rectal Exam: NORMAL INSPECTION - Exam Exam: NORMAL INSPECTION - Extremities Exam Extremities exam: Positive for: normal inspection - Back Exam Back exam: NORMAL INSPECTION - Neurological Exam Neurological exam: Alert, Oriented x3 - Psychiatric Exam Psychiatric exam: Normal Affect - Skin Skin Exam: Normal Color, Pallor Results - Vital Signs Recent Vital Signs: Last Vital Signs Temp 97.7 F 09/30/17 08:34 Pulse 78 09/30/17 08:34 Resp 18 09/30/17 08:34 BP 142/78 09/30/17 08:34 Pulse Ox 97 09/30/17 12:07 - Labs Result Diagrams: 09/30/17 10:17 09/30/17 10:17 Labs: Laboratory Results - last 24 hr 09/30/17 09/30/17 09/30/17 10:17 10:17 10:17 WBC 8.8 RBC 1.76 L Hgb 5.6 L* D Hct 15.2 L MCV 86.4 MCH 31.7 H MCHC 36.7 RDW 25.5 H Plt Count 236 MPV 8.4 Neut % (Auto) 85.1 H Lymph % (Auto) 8.8 L Fergus % (Auto) 4.1 Eos % (Auto) 0.7 Baso % (Auto) 1.3 Neut # 7.5 H Lymph # 0.8 L Fergus # 0.4 Eos # 0.1 Baso # 0.1 Neutrophils % (Manual) 89 H Lymphocytes % (Manual) 8 L Monocytes % (Manual) 3 Platelet Estimate Normal Polychromasia Slight Hypochromasia (manual) Slight Anisocytosis (manual) Moderate Microcytosis (manual) Slight Ovalocytes Slight PT 13.2 H INR 1.2 APTT 33 Sodium 139 Potassium 3.6 Chloride 98 Carbon Dioxide 28 Anion Gap 16 BUN 38 H Creatinine 7.5 H* D Est GFR ( Amer) 9 Est GFR (Non-Af Amer) 7 Random Glucose 129 H Calcium 8.4 L Total Bilirubin 1.9 H AST 22 ALT 19 L D Alkaline Phosphatase 50 Troponin I < 0.0120 NT-Pro-B Natriuret Pep 2100 H Total Protein 6.7 Albumin 4.0 Globulin 2.7 Albumin/Globulin Ratio 1.5 Blood Type Antibody Screen 09/30/17 10:18 WBC RBC Hgb Hct MCV MCH MCHC RDW Plt Count MPV Neut % (Auto) Lymph % (Auto) Fergus % (Auto) Eos % (Auto) Baso % (Auto) Neut # Lymph # Fergus # Eos # Baso # Neutrophils % (Manual) Lymphocytes % (Manual) Monocytes % (Manual) Platelet Estimate Polychromasia Hypochromasia (manual) Anisocytosis (manual) Microcytosis (manual) Ovalocytes PT INR APTT Sodium Potassium Chloride Carbon Dioxide Anion Gap BUN Creatinine Est GFR ( Amer) Est GFR (Non-Af Amer) Random Glucose Calcium Total Bilirubin AST ALT Alkaline Phosphatase Troponin I NT-Pro-B Natriuret Pep Total Protein Albumin Globulin Albumin/Globulin Ratio Blood Type O POSITIVE Antibody Screen Negative Assessment & Plan - Assessment and Plan (Free Text) Assessment: acaneamia require transfusion esrf Plan: admit transfuse - Date & Time Date: 09/30/17 Time: 13:46
--- NOTE | 2017-09-30 14:03 | CP.PCM.CON ---
History of Present Illness - History of Present Illness History of Present Illness: History Of Present Illness 62yr old male with PMHx of ESRD, on dialysis M/W/F, presents to the ER stating yesterday he received a call stating his hemoglobin was 5.3 and was not able to be dialyzed. Last ER visit was 09/02/17 for anemia. Patient has a right anterior chest wall dialysis catheter and maturing left AV fistula. Denies fever, chills , chest pain, SOB, nausea, vomiting, abdominal pain, weakness or numbness. H/o chronic obstrutive nephropathy, chronic anemia with poor response to ESAs Sent in for blood transfusions For eventual outpt colonoscopy, heme evaluation Review of Systems - Constitutional Constitutional: Lethargy, Malaise - EENT Eyes: absent: As Per HPI, Blind Spots, Blurred Vision, Change in Vision, Decreased Night Vision, Diplopia, Discharge, Dry Eye, Exophthalmos, Floaters, Irritation, Itchy Eyes, Loss of Peripheral Vision, Pain, Photophobia, Requires Corrective Lenses, Sees Flashes, Spots in Vision, Tunnel Vision, Other Visual Disturbances, Loss of Vision, Other Ears: absent: As Per HPI, Decreased Hearing, Ear Discharge, Ear Pain, Tinnitus, Abnormal Hearing, Disequilibrium, Dizziness, Other Nose/Mouth/Throat: absent: As Per HPI, Epistaxis, Nasal Congestion, Nasal Discharge, Nasal Obstruction, Nasal Trauma, Nose Pain, Post Nasal Drip, Sinus Pain, Sinus Pressure, Bleeding Gums, Change in Voice, Dental Pain, Dry Mouth, Dysphagia, Halitosis, Hoarsness, Lip Swelling, Mouth Lesions, Mouth Pain, Odynophagia, Sore Throat, Throat Swelling, Tongue Swelling, Facial Pain, Neck Pain, Neck Mass, Other - Cardiovascular Cardiovascular: absent: As Per HPI, Acrocyanosis, Chest Pain, Chest Pain at Rest , Chest Pain with Activity, Claudication, Diaphoresis, Dyspnea, Dyspnea on Exertion, Edema, Irregular Heart Rhythm, Pain Radiating to Arm/Neck/Jaw, Leg Edema, Leg Ulcers, Lightheadedness, Orthopnea, Palpitations, Paroxysmal Nocturnal Dyspnea, Pedal Edema, Radiating Pain, Rapid Heart Rate, Slow Heart Rate, Syncope, Other - Respiratory Respiratory: absent: As Per HPI, Cough, Dyspnea, Hemoptysis, Dyspnea on Exertion , Wheezing, Snoring, Stridor, Pain on Inspiration, Chest Congestion, Excessive Mucous Production, Change in Mucous Color, Pain with Coughing, Other - Gastrointestinal Gastrointestinal: absent: As Per HPI, Abdominal Pain, Belching, Bloating, Change in Bowel Habits, Change in Stool Character, Coffee Ground Emesis, Constipation, Cramping, Diarrhea, Dyspepsia, Dysphagia, Early Satiety, Excessive Flatus, Fecal Incontinence, Heartburn, Hematemesis, Hematochezia, Loose Stools, Melena, Nausea, Odynophagia, Temesmus, Vomiting, Other - Genitourinary Genitourinary: As Per HPI - Musculoskeletal Musculoskeletal: Muscle Cramps, Myalgias - Neurological Neurological: absent: As Per HPI, Abnormal Gait, Abnormal Hearing, Abnormal Movements, Abnormal Speech, Behavioral Changes, Burning Sensations, Confusion, Convulsions, Disequilibrium, Dizziness, Numbness, Focal Weakness, Frequent Falls , Headaches, Lack of Coordination, Loss of Vision, Memory Loss, Paresthesias, Radicular Pain, Restless Legs, Sensory Deficit, Syncope, Tingling, Tremor, Vertigo, Weakness, Other Visual Disturbances, Other Past Patient History - Infectious Disease Hx of Infectious Diseases: None - Past Medical History & Family History Past Medical History?: Yes Past Family History: Reviewed and not pertinent - Past Social History Smoking Status: Never Smoked Chewing Tobacco Use: No Cigar Use: No Alcohol: None Drugs: Denies Home Situation {Lives}: With Family - CARDIAC Hx Hypertension: Yes - PULMONARY Hx Respiratory Disorders: No - NEUROLOGICAL Hx Neurological Disorder: No - HEENT Hx HEENT Problems: No - RENAL Hx Chronic Kidney Disease: Yes - ENDOCRINE/METABOLIC Hx Endocrine Disorders: No - HEMATOLOGICAL/ONCOLOGICAL Hx Anemia: Yes - INTEGUMENTARY Hx Dermatological Problems: No - MUSCULOSKELETAL/RHEUMATOLOGICAL Hx Falls: No - GASTROINTESTINAL Hx Gastrointestinal Disorders: No - GENITOURINARY/GYNECOLOGICAL Hx Genitourinary Disorders: Yes - PSYCHIATRIC Hx Substance Use: No - SURGICAL HISTORY Hx Surgeries: Yes Hx Orthopedic Surgery: Yes (right knee , left foot) - ANESTHESIA Hx Anesthesia: Yes Hx Anesthesia Reactions: No Hx Malignant Hyperthermia: No Meds Allergies/Adverse Reactions: Allergies Allergy/AdvReac Type Severity Reaction Status Date / Time No Known Allergies Allergy Verified 09/30/17 08:32 - Medications Medications: Current Medications Allopurinol (Zyloprim) 100 mg PO DAILY [facility] Calcium Acetate (Phoslo) 667 mg PO TIDCC [facility] Carvedilol (Coreg) 12.5 mg PO BID [facility] Tamsulosin HCl (Flomax) 0.4 mg PO DAILY [facility] Physical Exam - Head Exam Head Exam: ATRAUMATIC, NORMAL INSPECTION - Eye Exam Eye Exam: EOMI, Normal appearance - Neck Exam Neck exam: Positive for: Normal Inspection. Negative for: Tenderness - Respiratory Exam Respiratory Exam: Clear to Auscultation Bilateral, NORMAL BREATHING PATTERN - Cardiovascular Exam Cardiovascular Exam: REGULAR RHYTHM, +S1 - GI/Abdominal Exam GI & Abdominal Exam: Soft. absent: Tenderness - Extremities Exam Extremities exam: Positive for: normal inspection. Negative for: tenderness - Neurological Exam Neurological exam: Alert, CN II-XII Intact - Skin Skin Exam: Dry, Warm Results - Vital Signs Recent Vital Signs: Last Vital Signs Temp 97.7 F 09/30/17 08:34 Pulse 78 09/30/17 08:34 Resp 18 09/30/17 08:34 BP 142/78 09/30/17 08:34 Pulse Ox 97 09/30/17 12:07 - Labs Result Diagrams: 09/30/17 10:17 09/30/17 10:17 Labs: Laboratory Results - last 24 hr 09/30/17 09/30/17 09/30/17 10:17 10:17 10:17 WBC 8.8 RBC 1.76 L Hgb 5.6 L* D Hct 15.2 L MCV 86.4 MCH 31.7 H MCHC 36.7 RDW 25.5 H Plt Count 236 MPV 8.4 Neut % (Auto) 85.1 H Lymph % (Auto) 8.8 L Harlan % (Auto) 4.1 Eos % (Auto) 0.7 Baso % (Auto) 1.3 Neut # 7.5 H Lymph # 0.8 L Harlan # 0.4 Eos # 0.1 Baso # 0.1 Neutrophils % (Manual) 89 H Lymphocytes % (Manual) 8 L Monocytes % (Manual) 3 Platelet Estimate Normal Polychromasia Slight Hypochromasia (manual) Slight Anisocytosis (manual) Moderate Microcytosis (manual) Slight Ovalocytes Slight PT 13.2 H INR 1.2 APTT 33 Sodium 139 Potassium 3.6 Chloride 98 Carbon Dioxide 28 Anion Gap 16 BUN 38 H Creatinine 7.5 H* D Est GFR ( Amer) 9 Est GFR (Non-Af Amer) 7 Random Glucose 129 H Calcium 8.4 L Total Bilirubin 1.9 H AST 22 ALT 19 L D Alkaline Phosphatase 50 Troponin I < 0.0120 NT-Pro-B Natriuret Pep 2100 H Total Protein 6.7 Albumin 4.0 Globulin 2.7 Albumin/Globulin Ratio 1.5 Blood Type Antibody Screen 09/30/17 10:18 WBC RBC Hgb Hct MCV MCH MCHC RDW Plt Count MPV Neut % (Auto) Lymph % (Auto) Harlan % (Auto) Eos % (Auto) Baso % (Auto) Neut # Lymph # Harlan # Eos # Baso # Neutrophils % (Manual) Lymphocytes % (Manual) Monocytes % (Manual) Platelet Estimate Polychromasia Hypochromasia (manual) Anisocytosis (manual) Microcytosis (manual) Ovalocytes PT INR APTT Sodium Potassium Chloride Carbon Dioxide Anion Gap BUN Creatinine Est GFR ( Amer) Est GFR (Non-Af Amer) Random Glucose Calcium Total Bilirubin AST ALT Alkaline Phosphatase Troponin I NT-Pro-B Natriuret Pep Total Protein Albumin Globulin Albumin/Globulin Ratio Blood Type O POSITIVE Antibody Screen Negative Assessment & Plan (1) Chronic disease anemia Status: Acute (2) Obstructive and reflux uropathy Status: Acute (3) ESRD (end stage renal disease) on dialysis Status: Acute - Assessment and Plan (Free Text) Plan: Dialysis with blood transfusion 2 units- prbcs Outpt colonoscopy/ hematology evaluation
[2017-09-30 18:08] VITALS: O2SAT 100
[2017-09-30 20:09] VITALS: BP 154/88; PULSE 72; RESP 18; TEMP 98.6
== END 2017-09-30 20:37 | disposition home or self-care (01) ==
LOC: C.ER 08:28 → C.9E 11:55 → C.3T 19:18
PROVIDERS: ADMIT Internal Medicine; ATTEND Internal Medicine
DX: I12.0 Hypertensive chronic kidney disease with stage 5 chronic kidney disease or end stage renal disease (principal); N18.6 End stage renal disease; D63.1 Anemia in chronic kidney disease; N13.9 Obstructive and reflux uropathy, unspecified; Z99.2 Dependence on renal dialysis
CPT/HCPCS: 36430; 71045; 80053; 83880; 84484; 85025; 85610; 85730; 86850; 86900; 86920; 99284; G0257; G0378; P9051

== ENCOUNTER 2017-10-18 13:23 | Inpatient (IN) | payer MEDICARE, MEDICAID ==
[2017-10-18 13:23] VITALS: BMI 26.5
[2017-10-18 14:52] LABS: BASO # 0.1 K/uL (0.0-0.2); BASO % 0.9 % (0.0-2.0); EOS % 0.1 % (0.0-4.0); LYMPH # 0.7 K/uL (1.0-4.3); LYMPH % 9.4 % (20.0-40.0); MEAN CELL VOLUME 85.7 fL (80.0-94.0); MEAN CORPUSCULAR HEMOGLOBIN 30.2 pg (27.0-31.0); MEAN CORPUSCULAR HGB CONC 35.3 g/dL (33.0-37.0); MEAN PLATELET VOLUME 8.7 fL (7.2-11.7); MONO # 0.3 K/uL (0.0-0.8); MONO % 3.8 % (0.0-10.0); NEUT # 6.5 K/uL (1.8-7.0); NEUT % 85.8 % (50.0-75.0); NRBC % 0.1 % (0.0-2.0); PLATELET COUNT 228 K/uL (130-400); RBC 1.86 Mil/uL (4.40-5.90); RED CELL DISTRIBUTION WIDTH 26.6 % (11.5-14.5); WHITE BLOOD COUNT 7.6 K/uL (4.8-10.8)
[2017-10-18 15:05] LABS: INR 1.2; PROTHROMBIN TIME 13.3 SECONDS (9.7-12.2)
[2017-10-18 15:11] LABS: HEMOGLOBIN 5.6 g/dL (12.0-18.0)
[2017-10-18 15:29] LABS: BANDS 1 % (0-2); LYMPHOCYTE 7 % (20-40); MONOCYTE 2 % (0-10); NEUTROPHIL 90 % (50-75); PLATELET ESTIMATE NORMAL (NORMAL); TOTAL CELLS COUNTED 100
[2017-10-18 15:30] LABS: ANISOCYTOSIS MODERATE; HYPOCHROMIC SLIGHT
[2017-10-18 15:40] LABS: ALB/GLOB RATIO 1.5 (1.0-2.1); CALCIUM 8.4 mg/dl (8.6-10.4)
--- NOTE | 2017-10-18 15:43 | C.PDOC ---
History Of Present Illness 62 y/o male presents to ED status post bone marrow biopsy for hemodialysis and blood transfusion for chronic anemia. Patient has labs from Yesterday done by Dr. Velez with hemoglobin of 6.2. Patient denies fever, chills, weakness, numbness or any other complaints at this time. Time Seen by Provider: 10/18/17 13:47 Chief Complaint (Nursing): Abnormal Labs History Per: Patient History/Exam Limitations: no limitations Onset/Duration Of Symptoms: Days Current Symptoms Are (Timing): Still Present Past Medical History Reviewed: Historical Data, Nursing Documentation, Vital Signs Vital Signs: Last Vital Signs Temp 98.3 F 10/18/17 13:42 Pulse 79 10/18/17 13:42 Resp 20 10/18/17 13:42 BP 123/70 10/18/17 13:42 Pulse Ox 99 10/18/17 16:01 - Medical History PMH: Anemia, Arthritis, Benign Prostatic Hyperplasia, HTN, Chronic Kidney Disease Surgical History: No Surg Hx - [facility] Procedures BYPASS LEFT BRACHIAL ARTERY TO UPPER ARM VEIN, OPEN APPROACH (05/31/17) INSERTION OF INFUSION DEV INTO SUP VENA CAVA, PERC APPROACH (05/31/17) PERFORMANCE OF URINARY FILTRATION, MULTIPLE (05/31/17) Family History: States: No Known Family Hx - Social History Hx Alcohol Use: No Hx Substance Use: No - Immunization History Hx Tetanus Toxoid Vaccination: Yes Hx Influenza Vaccination: Yes Hx Pneumococcal Vaccination: Yes Review Of Systems Constitutional: Negative for: Fever, Chills Cardiovascular: Negative for: Chest Pain Respiratory: Negative for: Shortness of Breath Gastrointestinal: Negative for: Nausea, Vomiting Skin: Negative for: Rash Neurological: Negative for: Weakness, Numbness Physical Exam - Physical Exam Appears: Non-toxic, No Acute Distress Skin: Warm, Dry, Pale Head: Atraumatic, Normacephalic Eye(s): bilateral: Normal Inspection, EOMI Oral Mucosa: Moist Chest: Other (Hemodialysis catheder right upper chest) Cardiovascular: Rhythm Regular Respiratory: Normal Breath Sounds, No Rales, No Rhonchi, No Wheezing Gastrointestinal/Abdominal: Soft, No Tenderness, No Guarding, No Rebound Extremity: Other (AV fistula to left anticubidal area) Neurological/Psych: Oriented x3 ED Course And Treatment - Laboratory Results Result Diagrams: 10/18/17 14:47 01/23/18 14:47 Lab Interpretation: Abnormal (c/w ESRD and chronic anemia) ECG: Interpreted By Me, Viewed By Me ECG Rhythm: Sinus Rhythm Rate From EC (BPM) O2 Sat by Pulse Oximetry: 99 (RA) Pulse Ox Interpretation: Normal - Radiology CXR: Interpreted by Me, Read By Radiologist CXR Interpretation: Yes: No Acute Disease Reevaluation Time: 15:58 Reassessment Condition: Unchanged - Physician Consult Information Outcome Of Conversation: 1400: d/w Dr. Motley- sara eval L AV fistula on Tuesday AM. 1400: d/w Dr. Paul- sara arrange for HD and blood TX Tue AM. 1600: d/w Dr. Jc Reeves- Medicine [employer]- ok to admit. 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 Velez earlier today pending repeat HD with blood tx in AM Disposition Doctor Will See Patient In The: Hospital Counseled Patient/Family Regarding: Studies Performed, Diagnosis - Disposition Disposition: HOSPITALIZED Disposition Time: 16:01 Condition: GOOD Forms: [email or web address] ([place]) - Clinical Impression Clinical Impression: Severe anemia, ESRD (end stage renal disease) on dialysis, AV fistula - Scribe Statement The provider has reviewed the documentation as recorded by the Scribnaye Meyer All medical record entries made by the Ericaibnaye were at my direction and personally dictated by me. I have reviewed the chart and agree that the record accurately reflects my personal performance of the history, physical exam, medical decision making, and the department course for this patient. I have also personally directed, reviewed, and agree with the discharge instructions and disposition.
--- NOTE | 2017-10-18 15:57 | RAD ---
HISTORY: adm COMPARISON: 09/30/2017. FINDINGS: There is stable position of the right-sided dialysis catheter terminating at the cavoatrial junction. LUNGS: The lungs are well inflated and clear. PLEURA: No significant pleural effusion identified, no pneumothorax apparent. CARDIOVASCULAR: Normal. OSSEOUS STRUCTURES: No significant abnormalities. VISUALIZED UPPER ABDOMEN: Normal. OTHER FINDINGS: None. IMPRESSION: No active pulmonary disease. Right-sided dialysis catheter terminates at the cavoatrial junction.
--- NOTE | 2017-10-18 18:20 | CP.PCM.HP ---
Past Patient History - Infectious Disease Hx of Infectious Diseases: None - Past Medical History & Family History Past Medical History?: Yes - Past Social History Smoking Status: Never Smoked - CARDIAC Hx Hypertension: Yes - PULMONARY Hx Respiratory Disorders: No - NEUROLOGICAL Hx Neurological Disorder: No - HEENT Hx HEENT Problems: No - RENAL Hx Chronic Kidney Disease: Yes - ENDOCRINE/METABOLIC Hx Endocrine Disorders: No - HEMATOLOGICAL/ONCOLOGICAL Hx Anemia: Yes - INTEGUMENTARY Hx Dermatological Problems: No - MUSCULOSKELETAL/RHEUMATOLOGICAL Hx Arthritis: Yes - GASTROINTESTINAL Hx Gastrointestinal Disorders: No - GENITOURINARY/GYNECOLOGICAL Hx Genitourinary Disorders: Yes - PSYCHIATRIC Hx Substance Use: No - SURGICAL HISTORY Hx Surgeries: Yes Hx Orthopedic Surgery: Yes (right knee , left foot) Other/Comment: LEFT FOOT BUNION SURGERY-10YRS. - ANESTHESIA Hx Anesthesia: Yes Hx Anesthesia Reactions: No Hx Malignant Hyperthermia: No Meds Allergies/Adverse Reactions: Allergies Allergy/AdvReac Type Severity Reaction Status Date / Time No Known Allergies Allergy Verified 10/18/17 13:45 Physical Exam - Constitutional Appears: Well - Head Exam Head Exam: ATRAUMATIC, NORMAL INSPECTION, NORMOCEPHALIC - Eye Exam Eye Exam: EOMI, Normal appearance, PERRL Pupil Exam: NORMAL ACCOMODATION, PERRL - ENT Exam ENT Exam: Mucous Membranes Moist, Normal Exam - Neck Exam Neck exam: Positive for: Normal Inspection - Respiratory Exam Respiratory Exam: Decreased Breath Sounds - Cardiovascular Exam Cardiovascular Exam: REGULAR RHYTHM, +S1, +S2 - GI/Abdominal Exam GI & Abdominal Exam: Diminished Bowel Sounds, Soft - Rectal Exam Rectal Exam: Deferred Results - Vital Signs Recent Vital Signs: Last Vital Signs Temp 98.3 F 10/18/17 13:42 Pulse 79 10/18/17 13:42 Resp 20 10/18/17 13:42 BP 123/70 10/18/17 13:42 Pulse Ox 99 10/18/17 16:28 - Labs Result Diagrams: 10/18/17 14:47 10/18/17 14:47 Labs: Laboratory Results - last 24 hr 10/18/17 10/18/17 10/18/17 14:47 14:47 14:47 WBC 7.6 RBC 1.86 L Hgb 5.6 L* Hct 16.0 L MCV 85.7 MCH 30.2 MCHC 35.3 RDW 26.6 H Plt Count 228 MPV 8.7 Neut % (Auto) 85.8 H Lymph % (Auto) 9.4 L [place] % (Auto) 3.8 Eos % (Auto) 0.1 Baso % (Auto) 0.9 Neut # 6.5 Lymph # 0.7 L [place] # 0.3 Eos # 0.0 Baso # 0.1 Neutrophils % (Manual) 90 H Band Neutrophils % 1 Lymphocytes % (Manual) 7 L Monocytes % (Manual) 2 Platelet Estimate Normal Hypochromasia (manual) Slight Anisocytosis (manual) Moderate PT 13.3 H INR 1.2 APTT 34 Sodium 135 Potassium 4.1 Chloride 94 L Carbon Dioxide 30 Anion Gap 16 BUN 32 H Creatinine 6.4 H Est GFR ( Amer) 11 Est GFR (Non-Af Amer) 9 Random Glucose 115 H Calcium 8.4 L Total Bilirubin 1.6 H AST 12 L D ALT 13 L D Alkaline Phosphatase 50 Total Protein 6.7 Albumin 4.0 Globulin 2.7 Albumin/Globulin Ratio 1.5 Blood Type Antibody Screen 10/18/17 14:47 WBC RBC Hgb Hct MCV MCH MCHC RDW Plt Count MPV Neut % (Auto) Lymph % (Auto) [place] % (Auto) Eos % (Auto) Baso % (Auto) Neut # Lymph # [place] # Eos # Baso # Neutrophils % (Manual) Band Neutrophils % Lymphocytes % (Manual) Monocytes % (Manual) Platelet Estimate Hypochromasia (manual) Anisocytosis (manual) PT INR APTT Sodium Potassium Chloride Carbon Dioxide Anion Gap BUN Creatinine Est GFR ( Amer) Est GFR (Non-Af Amer) Random Glucose Calcium Total Bilirubin AST ALT Alkaline Phosphatase Total Protein Albumin Globulin Albumin/Globulin Ratio Blood Type O POSITIVE Antibody Screen Negative
--- NOTE | 2017-10-19 10:14 | CP.PCM.CON ---
Past Patient History - Infectious Disease Hx of Infectious Diseases: None - Past Medical History & Family History Past Medical History?: Yes - Past Social History Smoking Status: Never Smoked - CARDIAC Hx Hypertension: Yes - PULMONARY Hx Respiratory Disorders: No - NEUROLOGICAL Hx Neurological Disorder: No - HEENT Hx HEENT Problems: No - RENAL Hx Chronic Kidney Disease: Yes Type of Dialysis Access: riight s/c permacath Date of Last Dialysis Treatment: 10/17/17 Hx Kidney Stones: No Hx Renal Failure: Yes - ENDOCRINE/METABOLIC Hx Endocrine Disorders: No - HEMATOLOGICAL/ONCOLOGICAL Hx Anemia: Yes - INTEGUMENTARY Hx Dermatological Problems: No - MUSCULOSKELETAL/RHEUMATOLOGICAL Hx Falls: No - GASTROINTESTINAL Hx Gastrointestinal Disorders: No - GENITOURINARY/GYNECOLOGICAL Hx Genitourinary Disorders: Yes Hx Prostate Problems: Yes (bph) - PSYCHIATRIC Hx Substance Use: No - SURGICAL HISTORY Hx Surgeries: Yes Hx Orthopedic Surgery: Yes (right knee , left foot) Other/Comment: LEFT FOOT BUNION SURGERY-10YRS. - ANESTHESIA Hx Anesthesia: Yes Hx Anesthesia Reactions: No Hx Malignant Hyperthermia: No Has any member of the family had a problem w/ anesthesia?: No Meds Allergies/Adverse Reactions: Allergies Allergy/AdvReac Type Severity Reaction Status Date / Time No Known Allergies Allergy Verified 10/18/17 13:45 - Medications Medications: Current Medications Allopurinol (Zyloprim) 100 mg PO DAILY [facility] Calcium Acetate (Phoslo) 667 mg PO TIDCC [facility] Last Admin: 10/19/17 08:31 Dose: 667 mg Carvedilol (Coreg) 12.5 mg PO BID [facility] Cinacalcet (Sensipar) 30 mg PO DAILY [facility] Colchicine (Colocrys) 0.6 mg PO DAILY [facility] Pantoprazole Sodium (Protonix Ec Tab) 40 mg PO DAILY [facility] Tamsulosin HCl (Flomax) 0.4 mg PO DAILY [facility] Results - Vital Signs Recent Vital Signs: Last Vital Signs Temp 97.6 F 10/19/17 10:11 Pulse 61 10/19/17 10:11 Resp 18 10/19/17 10:11 BP 130/93 H 10/19/17 10:11 Pulse Ox 99 10/19/17 07:48 - Labs Result Diagrams: 10/18/17 14:47 10/18/17 14:47 Labs: Laboratory Results - last 24 hr 10/18/17 10/18/17 10/18/17 14:47 14:47 14:47 WBC 7.6 RBC 1.86 L Hgb 5.6 L* Hct 16.0 L MCV 85.7 MCH 30.2 MCHC 35.3 RDW 26.6 H Plt Count 228 MPV 8.7 Neut % (Auto) 85.8 H Lymph % (Auto) 9.4 L [place] % (Auto) 3.8 Eos % (Auto) 0.1 Baso % (Auto) 0.9 Neut # 6.5 Lymph # 0.7 L [place] # 0.3 Eos # 0.0 Baso # 0.1 Neutrophils % (Manual) 90 H Band Neutrophils % 1 Lymphocytes % (Manual) 7 L Monocytes % (Manual) 2 Platelet Estimate Normal Hypochromasia (manual) Slight Anisocytosis (manual) Moderate PT 13.3 H INR 1.2 APTT 34 Sodium 135 Potassium 4.1 Chloride 94 L Carbon Dioxide 30 Anion Gap 16 BUN 32 H Creatinine 6.4 H Est GFR ( Amer) 11 Est GFR (Non-Af Amer) 9 Random Glucose 115 H Calcium 8.4 L Total Bilirubin 1.6 H AST 12 L D ALT 13 L D Alkaline Phosphatase 50 Total Protein 6.7 Albumin 4.0 Globulin 2.7 Albumin/Globulin Ratio 1.5 Blood Type Antibody Screen 10/18/17 14:47 WBC RBC Hgb Hct MCV MCH MCHC RDW Plt Count MPV Neut % (Auto) Lymph % (Auto) [place] % (Auto) Eos % (Auto) Baso % (Auto) Neut # Lymph # [place] # Eos # Baso # Neutrophils % (Manual) Band Neutrophils % Lymphocytes % (Manual) Monocytes % (Manual) Platelet Estimate Hypochromasia (manual) Anisocytosis (manual) PT INR APTT Sodium Potassium Chloride Carbon Dioxide Anion Gap BUN Creatinine Est GFR ( Amer) Est GFR (Non-Af Amer) Random Glucose Calcium Total Bilirubin AST ALT Alkaline Phosphatase Total Protein Albumin Globulin Albumin/Globulin Ratio Blood Type O POSITIVE Antibody Screen Negative
[2017-10-19] MEDS: Pantoprazole 40 mg EC Tab PO SCH ×2 (10:38→15:13)
--- NOTE | 2017-10-19 10:48 | CP.PCM.CON ---
<Rizwana Rick - Last Filed: 10/19/17 12:14> History of Present Illness - History of Present Illness History of Present Illness: Heme/Onc Consult for Dr. Damaris Velez Reason for consult: Severe anemia This is a 62 year old male with a PMHx of ESRD on dialysis MWF, Anemia, uncontrolled HTN, Arthritis, BPH and Gout who had bone marrow biopsy done by Dr. Velez on 10/18/17. Patient admitted for hemodialysis and transfusion for chronic anemia. Hgb was found to be 5.6 on admission. Patient has no complaints today. Patient denies fatigue, dizziness, palpitations, vomiting, diarrhea, blood in the stool or in the urine. Patient has history of multiple blood transfusions, most recent one 1 week ago. Patient is to have AV fistula revised with Dr. Motley. PMHx: HTN, Arthritis, Gout, ESRD on HD PSHx: Bunyan removal; R. Knee Arthroscopy; permacath FHx: Father at 83 due to renal failure Allergies: NKDA Social Hx: Lives with . 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 Admit to social drinker Review of systems: All remaining review of systems including HEENT, cardiovascular, respiratory, gastrointestinal, genitourinary, musculoskeletal, dermatologic, neurologic, and psychiatric are negative unless mentioned in the HPI. Review of Systems - Constitutional Constitutional: absent: Chills, Fever - EENT Eyes: absent: Change in Vision - Cardiovascular Cardiovascular: absent: Chest Pain, Dyspnea - Respiratory Respiratory: absent: Cough, Dyspnea - Gastrointestinal Gastrointestinal: absent: Abdominal Pain, Nausea, Vomiting - Genitourinary Genitourinary: absent: Change in Urinary Stream, Dysuria - Musculoskeletal Musculoskeletal: absent: Back Pain - Endocrine Endocrine: absent: Fatigue Past Patient History - Infectious Disease Hx of Infectious Diseases: None - Past Medical History & Family History Past Medical History?: Yes - Past Social History Smoking Status: Never Smoked - CARDIAC Hx Hypertension: Yes - PULMONARY Hx Respiratory Disorders: No - NEUROLOGICAL Hx Neurological Disorder: No - HEENT Hx HEENT Problems: No - RENAL Hx Chronic Kidney Disease: Yes Type of Dialysis Access: riight s/c permacath Date of Last Dialysis Treatment: 10/17/17 Hx Kidney Stones: No Hx Renal Failure: Yes - ENDOCRINE/METABOLIC Hx Endocrine Disorders: No - HEMATOLOGICAL/ONCOLOGICAL Hx Anemia: Yes - INTEGUMENTARY Hx Dermatological Problems: No - MUSCULOSKELETAL/RHEUMATOLOGICAL Hx Falls: No - GASTROINTESTINAL Hx Gastrointestinal Disorders: No - GENITOURINARY/GYNECOLOGICAL Hx Genitourinary Disorders: Yes Hx Prostate Problems: Yes (bph) - PSYCHIATRIC Hx Substance Use: No - SURGICAL HISTORY Hx Surgeries: Yes Hx Orthopedic Surgery: Yes (right knee , left foot) Other/Comment: LEFT FOOT BUNION SURGERY-10YRS. - ANESTHESIA Hx Anesthesia: Yes Hx Anesthesia Reactions: No Hx Malignant Hyperthermia: No Has any member of the family had a problem w/ anesthesia?: No Meds Allergies/Adverse Reactions: Allergies Allergy/AdvReac Type Severity Reaction Status Date / Time No Known Allergies Allergy Verified 10/18/17 13:45 - Medications Medications: Current Medications Allopurinol (Zyloprim) 100 mg PO DAILY [facility] Last Admin: 10/19/17 10:38 Dose: Not Given Calcium Acetate (Phoslo) 667 mg PO TIDCC [facility] Last Admin: 10/19/17 08:31 Dose: 667 mg Carvedilol (Coreg) 12.5 mg PO BID [facility] Last Admin: 10/19/17 10:38 Dose: Not Given Cinacalcet (Sensipar) 30 mg PO DAILY [facility] Last Admin: 10/19/17 10:38 Dose: Not Given Colchicine (Colocrys) 0.6 mg PO DAILY [facility] Last Admin: 10/19/17 10:38 Dose: Not Given Pantoprazole Sodium (Protonix Ec Tab) 40 mg PO DAILY [facility] Last Admin: 10/19/17 10:38 Dose: Not Given Tamsulosin HCl (Flomax) 0.4 mg PO DAILY [facility] Last Admin: 10/19/17 10:38 Dose: Not Given Physical Exam - Constitutional Appears: No Acute Distress - Head Exam Head Exam: NORMAL INSPECTION, NORMOCEPHALIC - Eye Exam Eye Exam: EOMI, Normal appearance - ENT Exam ENT Exam: Mucous Membranes Moist - Respiratory Exam Respiratory Exam: Clear to Auscultation Bilateral. absent: Rales, Rhonchi - Cardiovascular Exam Cardiovascular Exam: REGULAR RHYTHM, +S1, +S2 - GI/Abdominal Exam GI & Abdominal Exam: Soft. absent: Distended, Tenderness - Extremities Exam Extremities exam: Positive for: full ROM Additional comments: V fistula to left anticubidal - Neurological Exam Neurological exam: Alert, Oriented x3 - Psychiatric Exam Psychiatric exam: Normal Mood - Skin Skin Exam: Dry, Warm Results - Vital Signs Recent Vital Signs: Last Vital Signs Temp 97.9 F 10/19/17 10:26 Pulse 61 10/19/17 10:26 Resp 16 10/19/17 10:26 BP 134/77 10/19/17 10:26 Pulse Ox 97 10/19/17 09:55 - Labs Result Diagrams: 10/18/17 14:47 10/18/17 14:47 Labs: Laboratory Results - last 24 hr 10/18/17 10/18/17 10/18/17 14:47 14:47 14:47 WBC 7.6 RBC 1.86 L Hgb 5.6 L* Hct 16.0 L MCV 85.7 MCH 30.2 MCHC 35.3 RDW 26.6 H Plt Count 228 MPV 8.7 Neut % (Auto) 85.8 H Lymph % (Auto) 9.4 L [place] % (Auto) 3.8 Eos % (Auto) 0.1 Baso % (Auto) 0.9 Neut # 6.5 Lymph # 0.7 L [place] # 0.3 Eos # 0.0 Baso # 0.1 Neutrophils % (Manual) 90 H Band Neutrophils % 1 Lymphocytes % (Manual) 7 L Monocytes % (Manual) 2 Platelet Estimate Normal Hypochromasia (manual) Slight Anisocytosis (manual) Moderate PT 13.3 H INR 1.2 APTT 34 Sodium 135 Potassium 4.1 Chloride 94 L Carbon Dioxide 30 Anion Gap 16 BUN 32 H Creatinine 6.4 H Est GFR ( Amer) 11 Est GFR (Non-Af Amer) 9 Random Glucose 115 H Calcium 8.4 L Total Bilirubin 1.6 H AST 12 L D ALT 13 L D Alkaline Phosphatase 50 Total Protein 6.7 Albumin 4.0 Globulin 2.7 Albumin/Globulin Ratio 1.5 Blood Type Antibody Screen 10/18/17 14:47 WBC RBC Hgb Hct MCV MCH MCHC RDW Plt Count MPV Neut % (Auto) Lymph % (Auto) [place] % (Auto) Eos % (Auto) Baso % (Auto) Neut # Lymph # [place] # Eos # Baso # Neutrophils % (Manual) Band Neutrophils % Lymphocytes % (Manual) Monocytes % (Manual) Platelet Estimate Hypochromasia (manual) Anisocytosis (manual) PT INR APTT Sodium Potassium Chloride Carbon Dioxide Anion Gap BUN Creatinine Est GFR ( Amer) Est GFR (Non-Af Amer) Random Glucose Calcium Total Bilirubin AST ALT Alkaline Phosphatase Total Protein Albumin Globulin Albumin/Globulin Ratio Blood Type O POSITIVE Antibody Screen Negative Assessment & Plan (1) Anemia Assessment and Plan: Transfusion dependent anemia. Anemia of CKD. s/p bone marrow biopsy yesterday PRBC transfusion going on now f/u CBC in the AM Status: Acute (2) ESRD (end stage renal disease) on dialysis Assessment and Plan: Dialysis today Status: Acute (3) AV fistula Assessment and Plan: For revision tomorrow Status: Acute - Assessment and Plan (Free Text) Assessment: Will discuss case with Dr. Agustin Rick, PGY 3 <Branden Velez - Last Filed: 10/19/17 22:01> Meds - Medications Medications: Current Medications Allopurinol (Zyloprim) 100 mg PO DAILY [facility] Last Admin: 10/19/17 15:13 Dose: 100 mg Calcium Acetate (Phoslo) 667 mg PO TIDCC [facility] Last Admin: 10/19/17 16:54 Dose: 667 mg Carvedilol (Coreg) 12.5 mg PO BID [facility] Last Admin: 10/19/17 17:19 Dose: 12.5 mg Cinacalcet (Sensipar) 30 mg PO DAILY [facility] Last Admin: 10/19/17 15:12 Dose: 30 mg Colchicine (Colocrys) 0.6 mg PO BID [facility] Last Admin: 10/19/17 17:19 Dose: 0.6 mg Epoetin Johnson (Procrit) 10,000 unit IV [facility] [place] Stop: 10/24/17 09:01 Last Admin: 10/19/17 13:24 Dose: 10,000 unit Heparin Sodium (Porcine) (Heparin) 4,100 units IVP [facility] [place] Stop: 10/24/17 09:01 Last Admin: 10/19/17 13:24 Dose: 4,100 units Methylprednisolone (Solu-Medrol) 40 mg IVP DAILY [facility] Pantoprazole Sodium (Protonix Ec Tab) 40 mg PO DAILY [facility] Last Admin: 10/19/17 15:13 Dose: 40 mg Tamsulosin HCl (Flomax) 0.4 mg PO DAILY [facility] Last Admin: 10/19/17 15:13 Dose: 0.4 mg Results - Vital Signs Recent Vital Signs: Last Vital Signs Temp 98.5 F 01/24/18 20:32 Pulse 66 10/19/17 20:32 Resp 20 10/19/17 20:32 BP 137/86 10/19/17 20:32 Pulse Ox 100 10/19/17 15:00 - Labs Result Diagrams: 10/18/17 14:47 10/18/17 14:47 Labs: Laboratory Results - last 24 hr 10/18/17 14:47 Blood Type O POSITIVE Antibody Screen Negative Assessment & Plan - Assessment and Plan (Free Text) Assessment: Pt seen and examined, agree with Dr. Rick's consult. 62 year old male with a history of ESRD on HD and MIS with continued transfusion dependent anemia. He underwent a bone marrow biopsy with me yesterday and is admitted with symptomatic anemia. He is to receive PRBC transfusion with HD. Outpatient f/u of bone marrow results. Thank you for this interesting consult.
[2017-10-19] MEDS: Epoetin Alfa 10,000 unit/ml Dialysis IV SCH (13:24)
--- NOTE | 2017-10-19 13:33 | CP.PCM.CON ---
History of Present Illness - History of Present Illness History of Present Illness: This is a 62 year old male with a PMHx of ESRD on dialysis MWF, Anemia, uncontrolled HTN, Arthritis, BPH and Gout who had bone marrow biopsy done by Dr. Velez on 10/18/17. Patient admitted for hemodialysis and transfusion for chronic anemia. Hgb was found to be 5.6 on admission. Patient has no complaints today. Patient denies fatigue, dizziness, palpitations, vomiting, diarrhea, blood in the stool or in the urine. Patient has history of multiple blood transfusions, most recent one 1 week ago. Patient is to have AV fistula revised with Dr. Motley. PMHx: HTN, Arthritis, Gout, ESRD on HD; chronic obstructive uropathy PSHx: Bunyan removal; R. Knee Arthroscopy; permacath FHx: Father at 83 due to renal failure Allergies: NKDA Social Hx: Lives with . 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 Admit to social drinker Review of systems: All remaining review of systems including HEENT, cardiovascular, respiratory, gastrointestinal, genitourinary, musculoskeletal, dermatologic, neurologic, and psychiatric are negative unless mentioned in the HPI. Review of Systems - Review of Systems All systems: reviewed and no additional remarkable complaints except - Constitutional Constitutional: Fatigue, Malaise - Cardiovascular Cardiovascular: Dyspnea on Exertion - Genitourinary Genitourinary: As Per HPI - Musculoskeletal Musculoskeletal: Muscle Weakness, Myalgias - Neurological Neurological: Weakness Past Patient History - Infectious Disease Hx of Infectious Diseases: None - Past Medical History & Family History Past Medical History?: Yes Pertinent Family History: father exp- had CKD - Past Social History Smoking Status: Never Smoked Chewing Tobacco Use: No Cigar Use: No Alcohol: None Drugs: Denies - CARDIAC Hx Hypertension: Yes - PULMONARY Hx Respiratory Disorders: No - NEUROLOGICAL Hx Neurological Disorder: No - HEENT Hx HEENT Problems: No - RENAL Hx Chronic Kidney Disease: Yes Type of Dialysis Access: riight s/c permacath Date of Last Dialysis Treatment: 10/17/17 Hx Kidney Stones: No Hx Renal Failure: Yes - ENDOCRINE/METABOLIC Hx Endocrine Disorders: No - HEMATOLOGICAL/ONCOLOGICAL Hx Anemia: Yes - INTEGUMENTARY Hx Dermatological Problems: No - MUSCULOSKELETAL/RHEUMATOLOGICAL Hx Falls: No - GASTROINTESTINAL Hx Gastrointestinal Disorders: No - GENITOURINARY/GYNECOLOGICAL Hx Genitourinary Disorders: Yes Hx Prostate Problems: Yes (bph) - PSYCHIATRIC Hx Substance Use: No - SURGICAL HISTORY Hx Surgeries: Yes Hx Orthopedic Surgery: Yes (right knee , left foot) Other/Comment: LEFT FOOT BUNION SURGERY-10YRS. - ANESTHESIA Hx Anesthesia: Yes Hx Anesthesia Reactions: No Hx Malignant Hyperthermia: No Has any member of the family had a problem w/ anesthesia?: No Meds Allergies/Adverse Reactions: Allergies Allergy/AdvReac Type Severity Reaction Status Date / Time No Known Allergies Allergy Verified 10/18/17 13:45 - Medications Medications: Current Medications Allopurinol (Zyloprim) 100 mg PO DAILY [facility] Last Admin: 10/19/17 10:38 Dose: Not Given Calcium Acetate (Phoslo) 667 mg PO TIDCC [facility] Last Admin: 10/19/17 12:22 Dose: Not Given Carvedilol (Coreg) 12.5 mg PO BID [facility] Last Admin: 10/19/17 10:38 Dose: Not Given Cinacalcet (Sensipar) 30 mg PO DAILY [facility] Last Admin: 10/19/17 10:38 Dose: Not Given Colchicine (Colocrys) 0.6 mg PO BID [facility] Epoetin Johnson (Procrit) 10,000 unit IV [facility] Stop: 10/24/17 09:01 Last Admin: 10/19/17 13:24 Dose: 10,000 unit Heparin Sodium (Porcine) (Heparin) 4,[facility] Stop: 10/24/17 09:01 Last Admin: 10/19/17 13:24 Dose: 4,100 units Pantoprazole Sodium (Protonix Ec Tab) 40 mg PO DAILY [facility] Last Admin: 10/19/17 10:38 Dose: Not Given Tamsulosin HCl (Flomax) 0.4 mg PO DAILY [facility] Last Admin: 10/19/17 10:38 Dose: Not Given Physical Exam - Constitutional Appears: No Acute Distress, Chronically Ill - Head Exam Head Exam: ATRAUMATIC, NORMAL INSPECTION - Eye Exam Eye Exam: EOMI, Normal appearance - Neck Exam Neck exam: Positive for: Normal Inspection. Negative for: Tenderness - Respiratory Exam Respiratory Exam: Clear to Auscultation Bilateral, NORMAL BREATHING PATTERN - Cardiovascular Exam Cardiovascular Exam: REGULAR RHYTHM, +S1 - GI/Abdominal Exam GI & Abdominal Exam: Soft. absent: Tenderness - Extremities Exam Extremities exam: Positive for: normal inspection. Negative for: tenderness - Neurological Exam Neurological exam: Alert, CN II-XII Intact - Skin Skin Exam: Dry, Warm Results - Vital Signs Recent Vital Signs: Last Vital Signs Temp 97.7 F 10/19/17 12:46 Pulse 62 10/19/17 12:46 Resp 16 10/19/17 12:46 BP 139/88 10/19/17 12:46 Pulse Ox 97 10/19/17 09:55 - Labs Result Diagrams: 10/18/17 14:47 10/18/17 14:47 Labs: Laboratory Results - last 24 hr 10/18/17 10/18/17 10/18/17 14:47 14:47 14:47 WBC 7.6 RBC 1.86 L Hgb 5.6 L* Hct 16.0 L MCV 85.7 MCH 30.2 MCHC 35.3 RDW 26.6 H Plt Count 228 MPV 8.7 Neut % (Auto) 85.8 H Lymph % (Auto) 9.4 L [place] % (Auto) 3.8 Eos % (Auto) 0.1 Baso % (Auto) 0.9 Neut # 6.5 Lymph # 0.7 L [place] # 0.3 Eos # 0.0 Baso # 0.1 Neutrophils % (Manual) 90 H Band Neutrophils % 1 Lymphocytes % (Manual) 7 L Monocytes % (Manual) 2 Platelet Estimate Normal Hypochromasia (manual) Slight Anisocytosis (manual) Moderate PT 13.3 H INR 1.2 APTT 34 Sodium 135 Potassium 4.1 Chloride 94 L Carbon Dioxide 30 Anion Gap 16 BUN 32 H Creatinine 6.4 H Est GFR ( Amer) 11 Est GFR (Non-Af Amer) 9 Random Glucose 115 H Calcium 8.4 L Total Bilirubin 1.6 H AST 12 L D ALT 13 L D Alkaline Phosphatase 50 Total Protein 6.7 Albumin 4.0 Globulin 2.7 Albumin/Globulin Ratio 1.5 Blood Type Antibody Screen 10/18/17 14:47 WBC RBC Hgb Hct MCV MCH MCHC RDW Plt Count MPV Neut % (Auto) Lymph % (Auto) [place] % (Auto) Eos % (Auto) Baso % (Auto) Neut # Lymph # [place] # Eos # Baso # Neutrophils % (Manual) Band Neutrophils % Lymphocytes % (Manual) Monocytes % (Manual) Platelet Estimate Hypochromasia (manual) Anisocytosis (manual) PT INR APTT Sodium Potassium Chloride Carbon Dioxide Anion Gap BUN Creatinine Est GFR ( Amer) Est GFR (Non-Af Amer) Random Glucose Calcium Total Bilirubin AST ALT Alkaline Phosphatase Total Protein Albumin Globulin Albumin/Globulin Ratio Blood Type O POSITIVE Antibody Screen Negative Assessment & Plan (1) Severe anemia Status: Acute (2) Gout attack Status: Acute (3) Obstructive and reflux uropathy Status: Acute (4) ESRD (end stage renal disease) on dialysis Status: Acute (5) Severe anemia Status: Acute - Assessment and Plan (Free Text) Plan: dialysis now transfuse 2 units prbcs treat gout- IV steroids s/p BM bx cleared by renal for AV fistula revision
--- NOTE | 2017-10-19 16:29 | CARD ---
APPROVED REPORT EKG Measurement Heart [id number] <Conclusion> Normal sinus rhythm Normal ECG
--- NOTE | 2017-10-19 18:59 | CP.PCM.CON ---
History of Present Illness - History of Present Illness History of Present Illness: Vascular Surgery Consult Note for Dr. Motley Reason for Consult: AVF transposition/revision 62 M with a history of anemia and ESRD presented and was admitted for dizziniess /lightheadness, fatigue, and anemia. Patient was originally scheduled for AVF revision tomorrow. Patient was diagnosed with anemia and kidney failure in March and May of last year respectively. The patient states that he became progressively more fatigued starting last february, initially attributing his tiredness to traveling for work. The patient has been receiving dialysis via the right sided permacath. In May, he underwent an [place] [facility] [place] but was not able to use it since it needed to be transposed. Hb from yesterday was 5.6 (hct was 16). Patient had bone marrow biopsy and is being worked up for cause of anemia. Denies numbness/tingling or pain in left arm. He denies fevers/ chills, chest pain, palpitations, dyspnea, cough, n/v/d/c. PMH: Chronic anemia, ESRD ,Gout, HTN, athritis, BPH PSH: AVF last May, Bunion surgery 04/2011, Right Knee Arthroscopy 2010 FHx: none Allergies: none Social: Denies alcohol, tobacco Medications: Allopurinol 100mg PO qd Calcium acetate 667 mg PO q3d Carvedilol 12.5 mg PO q2d Pantoprazole 40 mg PO qd Prednisone 10 mg PO qd Tamulosin .4mg PO qd Review of Systems - Review of Systems All systems: reviewed and no additional remarkable complaints except Past Patient History - Infectious Disease Hx of Infectious Diseases: None - Past Medical History & Family History Past Medical History?: Yes - Past Social History Smoking Status: Never Smoked Chewing Tobacco Use: No Cigar Use: No Alcohol: None Drugs: Denies - CARDIAC Hx Hypertension: Yes - PULMONARY Hx Respiratory Disorders: No - NEUROLOGICAL Hx Neurological Disorder: No - HEENT Hx HEENT Problems: No - RENAL Hx Chronic Kidney Disease: Yes Type of Dialysis Access: riight s/c permacath Date of Last Dialysis Treatment: 10/17/17 Hx Kidney Stones: No Hx Renal Failure: Yes - ENDOCRINE/METABOLIC Hx Endocrine Disorders: No - HEMATOLOGICAL/ONCOLOGICAL Hx Anemia: Yes - INTEGUMENTARY Hx Dermatological Problems: No - MUSCULOSKELETAL/RHEUMATOLOGICAL Hx Falls: No - GASTROINTESTINAL Hx Gastrointestinal Disorders: No - GENITOURINARY/GYNECOLOGICAL Hx Genitourinary Disorders: Yes Hx Prostate Problems: Yes (bph) - PSYCHIATRIC Hx Substance Use: No - SURGICAL HISTORY Hx Surgeries: Yes Hx Orthopedic Surgery: Yes (right knee , left foot) Other/Comment: LEFT FOOT BUNION SURGERY-10YRS. - ANESTHESIA Hx Anesthesia: Yes Hx Anesthesia Reactions: No Hx Malignant Hyperthermia: No Has any member of the family had a problem w/ anesthesia?: No Meds Allergies/Adverse Reactions: Allergies Allergy/AdvReac Type Severity Reaction Status Date / Time No Known Allergies Allergy Verified 10/18/17 13:45 - Medications Medications: Current Medications Allopurinol (Zyloprim) 100 mg PO DAILY [facility] Last Admin: 10/19/17 15:13 Dose: 100 mg Calcium Acetate (Phoslo) 667 mg PO TIDCC [facility] Last Admin: 10/19/17 16:54 Dose: 667 mg Carvedilol (Coreg) 12.5 mg PO BID [facility] Last Admin: 10/19/17 17:19 Dose: 12.5 mg Cinacalcet (Sensipar) 30 mg PO DAILY [facility] Last Admin: 10/19/17 15:12 Dose: 30 mg Colchicine (Colocrys) 0.6 mg PO BID [facility] Last Admin: 10/19/17 17:19 Dose: 0.6 mg Epoetin Johnson (Procrit) 10,000 unit IV [facility] [place] Stop: 10/24/17 09:01 Last Admin: 10/19/17 13:24 Dose: 10,000 unit Heparin Sodium (Porcine) (Heparin) 4,100 units IVP [facility] [place] Stop: 10/24/17 09:01 Last Admin: 10/19/17 13:24 Dose: 4,100 units Methylprednisolone (Solu-Medrol) 40 mg IVP DAILY [facility] Pantoprazole Sodium (Protonix Ec Tab) 40 mg PO DAILY [facility] Last Admin: 10/19/17 15:13 Dose: 40 mg Tamsulosin HCl (Flomax) 0.4 mg PO DAILY [facility] Last Admin: 10/19/17 15:13 Dose: 0.4 mg Physical Exam - Constitutional Appears: Well, No Acute Distress - Head Exam Head Exam: ATRAUMATIC, NORMAL INSPECTION, NORMOCEPHALIC - Eye Exam Eye Exam: EOMI, Normal appearance Pupil Exam: PERRL - ENT Exam ENT Exam: Mucous Membranes Moist - Cardiovascular Exam Cardiovascular Exam: REGULAR RHYTHM, RRR, +S1, +S2 Additional comments: Palpable thrill is present over left antecubital AVF Brachial and radial pulses present b/l - GI/Abdominal Exam GI & Abdominal Exam: Normal Bowel Sounds, Soft. absent: Tenderness - Extremities Exam Extremities exam: Positive for: normal capillary refill, pedal pulses present Additional comments: LUE AVF with slightly faint palpable thrill and audible bruit - Back Exam Back exam: absent: CVA tenderness (L), CVA tenderness (R) - Neurological Exam Neurological exam: Alert, CN II-XII Intact, Oriented x3 - Psychiatric Exam Psychiatric exam: Normal Affect, Normal Mood - Skin Skin Exam: Dry, Intact, Normal Color, Warm Results - Vital Signs Recent Vital Signs: Last Vital Signs Temp 97.3 F L 10/19/17 17:11 Pulse 73 10/19/17 17:11 Resp 20 10/19/17 17:11 BP 155/81 H 10/19/17 17:19 Pulse Ox 100 10/19/17 15:00 - Labs Result Diagrams: 10/18/17 14:47 10/18/17 14:47 Labs: Laboratory Results - last 24 hr 10/18/17 14:47 Blood Type O POSITIVE Antibody Screen Negative Assessment & Plan - Assessment and Plan (Free Text) Assessment: 62 year old male presents with Anemia and ESRD on HD requiring AVF revision Plan: -NPO past MN -OR tomorrow for AVF revision -Continue to monitor Hb and Hct -Dialysis as per Nephrology -Management as per primary -Discussed with Dr. Tiesha Chopra PGY1 - Date & Time Date: 10/19/17 Time: 19:03
--- NOTE | 2017-10-19 19:15 | CP.PCM.PN ---
Subjective - Date & Time of Evaluation Date of Evaluation: 10/19/17 Time of Evaluation: 07:40 - Subjective Subjective: clinically same Objective - Vital Signs/Intake and Output Vital Signs (last 24 hours): Temp Pulse Resp BP Pulse Ox 97.3 F L 73 20 155/81 H 100 10/19/17 17:11 10/19/17 17:11 10/19/17 17:11 10/19/17 17:19 10/19/17 15:00 Intake and Output: 10/19/17 10/20/17 18:59 06:59 Intake Total 1050 Balance 1050 - Medications Medications: Current Medications Allopurinol (Zyloprim) 100 mg PO DAILY [facility] Last Admin: 10/19/17 15:13 Dose: 100 mg Calcium Acetate (Phoslo) 667 mg PO TIDCC [facility] Last Admin: 10/19/17 16:54 Dose: 667 mg Carvedilol (Coreg) 12.5 mg PO BID [facility] Last Admin: 10/19/17 17:19 Dose: 12.5 mg Cinacalcet (Sensipar) 30 mg PO DAILY [facility] Last Admin: 10/19/17 15:12 Dose: 30 mg Colchicine (Colocrys) 0.6 mg PO BID [facility] Last Admin: 10/19/17 17:19 Dose: 0.6 mg Epoetin Johnson (Procrit) 10,[address] [facility] [place] Stop: 10/24/17 09:01 Last Admin: 10/19/17 13:24 Dose: 10,000 unit Heparin Sodium (Porcine) (Heparin) 4,[address] [facility] [place] Stop: 10/24/17 09:01 Last Admin: 10/19/17 13:24 Dose: 4,100 units Methylprednisolone (Solu-Medrol) 40 mg IVP DAILY [facility] Pantoprazole Sodium (Protonix Ec Tab) 40 mg PO DAILY [facility] Last Admin: 10/19/17 15:13 Dose: 40 mg Tamsulosin HCl (Flomax) 0.4 mg PO DAILY [facility] Last Admin: 10/19/17 15:13 Dose: 0.4 mg - Labs Labs: 10/18/17 14:47 10/18/17 14:47 PT 13.3 SECONDS (9.7-12.2) H 10/18/17 14:47 INR 1.2 10/18/17 14:47 APTT 34 SECONDS (21-34) 10/18/17 14:47
[2017-10-19] MEDS ORDERED: Tramadol 25 mg PO STA (22:17)
[2017-10-20 05:10] LABS: BASO # 0.1 K/uL (0.0-0.2); BASO % 1.7 % (0.0-2.0); EOS # 0.1 K/uL (0.0-0.7); EOS % 1.2 % (0.0-4.0); HEMOGLOBIN 7.8 g/dL (12.0-18.0); LYMPH # 1.2 K/uL (1.0-4.3); MEAN CELL VOLUME 84.2 fL (80.0-94.0); MEAN CORPUSCULAR HEMOGLOBIN 30.6 pg (27.0-31.0); MEAN CORPUSCULAR HGB CONC 36.3 g/dL (33.0-37.0); MONO # 0.3 K/uL (0.0-0.8); MONO % 5.4 % (0.0-10.0); NEUT # 4.7 K/uL (1.8-7.0); NEUT % 72.7 % (50.0-75.0); RBC 2.56 Mil/uL (4.40-5.90); RED CELL DISTRIBUTION WIDTH 21.4 % (11.5-14.5); WHITE BLOOD COUNT 6.4 K/uL (4.8-10.8)
[2017-10-20 06:25] LABS: ALB/GLOB RATIO 1.4 (1.0-2.1); ALBUMIN 3.5 g/dL (3.5-5.0)
[2017-10-20] MEDS ORDERED: HEPARIN-NS 5,000 UNITS/500 ML 10,000 UNIT/1,000 ML BAG IV ONE (07:55)
[2017-10-20] MEDS ORDERED: Iohexol 240 200 ML ONE (07:56)
[2017-10-20] MEDS ORDERED: ceFAZolin IV 2 gm in Dextrose 2 GM/50 ML BAG IVPB ONE (07:56)
[2017-10-20] MEDS ORDERED: Sodium Chloride 0.9% 1,000 ML IV ONE (08:00)
[2017-10-20] MEDS ORDERED: Midazolam 2 MG/2 ML VIAL ONE (08:09)
[2017-10-20] MEDS ORDERED: Propofol 10 mg/ml Inj (20 ML) ONE (08:09)
--- NOTE | 2017-10-20 10:20 | PCM.SURG1 ---
Surgeon's Initial Post Op Note - Surgeon's Notes Surgeon: Vasquez Motley MD Fsr: Joanna Preciado PGY-1 Pre-Operative Diagnosis: End stage renal disease requiring revision of AVF for HD access Operative Findings: See op report Post-Operative Diagnosis: End stage renal disease requiring revision of AVF for HD access Operation Performed: AVF revision with Hybrid graft Specimen/Specimens Removed: None Estimated Blood Loss: EBL {In ML}: 20 Blood Products Given: N/A Drains Used: No Drains Post-Op Condition: Good Date of Surgery/Procedure: 10/20/17 Time of Surgery/Procedure: 10:19
[2017-10-20] MEDS: MethylPREDNISolone 40 mg Vial IVP SCH ×2 (10:38→12:46)
[2017-10-20] MEDS: Pantoprazole 40 mg EC Tab PO SCH ×2 (10:38→12:46)
--- NOTE | 2017-10-20 11:23 | CP.PCM.PN ---
Subjective - Date & Time of Evaluation Date of Evaluation: 10/20/17 Time of Evaluation: 11:19 - Subjective Subjective: s/p AV F revision- hybrid graft placed s/p blood transfusion and dialysis 10/19 no complications noted in OR Objective - Vital Signs/Intake and Output Vital Signs (last 24 hours): Temp Pulse Resp BP Pulse Ox 98.6 F 60 10 L 135/78 100 10/20/17 10:12 10/20/17 11:00 10/20/17 11:00 10/20/17 11:00 10/20/17 11:00 Intake and Output: 10/20/17 10/20/17 06:59 18:59 Intake Total 820 0 Balance 820 0 - Medications Medications: Current Medications Allopurinol (Zyloprim) 100 mg PO DAILY [facility] Last Admin: 10/20/17 10:38 Dose: Not Given Calcium Acetate (Phoslo) 667 mg PO TIDCC [facility] Last Admin: 10/20/17 07:47 Dose: Not Given Carvedilol (Coreg) 12.5 mg PO BID [facility] Last Admin: 10/20/17 10:37 Dose: Not Given Cinacalcet (Sensipar) 30 mg PO DAILY [facility] Last Admin: 10/20/17 10:38 Dose: Not Given Colchicine (Colocrys) 0.6 mg PO BID [facility] Last Admin: 10/20/17 10:37 Dose: Not Given Epoetin Johnson (Procrit) 10,000 [place] [facility] [place] [facility] [place] Stop: 10/24/17 09:01 Last Admin: 10/19/17 13:24 Dose: 10,000 unit Heparin Sodium (Porcine) (Heparin) 4,100 units [place] [facility] [place] [facility] [place] Stop: 10/24/17 09:01 Last Admin: 10/19/17 13:24 Dose: 4,100 units Hydromorphone HCl (Dilaudid) 0.5 mg IVP Q5M PRN PRN Reason: Pain, severe (8-10) Stop: 10/20/17 12:16 Methylprednisolone (Solu-Medrol) 40 mg IVP DAILY [facility] Last Admin: 10/20/17 10:38 Dose: Not Given Ondansetron HCl (Zofran Inj) 4 mg IVP ONCE PRN PRN Reason: Nausea/Vomiting Stop: 10/20/17 12:16 Oxycodone/Acetaminophen (Percocet 5/325 Mg Tab) 1 tab PO Q6H PRN PRN Reason: Pain, moderate (4-7) Stop: 10/23/17 10:17 Pantoprazole Sodium (Protonix Ec Tab) 40 mg PO DAILY [facility] Last Admin: 10/20/17 10:38 Dose: Not Given Tamsulosin HCl (Flomax) 0.4 mg PO DAILY [facility] Last Admin: 10/20/17 10:37 Dose: Not Given - Labs Labs: 10/20/17 05:07 10/20/17 05:07 PT 13.3 SECONDS (9.7-12.2) H 10/18/17 14:47 INR 1.2 10/18/17 14:47 APTT 34 SECONDS (21-34) 10/18/17 14:47 - Constitutional Appears: No Acute Distress, Chronically Ill - Head Exam Head Exam: ATRAUMATIC, NORMAL INSPECTION - Eye Exam Eye Exam: EOMI, Normal appearance - Neck Exam Neck Exam: Normal Inspection. absent: Tenderness - Respiratory Exam Respiratory Exam: Clear to Ausculation Bilateral, NORMAL BREATHING PATTERN - Cardiovascular Exam Cardiovascular Exam: REGULAR RHYTHM, +S1 - GI/Abdominal Exam GI & Abdominal Exam: Soft. absent: Tenderness - Extremities Exam Extremities Exam: Normal Inspection. absent: Tenderness - Neurological Exam Neurological Exam: Awake, CN II-XII Intact - Skin Skin Exam: Dry, Warm Assessment and Plan (1) Severe anemia Status: Acute (2) Gout attack Status: Acute (3) Obstructive and reflux uropathy Status: Acute (4) ESRD (end stage renal disease) on dialysis Status: Acute (5) Severe anemia Status: Acute - Assessment and Plan (Free Text) Plan: post op follow up dialysis in AM steroids for gout await BM bx results
--- NOTE | 2017-10-20 11:54 | CP.PCM.PN ---
Subjective - Date & Time of Evaluation Date of Evaluation: 10/20/17 Time of Evaluation: 08:00 - Subjective Subjective: clinically same Objective - Vital Signs/Intake and Output Vital Signs (last 24 hours): Temp Pulse Resp BP Pulse Ox 97.2 F L 62 12 145/72 100 10/20/17 11:15 10/20/17 11:15 10/20/17 11:15 10/20/17 11:15 10/20/17 11:15 Intake and Output: 10/20/17 10/20/17 06:59 18:59 Intake Total 820 100 Balance 820 100 - Medications Medications: Current Medications Allopurinol (Zyloprim) 100 mg PO DAILY [facility] Last Admin: 10/20/17 10:38 Dose: Not Given Calcium Acetate (Phoslo) 667 mg PO TIDCC [facility] Last Admin: 10/20/17 07:47 Dose: Not Given Carvedilol (Coreg) 12.5 mg PO BID [facility] Last Admin: 10/20/17 10:37 Dose: Not Given Cinacalcet (Sensipar) 30 mg PO DAILY [facility] Last Admin: 10/20/17 10:38 Dose: Not Given Colchicine (Colocrys) 0.6 mg PO BID [facility] Last Admin: 10/20/17 10:37 Dose: Not Given Epoetin Johnson (Procrit) 10,000 [place] [facility] [place]: 10/24/17 09:01 Last Admin: 10/19/17 13:24 Dose: 10,000 unit Heparin Sodium (Porcine) (Heparin) 4,100 units [place] [facility] [place] Stop: 10/24/17 09:01 Last Admin: 10/19/17 13:24 Dose: 4,100 units Hydromorphone HCl (Dilaudid) 0.5 mg IVP Q5M PRN PRN Reason: Pain, severe (8-10) Stop: 10/20/17 12:16 Methylprednisolone (Solu-Medrol) 40 mg IVP DAILY [facility] Last Admin: 10/20/17 10:38 Dose: Not Given Ondansetron HCl (Zofran Inj) 4 mg IVP ONCE PRN PRN Reason: Nausea/Vomiting Stop: 10/20/17 12:16 Oxycodone/Acetaminophen (Percocet 5/325 Mg Tab) 1 tab PO Q6H PRN PRN Reason: Pain, moderate (4-7) Stop: 10/23/17 10:17 Pantoprazole Sodium (Protonix Ec Tab) 40 mg PO DAILY [facility] Last Admin: 10/20/17 10:38 Dose: Not Given Tamsulosin HCl (Flomax) 0.4 mg PO DAILY [facility] Last Admin: 10/20/17 10:37 Dose: Not Given - Labs Labs: 10/20/17 05:07 10/20/17 05:07 PT 13.3 SECONDS (9.7-12.2) H 10/18/17 14:47 INR 1.2 10/18/17 14:47 APTT 34 SECONDS (21-34) 10/18/17 14:47 - Constitutional Appears: Well - Head Exam Head Exam: ATRAUMATIC, NORMAL INSPECTION, NORMOCEPHALIC - Eye Exam Eye Exam: EOMI, Normal appearance, PERRL Pupil Exam: NORMAL ACCOMODATION, PERRL - ENT Exam ENT Exam: Mucous Membranes Moist, Normal Exam - Neck Exam Neck Exam: Full ROM, Normal Inspection. absent: Lymphadenopathy - Respiratory Exam Respiratory Exam: Decreased Breath Sounds - Cardiovascular Exam Cardiovascular Exam: REGULAR RHYTHM, +S1, +S2 - GI/Abdominal Exam GI & Abdominal Exam: Soft, Diminished Bowel Sounds - Rectal Exam Rectal Exam: Deferred
--- NOTE | 2017-10-20 12:06 | OP ---
PROCEDURE DATE: 10/20/2017 PREOPERATIVE DIAGNOSES: Renal failure; immature fistula, left arm. POSTOPERATIVE DIAGNOSES: Renal failure; immature fistula, left arm. PROCEDURE CARRIED OUT: Revision of arteriovenous fistula with placement of hybrid shunt. SURGEON: Vasquez Motley Jr., MD. MERCHANDISE COORDINATOR: Dr. Preciado. ANESTHESIA ADMINISTERED BY: Ms. Young. INDICATIONS: The patient is a 62-year-old man with renal insufficiency who had a fistula created in his left arm, which is not matured. OPERATIVE FINDINGS: Initially with ultrasound, I was able to decipher the anatomy. Preoperative study had suggested that the patient had a kade-anastomotic stenosis, but I was unable to demonstrate this on the studies. Because of this and because of poor flow through the fistula, I instead took a branch of the fistula, an arteriovenous branch. Carried out the arterial anastomosis at that side and then deployed the other branch in a large venous tributary in the upper circulation, in the brachial vein. Blood loss for the procedure was approximately 100 mL. DESCRIPTION OF PROCEDURE: The patient was given general anesthesia. Using ultrasound, we were able to map out the anatomy of his arterial anastomosis, which was quite challenging. We then dissected out the arterial anastomosis in an adjacent branch of the vein, which appeared to have very brisk flow. We then made a micropuncture into the venous side in the axilla. Deployed the stent, brought it through a subcutaneous tunnel and anastomosed it using loupe magnification, heparin anticoagulation to the arterialized vein. We then carried out balloon angioplasty of the venous site to make sure the stent was fully expanded and it was. At the completion, films showed excellent flow. The arterial site was somewhat difficult to visualize even with retrograde flow from the vein and this then appeared to work quite well. There was excellent flow through the shunt and the skin and subcutaneous tissues were closed. The operation carried out was revision of AV fistula, left arm with placement of hybrid shunt, fistulogram, and balloon angioplasty of venous anastomosis stent. Vasquez Motley Jr., MD cc: Dr. Reeves.
[2017-10-20] MEDS: Oxycodone/Acetaminophen 5/325 mg Tab PO PRN ×2 (12:47→21:26)
--- NOTE | 2017-10-20 16:55 | RAD ---
PROCEDURE: Intraoperative Fluoroscopy. HISTORY: RENAL FAILURE FINDINGS: Fluoroscopic assistance was provided. 88.7 seconds fluoroscopy time utilized during this procedure. Radiation dose = 6.63 mGy Please
--- NOTE | 2017-10-20 20:08 | CP.PCM.PN ---
Subjective - Date & Time of Evaluation Date of Evaluation: 10/20/17 Time of Evaluation: 12:00 - Subjective Subjective: Has pain at AV fistula site Objective - Vital Signs/Intake and Output Vital Signs (last 24 hours): Temp Pulse Resp BP Pulse Ox 97.4 F L 57 L 20 156/86 H 100 10/20/17 15:00 10/20/17 15:00 10/20/17 15:00 10/20/17 18:14 10/20/17 15:00 Intake and Output: 10/20/17 10/21/17 18:59 06:59 Intake Total 340 Balance 340 - Medications Medications: Current Medications Acetaminophen (Tylenol 325mg Tab) 650 mg PO ONCE ONE Stop: 10/21/17 10:01 Allopurinol (Zyloprim) 100 mg PO DAILY [facility] Last Admin: 10/20/17 12:46 Dose: 100 mg Calcium Acetate (Phoslo) 667 mg PO TIDCC [facility] Last Admin: 10/20/17 17:05 Dose: 667 mg Carvedilol (Coreg) 12.5 mg PO BID [facility] Last Admin: 10/20/17 18:14 Dose: 12.5 mg Cinacalcet (Sensipar) 30 mg PO DAILY [facility] Last Admin: 10/20/17 12:46 Dose: 30 mg Colchicine (Colocrys) 0.6 mg PO BID [facility] Last Admin: 10/20/17 18:13 Dose: 0.6 mg Diphenhydramine HCl (Benadryl) 25 mg PO ONCE ONE Stop: 10/21/17 10:01 Epoetin Johnson (Procrit) 10,000 unit IV [facility] [place] Stop: 10/24/17 09:01 Last Admin: 10/19/17 13:24 Dose: 10,000 unit Heparin Sodium (Porcine) (Heparin) 4,100 units IVP [facility] [place] Stop: 10/24/17 09:01 Last Admin: 10/19/17 13:24 Dose: 4,100 units Methylprednisolone (Solu-Medrol) 40 mg IVP DAILY [facility] Last Admin: 10/20/17 12:46 Dose: 40 mg Oxycodone/Acetaminophen (Percocet 5/325 Mg Tab) 1 tab PO Q6H PRN PRN Reason: Pain, moderate (4-7) Stop: 10/23/17 10:17 Last Admin: 10/20/17 12:47 Dose: 1 tab Pantoprazole Sodium (Protonix Ec Tab) 40 mg PO DAILY [facility] Last Admin: 10/20/17 12:46 Dose: 40 mg Tamsulosin HCl (Flomax) 0.4 mg PO DAILY [facility] Last Admin: 10/20/17 12:45 Dose: 0.4 mg - Labs Labs: 10/20/17 05:07 10/20/17 05:07 PT 13.3 SECONDS (9.7-12.2) H 10/18/17 14:47 INR 1.2 10/18/17 14:47 APTT 34 SECONDS (21-34) 10/18/17 14:47 - Head Exam Head Exam: ATRAUMATIC - Eye Exam Eye Exam: Normal appearance - ENT Exam ENT Exam: Mucous Membranes Dry - Respiratory Exam Respiratory Exam: NORMAL BREATHING PATTERN - Cardiovascular Exam Cardiovascular Exam: +S1, +S2 - GI/Abdominal Exam GI & Abdominal Exam: Normal Bowel Sounds Assessment and Plan (1) Anemia Assessment & Plan: awaiting bone marrow results to receive 2U PRBC with HD tomorrow Status: Acute
[2017-10-20 20:19] LABS: HEMOGLOBIN 8.7 g/dL (12.0-18.0); MEAN CELL VOLUME 84.7 fL (80.0-94.0); MEAN CORPUSCULAR HEMOGLOBIN 30.7 pg (27.0-31.0); MEAN CORPUSCULAR HGB CONC 36.3 g/dL (33.0-37.0); MEAN PLATELET VOLUME 8.9 fL (7.2-11.7); RBC 2.82 Mil/uL (4.40-5.90); RED CELL DISTRIBUTION WIDTH 21.2 % (11.5-14.5); WHITE BLOOD COUNT 9.6 K/uL (4.8-10.8)
[2017-10-21 08:46] LABS: CALCIUM 8.6 mg/dl (8.6-10.4)
[2017-10-21 09:08] LABS: BASO # 0.1 K/uL (0.0-0.2); BASO % 0.7 % (0.0-2.0); EOS # 0.1 K/uL (0.0-0.7); EOS % 0.5 % (0.0-4.0); HEMOGLOBIN 7.8 g/dL (12.0-18.0); LYMPH # 1.4 K/uL (1.0-4.3); LYMPH % 12.9 % (20.0-40.0); MEAN CELL VOLUME 86.4 fL (80.0-94.0); MEAN CORPUSCULAR HEMOGLOBIN 29.8 pg (27.0-31.0); MEAN CORPUSCULAR HGB CONC 34.5 g/dL (33.0-37.0); MEAN PLATELET VOLUME 9.5 fL (7.2-11.7); MONO # 0.8 K/uL (0.0-0.8); MONO % 6.7 % (0.0-10.0); NEUT # 8.9 K/uL (1.8-7.0); NEUT % 79.2 % (50.0-75.0); NRBC % 0.1 % (0.0-2.0); RBC 2.6 Mil/uL (4.40-5.90); RED CELL DISTRIBUTION WIDTH 20.9 % (11.5-14.5); WHITE BLOOD COUNT 11.2 K/uL (4.8-10.8)
[2017-10-21 10:30] VITALS: RESP 18
[2017-10-21] MEDS: Epoetin Alfa 10,000 unit/ml Dialysis IV SCH (11:28)
--- NOTE | 2017-10-21 13:02 | CP.PCM.PN ---
<Rizwana Rick - Last Filed: 10/21/17 12:58> Subjective - Date & Time of Evaluation Date of Evaluation: 10/21/17 Time of Evaluation: 11:00 - Subjective Subjective: PGY 3 Progress Note- Heme/Onc Service - Dr. Velez: Patient seen and examined at bedside in dialysis this AM. Patient reports feeling well. S/P AVF revision yesterday, POD #1. Admits pain has improved over surgery site (AVF). No acute events overnight. Being transfused 2 units of PRBC during dialysis today. Objective - Vital Signs/Intake and Output Vital Signs (last 24 hours): Temp Pulse Resp BP Pulse Ox 97.5 F L 60 18 138/79 99 10/21/17 11:30 10/21/17 11:30 10/21/17 11:30 10/21/17 12:30 10/21/17 00:00 Intake and Output: 10/21/17 10/21/17 06:59 18:59 Intake Total 240 710 Balance 240 710 - Medications Medications: Current Medications Allopurinol (Zyloprim) 100 mg PO DAILY [facility] Last Admin: 10/20/17 12:46 Dose: 100 mg Calcium Acetate (Phoslo) 667 mg PO TIDCC [facility] Last Admin: 10/21/17 08:38 Dose: 667 mg Carvedilol (Coreg) 12.5 mg PO BID [facility] Last Admin: 10/20/17 18:14 Dose: 12.5 mg Cinacalcet (Sensipar) 30 mg PO DAILY [facility] Last Admin: 10/20/17 12:46 Dose: 30 mg Colchicine (Colocrys) 0.6 mg PO BID [facility] Last Admin: 10/20/17 18:13 Dose: 0.6 mg Epoetin Johnson (Procrit) 10,000 unit IV [facility] [place] Stop: 10/24/17 09:01 Last Admin: 10/21/17 11:28 Dose: 10,000 unit Heparin Sodium (Porcine) (Heparin) 4,100 units IVP [facility] [place] Stop: 10/24/17 09:01 Last Admin: 10/21/17 12:27 Dose: 4,100 units Methylprednisolone (Solu-Medrol) 40 mg IVP DAILY [facility] Last Admin: 10/20/17 12:46 Dose: 40 mg Oxycodone/Acetaminophen (Percocet 5/325 Mg Tab) 1 tab PO Q6H PRN PRN Reason: Pain, moderate (4-7) Stop: 10/23/17 10:17 Last Admin: 10/20/17 21:26 Dose: 1 tab Pantoprazole Sodium (Protonix Ec Tab) 40 mg PO DAILY [facility] Last Admin: 10/20/17 12:46 Dose: 40 mg Tamsulosin HCl (Flomax) 0.4 mg PO DAILY [facility] Last Admin: 10/20/17 12:45 Dose: 0.4 mg - Labs Labs: 10/21/17 08:03 10/21/17 08:03 PT 13.3 SECONDS (9.7-12.2) H 10/18/17 14:47 INR 1.2 10/18/17 14:47 APTT 34 SECONDS (21-34) 10/18/17 14:47 - Constitutional Appears: No Acute Distress - Head Exam Head Exam: NORMAL INSPECTION, NORMOCEPHALIC - Eye Exam Eye Exam: EOMI, Normal appearance - ENT Exam ENT Exam: Mucous Membranes Moist - Neck Exam Neck Exam: Full ROM, Normal Inspection - Respiratory Exam Respiratory Exam: Clear to Ausculation Bilateral, NORMAL BREATHING PATTERN - Cardiovascular Exam Cardiovascular Exam: REGULAR RHYTHM, +S1, +S2 - GI/Abdominal Exam GI & Abdominal Exam: Soft. absent: Distended, Tenderness - Extremities Exam Extremities Exam: Full ROM - Neurological Exam Neurological Exam: Alert, Oriented x3 - Psychiatric Exam Psychiatric exam: Normal Mood - Skin Skin Exam: Dry, Warm Assessment and Plan - Assessment and Plan (Free Text) Assessment: (1) Anemia Assessment & Plan: Follow up bone marrow results to receive 2 units of PRBC with HD today follow up CBC Status: Acute Patient seen and examined during rounds with Dr. Velez. Recommendations above as per attending. Edson Rick, PGY 3 <Branden Velez - Last Filed: 10/21/17 22:16> Objective - Vital Signs/Intake and Output Vital Signs (last 24 hours): Temp Pulse Resp BP Pulse Ox 97.6 F 65 18 129/73 100 10/21/17 12:45 10/21/17 12:45 10/21/17 12:45 10/21/17 14:19 10/21/17 12:45 Intake and Output: 01/26/18 01/27/18 18:59 06:59 Intake Total 1010 Balance 1010 - Labs Labs: 10/21/17 08:03 10/21/17 08:03 PT 13.3 SECONDS (9.7-12.2) H 10/18/17 14:47 INR 1.2 10/18/17 14:47 APTT 34 SECONDS (21-34) 10/18/17 14:47 Assessment and Plan (1) Anemia Status: Acute - Assessment and Plan (Free Text) Assessment: Pt seen and examined, agree with residents note.
[2017-10-21 13:20] VITALS: PULSE 65; TEMP 97.6; O2SAT 100
[2017-10-21] MEDS: Pantoprazole 40 mg EC Tab PO SCH (14:10)
[2017-10-21 14:20] VITALS: BP 129/73
[2017-10-21] MEDS: MethylPREDNISolone 40 mg Vial IVP SCH (14:23)
--- NOTE | 2017-10-21 14:28 | CP.PCM.PN ---
Subjective - Date & Time of Evaluation Date of Evaluation: 10/21/17 Time of Evaluation: 14:25 - Subjective Subjective: s/p dialysis now; tolerated UF 2000ml well received 2 units prbc blood transfusion s/p revision AV fistula- has strong bruit no other complaint Objective - Vital Signs/Intake and Output Vital Signs (last 24 hours): Temp Pulse Resp BP Pulse Ox 97.6 F 65 18 129/73 100 10/21/17 12:45 10/21/17 12:45 10/21/17 12:45 10/21/17 14:19 10/21/17 12:45 Intake and Output: 10/21/17 10/21/17 06:59 18:59 Intake Total 240 710 Balance 240 710 - Medications Medications: Current Medications Allopurinol (Zyloprim) 100 mg PO DAILY [facility] Last Admin: 10/21/17 14:15 Dose: 100 mg Calcium Acetate (Phoslo) 667 mg PO TIDCC [facility] Last Admin: 10/21/17 14:09 Dose: Not Given Carvedilol (Coreg) 12.5 mg PO BID [facility] Last Admin: 10/21/17 14:19 Dose: 12.5 mg Cinacalcet (Sensipar) 30 mg PO DAILY [facility] Last Admin: 10/21/17 14:19 Dose: 30 mg Colchicine (Colocrys) 0.6 mg PO BID [facility] Last Admin: 10/21/17 14:13 Dose: 0.6 mg Epoetin Johnson (Procrit) 10,000 unit IV [facility] Stop: 10/24/17 09:01 Last Admin: 10/21/17 11:28 Dose: 10,000 unit Heparin Sodium (Porcine) (Heparin) 4,100 units IVP [facility] Stop: 10/24/17 09:01 Last Admin: 10/21/17 12:27 Dose: 4,100 units Methylprednisolone (Solu-Medrol) 40 mg IVP DAILY [facility] Last Admin: 10/21/17 14:23 Dose: Not Given Oxycodone/Acetaminophen (Percocet 5/325 Mg Tab) 1 tab PO Q6H PRN PRN Reason: Pain, moderate (4-7) Stop: 10/23/17 10:17 Last Admin: 10/20/17 21:26 Dose: 1 tab Pantoprazole Sodium (Protonix Ec Tab) 40 mg PO DAILY [facility] Last Admin: 10/21/17 14:10 Dose: 40 mg Tamsulosin HCl (Flomax) 0.4 mg PO DAILY [facility] Last Admin: 10/21/17 14:15 Dose: 0.4 mg - Labs Labs: 10/21/17 08:03 10/21/17 08:03 PT 13.3 SECONDS (9.7-12.2) H 10/18/17 14:47 INR 1.2 10/18/17 14:47 APTT 34 SECONDS (21-34) 10/18/17 14:47 - Constitutional Appears: In Acute Distress, Chronically Ill - Head Exam Head Exam: ATRAUMATIC, NORMAL INSPECTION - Eye Exam Eye Exam: EOMI, Normal appearance - Neck Exam Neck Exam: Normal Inspection. absent: Tenderness - Respiratory Exam Respiratory Exam: Clear to Ausculation Bilateral, NORMAL BREATHING PATTERN - Cardiovascular Exam Cardiovascular Exam: REGULAR RHYTHM, +S1 - GI/Abdominal Exam GI & Abdominal Exam: Soft. absent: Tenderness - Extremities Exam Extremities Exam: Normal Inspection. absent: Tenderness - Neurological Exam Neurological Exam: Alert, CN II-XII Intact - Skin Skin Exam: Dry, Warm Assessment and Plan (1) Severe anemia Status: Acute (2) Gout attack Status: Acute (3) Obstructive and reflux uropathy Status: Acute (4) ESRD (end stage renal disease) on dialysis Status: Acute (5) Severe anemia Status: Acute - Assessment and Plan (Free Text) Plan: Continue dialysis MWF Likely discharge today will follow up Hg as outpt await BM bx results surgical follow up av access
--- NOTE | 2017-10-21 15:19 | CP.PCM.PN ---
Subjective - Date & Time of Evaluation Date of Evaluation: 10/21/17 Time of Evaluation: 15:19 - Subjective Subjective: Alert and orientedx3, no sob or chest pains, no acute distress. Objective - Vital Signs/Intake and Output Vital Signs (last 24 hours): Temp Pulse Resp BP Pulse Ox 97.6 F 65 18 129/73 100 10/21/17 12:45 10/21/17 12:45 10/21/17 12:45 10/21/17 14:19 10/21/17 12:45 Intake and Output: 10/21/17 10/21/17 06:59 18:59 Intake Total 240 710 Balance 240 710 - Medications Medications: Current Medications Allopurinol (Zyloprim) 100 mg PO DAILY [facility] Last Admin: 10/21/17 14:15 Dose: 100 mg Calcium Acetate (Phoslo) 667 mg PO TIDCC [facility] Last Admin: 10/21/17 14:09 Dose: Not Given Carvedilol (Coreg) 12.5 mg PO BID [facility] Last Admin: 10/21/17 14:19 Dose: 12.5 mg Cinacalcet (Sensipar) 30 mg PO DAILY [facility] Last Admin: 10/21/17 14:19 Dose: 30 mg Colchicine (Colocrys) 0.6 mg PO BID [facility] Last Admin: 10/21/17 14:13 Dose: 0.6 mg Epoetin Johnson (Procrit) 10,000 unit [place] [facility] [place] Stop: 10/24/17 09:01 Last Admin: 10/21/17 11:28 Dose: 10,000 unit Heparin Sodium (Porcine) (Heparin) 4,100 units IVP [facility] [place] Stop: 10/24/17 09:01 Last Admin: 10/21/17 12:27 Dose: 4,100 units Methylprednisolone (Solu-Medrol) 40 mg IVP DAILY [facility] Last Admin: 10/21/17 14:23 Dose: Not Given Oxycodone/Acetaminophen (Percocet 5/325 Mg Tab) 1 tab PO Q6H PRN PRN Reason: Pain, moderate (4-7) Stop: 10/23/17 10:17 Last Admin: 10/20/17 21:26 Dose: 1 tab Pantoprazole Sodium (Protonix Ec Tab) 40 mg PO DAILY [facility] Last Admin: 10/21/17 14:10 Dose: 40 mg Tamsulosin HCl (Flomax) 0.4 mg PO DAILY [facility] Last Admin: 10/21/17 14:15 Dose: 0.4 mg - Labs Labs: 10/21/17 08:03 10/21/17 08:03 PT 13.3 SECONDS (9.7-12.2) H 10/18/17 14:47 INR 1.2 10/18/17 14:47 APTT 34 SECONDS (21-34) 10/18/17 14:47 Assessment and Plan - Assessment and Plan (Free Text) Assessment: Patient admitted with severe anemia, HD, received 2 units PRBC today. Seen and examined after dialysis, alert and orientedx3, denies sob or chest pains. Discussed with DR Alba Reeves and DR Velez, plan to discharge home today. Advised to follow up in the office in 1 week.
--- NOTE | 2017-10-21 18:50 | CP.PCM.PN ---
Subjective - Date & Time of Evaluation Date of Evaluation: 10/21/17 Time of Evaluation: 06:40 - Subjective Subjective: Vascular Surgery Note for Dr. Motley Patient seen and examined at bedside. No acute event overnight. Patient s/p AVF revision POD#1. He has no complaints today. He is eager to go home. Objective - Vital Signs/Intake and Output Vital Signs (last 24 hours): Temp Pulse Resp BP Pulse Ox 97.6 F 65 18 129/73 100 10/21/17 12:45 10/21/17 12:45 10/21/17 12:45 10/21/17 14:19 10/21/17 12:45 Intake and Output: 10/21/17 10/21/17 06:59 18:59 Intake Total 240 1010 Balance 240 1010 - Labs Labs: 10/21/17 08:03 10/21/17 08:03 PT 13.3 SECONDS (9.7-12.2) H 10/18/17 14:47 INR 1.2 10/18/17 14:47 APTT 34 SECONDS (21-34) 10/18/17 14:47 - Constitutional Appears: No Acute Distress - Head Exam Head Exam: ATRAUMATIC, NORMOCEPHALIC - Eye Exam Eye Exam: Normal appearance - Respiratory Exam Respiratory Exam: NORMAL BREATHING PATTERN - Cardiovascular Exam Cardiovascular Exam: REGULAR RHYTHM - Extremities Exam Additional comments: AVf has palpable thrill and audible bruit - radial pulse present - Neurological Exam Neurological Exam: Alert, Awake, Oriented x3 - Psychiatric Exam Psychiatric exam: Normal Affect, Normal Mood - Skin Skin Exam: Dry, Intact, Normal Color, Warm Assessment and Plan - Assessment and Plan (Free Text) Plan: 62 M s/p Avf revision POD#1 -Renal diet -Patient clear for discharge from surgical standpoint -Follow up as outpatient with Dr. Motley in 1-2 weeks -Discussed with Dr. Tiesha Chopra PGY1
== END 2017-10-21 15:31 | disposition home or self-care (01) | DRG 252 ==
LOC: C.ER 13:23 → C.9E 15:51 → C.3T 19:06
PROVIDERS: ADMIT Internal Medicine Nephrology; ATTEND Internal Medicine Nephrology
PROC: 5A1D70Z Performance of Urinary Filtration, Intermittent, Less than 6 Hours Per Day (ICD-10-PCS; 2017-10-19)
PROC: 03783ZZ Dilation of Left Brachial Artery, Percutaneous Approach (ICD-10-PCS; 2017-10-20)
PROC: 03WY03Z Revision of Infusion Device in Upper Artery, Open Approach (ICD-10-PCS; principal; 2017-10-20 07:45)
PROC: 5A1D70Z Performance of Urinary Filtration, Intermittent, Less than 6 Hours Per Day (ICD-10-PCS; 2017-10-21)
DX: T82.590A Other mechanical complication of surgically created arteriovenous fistula, initial encounter (principal); N18.6 End stage renal disease; I12.0 Hypertensive chronic kidney disease with stage 5 chronic kidney disease or end stage renal disease; N13.8 Other obstructive and reflux uropathy; D63.1 Anemia in chronic kidney disease; M10.9 Gout, unspecified; N40.1 Benign prostatic hyperplasia with lower urinary tract symptoms; Z99.2 Dependence on renal dialysis

== ENCOUNTER 2018-03-27 21:29 | Inpatient (IN) | payer MEDICAID, MEDICARE ==
[2018-03-27 21:29] VITALS: BMI 26.5
[2018-03-27 23:15] LABS: BASO # 0.1 K/uL (0.0-0.2); EOS # 0.1 K/uL (0.0-0.7); EOS % 1.1 % (0.0-4.0); LYMPH # 0.9 K/uL (1.0-4.3); LYMPH % 12.1 % (20.0-40.0); MEAN CELL VOLUME 85.1 fL (80.0-94.0); MONO # 0.6 K/uL (0.0-0.8); NEUT # 5.5 K/uL (1.8-7.0); NEUT % 76.8 % (50.0-75.0); NRBC % 0.1 % (0.0-2.0); WHITE BLOOD COUNT 7.1 K/uL (4.8-10.8)
[2018-03-27 23:19] LABS: BASO % 1.4 % (0.0-2.0); MEAN CORPUSCULAR HEMOGLOBIN 32.4 pg (27.0-31.0); MONO % 8.6 % (0.0-10.0); RBC 1.65 Mil/uL (4.40-5.90); RED CELL DISTRIBUTION WIDTH 19.9 % (11.5-14.5)
[2018-03-27 23:24] LABS: HEMOGLOBIN 5.3 g/dL (12.0-18.0); INR 1.2; PROTHROMBIN TIME 13.6 SECONDS (9.7-12.2)
[2018-03-27 23:25] LABS: ALB/GLOB RATIO 1.5 (1.0-2.1); ALBUMIN 4.6 g/dL (3.5-5.0); CALCIUM 8.6 mg/dl (8.6-10.4)
--- NOTE | 2018-03-27 23:36 | C.PDOC ---
History Of Present Illness 62 y/o male is sent by PMD for symptomatic anemia. Patient states "never goes up over 8." Patient also reports that he is continuously having heme workups for his anemia. Denies any other physical complaints. Time Seen by Provider: 03/27/18 22:40 Chief Complaint (Nursing): Abnormal Labs History Per: Patient History/Exam Limitations: no limitations Onset/Duration Of Symptoms: Hrs Current Symptoms Are (Timing): Still Present Recent travel outside of the [place]: No Past Medical History Reviewed: Historical Data, Nursing Documentation, Vital Signs Vital Signs: Last Vital Signs Temp 99.0 F 03/27/18 22:09 Pulse 84 03/27/18 22:09 Resp 16 03/27/18 22:09 BP 165/71 H 03/27/18 22:09 Pulse Ox 100 03/27/18 23:37 - Medical History PMH: Anemia, Arthritis, Benign Prostatic Hyperplasia, HTN, Chronic Kidney Disease - [facility] Procedures (10/18/17) BYPASS LEFT BRACHIAL ARTERY TO UPPER ARM VEIN, OPEN APPROACH (05/31/17) DILATION OF LEFT BRACHIAL ARTERY, PERCUTANEOUS APPROACH (10/18/17) INSERTION OF INFUSION DEV INTO SUP VENA CAVA, PERC APPROACH (05/31/17) PERFORMANCE OF URINARY FILTRATION, MULTIPLE (05/31/17) REVISION OF INFUSION DEVICE IN UPPER ARTERY, OPEN APPROACH (10/18/17) Family History: States: Unknown Family Hx - Social History Hx Alcohol Use: Yes Hx Substance Use: No - Immunization History Hx Tetanus Toxoid Vaccination: Yes Hx Influenza Vaccination: Yes Hx Pneumococcal Vaccination: Yes Review Of Systems Constitutional: Negative for: Fever Cardiovascular: Negative for: Chest Pain Respiratory: Negative for: Shortness of Breath Gastrointestinal: Negative for: Nausea, Vomiting, Abdominal Pain, Diarrhea Skin: Negative for: Rash Neurological: Negative for: Weakness, Numbness Physical Exam - Physical Exam Appears: Non-toxic, No Acute Distress Skin: Warm, Dry, No Rash Head: Atraumatic, Normacephalic Eye(s): bilateral: Conjunctiva Pale Nose: Normal, No Discharge Oral Mucosa: Moist Neck: Supple Chest: Symmetrical, No Tenderness Cardiovascular: Rhythm Regular, No Murmur Respiratory: Normal Breath Sounds, No Decreased Breath Sounds, No Rales, No Rhonchi, No Wheezing Gastrointestinal/Abdominal: Soft, No Tenderness Extremity: Normal ROM, No Deformity Extremity: Bilateral: Atraumatic, Normal Color And Temperature, Normal ROM Neurological/Psych: Oriented x3 (Awake and alert), Normal Speech, Other (No focal deficits ) ED Course And Treatment - Laboratory Results Result Diagrams: 03/27/18 23:10 03/27/18 23:10 ECG: Interpreted By Me ECG Rhythm: Sinus Rhythm ECG Interpretation: Normal Rate From EC O2 Sat by Pulse Oximetry: 100 (RA) Pulse Ox Interpretation: Normal - Radiology CXR: Interpreted by Me CXR Interpretation: Yes: No Acute Disease - Physician Consult Information Outcome Of Conversation: 2330: d/w Dr. Jc Reeves- PMD-ok to admit Medical Decision Making Medical Decision Making: Ordered bbk, blood work, EKG, and CXR. acute on chronic anemia in HD pt start blood tx's HD M/W/F, had HD today plan 2 U PRBC's overnight Disposition Doctor Will See Patient In The: Hospital Counseled Patient/Family Regarding: Studies Performed, Diagnosis - Disposition Disposition: HOSPITALIZED Disposition Time: 23:36 Condition: GOOD - Clinical Impression Clinical Impression: Chronic disease anemia - Scribe Statement The provider has reviewed the documentation as recorded by the Scribe Nuvia Tran All medical record entries made by the Scribe were at my direction and personally dictated by me. I have reviewed the chart and agree that the record accurately reflects my personal performance of the history, physical exam, medical decision making, and the department course for this patient. I have also personally directed, reviewed, and agree with the discharge instructions and disposition.
[2018-03-27 23:37] LABS: TROPONIN I 0.021 ng/mL (0.00-0.120)
[2018-03-28 06:38] LABS: ALB/GLOB RATIO 1.4 (1.0-2.1); ALBUMIN 3.8 g/dL (3.5-5.0); CALCIUM 8.2 mg/dl (8.6-10.4)
[2018-03-28 07:09] LABS: BASO # 0.1 K/uL (0.0-0.2); BASO % 2.5 % (0.0-2.0); EOS # 0.1 K/uL (0.0-0.7); EOS % 1.7 % (0.0-4.0); LYMPH # 0.8 K/uL (1.0-4.3); LYMPH % 14.8 % (20.0-40.0); MEAN CELL VOLUME 83.6 fL (80.0-94.0); MEAN CORPUSCULAR HEMOGLOBIN 31.5 pg (27.0-31.0); MEAN CORPUSCULAR HGB CONC 37.7 g/dL (33.0-37.0); MEAN PLATELET VOLUME 7.8 fL (7.2-11.7); MONO # 0.6 K/uL (0.0-0.8); MONO % 9.9 % (0.0-10.0); NEUT % 71.1 % (50.0-75.0); NRBC % 0.1 % (0.0-2.0); RBC 1.69 Mil/uL (4.40-5.90); RED CELL DISTRIBUTION WIDTH 19.8 % (11.5-14.5); WHITE BLOOD COUNT 5.6 K/uL (4.8-10.8)
[2018-03-28 07:11] LABS: HEMOGLOBIN 5.3 g/dL (12.0-18.0)
--- NOTE | 2018-03-28 09:17 | CP.PCM.CON ---
History of Present Illness - History of Present Illness History of Present Illness: 62 y/o AA man admitted for severe anemia. On dialysis x 1 year-had HD 03/27 Given 1 unit prbcs blood tx 03/27, anemia worse afterwards Workup for anemia did not reveal source of severe anemia- included= EGD, colonoscopy, peripheral smears, BM Bx. Repeat workup underway. Hg around 5-6. PMH: ESRD HTN CHRONIC OBSTRUCTIVE UROPATHY GOUT PSH: AV F AV GRAFT BM BX Review of Systems - Constitutional Constitutional: Fatigue, Lethargy, Weakness - EENT Eyes: absent: As Per HPI, Blind Spots, Blurred Vision, Change in Vision, Decreased Night Vision, Diplopia, Discharge, Dry Eye, Exophthalmos, Floaters, Irritation, Itchy Eyes, Loss of Peripheral Vision, Pain, Photophobia, Requires Corrective Lenses, Sees Flashes, Spots in Vision, Tunnel Vision, Other Visual Disturbances, Loss of Vision, Other Ears: absent: As Per HPI, Decreased Hearing, Ear Discharge, Ear Pain, Tinnitus, Abnormal Hearing, Disequilibrium, Dizziness, Other Nose/Mouth/Throat: absent: As Per HPI, Epistaxis, Nasal Congestion, Nasal Discharge, Nasal Obstruction, Nasal Trauma, Nose Pain, Post Nasal Drip, Sinus Pain, Sinus Pressure, Bleeding Gums, Change in Voice, Dental Pain, Dry Mouth, Dysphagia, Halitosis, Hoarsness, Lip Swelling, Mouth Lesions, Mouth Pain, Odynophagia, Sore Throat, Throat Swelling, Tongue Swelling, Facial Pain, Neck Pain, Neck Mass, Other - Cardiovascular Cardiovascular: Dyspnea on Exertion, Pedal Edema - Respiratory Respiratory: Dyspnea on Exertion - Gastrointestinal Gastrointestinal: absent: As Per HPI, Abdominal Pain, Belching, Bloating, Change in Bowel Habits, Change in Stool Character, Coffee Ground Emesis, Constipation, Cramping, Diarrhea, Dyspepsia, Dysphagia, Early Satiety, Excessive Flatus, Fecal Incontinence, Heartburn, Hematemesis, Hematochezia, Loose Stools, Melena, Nausea, Odynophagia, Temesmus, Vomiting, Other - Genitourinary Genitourinary: As Per HPI - Musculoskeletal Musculoskeletal: Muscle Cramps, Muscle Weakness, Myalgias - Neurological Neurological: absent: As Per HPI, Abnormal Gait, Abnormal Hearing, Abnormal Movements, Abnormal Speech, Behavioral Changes, Burning Sensations, Confusion, Convulsions, Disequilibrium, Dizziness, Numbness, Focal Weakness, Frequent Falls , Headaches, Lack of Coordination, Loss of Vision, Memory Loss, Paresthesias, Radicular Pain, Restless Legs, Sensory Deficit, Syncope, Tingling, Tremor, Vertigo, Weakness, Other Visual Disturbances, Other Past Patient History - Infectious Disease Hx of Infectious Diseases: None - Past Medical History & Family History Past Medical History?: Yes Past Family History: Reviewed and not pertinent - Past Social History Smoking Status: Never Smoked Chewing Tobacco Use: No Cigar Use: No Alcohol: None Drugs: Denies Home Situation {Lives}: Alone - CARDIAC Hx Hypertension: Yes - PULMONARY Hx Respiratory Disorders: No - NEUROLOGICAL Hx Neurological Disorder: No - HEENT Hx HEENT Problems: No - RENAL Hx Chronic Kidney Disease: Yes Hx Dialysis: Yes Type of Dialysis Access: AV fistula - left upper arm Date of Last Dialysis Treatment: 03/27/18 - ENDOCRINE/METABOLIC Hx Endocrine Disorders: No - HEMATOLOGICAL/ONCOLOGICAL Hx Anemia: Yes - INTEGUMENTARY Hx Dermatological Problems: No - MUSCULOSKELETAL/RHEUMATOLOGICAL Hx Falls: No - GASTROINTESTINAL Hx Gastrointestinal Disorders: No - GENITOURINARY/GYNECOLOGICAL Hx Genitourinary Disorders: No - PSYCHIATRIC Hx Substance Use: No - SURGICAL HISTORY Hx Surgeries: Yes Hx Orthopedic Surgery: Yes (right knee , left foot) Other/Comment: LEFT FOOT BUNION SURGERY-10YRS. - ANESTHESIA Hx Anesthesia: Yes Hx Anesthesia Reactions: No Hx Malignant Hyperthermia: No Meds Allergies/Adverse Reactions: Allergies Allergy/AdvReac Type Severity Reaction Status Date / Time No Known Allergies Allergy Verified 03/27/18 22:14 - Medications Medications: Current Medications Calcium Acetate (Phoslo) 667 mg PO TIDCC [facility] Carvedilol (Coreg) 12.5 mg PO BID [facility] Cinacalcet (Sensipar) 30 mg PO DAILY [facility] Home Med (Colchicine) 0.6 mg PO DAILY [facility] Home Med (Febuxostat [Uloric]) 80 mg PO DAILY [facility] Pantoprazole Sodium (Protonix Ec Tab) 40 mg PO DAILY [facility] Tamsulosin HCl (Flomax) 0.4 mg PO DAILY [facility] Physical Exam - Constitutional Appears: Chronically Ill - Head Exam Head Exam: ATRAUMATIC, NORMAL INSPECTION - Eye Exam Eye Exam: EOMI, Normal appearance - Neck Exam Neck exam: Positive for: Full Rom, Normal Inspection - Respiratory Exam Respiratory Exam: Clear to Auscultation Bilateral, NORMAL BREATHING PATTERN - Cardiovascular Exam Cardiovascular Exam: REGULAR RHYTHM, +S1 - GI/Abdominal Exam GI & Abdominal Exam: Soft. absent: Tenderness - Extremities Exam Extremities exam: Positive for: pedal edema, tenderness - Neurological Exam Neurological exam: CN II-XII Intact, Oriented x3 - Skin Skin Exam: Dry, Warm Results - Vital Signs Recent Vital Signs: Last Vital Signs Temp 98.2 F 03/28/18 08:00 Pulse 82 03/28/18 08:00 Resp 16 03/28/18 08:00 BP 187/58 H 03/28/18 08:00 Pulse Ox 100 03/28/18 08:00 - Labs Result Diagrams: 03/28/18 06:57 03/28/18 06:15 Labs: Laboratory Results - last 24 hr 03/27/18 03/27/18 03/27/18 23:10 23:10 23:10 WBC 7.1 RBC 1.65 L Hgb 5.3 L* D Hct 14.1 L MCV 85.1 MCH 32.4 H MCHC 38.0 H RDW 19.9 H Plt Count 280 MPV 8.0 Neut % (Auto) 76.8 H Lymph % (Auto) 12.1 L [place] % (Auto) 8.6 Eos % (Auto) 1.1 Baso % (Auto) 1.4 Neut # (Auto) 5.5 Lymph # (Auto) 0.9 L [place] # (Auto) 0.6 Eos # (Auto) 0.1 Baso # (Auto) 0.1 PT 13.6 H INR 1.2 APTT 38 H Sodium 147 Potassium 3.8 Chloride 98 Carbon Dioxide 31 H Anion Gap 21 H BUN 32 H Creatinine 5.5 H Est GFR ( Amer) 13 Est GFR (Non-Af Amer) 11 Random Glucose 99 Calcium 8.6 Total Bilirubin 2.0 H AST 14 L D ALT 20 L Alkaline Phosphatase 64 Troponin I 0.0210 NT-Pro-B Natriuret Pep 41639 H Total Protein 7.7 Albumin 4.6 Globulin 3.1 Albumin/Globulin Ratio 1.5 Blood Type Antibody Screen 03/28/18 03/28/18 03/28/18 00:01 06:15 06:57 WBC 5.6 RBC 1.69 L Hgb 5.3 L* Hct 14.1 L MCV 83.6 MCH 31.5 H MCHC 37.7 H RDW 19.8 H Plt Count 242 MPV 7.8 Neut % (Auto) 71.1 Lymph % (Auto) 14.8 L [place] % (Auto) 9.9 Eos % (Auto) 1.7 Baso % (Auto) 2.5 H Neut # (Auto) 4.0 Lymph # (Auto) 0.8 L [place] # (Auto) 0.6 Eos # (Auto) 0.1 Baso # (Auto) 0.1 PT INR APTT Sodium 144 Potassium 3.6 Chloride 100 Carbon Dioxide 30 Anion Gap 18 BUN 34 H Creatinine 5.8 H Est GFR ( Amer) 12 Est GFR (Non-Af Amer) 10 Random Glucose 96 Calcium 8.2 L Total Bilirubin 2.1 H AST 19 ALT 13 L D Alkaline Phosphatase 52 Troponin I NT-Pro-B Natriuret Pep Total Protein 6.5 Albumin 3.8 Globulin 2.7 Albumin/Globulin Ratio 1.4 Blood Type O POSITIVE Antibody Screen Negative Assessment & Plan (1) Hydronephrosis concurrent with and due to calculi of kidney and ureter Status: Acute (2) Chronic anemia Status: Acute (3) ESRD (end stage renal disease) on dialysis Status: Acute - Assessment and Plan (Free Text) Plan: REPEAT DIALYSIS REPEAT BLOOD TRANSFUSION ANEMIA WORKUP
[2018-03-28] MEDS ORDERED: COLCHICINE 0.6 MG PO SCH (10:00)
[2018-03-28] MEDS ORDERED: Home Med 1 UNIT (Febuxostat [Uloric] 80 MG) PO SCH (10:00)
[2018-03-28] MEDS: Pantoprazole 40 mg EC Tab PO SCH (10:44)
--- NOTE | 2018-03-28 15:42 | CP.PCM.HP ---
Past Patient History - Infectious Disease Hx of Infectious Diseases: None - Past Medical History & Family History Past Medical History?: Yes Past Family History: Reviewed and not pertinent - Past Social History Smoking Status: Never Smoked Chewing Tobacco Use: No Cigar Use: No Alcohol: None Drugs: Denies Home Situation {Lives}: Alone - CARDIAC Hx Hypertension: Yes - PULMONARY Hx Respiratory Disorders: No - NEUROLOGICAL Hx Neurological Disorder: No - HEENT Hx HEENT Problems: No - RENAL Hx Chronic Kidney Disease: Yes Hx Dialysis: Yes Type of Dialysis Access: AV fistula - left upper arm Date of Last Dialysis Treatment: 03/27/18 - ENDOCRINE/METABOLIC Hx Endocrine Disorders: No - HEMATOLOGICAL/ONCOLOGICAL Hx Anemia: Yes - INTEGUMENTARY Hx Dermatological Problems: No - MUSCULOSKELETAL/RHEUMATOLOGICAL Hx Falls: No - GASTROINTESTINAL Hx Gastrointestinal Disorders: No - GENITOURINARY/GYNECOLOGICAL Hx Genitourinary Disorders: No - PSYCHIATRIC Hx Substance Use: No - SURGICAL HISTORY Hx Surgeries: Yes Hx Orthopedic Surgery: Yes (right knee , left foot) Other/Comment: LEFT FOOT BUNION SURGERY-10YRS. - ANESTHESIA Hx Anesthesia: Yes Hx Anesthesia Reactions: No Hx Malignant Hyperthermia: No Meds Allergies/Adverse Reactions: Allergies Allergy/AdvReac Type Severity Reaction Status Date / Time No Known Allergies Allergy Verified 03/27/18 22:14 Physical Exam - Constitutional Appears: Well - Head Exam Head Exam: ATRAUMATIC, NORMAL INSPECTION, NORMOCEPHALIC - Eye Exam Eye Exam: EOMI, Normal appearance, PERRL Pupil Exam: NORMAL ACCOMODATION, PERRL - ENT Exam ENT Exam: Mucous Membranes Moist, Normal Exam - Neck Exam Neck exam: Positive for: Normal Inspection - Respiratory Exam Respiratory Exam: Decreased Breath Sounds - Cardiovascular Exam Cardiovascular Exam: REGULAR RHYTHM, +S1, +S2 - GI/Abdominal Exam GI & Abdominal Exam: Diminished Bowel Sounds, Soft - Rectal Exam Rectal Exam: Deferred Results - Vital Signs Recent Vital Signs: Last Vital Signs Temp 98.5 F 03/28/18 12:00 Pulse 80 03/28/18 12:00 Resp 18 03/28/18 12:00 BP 129/78 03/28/18 12:00 Pulse Ox 100 03/28/18 12:00 - Labs Result Diagrams: 03/28/18 06:57 03/28/18 06:15 Labs: Laboratory Results - last 24 hr 03/27/18 03/27/18 03/27/18 23:10 23:10 23:10 WBC 7.1 RBC 1.65 L Hgb 5.3 L* D Hct 14.1 L MCV 85.1 MCH 32.4 H MCHC 38.0 H RDW 19.9 H Plt Count 280 MPV 8.0 Neut % (Auto) 76.8 H Lymph % (Auto) 12.1 L [place] % (Auto) 8.6 Eos % (Auto) 1.1 Baso % (Auto) 1.4 Neut # (Auto) 5.5 Lymph # (Auto) 0.9 L [place] # (Auto) 0.6 Eos # (Auto) 0.1 Baso # (Auto) 0.1 PT 13.6 H INR 1.2 APTT 38 H Sodium 147 Potassium 3.8 Chloride 98 Carbon Dioxide 31 H Anion Gap 21 H BUN 32 H Creatinine 5.5 H Est GFR ( Amer) 13 Est GFR (Non-Af Amer) 11 Random Glucose 99 Calcium 8.6 Total Bilirubin 2.0 H AST 14 L D ALT 20 L Alkaline Phosphatase 64 Troponin I 0.0210 NT-Pro-B Natriuret Pep 81682 H Total Protein 7.7 Albumin 4.6 Globulin 3.1 Albumin/Globulin Ratio 1.5 Blood Type Antibody Screen 03/28/18 03/28/18 03/28/18 00:01 06:15 06:57 WBC 5.6 RBC 1.69 L Hgb 5.3 L* Hct 14.1 L MCV 83.6 MCH 31.5 H MCHC 37.7 H RDW 19.8 H Plt Count 242 MPV 7.8 Neut % (Auto) 71.1 Lymph % (Auto) 14.8 L [place] % (Auto) 9.9 Eos % (Auto) 1.7 Baso % (Auto) 2.5 H Neut # (Auto) 4.0 Lymph # (Auto) 0.8 L [place] # (Auto) 0.6 Eos # (Auto) 0.1 Baso # (Auto) 0.1 PT INR APTT Sodium 144 Potassium 3.6 Chloride 100 Carbon Dioxide 30 Anion Gap 18 BUN 34 H Creatinine 5.8 H Est GFR ( Amer) 12 Est GFR (Non-Af Amer) 10 Random Glucose 96 Calcium 8.2 L Total Bilirubin 2.1 H AST 19 ALT 13 L D Alkaline Phosphatase 52 Troponin I NT-Pro-B Natriuret Pep Total Protein 6.5 Albumin 3.8 Globulin 2.7 Albumin/Globulin Ratio 1.4 Blood Type O POSITIVE Antibody Screen Negative
[2018-03-28 18:01] VITALS: O2SAT 100
--- NOTE | 2018-03-28 23:21 | CARD ---
APPROVED REPORT EKG Measurement Heart [id number] <Conclusion> Normal sinus rhythm Nonspecific T wave abnormality Prolonged QT Abnormal ECG
--- NOTE | 2018-03-29 08:21 | CP.PCM.PN ---
Subjective - Date & Time of Evaluation Date of Evaluation: 03/29/18 Time of Evaluation: 08:18 - Subjective Subjective: s/p dialysis 7/3; tolerated well repeat 2 units prbcs blood transfusions done with HD feels ok; no new complaint further heme workup to be done as outpt Objective - Vital Signs/Intake and Output Vital Signs (last 24 hours): Temp Pulse Resp BP Pulse Ox 98.4 F 79 12 125/63 100 03/29/18 04:00 03/29/18 06:50 03/29/18 06:50 03/29/18 06:00 03/28/18 23:50 Intake and Output: 03/29/18 03/29/18 06:59 18:59 Intake Total 1456 Balance 1456 - Medications Medications: Current Medications Calcium Acetate (Phoslo) 667 mg PO TIDCC [facility] Last Admin: 03/28/18 17:02 Dose: 667 mg Carvedilol (Coreg) 12.5 mg PO BID [facility] Last Admin: 03/28/18 18:06 Dose: Not Given Cinacalcet (Sensipar) 30 mg PO DAILY [facility] Last Admin: 03/28/18 10:44 Dose: 30 mg Colchicine (Colocrys) 0.6 mg PO DAILY [facility] Last Admin: 03/28/18 10:51 Dose: 0.6 mg Home Med (Febuxostat [Uloric]) 80 mg PO DAILY [facility] Pantoprazole Sodium (Protonix Ec Tab) 40 mg PO DAILY [facility] Last Admin: 03/28/18 10:44 Dose: 40 mg Tamsulosin HCl (Flomax) 0.4 mg PO DAILY [facility] Last Admin: 03/28/18 10:44 Dose: 0.4 mg - Labs Labs: 03/28/18 06:57 03/28/18 06:15 PT 13.6 SECONDS (9.7-12.2) H 03/27/18 23:10 INR 1.2 03/27/18 23:10 APTT 38 SECONDS (21-34) H 03/27/18 23:10 - Constitutional Appears: No Acute Distress, Chronically Ill - Head Exam Head Exam: ATRAUMATIC, NORMAL INSPECTION - Eye Exam Eye Exam: EOMI, Normal appearance - Neck Exam Neck Exam: Normal Inspection. absent: Tenderness - Respiratory Exam Respiratory Exam: Clear to Ausculation Bilateral, NORMAL BREATHING PATTERN - Cardiovascular Exam Cardiovascular Exam: REGULAR RHYTHM, +S1 - GI/Abdominal Exam GI & Abdominal Exam: Soft. absent: Tenderness - Extremities Exam Extremities Exam: Normal Inspection. absent: Tenderness - Neurological Exam Neurological Exam: Awake, CN II-XII Intact - Skin Skin Exam: Dry, Warm Assessment and Plan (1) Hydronephrosis concurrent with and due to calculi of kidney and ureter Status: Acute (2) Chronic anemia Status: Acute (3) ESRD (end stage renal disease) on dialysis Status: Acute - Assessment and Plan (Free Text) Plan: possible discharge today- recheck hg post blood transfusion further heme workup as outpt next HD can be done as outpt
[2018-03-29 08:23] VITALS: BP 134/77; TEMP 98.2
[2018-03-29] MEDS: Pantoprazole 40 mg EC Tab PO SCH (09:07)
--- NOTE | 2018-03-29 09:15 | CP.PCM.CON ---
History of Present Illness - History of Present Illness History of Present Illness: 62 year old male with a history of HTN, BPH, ESRD on HD, chronic anemia, admitted with symptomatic anemia. The patient is well known to me and underwent an extensive work up for his anemia. A GI work up and one marrow biopsy failed to find pathology contributing to his anemia. He had been receiving transfusion 2-3x weekly but a switch in his MIS therapy decreased this transfusion dependence greatly. He notes to progressive weakness and came to the ER. In the ER he was found to have a hgb of 5.3 and is s/p 1U PRBC. Past medical history: HTN, BPH, ESRD on HD, anemia Past surgical history: AV fistula Family history: Denies hematologic and oncologic problems Social history: Denies tobacco, alcohol, and illicit drug use. Allergies: NKA Review of systems: All remaining review of systems including HEENT, cardiovascular, respiratory, gastrointestinal, genitourinary, musculoskeletal, dermatologic, neurologic, and psychiatric are negative unless mentioned in the HPI. Past Patient History - Infectious Disease Hx of Infectious Diseases: None - Past Medical History & Family History Past Medical History?: Yes Past Family History: Reviewed and not pertinent - Past Social History Smoking Status: Never Smoked Chewing Tobacco Use: No Cigar Use: No Alcohol: None Drugs: Denies Home Situation {Lives}: Alone - CARDIAC Hx Hypertension: Yes - PULMONARY Hx Respiratory Disorders: No - NEUROLOGICAL Hx Neurological Disorder: No - HEENT Hx HEENT Problems: No - RENAL Hx Chronic Kidney Disease: Yes Hx Dialysis: Yes Type of Dialysis Access: AV fistula - left upper arm Date of Last Dialysis Treatment: 03/27/18 - ENDOCRINE/METABOLIC Hx Endocrine Disorders: No - HEMATOLOGICAL/ONCOLOGICAL Hx Anemia: Yes - INTEGUMENTARY Hx Dermatological Problems: No - MUSCULOSKELETAL/RHEUMATOLOGICAL Hx Falls: No - GASTROINTESTINAL Hx Gastrointestinal Disorders: No - GENITOURINARY/GYNECOLOGICAL Hx Genitourinary Disorders: No - PSYCHIATRIC Hx Substance Use: No - SURGICAL HISTORY Hx Surgeries: Yes Hx Orthopedic Surgery: Yes (right knee , left foot) Other/Comment: LEFT FOOT BUNION SURGERY-10YRS. - ANESTHESIA Hx Anesthesia: Yes Hx Anesthesia Reactions: No Hx Malignant Hyperthermia: No Meds Allergies/Adverse Reactions: Allergies Allergy/AdvReac Type Severity Reaction Status Date / Time No Known Allergies Allergy Verified 03/27/18 22:14 - Medications Medications: Current Medications Calcium Acetate (Phoslo) 667 mg PO TIDCC [facility] Last Admin: 03/29/18 08:30 Dose: 667 mg Carvedilol (Coreg) 12.5 mg PO BID [facility] Last Admin: 03/28/18 18:06 Dose: Not Given Cinacalcet (Sensipar) 30 mg PO DAILY [facility] Last Admin: 03/29/18 09:07 Dose: 30 mg Colchicine (Colocrys) 0.6 mg PO DAILY [facility] Last Admin: 03/29/18 09:07 Dose: 0.6 mg Home Med (Febuxostat [Uloric]) 80 mg PO DAILY [facility] Pantoprazole Sodium (Protonix Ec Tab) 40 mg PO DAILY [facility] Last Admin: 03/29/18 09:07 Dose: 40 mg Tamsulosin HCl (Flomax) 0.4 mg PO DAILY [facility] Last Admin: 03/29/18 09:07 Dose: 0.4 mg Physical Exam - Head Exam Head Exam: ATRAUMATIC - Eye Exam Eye Exam: Normal appearance - ENT Exam ENT Exam: Mucous Membranes Dry - Respiratory Exam Respiratory Exam: NORMAL BREATHING PATTERN - Cardiovascular Exam Cardiovascular Exam: +S1, +S2 - GI/Abdominal Exam GI & Abdominal Exam: Normal Bowel Sounds - Extremities Exam Extremities exam: Positive for: normal inspection - Neurological Exam Neurological exam: Oriented x3 - Psychiatric Exam Psychiatric exam: Normal Affect, Normal Mood - Skin Skin Exam: Warm Results - Vital Signs Recent Vital Signs: Last Vital Signs Temp 98.2 F 03/29/18 08:00 Pulse 82 03/29/18 08:00 Resp 17 03/29/18 08:00 BP 134/77 03/29/18 08:00 Pulse Ox 100 03/29/18 08:00 - Labs Result Diagrams: 03/28/18 06:57 03/28/18 06:15 Labs: Laboratory Results - last 24 hr 03/28/18 03/28/18 00:01 18:20 Hep Bs Antigen Negative Blood Type O POSITIVE Antibody Screen Negative Assessment & Plan (1) Anemia Assessment and Plan: will check retic count, b12, folate, ferritin, FOBT to further characterize negative pathology by bone marrow in 09/2017 anemia of CKD on MIS per renal ? MIS resistance with recent switch in MIS transfusion support PRN Thank you for this interesting consult. Status: Acute
[2018-03-29 09:27] LABS: MEAN CELL VOLUME 84.1 fL (80.0-94.0); MEAN CORPUSCULAR HEMOGLOBIN 31.3 pg (27.0-31.0); MEAN CORPUSCULAR HGB CONC 37.2 g/dL (33.0-37.0); MEAN PLATELET VOLUME 7.6 fL (7.2-11.7); RBC 2.66 Mil/uL (4.40-5.90); RED CELL DISTRIBUTION WIDTH 18.3 % (11.5-14.5); WHITE BLOOD COUNT 8.2 K/uL (4.8-10.8)
[2018-03-29 09:33] LABS: HEMOGLOBIN 8.3 g/dL (12.0-18.0)
[2018-03-29] MEDS ORDERED: Home Med 1 UNIT (Febuxostat [Uloric] 80 MG) PO SCH (10:00)
[2018-03-29 10:22] VITALS: PULSE 79; RESP 13
== END 2018-03-29 13:47 | disposition home or self-care (01) | DRG 682 ==
LOC: C.ER 21:29 → C.9E 23:14 → C.9I 03-28 03:50
PROVIDERS: ADMIT Internal Medicine Nephrology; ATTEND Internal Medicine Nephrology
PROC: 30233N1 Transfusion of Nonautologous Red Blood Cells into Peripheral Vein, Percutaneous Approach (ICD-10-PCS; principal; 2018-03-28)
PROC: 5A1D70Z Performance of Urinary Filtration, Intermittent, Less than 6 Hours Per Day (ICD-10-PCS; 2018-03-28)
DX: I12.0 Hypertensive chronic kidney disease with stage 5 chronic kidney disease or end stage renal disease (principal); D63.1 Anemia in chronic kidney disease; N18.6 End stage renal disease; N13.2 Hydronephrosis with renal and ureteral calculous obstruction; N40.0 Benign prostatic hyperplasia without lower urinary tract symptoms; Z99.2 Dependence on renal dialysis

== ENCOUNTER 2018-05-31 16:35 | Inpatient (IN) | payer MEDICARE ==
[2018-05-31 16:42] VITALS: BMI 25.0
[2018-05-31 17:51] LABS: BASO # 0.1 K/uL (0.0-0.2); BASO % 2.1 % (0.0-2.0); EOS # 0.1 K/uL (0.0-0.7); EOS % 2.1 % (0.0-4.0); LYMPH # 0.7 K/uL (1.0-4.3); LYMPH % 15.8 % (20.0-40.0); MEAN CELL VOLUME 85.7 fL (80.0-94.0); MEAN CORPUSCULAR HEMOGLOBIN 30.7 pg (27.0-31.0); MEAN CORPUSCULAR HGB CONC 35.8 g/dL (33.0-37.0); MEAN PLATELET VOLUME 7.2 fL (7.2-11.7); MONO # 0.3 K/uL (0.0-0.8); MONO % 6.7 % (0.0-10.0); NEUT # 3.4 K/uL (1.8-7.0); NEUT % 73.3 % (50.0-75.0); NRBC % 0.2 % (0.0-2.0); RBC 1.51 Mil/uL (4.40-5.90); RED CELL DISTRIBUTION WIDTH 21.3 % (11.5-14.5); WHITE BLOOD COUNT 4.7 K/uL (4.8-10.8)
[2018-05-31 17:54] LABS: HEMOGLOBIN 4.6 g/dL (12.0-18.0)
[2018-05-31 17:59] LABS: INR 1.2; PROTHROMBIN TIME 13.4 SECONDS (9.7-12.2)
--- NOTE | 2018-05-31 18:10 | C.PDOC ---
History Of Present Illness Patient presents to ED for anemia, had outpatient blood work on Tuesday that showed Hgb 5.5. Patient has h/o ESRD on HD, M,W,F (last HD tuesday), chronic anemia, HTN, BPH. He has been previously transfused for anemia, and has had an extensive outpatient workup, including recent normal bone marrow biopsy, endoscopy, colonoscopy. He states his Hem/onc is at [facility], [place], recent US of abdomen showed splenomegaly. He admits to fatigue and generalized weakness, as well as exertional SOB. Patient denies chest pain, abdominal pain , vomiting, diarrhea, hematuria, fever. Time Seen by Provider: 05/31/18 17:14 Chief Complaint (Nursing): Abnormal Labs History Per: Patient History/Exam Limitations: no limitations Current Symptoms Are (Timing): Still Present Past Medical History Reviewed: Historical Data, Nursing Documentation, Vital Signs Vital Signs: Last Vital Signs Temp 97.7 F 06/02/18 13:15 Pulse 63 06/02/18 13:15 Resp 16 06/02/18 12:51 BP 125/92 H 06/02/18 13:15 Pulse Ox 98 06/02/18 11:40 - Medical History PMH: Anemia, Arthritis, Benign Prostatic Hyperplasia, HTN, Chronic Kidney Disease - [facility] Procedures (03/27/18) BYPASS LEFT BRACHIAL ARTERY TO UPPER ARM VEIN, OPEN APPROACH (05/31/17) DILATION OF LEFT BRACHIAL ARTERY, PERCUTANEOUS APPROACH (10/18/17) INSERTION OF INFUSION DEV INTO SUP VENA CAVA, PERC APPROACH (05/31/17) PERFORMANCE OF URINARY FILTRATION, MULTIPLE (05/31/17) REVISION OF INFUSION DEVICE IN UPPER ARTERY, OPEN APPROACH (10/18/17) TRANSFUSE NONAUT RED BLOOD CELLS IN PERIPH VEIN, PERC (03/27/18) Family History: States: No Known Family Hx - Social History Hx Alcohol Use: No Hx Substance Use: No - Immunization History Hx Tetanus Toxoid Vaccination: Yes Hx Influenza Vaccination: Yes Hx Pneumococcal Vaccination: Yes Review Of Systems Constitutional: Negative for: Fever, Chills Cardiovascular: Negative for: Chest Pain Respiratory: Positive for: Shortness of Breath, SOB with Excertion. Negative for: Cough Gastrointestinal: Negative for: Nausea, Vomiting, Abdominal Pain, Diarrhea Genitourinary: Negative for: Dysuria, Hematuria Skin: Negative for: Rash Neurological: Negative for: Weakness, Numbness, Headache, Dizziness Physical Exam - Physical Exam Appears: Well, Non-toxic, No Acute Distress Skin: Normal Color, Warm, Dry, No Pale Oral Mucosa: Moist Cardiovascular: Rhythm Regular Respiratory: Normal Breath Sounds, No Rales, No Rhonchi, No Wheezing Gastrointestinal/Abdominal: Normal Exam, Bowel Sounds, Soft, No Tenderness Rectal: Rectal Tone (normal ), No Heme Positive, Heme Negative, No Blood Streaked Stool, Hemorrhoids (small external hemorrhoid, not bleeding, no thrombosis), No Mass Extremity: No Pedal Edema, Other (AV fistula LUE with palpable thrill ) Pulses: Left Dorsalis Pedis: Normal, Right Dorsalis Pedis: Normal Neurological/Psych: Oriented x3 ED Course And Treatment - Laboratory Results Result Diagrams: 06/02/18 07:14 06/02/18 07:14 O2 Sat by Pulse Oximetry: 100 (RA) Pulse Ox Interpretation: Normal Progress Note: Blood work ordered and reviewed. Patient given 1 unit PRBC, will get second unit with dialysis (likely tomorrow). Pending call back from Dr. Paul to discuss. 6:35pm- Spoke with Dr. Kumari, she agrees with transfusion 1 unit pRBC and dialysis + transfusion tomorrow. - Physician Consult Information Physician Contacted: Karoline Reeves Outcome Of Conversation: Discussed patient with Dr. Alba Reeves, he agrees with admission for symptomatic & severe anemia. Disposition - Disposition Disposition: HOSPITALIZED Disposition Time: 18:24 Condition: STABLE - Clinical Impression Clinical Impression: Symptomatic anemia, ESRD (end stage renal disease) on dialysis Decision To Admit - Pt Status Changed To: Hospital Disposition Of: Inpatient - Admit Certification Admit to Inpatient:: After my assessment, the patient will require hospitalization for at least two midnights. This is because of the severity of symptoms shown, intensity of services needed, and/or the medical risk in this patient being treated as an outpatient. - InPatient: Physician Admission Certification: I certify that this patient requires 2 or more midnights of care for the following reason:: see notes - . Bed Request Type: Telemetry Admitting Physician: Karoline Reeves Patient Diagnosis: Symptomatic anemia, ESRD (end stage renal disease) on dialysis
[2018-05-31 18:12] LABS: ALB/GLOB RATIO 1.7 (1.0-2.1); ALBUMIN 4.2 g/dL (3.5-5.0); CALCIUM 8.4 mg/dl (8.6-10.4)
--- NOTE | 2018-05-31 19:42 | CP.PCM.HP ---
History of Present Illness - History of Present Illness History of Present Illness: 62-year-old male which of anemia, arthritis, BPH, HTN, CKD comes to ED for anemia. Last blood work at outpatient setting on Tuesday showed Hb 5.5. Admits to undergoing hemodialysis(M,W,F) for ESRD. Admits for previously transfused for anemia has had extensive outpatient workup including recent BM biopsy, endoscopy, colonoscopy. Seeing Hem/onc is at [facility]. Recently US abdomen showed splenomegaly. Admits fatigue and generalized weakness and exertional SOB. Denies chest pain, abdominal pain, vomiting, diarrhea, hematuria, fever Past Patient History - Infectious Disease Hx of Infectious Diseases: None - Past Medical History & Family History Past Medical History?: Yes - Past Social History Smoking Status: Never Smoked - CARDIAC Hx Hypertension: Yes - PULMONARY Hx Respiratory Disorders: No - NEUROLOGICAL Hx Neurological Disorder: No - HEENT Hx HEENT Problems: No - RENAL Hx Chronic Kidney Disease: Yes - ENDOCRINE/METABOLIC Hx Endocrine Disorders: No - HEMATOLOGICAL/ONCOLOGICAL Hx Anemia: Yes - INTEGUMENTARY Hx Dermatological Problems: No - MUSCULOSKELETAL/RHEUMATOLOGICAL Hx Arthritis: Yes - GASTROINTESTINAL Hx Gastrointestinal Disorders: No - GENITOURINARY/GYNECOLOGICAL Hx Genitourinary Disorders: No - PSYCHIATRIC Hx Substance Use: No - SURGICAL HISTORY Hx Surgeries: Yes Hx Orthopedic Surgery: Yes (right knee , left foot) Hx Vascular Access Device: Yes (LEFT ARM GRAFT) Other/Comment: LEFT FOOT BUNION SURGERY-10YRS. - ANESTHESIA Hx Anesthesia: Yes Hx Anesthesia Reactions: No Hx Malignant Hyperthermia: No Meds Allergies/Adverse Reactions: Allergies Allergy/AdvReac Type Severity Reaction Status Date / Time No Known Allergies Allergy Verified 05/31/18 16:42 Physical Exam - Constitutional Appears: Well - Head Exam Head Exam: ATRAUMATIC, NORMAL INSPECTION, NORMOCEPHALIC - Eye Exam Eye Exam: EOMI, Normal appearance, PERRL Pupil Exam: NORMAL ACCOMODATION, PERRL - ENT Exam ENT Exam: Mucous Membranes Moist, Normal Exam - Neck Exam Neck exam: Positive for: Normal Inspection - Respiratory Exam Respiratory Exam: Decreased Breath Sounds - Cardiovascular Exam Cardiovascular Exam: REGULAR RHYTHM, +S1, +S2 - GI/Abdominal Exam GI & Abdominal Exam: Diminished Bowel Sounds, Soft - Rectal Exam Rectal Exam: Deferred Results - Vital Signs Recent Vital Signs: Last Vital Signs Temp 98.2 F 05/31/18 16:42 Pulse 85 05/31/18 18:11 Resp 14 05/31/18 18:11 BP 144/54 L 05/31/18 18:11 Pulse Ox 100 05/31/18 18:38 - Labs Result Diagrams: 05/31/18 17:44 05/31/18 17:44 Labs: Laboratory Results - last 24 hr 05/31/18 05/31/18 05/31/18 17:44 17:44 17:44 WBC 4.7 L RBC 1.51 L Hgb 4.6 L* D Hct 12.9 L MCV 85.7 MCH 30.7 MCHC 35.8 RDW 21.3 H Plt Count 243 MPV 7.2 Neut % (Auto) 73.3 Lymph % (Auto) 15.8 L [place] % (Auto) 6.7 Eos % (Auto) 2.1 Baso % (Auto) 2.1 H Neut # (Auto) 3.4 Lymph # (Auto) 0.7 L [place] # (Auto) 0.3 Eos # (Auto) 0.1 Baso # (Auto) 0.1 PT 13.4 H INR 1.2 APTT 39 H Sodium 143 Potassium 4.1 Chloride 103 Carbon Dioxide 25 Anion Gap 20 BUN 48 H Creatinine 8.4 H* D Est GFR ( Amer) 8 Est GFR (Non-Af Amer) 7 Random Glucose 117 H Calcium 8.4 L Total Bilirubin 1.2 AST 10 L D ALT 20 L D Alkaline Phosphatase 55 Total Protein 6.6 Albumin 4.2 Globulin 2.4 Albumin/Globulin Ratio 1.7 Blood Type Antibody Screen 05/31/18 17:44 WBC RBC Hgb Hct MCV MCH MCHC RDW Plt Count MPV Neut % (Auto) Lymph % (Auto) [place] % (Auto) Eos % (Auto) Baso % (Auto) Neut # (Auto) Lymph # (Auto) [place] # (Auto) Eos # (Auto) Baso # (Auto) PT INR APTT Sodium Potassium Chloride Carbon Dioxide Anion Gap BUN Creatinine Est GFR ( Amer) Est GFR (Non-Af Amer) Random Glucose Calcium Total Bilirubin AST ALT Alkaline Phosphatase Total Protein Albumin Globulin Albumin/Globulin Ratio Blood Type O POSITIVE Antibody Screen Negative
--- NOTE | 2018-06-01 09:58 | CP.PCM.CON ---
History of Present Illness - History of Present Illness History of Present Illness: 62 y/o AA man presents to ED for anemia, had outpatient blood work on Tuesday that showed Hgb 5.5. Patient has h/o ESRD on HD, M,W,F (last HD tuesday), chronic anemia, HTN, BPH. He has been previously transfused multiple times for anemia, and has had an extensive outpatient workup, including recent normal bone marrow biopsy, endoscopy, colonoscopy. He states his Hem/onc is at [facility], recent US of abdomen showed splenomegaly. He admits to fatigue and generalized weakness, as well as exertional SOB. Patient denies chest pain , abdominal pain, vomiting, diarrhea, hematuria, fever. Dx ESRD is obstructive uropathy PMH: ESRD CHRONIC OBSTRUCTIVE UROPATHGY GOUT HTN PSH: AV FISTULA BONE MARROW BX Review of Systems - Constitutional Constitutional: Fatigue, Lethargy, Malaise - EENT Eyes: absent: As Per HPI, Blind Spots, Blurred Vision, Change in Vision, Decreased Night Vision, Diplopia, Discharge, Dry Eye, Exophthalmos, Floaters, Irritation, Itchy Eyes, Loss of Peripheral Vision, Pain, Photophobia, Requires Corrective Lenses, Sees Flashes, Spots in Vision, Tunnel Vision, Other Visual Disturbances, Loss of Vision, Other Ears: absent: As Per HPI, Decreased Hearing, Ear Discharge, Ear Pain, Tinnitus, Abnormal Hearing, Disequilibrium, Dizziness, Other Nose/Mouth/Throat: absent: As Per HPI, Epistaxis, Nasal Congestion, Nasal Discharge, Nasal Obstruction, Nasal Trauma, Nose Pain, Post Nasal Drip, Sinus Pain, Sinus Pressure, Bleeding Gums, Change in Voice, Dental Pain, Dry Mouth, Dysphagia, Halitosis, Hoarsness, Lip Swelling, Mouth Lesions, Mouth Pain, Odynophagia, Sore Throat, Throat Swelling, Tongue Swelling, Facial Pain, Neck Pain, Neck Mass, Other - Cardiovascular Cardiovascular: Dyspnea on Exertion - Respiratory Respiratory: Dyspnea on Exertion - Gastrointestinal Gastrointestinal: absent: As Per HPI, Abdominal Pain, Belching, Bloating, Change in Bowel Habits, Change in Stool Character, Coffee Ground Emesis, Constipation, Cramping, Diarrhea, Dyspepsia, Dysphagia, Early Satiety, Excessive Flatus, Fecal Incontinence, Heartburn, Hematemesis, Hematochezia, Loose Stools, Melena, Nausea, Odynophagia, Temesmus, Vomiting, Other - Genitourinary Genitourinary: As Per HPI - Musculoskeletal Musculoskeletal: Muscle Cramps, Muscle Weakness, Myalgias Past Patient History - Infectious Disease Hx of Infectious Diseases: None - Past Medical History & Family History Past Medical History?: Yes - Past Social History Smoking Status: Unknown If Ever Smoked Alcohol: Occasional Home Situation {Lives}: Alone - CARDIAC Hx Cardiac Disorders: Yes Hx Hypertension: Yes - PULMONARY Hx Respiratory Disorders: No - NEUROLOGICAL Hx Neurological Disorder: No - HEENT Hx HEENT Problems: No - RENAL Hx Chronic Kidney Disease: Yes - ENDOCRINE/METABOLIC Hx Endocrine Disorders: No - HEMATOLOGICAL/ONCOLOGICAL Hx Blood Disorders: Yes Hx Anemia: Yes - INTEGUMENTARY Hx Dermatological Problems: No - MUSCULOSKELETAL/RHEUMATOLOGICAL Hx Musculoskeletal Disorders: No Hx Falls: No - GASTROINTESTINAL Hx Gastrointestinal Disorders: No - GENITOURINARY/GYNECOLOGICAL Hx Genitourinary Disorders: No - PSYCHIATRIC Hx Psychophysiologic Disorder: No Hx Substance Use: No - SURGICAL HISTORY Hx Surgeries: Yes Hx Orthopedic Surgery: Yes (right knee , left foot) Hx Vascular Access Device: Yes (LEFT ARM GRAFT) Other/Comment: LEFT FOOT BUNION SURGERY-10YRS. - ANESTHESIA Hx Anesthesia: Yes Hx Anesthesia Reactions: No Hx Malignant Hyperthermia: No Meds Allergies/Adverse Reactions: Allergies Allergy/AdvReac Type Severity Reaction Status Date / Time No Known Allergies Allergy Verified 05/31/18 16:42 - Medications Medications: Current Medications Allopurinol (Zyloprim) 100 mg PO DAILY [facility] Calcium Acetate (Phoslo) 667 mg PO TIDCC [facility] Carvedilol (Coreg) 12.5 mg PO BID [facility] Cinacalcet (Sensipar) 30 mg PO DAILY [facility] Colchicine (Colocrys) 0.6 mg PO DAILY [facility] Home Med (Febuxostat [Uloric]) 80 mg PO DAILY [facility] Tamsulosin HCl (Flomax) 0.4 mg PO DAILY [facility] Physical Exam - Constitutional Appears: No Acute Distress, Chronically Ill - Head Exam Head Exam: ATRAUMATIC, NORMAL INSPECTION - Eye Exam Eye Exam: EOMI, Normal appearance - Neck Exam Neck exam: Positive for: Normal Inspection. Negative for: Tenderness - Respiratory Exam Respiratory Exam: Clear to Auscultation Bilateral, NORMAL BREATHING PATTERN - Cardiovascular Exam Cardiovascular Exam: REGULAR RHYTHM, +S1 - GI/Abdominal Exam GI & Abdominal Exam: Soft. absent: Tenderness - Extremities Exam Extremities exam: Positive for: normal inspection. Negative for: tenderness - Neurological Exam Neurological exam: Alert, CN II-XII Intact - Skin Skin Exam: Dry, Warm Results - Vital Signs Recent Vital Signs: Last Vital Signs Temp 98.3 F 06/01/18 08:30 Pulse 85 06/01/18 08:30 Resp 18 06/01/18 08:30 BP 152/76 H 06/01/18 08:30 Pulse Ox 96 06/01/18 08:30 - Labs Result Diagrams: 05/31/18 17:44 05/31/18 17:44 Labs: Laboratory Results - last 24 hr 05/31/18 05/31/18 05/31/18 17:44 17:44 17:44 WBC 4.7 L RBC 1.51 L Hgb 4.6 L* D Hct 12.9 L MCV 85.7 MCH 30.7 MCHC 35.8 RDW 21.3 H Plt Count 243 MPV 7.2 Neut % (Auto) 73.3 Lymph % (Auto) 15.8 L [place] % (Auto) 6.7 Eos % (Auto) 2.1 Baso % (Auto) 2.1 H Neut # (Auto) 3.4 Lymph # (Auto) 0.7 L [place] # (Auto) 0.3 Eos # (Auto) 0.1 Baso # (Auto) 0.1 PT 13.4 H INR 1.2 APTT 39 H Sodium 143 Potassium 4.1 Chloride 103 Carbon Dioxide 25 Anion Gap 20 BUN 48 H Creatinine 8.4 H* D Est GFR ( Amer) 8 Est GFR (Non-Af Amer) 7 Random Glucose 117 H Calcium 8.4 L Total Bilirubin 1.2 AST 10 L D ALT 20 L D Alkaline Phosphatase 55 Total Protein 6.6 Albumin 4.2 Globulin 2.4 Albumin/Globulin Ratio 1.7 Blood Type Antibody Screen 05/31/18 17:44 WBC RBC Hgb Hct MCV MCH MCHC RDW Plt Count MPV Neut % (Auto) Lymph % (Auto) [place] % (Auto) Eos % (Auto) Baso % (Auto) Neut # (Auto) Lymph # (Auto) [place] # (Auto) Eos # (Auto) Baso # (Auto) PT INR APTT Sodium Potassium Chloride Carbon Dioxide Anion Gap BUN Creatinine Est GFR ( Amer) Est GFR (Non-Af Amer) Random Glucose Calcium Total Bilirubin AST ALT Alkaline Phosphatase Total Protein Albumin Globulin Albumin/Globulin Ratio Blood Type O POSITIVE Antibody Screen Negative Assessment & Plan (1) Hypertensive chronic kidney disease with stage 5 chronic kidney disease or end stage renal disease Status: Acute (2) Severe anemia Status: Acute (3) Obstructive nephropathy Status: Acute - Assessment and Plan (Free Text) Plan: Dialysis now blood transfusions with HD anemia workup as outpatient
[2018-06-01] MEDS ORDERED: Home Med 1 UNIT (Febuxostat [Uloric] 80 MG) PO SCH (10:00)
[2018-06-01 11:23] LABS: IRON 51 ug/dL (49-181)
[2018-06-01 11:33] LABS: % IRON SATURATION 24 (20-55); TOTAL IRON BINDING CAPACITY 214 ug/dL (250-450)
[2018-06-01 11:53] LABS: FOLATE > 20.0 ng/mL
--- NOTE | 2018-06-01 13:08 | CP.PCM.CON ---
History of Present Illness - History of Present Illness History of Present Illness: 62 year old male with a history of HTN, BPH, ESRD on HD, chronic anemia, admitted with symptomatic anemia. The patient is well known to me and underwent an extensive work up for his anemia. A GI work up and one marrow biopsy failed to find pathology contributing to his anemia. He had been receiving transfusion 2-3x weekly but a switch in his MIS therapy decreased this transfusion dependence greatly but unfortunetly is now requiring more transfusion dependence. He has been seeing a hotel valet attendant at [facility] and noted to have splenomegaly. Past medical history: HTN, BPH, ESRD on HD, anemia Past surgical history: AV fistula Family history: Denies hematologic and oncologic problems Social history: Denies tobacco, alcohol, and illicit drug use. Allergies: NKA Review of systems: All remaining review of systems including HEENT, cardiovascular, respiratory, gastrointestinal, genitourinary, musculoskeletal, dermatologic, neurologic, and psychiatric are negative unless mentioned in the HPI. Past Patient History - Infectious Disease Hx of Infectious Diseases: None - Past Medical History & Family History Past Medical History?: Yes - Past Social History Smoking Status: Never Smoked - CARDIAC Hx Hypertension: Yes - PULMONARY Hx Respiratory Disorders: No - NEUROLOGICAL Hx Neurological Disorder: No - HEENT Hx HEENT Problems: No - RENAL Hx Chronic Kidney Disease: Yes - ENDOCRINE/METABOLIC Hx Endocrine Disorders: No - HEMATOLOGICAL/ONCOLOGICAL Hx Anemia: Yes - INTEGUMENTARY Hx Dermatological Problems: No - MUSCULOSKELETAL/RHEUMATOLOGICAL Hx Arthritis: Yes - GASTROINTESTINAL Hx Gastrointestinal Disorders: No - GENITOURINARY/GYNECOLOGICAL Hx Genitourinary Disorders: No - PSYCHIATRIC Hx Substance Use: No - SURGICAL HISTORY Hx Surgeries: Yes Hx Orthopedic Surgery: Yes (right knee , left foot) Hx Vascular Access Device: Yes (LEFT ARM GRAFT) Other/Comment: LEFT FOOT BUNION SURGERY-10YRS. - ANESTHESIA Hx Anesthesia: Yes Hx Anesthesia Reactions: No Hx Malignant Hyperthermia: No Meds Allergies/Adverse Reactions: Allergies Allergy/AdvReac Type Severity Reaction Status Date / Time No Known Allergies Allergy Verified 05/31/18 16:42 - Medications Medications: Current Medications Calcium Acetate (Phoslo) 667 mg PO TIDCC [facility] Carvedilol (Coreg) 12.5 mg PO BID [facility] Cinacalcet (Sensipar) 30 mg PO DAILY [facility] Colchicine (Colocrys) 0.6 mg PO DAILY [facility] Home Med (Febuxostat [Uloric]) 80 mg PO DAILY [facility] Tamsulosin HCl (Flomax) 0.4 mg PO DAILY [facility] Physical Exam - Head Exam Head Exam: ATRAUMATIC - Eye Exam Eye Exam: Normal appearance - ENT Exam ENT Exam: Mucous Membranes Dry - Respiratory Exam Respiratory Exam: NORMAL BREATHING PATTERN - Cardiovascular Exam Cardiovascular Exam: +S1, +S2 - GI/Abdominal Exam GI & Abdominal Exam: Normal Bowel Sounds Results - Vital Signs Recent Vital Signs: Last Vital Signs Temp 97.9 F 06/01/18 12:39 Pulse 72 06/01/18 12:39 Resp 20 06/01/18 12:39 BP 165/81 H 06/01/18 12:39 Pulse Ox 98 06/01/18 09:55 - Labs Result Diagrams: 05/31/18 17:44 05/31/18 17:44 Labs: Laboratory Results - last 24 hr 05/31/18 05/31/18 05/31/18 17:44 17:44 17:44 WBC 4.7 L RBC 1.51 L Hgb 4.6 L* D Hct 12.9 L MCV 85.7 MCH 30.7 MCHC 35.8 RDW 21.3 H Plt Count 243 MPV 7.2 Neut % (Auto) 73.3 Lymph % (Auto) 15.8 L [place] % (Auto) 6.7 Eos % (Auto) 2.1 Baso % (Auto) 2.1 H Neut # (Auto) 3.4 Lymph # (Auto) 0.7 L [place] # (Auto) 0.3 Eos # (Auto) 0.1 Baso # (Auto) 0.1 Smear Path Review Retic Count PT 13.4 H INR 1.2 APTT 39 H Sodium 143 Potassium 4.1 Chloride 103 Carbon Dioxide 25 Anion Gap 20 BUN 48 H Creatinine 8.4 H* D Est GFR ( Amer) 8 Est GFR (Non-Af Amer) 7 Random Glucose 117 H Calcium 8.4 L Iron TIBC % Saturation Total Bilirubin 1.2 AST 10 L D ALT 20 L D Alkaline Phosphatase 55 Total Protein 6.6 Albumin 4.2 Globulin 2.4 Albumin/Globulin Ratio 1.7 Vitamin B12 Folate Blood Type Antibody Screen 05/31/18 06/01/18 06/01/18 17:44 10:24 10:24 WBC RBC Hgb Hct MCV MCH MCHC RDW Plt Count MPV Neut % (Auto) Lymph % (Auto) [place] % (Auto) Eos % (Auto) Baso % (Auto) Neut # (Auto) Lymph # (Auto) [place] # (Auto) Eos # (Auto) Baso # (Auto) Smear Path Review Retic Count PT INR APTT Sodium Potassium Chloride Carbon Dioxide Anion Gap BUN Creatinine Est GFR ( Amer) Est GFR (Non-Af Amer) Random Glucose Calcium Iron 51 TIBC 214 L % Saturation 24 Total Bilirubin AST ALT Alkaline Phosphatase Total Protein Albumin Globulin Albumin/Globulin Ratio Vitamin B12 801 Folate > 20.0 Blood Type O POSITIVE Antibody Screen Negative 06/01/18 10:24 WBC RBC Hgb Hct MCV MCH MCHC RDW Plt Count MPV Neut % (Auto) Lymph % (Auto) [place] % (Auto) Eos % (Auto) Baso % (Auto) Neut # (Auto) Lymph # (Auto) [place] # (Auto) Eos # (Auto) Baso # (Auto) Smear Path Review Retic Count 5.6 H D PT INR APTT Sodium Potassium Chloride Carbon Dioxide Anion Gap BUN Creatinine Est GFR ( Amer) Est GFR (Non-Af Amer) Random Glucose Calcium Iron TIBC % Saturation Total Bilirubin AST ALT Alkaline Phosphatase Total Protein Albumin Globulin Albumin/Globulin Ratio Vitamin B12 Folate Blood Type Antibody Screen Assessment & Plan (1) Hepatosplenomegaly Assessment and Plan: suspect related to extramedullary hematopoiesis; bone marrow negative for malignancy unable to rule out infiltrative pathology without biopsy/splenectomy however risk of bleeding/increased infection Status: Acute (2) Anemia Assessment and Plan: hypoproliferative erythroid response; should be elevated with MIS ? MIS antibody no iron/b12/folate deficiency no pathology noted on bone marrow pathology no evidence of bleeding Thank you for this interesting consult. Status: Acute
--- NOTE | 2018-06-01 15:38 | CP.PCM.CON ---
History of Present Illness - History of Present Illness History of Present Illness: This is a 62 year old male admitted with anemia, HGB 4.6. He was evaluated 11/03/2017 with: 1) EGD which showed mild distal esophageal narrowing, hiatal hernia and erosive gastritis; and 2) colonoscopy which showed diverticulosis and internal hemorrhoids. Biopsies showed reactive gastropathy. He denies having nausea, vomiting, abdominal pain, difficulty swallowing, loss of appetite, diarrhea, constipation, rectal bleeding, and dark stools. He has occasional heartburn, and he thinks he has lost a few pounds over the summer. He has a long history of anemia which was worked up with bone marrow biopsy, which was non-diagnostic. Recently, splenomegaly was diagnosed. Review of Systems - Review of Systems All systems: reviewed and no additional remarkable complaints except - Constitutional Constitutional: absent: Chills, Fever - Cardiovascular Cardiovascular: Dyspnea, Dyspnea on Exertion. absent: Chest Pain - Respiratory Respiratory: Dyspnea, Dyspnea on Exertion. absent: Cough - Gastrointestinal Gastrointestinal: Heartburn. absent: Abdominal Pain, Constipation, Diarrhea, Dysphagia, Hematochezia, Melena, Nausea, Vomiting - Integumentary Integumentary: absent: Rash Past Patient History - Infectious Disease Hx of Infectious Diseases: None - Past Medical History & Family History Past Medical History?: Yes - Past Social History Smoking Status: Never Smoked - CARDIAC Hx Hypertension: Yes - PULMONARY Hx Respiratory Disorders: No - NEUROLOGICAL Hx Neurological Disorder: No - HEENT Hx HEENT Problems: No - RENAL Hx Chronic Kidney Disease: Yes - ENDOCRINE/METABOLIC Hx Endocrine Disorders: No - HEMATOLOGICAL/ONCOLOGICAL Hx Anemia: Yes - INTEGUMENTARY Hx Dermatological Problems: No - MUSCULOSKELETAL/RHEUMATOLOGICAL Hx Arthritis: Yes - GASTROINTESTINAL Hx Gastrointestinal Disorders: No - GENITOURINARY/GYNECOLOGICAL Hx Genitourinary Disorders: No - PSYCHIATRIC Hx Substance Use: No - SURGICAL HISTORY Hx Surgeries: Yes Hx Orthopedic Surgery: Yes (right knee , left foot) Hx Vascular Access Device: Yes (LEFT ARM GRAFT) Other/Comment: LEFT FOOT BUNION SURGERY-10YRS. - ANESTHESIA Hx Anesthesia: Yes Hx Anesthesia Reactions: No Hx Malignant Hyperthermia: No Meds Allergies/Adverse Reactions: Allergies Allergy/AdvReac Type Severity Reaction Status Date / Time No Known Allergies Allergy Verified 05/31/18 16:42 - Medications Medications: Current Medications Calcium Acetate (Phoslo) 667 mg PO TIDCC [facility] Last Admin: 06/01/18 12:00 Dose: Not Given Carvedilol (Coreg) 12.5 mg PO BID [facility] Last Admin: 06/01/18 14:19 Dose: 12.5 mg Cinacalcet (Sensipar) 30 mg PO DAILY [facility] Last Admin: 06/01/18 14:19 Dose: 30 mg Colchicine (Colocrys) 0.6 mg PO DAILY [facility] Last Admin: 06/01/18 14:19 Dose: 0.6 mg Home Med (Febuxostat [Uloric]) 80 mg PO DAILY [facility] Tamsulosin HCl (Flomax) 0.4 mg PO DAILY [facility] Last Admin: 06/01/18 14:18 Dose: 0.4 mg Physical Exam - Constitutional Appears: No Acute Distress - Head Exam Head Exam: ATRAUMATIC, NORMOCEPHALIC - Eye Exam Eye Exam: EOMI, PERRL - Neck Exam Neck exam: Negative for: Lymphadenopathy, Thyromegaly - Respiratory Exam Respiratory Exam: NORMAL BREATHING PATTERN. absent: Rales, Rhonchi, Wheezes - Cardiovascular Exam Cardiovascular Exam: REGULAR RHYTHM, +S1, +S2. absent: Gallop, Rubs, Systolic Murmur - GI/Abdominal Exam GI & Abdominal Exam: Normal Bowel Sounds, Soft. absent: Mass, Organomegaly, Tenderness - Rectal Exam Rectal Exam: Deferred - Extremities Exam Extremities exam: Negative for: calf tenderness, pedal edema Results - Vital Signs Recent Vital Signs: Last Vital Signs Temp 97.5 F L 06/01/18 13:10 Pulse 78 06/01/18 14:22 Resp 18 06/01/18 14:22 BP 159/81 H 06/01/18 14:22 Pulse Ox 98 06/01/18 14:22 - Labs Result Diagrams: 05/31/18 17:44 05/31/18 17:44 Labs: Laboratory Results - last 24 hr 05/31/18 05/31/18 05/31/18 17:44 17:44 17:44 WBC 4.7 L RBC 1.51 L Hgb 4.6 L* D Hct 12.9 L MCV 85.7 MCH 30.7 MCHC 35.8 RDW 21.3 H Plt Count 243 MPV 7.2 Neut % (Auto) 73.3 Lymph % (Auto) 15.8 L [place] % (Auto) 6.7 Eos % (Auto) 2.1 Baso % (Auto) 2.1 H Neut # (Auto) 3.4 Lymph # (Auto) 0.7 L [place] # (Auto) 0.3 Eos # (Auto) 0.1 Baso # (Auto) 0.1 Smear Path Review Retic Count PT 13.4 H INR 1.2 APTT 39 H Sodium 143 Potassium 4.1 Chloride 103 Carbon Dioxide 25 Anion Gap 20 BUN 48 H Creatinine 8.4 H* D Est GFR ( Amer) 8 Est GFR (Non-Af Amer) 7 Random Glucose 117 H Calcium 8.4 L Iron TIBC % Saturation Ferritin Total Bilirubin 1.2 AST 10 L D ALT 20 L D Alkaline Phosphatase 55 Total Protein 6.6 Albumin 4.2 Globulin 2.4 Albumin/Globulin Ratio 1.7 Vitamin B12 Folate Blood Type Antibody Screen 05/31/18 06/01/18 06/01/18 17:44 10:24 10:24 WBC RBC Hgb Hct MCV MCH MCHC RDW Plt Count MPV Neut % (Auto) Lymph % (Auto) [place] % (Auto) Eos % (Auto) Baso % (Auto) Neut # (Auto) Lymph # (Auto) [place] # (Auto) Eos # (Auto) Baso # (Auto) Smear Path Review Retic Count PT INR APTT Sodium Potassium Chloride Carbon Dioxide Anion Gap BUN Creatinine Est GFR ( Amer) Est GFR (Non-Af Amer) Random Glucose Calcium Iron 51 TIBC 214 L % Saturation 24 Ferritin 1150.0 Total Bilirubin AST ALT Alkaline Phosphatase Total Protein Albumin Globulin Albumin/Globulin Ratio Vitamin B12 801 Folate > 20.0 Blood Type O POSITIVE Antibody Screen Negative 06/01/18 10:24 WBC RBC Hgb Hct MCV MCH MCHC RDW Plt Count MPV Neut % (Auto) Lymph % (Auto) [place] % (Auto) Eos % (Auto) Baso % (Auto) Neut # (Auto) Lymph # (Auto) [place] # (Auto) Eos # (Auto) Baso # (Auto) Smear Path Review Retic Count 5.6 H D PT INR APTT Sodium Potassium Chloride Carbon Dioxide Anion Gap BUN Creatinine Est GFR ( Amer) Est GFR (Non-Af Amer) Random Glucose Calcium Iron TIBC % Saturation Ferritin Total Bilirubin AST ALT Alkaline Phosphatase Total Protein Albumin Globulin Albumin/Globulin Ratio Vitamin B12 Folate Blood Type Antibody Screen Assessment & Plan (1) Chronic anemia Assessment and Plan: Patient has chronic anemia and ESRD on dialysis. He has previously been worked up with EGD and colonoscopy. We will request stool for occult blood. Consider small bowel capsule endoscopy if occult blood is positive. Status: Acute
--- NOTE | 2018-06-01 15:41 | CP.PCM.PN ---
Subjective - Date & Time of Evaluation Date of Evaluation: 06/01/18 Time of Evaluation: 12:00 Objective - Vital Signs/Intake and Output Vital Signs (last 24 hours): Temp Pulse Resp BP Pulse Ox 97.5 F L 78 18 159/81 H 98 06/01/18 13:10 06/01/18 14:22 06/01/18 14:22 06/01/18 14:22 06/01/18 14:22 Intake and Output: 06/01/18 06/01/18 06:59 18:59 Intake Total 745 Balance 745 - Medications Medications: Current Medications Calcium Acetate (Phoslo) 667 mg PO TIDCC [facility] Last Admin: 06/01/18 12:00 Dose: Not Given Carvedilol (Coreg) 12.5 mg PO BID [facility] Last Admin: 06/01/18 14:19 Dose: 12.5 mg Cinacalcet (Sensipar) 30 mg PO DAILY [facility] Last Admin: 06/01/18 14:19 Dose: 30 mg Colchicine (Colocrys) 0.6 mg PO DAILY [facility] Last Admin: 06/01/18 14:19 Dose: 0.6 mg Home Med (Febuxostat [Uloric]) 80 mg PO DAILY [facility] Tamsulosin HCl (Flomax) 0.4 mg PO DAILY [facility] Last Admin: 06/01/18 14:18 Dose: 0.4 mg - Labs Labs: 05/31/18 17:44 05/31/18 17:44 PT 13.4 SECONDS (9.7-12.2) H 05/31/18 17:44 INR 1.2 05/31/18 17:44 APTT 39 SECONDS (21-34) H 05/31/18 17:44
[2018-06-01 20:01] LABS: MEAN CORPUSCULAR HEMOGLOBIN 30.7 pg (27.0-31.0); MEAN CORPUSCULAR HGB CONC 36.5 g/dL (33.0-37.0); MEAN PLATELET VOLUME 7.8 fL (7.2-11.7); RBC 1.91 Mil/uL (4.40-5.90); RED CELL DISTRIBUTION WIDTH 18.9 % (11.5-14.5); WHITE BLOOD COUNT 4.2 K/uL (4.8-10.8)
[2018-06-01 20:06] LABS: HEMOGLOBIN 5.9 g/dL (12.0-18.0)
[2018-06-02 07:44] LABS: CALCIUM 8.2 mg/dl (8.6-10.4)
--- NOTE | 2018-06-02 08:18 | CP.PCM.PN ---
Subjective - Date & Time of Evaluation Date of Evaluation: 06/02/18 Time of Evaluation: 08:16 - Subjective Subjective: Patient denies having nausea, vomiting, abdominal pain. He denies having rectal bleeding. Objective - Vital Signs/Intake and Output Vital Signs (last 24 hours): Temp Pulse Resp BP Pulse Ox 98.3 F 76 18 161/79 H 100 06/02/18 05:11 06/02/18 05:11 06/02/18 05:11 06/02/18 05:11 06/01/18 23:20 Intake and Output: 06/02/18 06/02/18 06:59 18:59 Intake Total 650 Balance 650 - Medications Medications: Current Medications Calcium Acetate (Phoslo) 667 mg PO TIDCC [facility] Last Admin: 06/01/18 17:07 Dose: 667 mg Carvedilol (Coreg) 12.5 mg PO BID [facility] Last Admin: 06/01/18 17:07 Dose: 12.5 mg Cinacalcet (Sensipar) 30 mg PO DAILY [facility] Last Admin: 06/01/18 14:19 Dose: 30 mg Colchicine (Colocrys) 0.6 mg PO DAILY [facility] Last Admin: 06/01/18 14:19 Dose: 0.6 mg Home Med (Febuxostat [Uloric]) 80 mg PO DAILY [facility] Tamsulosin HCl (Flomax) 0.4 mg PO DAILY [facility] Last Admin: 06/01/18 14:18 Dose: 0.4 mg - Labs Labs: 06/01/18 19:54 06/02/18 07:14 PT 13.4 SECONDS (9.7-12.2) H 05/31/18 17:44 INR 1.2 05/31/18 17:44 APTT 39 SECONDS (21-34) H 05/31/18 17:44 - Constitutional Appears: No Acute Distress - Head Exam Head Exam: ATRAUMATIC, NORMOCEPHALIC - Eye Exam Eye Exam: EOMI, PERRL - Neck Exam Neck Exam: absent: Lymphadenopathy, Thyromegaly - Respiratory Exam Respiratory Exam: NORMAL BREATHING PATTERN. absent: Rales, Rhonchi, Wheezes - Cardiovascular Exam Cardiovascular Exam: REGULAR RHYTHM, +S1, +S2. absent: Gallop, Rubs, Murmur - GI/Abdominal Exam GI & Abdominal Exam: Soft, Normal Bowel Sounds. absent: Tenderness, Organomegaly Additional comments: 3 cm umbilical hernia - Rectal Exam Rectal Exam: Deferred - Extremities Exam Extremities Exam: absent: Calf Tenderness, Pedal Edema Assessment and Plan (1) Chronic anemia Assessment & Plan: Anemia of unclear etiology. Stool for occult blood was ordered, but results are not yet available. Recommend office follow up. Status: Acute
[2018-06-02 08:30] LABS: HEMOGLOBIN 6.9 g/dL (12.0-18.0); MEAN CELL VOLUME 85.3 fL (80.0-94.0); MEAN CORPUSCULAR HEMOGLOBIN 29.5 pg (27.0-31.0); MEAN CORPUSCULAR HGB CONC 34.6 g/dL (33.0-37.0); MEAN PLATELET VOLUME 8.2 fL (7.2-11.7); RBC 2.33 Mil/uL (4.40-5.90); WHITE BLOOD COUNT 4.5 K/uL (4.8-10.8)
--- NOTE | 2018-06-02 10:05 | CP.PCM.PN ---
Subjective - Date & Time of Evaluation Date of Evaluation: 06/02/18 Time of Evaluation: 14:00 - Subjective Subjective: clinically same Objective - Vital Signs/Intake and Output Vital Signs (last 24 hours): Temp Pulse Resp BP Pulse Ox 98.5 F 84 18 148/70 99 06/02/18 07:00 06/02/18 07:50 06/02/18 07:00 06/02/18 09:30 06/02/18 07:00 Intake and Output: 06/02/18 06/02/18 06:59 18:59 Intake Total 650 Balance 650 - Medications Medications: Current Medications Calcium Acetate (Phoslo) 667 mg PO TIDCC [facility] Last Admin: 06/02/18 08:21 Dose: 667 mg Carvedilol (Coreg) 12.5 mg PO BID [facility] Last Admin: 06/02/18 09:30 Dose: 12.5 mg Cinacalcet (Sensipar) 30 mg PO DAILY [facility] Last Admin: 06/02/18 09:32 Dose: 30 mg Colchicine (Colocrys) 0.6 mg PO DAILY [facility] Last Admin: 06/02/18 09:32 Dose: 0.6 mg Home Med (Febuxostat [Uloric]) 80 mg PO DAILY [facility] Tamsulosin HCl (Flomax) 0.4 mg PO DAILY [facility] Last Admin: 06/02/18 09:32 Dose: 0.4 mg - Labs Labs: 06/02/18 07:14 06/02/18 07:14 PT 13.4 SECONDS (9.7-12.2) H 05/31/18 17:44 INR 1.2 05/31/18 17:44 APTT 39 SECONDS (21-34) H 05/31/18 17:44 - Constitutional Appears: Well - Head Exam Head Exam: ATRAUMATIC, NORMAL INSPECTION, NORMOCEPHALIC - Eye Exam Eye Exam: EOMI, Normal appearance, PERRL Pupil Exam: NORMAL ACCOMODATION, PERRL - ENT Exam ENT Exam: Mucous Membranes Moist, Normal Exam - Neck Exam Neck Exam: Full ROM, Normal Inspection. absent: Lymphadenopathy - Respiratory Exam Respiratory Exam: Decreased Breath Sounds - Cardiovascular Exam Cardiovascular Exam: REGULAR RHYTHM, +S1, +S2 - GI/Abdominal Exam GI & Abdominal Exam: Soft, Diminished Bowel Sounds - Rectal Exam Rectal Exam: Deferred
[2018-06-02 12:07] VITALS: RESP 16
[2018-06-02 13:13] VITALS: TEMP 97.7
--- NOTE | 2018-06-02 13:15 | CP.PCM.PN ---
Subjective - Date & Time of Evaluation Date of Evaluation: 06/02/18 Time of Evaluation: 13:12 - Subjective Subjective: Seen at dialysis To UF 1500ml Receiving 4th total prbcs blood transfusion since 06/01 Feels better Discussed in detail with heme ESAs not working- has been undergoing heme workups Objective - Vital Signs/Intake and Output Vital Signs (last 24 hours): Temp Pulse Resp BP Pulse Ox 97.5 F L 75 16 149/84 98 06/02/18 12:06 06/02/18 12:06 06/02/18 12:06 06/02/18 12:10 06/02/18 11:40 Intake and Output: 06/02/18 06/02/18 06:59 18:59 Intake Total 650 0 Balance 650 0 - Medications Medications: Current Medications Calcium Acetate (Phoslo) 667 mg PO TIDCC [facility] Last Admin: 06/02/18 08:21 Dose: 667 mg Carvedilol (Coreg) 12.5 mg PO BID [facility] Last Admin: 06/02/18 09:30 Dose: 12.5 mg Cinacalcet (Sensipar) 30 mg PO DAILY [facility] Last Admin: 06/02/18 09:32 Dose: 30 mg Colchicine (Colocrys) 0.6 mg PO QOD [facility] Tamsulosin HCl (Flomax) 0.4 mg PO DAILY [facility] Last Admin: 06/02/18 09:32 Dose: 0.4 mg - Labs Labs: 06/02/18 07:14 06/02/18 07:14 PT 13.4 SECONDS (9.7-12.2) H 05/31/18 17:44 INR 1.2 05/31/18 17:44 APTT 39 SECONDS (21-34) H 05/31/18 17:44 - Constitutional Appears: No Acute Distress, Chronically Ill - Head Exam Head Exam: ATRAUMATIC, NORMAL INSPECTION - Eye Exam Eye Exam: EOMI, Normal appearance - Neck Exam Neck Exam: Normal Inspection. absent: Tenderness - Respiratory Exam Respiratory Exam: Clear to Ausculation Bilateral, NORMAL BREATHING PATTERN - Cardiovascular Exam Cardiovascular Exam: REGULAR RHYTHM, +S1 - GI/Abdominal Exam GI & Abdominal Exam: Soft. absent: Tenderness - Extremities Exam Extremities Exam: Normal Inspection. absent: Tenderness - Neurological Exam Neurological Exam: Awake, CN II-XII Intact - Skin Skin Exam: Dry, Warm Assessment and Plan (1) Hypertensive chronic kidney disease with stage 5 chronic kidney disease or end stage renal disease Status: Acute (2) Severe anemia Status: Acute (3) Obstructive nephropathy Status: Acute - Assessment and Plan (Free Text) Plan: Dialysis now finish blood transfusion possible discharge today will follow results of heme workup as outpt
[2018-06-02 13:48] VITALS: BP 125/92; PULSE 63
--- NOTE | 2018-06-02 14:13 | CP.PCM.PN ---
Subjective - Date & Time of Evaluation Date of Evaluation: 06/02/18 Time of Evaluation: 14:12 - Subjective Subjective: PT SEEN BY DR. Alba PETERSON AND CLEARED FOR D/C HOME TODAY. CONTINUE SAME HOME MEDS , NO NEW RX. PT TO CONTINUE HD SCHEDULE. TO F/U WITH DR PETERSON OR PMD. SEE BELOW FOR D/C INSTRUCTIONS. NO FURTHER ORDERS. -FOLLOW UP WITH DR. Alba PETERSON OR YOUR PRIMARY PROVIDER IN THE OFFICE WITHIN 5-7 DAYS---CALL THE OFFICE TO MAKE AN APPOINTMENT. -FOLLOW UP WITH DR. NUNN AND DR. KNOX IN THEIR OFFICES WITHIN 7-10 DAYS--- CALL THE OFFICE TO MAKE AN APPOINTMENT. -CONTINUE HOME MEDICATIONS USUAL. -FOR FURTHER CONCERNS OR QUESTIONS, FEEL FREE TO CONTACT DR. PETERSON. Objective - Vital Signs/Intake and Output Vital Signs (last 24 hours): Temp Pulse Resp BP Pulse Ox 97.7 F 63 16 125/92 H 98 06/02/18 13:15 06/02/18 13:15 06/02/18 12:51 06/02/18 13:15 06/02/18 11:40 Intake and Output: 06/02/18 06/02/18 06:59 18:59 Intake Total 650 355 Balance 650 355 - Medications Medications: Current Medications Calcium Acetate (Phoslo) 667 mg PO TIDCC [facility] Last Admin: 06/02/18 08:21 Dose: 667 mg Carvedilol (Coreg) 12.5 mg PO BID [facility] Last Admin: 06/02/18 09:30 Dose: 12.5 mg Cinacalcet (Sensipar) 30 mg PO DAILY [facility] Last Admin: 06/02/18 09:32 Dose: 30 mg Colchicine (Colocrys) 0.6 mg PO QOD [facility] Tamsulosin HCl (Flomax) 0.4 mg PO DAILY [facility] Last Admin: 06/02/18 09:32 Dose: 0.4 mg - Labs Labs: 06/02/18 07:14 06/02/18 07:14 PT 13.4 SECONDS (9.7-12.2) H 05/31/18 17:44 INR 1.2 05/31/18 17:44 APTT 39 SECONDS (21-34) H 05/31/18 17:44
--- NOTE | 2018-06-04 23:50 | CP.PCM.PN ---
Subjective - Date & Time of Evaluation Date of Evaluation: 06/02/18 Time of Evaluation: 12:00 - Subjective Subjective: Seen on HD. Objective - Vital Signs/Intake and Output Vital Signs (last 24 hours): Temp Pulse Resp BP Pulse Ox 97.7 F 63 16 125/92 H 98 06/02/18 13:15 06/02/18 13:15 06/02/18 12:51 06/02/18 13:15 06/02/18 11:40 - Labs Labs: 06/02/18 07:14 06/02/18 07:14 PT 13.4 SECONDS (9.7-12.2) H 05/31/18 17:44 INR 1.2 05/31/18 17:44 APTT 39 SECONDS (21-34) H 05/31/18 17:44 - Head Exam Head Exam: ATRAUMATIC - Eye Exam Eye Exam: Normal appearance - ENT Exam ENT Exam: Mucous Membranes Dry - Respiratory Exam Respiratory Exam: NORMAL BREATHING PATTERN - Cardiovascular Exam Cardiovascular Exam: +S1, +S2 - GI/Abdominal Exam GI & Abdominal Exam: Normal Bowel Sounds - Extremities Exam Extremities Exam: Normal Inspection Assessment and Plan (1) Hepatosplenomegaly Assessment & Plan: suspect related to extramedullary hematopoiesis; bone marrow negative for malignancy unable to rule out infiltrative pathology without biopsy/splenectomy however risk of bleeding/increased infection Status: Acute (2) Anemia Assessment & Plan: hypoproliferative erythroid response; should be elevated with MIS ? MIS antibody no iron/b12/folate deficiency no pathology noted on bone marrow pathology no evidence of bleeding Status: Acute
[2018-06-05 07:13] VITALS: O2SAT 100
== END 2018-06-02 14:29 | disposition home or self-care (01) | DRG 811 ==
LOC: C.ER 16:35 → C.9E 18:24 → C.6T 21:30
PROVIDERS: ADMIT Internal Medicine Nephrology; ATTEND Internal Medicine Nephrology
PROC: 30233N1 Transfusion of Nonautologous Red Blood Cells into Peripheral Vein, Percutaneous Approach (ICD-10-PCS; principal; 2018-05-31)
PROC: 5A1D70Z Performance of Urinary Filtration, Intermittent, Less than 6 Hours Per Day (ICD-10-PCS; 2018-06-01)
PROC: 30233N1 Transfusion of Nonautologous Red Blood Cells into Peripheral Vein, Percutaneous Approach (ICD-10-PCS; 2018-06-01)
PROC: 5A1D70Z Performance of Urinary Filtration, Intermittent, Less than 6 Hours Per Day (ICD-10-PCS; 2018-06-02)
PROC: 30233N1 Transfusion of Nonautologous Red Blood Cells into Peripheral Vein, Percutaneous Approach (ICD-10-PCS; 2018-06-02)
DX: D64.9 Anemia, unspecified (principal); N18.6 End stage renal disease; I12.0 Hypertensive chronic kidney disease with stage 5 chronic kidney disease or end stage renal disease; N13.8 Other obstructive and reflux uropathy; N40.1 Benign prostatic hyperplasia with lower urinary tract symptoms; K31.9 Disease of stomach and duodenum, unspecified; M19.90 Unspecified osteoarthritis, unspecified site; Z99.2 Dependence on renal dialysis

== ENCOUNTER 2018-07-07 17:04 | Inpatient (IN) | payer MEDICARE ==
[2018-07-07 17:05] VITALS: BMI 25.0
[2018-07-07 18:14] LABS: BASO # 0.2 K/uL (0.0-0.2); BASO % 2.1 % (0.0-2.0); EOS # 0.1 K/uL (0.0-0.7); EOS % 1.5 % (0.0-4.0); LYMPH # 1.2 K/uL (1.0-4.3); LYMPH % 16.4 % (20.0-40.0); MEAN CELL VOLUME 85.3 fL (80.0-94.0); MEAN CORPUSCULAR HEMOGLOBIN 30.6 pg (27.0-31.0); MEAN CORPUSCULAR HGB CONC 35.9 g/dL (33.0-37.0); MEAN PLATELET VOLUME 8.1 fL (7.2-11.7); MONO # 0.5 K/uL (0.0-0.8); MONO % 7.1 % (0.0-10.0); NEUT # 5.3 K/uL (1.8-7.0); NEUT % 72.9 % (50.0-75.0); NRBC % 0.1 % (0.0-2.0); RBC 1.84 Mil/uL (4.40-5.90); RED CELL DISTRIBUTION WIDTH 20.7 % (11.5-14.5); WHITE BLOOD COUNT 7.3 K/uL (4.8-10.8)
--- NOTE | 2018-07-07 18:20 | C.PDOC ---
History Of Present Illness 63 year old male dialysis patient sent to the ER by Dr. Paul for low HGB. Patient usually has dialysis on M, W, F. Dialysis was not performed today. Patient also has a splenomegaly and is seeing a doctor for that. Time Seen by Provider: 07/07/18 17:46 Chief Complaint (Nursing): Abnormal Labs History Per: Patient History/Exam Limitations: no limitations Current Symptoms Are (Timing): Still Present Past Medical History Reviewed: Historical Data, Nursing Documentation, Vital Signs Vital Signs: Last Vital Signs Temp 98.4 F 07/07/18 17:17 Pulse 86 07/07/18 17:17 Resp 19 07/07/18 17:17 BP 167/83 H 07/07/18 17:17 Pulse Ox 100 07/07/18 17:17 - Medical History PMH: Anemia, Arthritis, Benign Prostatic Hyperplasia, HTN, Chronic Kidney Disease - [facility] Procedures (05/31/18) BYPASS LEFT BRACHIAL ARTERY TO UPPER ARM VEIN, OPEN APPROACH (05/31/17) DILATION OF LEFT BRACHIAL ARTERY, PERCUTANEOUS APPROACH (10/18/17) INSERTION OF INFUSION DEV INTO SUP VENA CAVA, PERC APPROACH (05/31/17) PERFORMANCE OF URINARY FILTRATION, MULTIPLE (05/31/17) REVISION OF INFUSION DEVICE IN UPPER ARTERY, OPEN APPROACH (10/18/17) TRANSFUSE NONAUT RED BLOOD CELLS IN PERIPH VEIN, PERC (05/31/18) Family History: States: Unknown Family Hx - Social History Hx Alcohol Use: No Hx Substance Use: No - Immunization History Hx Tetanus Toxoid Vaccination: Yes Hx Influenza Vaccination: Yes (06/2018) Hx Pneumococcal Vaccination: Yes Review Of Systems Except As Marked, All Systems Reviewed And Found Negative. Constitutional: Positive for: Other (+thrill L arm; AV fistula) Physical Exam - Physical Exam Appears: Non-toxic, No Acute Distress Skin: Normal Color, Warm, Dry Head: Atraumatic, Normacephalic Eye(s): bilateral: Normal Inspection, PERRL, EOMI, Conjunctiva Pale Nose: Normal Oral Mucosa: Moist Chest: Symmetrical Cardiovascular: Rhythm Regular, No Murmur Respiratory: Normal Breath Sounds, No Rales, No Rhonchi, No Wheezing Gastrointestinal/Abdominal: Normal Exam, Soft, No Tenderness Extremity: Normal ROM (x4 (+) thrill to left av fistula ) Extremity: Bilateral: Atraumatic, Normal Color And Temperature Neurological/Psych: Oriented x3, Normal Speech ED Course And Treatment - Laboratory Results Result Diagrams: 07/07/18 18:10 07/07/18 18:10 ECG: Interpreted By Me, Viewed By Me ECG Rhythm: Sinus Rhythm ECG Interpretation: Normal, No Acute Changes Interpretation Of ECG: nml intervals, nml axis; non-specific T-wave changes Rate From EC O2 Sat by Pulse Oximetry: 100 (RA) Pulse Ox Interpretation: Normal - Other Rad chest X-Ray: Read By Radiologist Interpretation: Accession No. : [id number]. Patient Name / ID : NATALIYA LINDSAY / [id number]. Exam Date : 07/07/2018 18:07:39 ( Approved ). Study Comment : Sex / Age : M / 63Y. Creator : Rakan Norwood MD. Dictator : Rakan Norwood MD. Paralegal Instructor : Delicatessen Slicer : Rakan Norwood MD. Approver2 : Report Date : 07/07/2018 18:42:55. My Comment : . Date of service: 07/07/2018. PROCEDURE: CHEST RADIOGRAPH, 1 VIEW. HISTORY: abd pain. COMPARISON: 10/18/2017. FINDINGS: LUNGS: Clear. PLEURA: No pneumothorax or pleural fluid seen. CARDIOVASCULAR: No radiographic findings to suggest acute or significant cardiovascular disease. OSSEOUS STRUCTURES: No significant abnormalities. VISUALIZED UPPER ABDOMEN: Normal. OTHER FINDINGS: None. IMPRESSION: No active disease. No acute/significant interval changes. Medical Decision Making Medical Decision Making: Impression: anemia Plans: -- blood work -- EKG -- chem labs -- CXR Reassess: Disposition Discussed With : Karoline Reeves Doctor Will See Patient In The: Hospital Counseled Patient/Family Regarding: Studies Performed, Diagnosis - Disposition Disposition: HOSPITALIZED Disposition Time: 19:02 Condition: FAIR - Clinical Impression Clinical Impression: Anemia, ESRD (end stage renal disease) - Scribe Statement The provider has reviewed the documentation as recorded by the Scribe Ama Rao Provider Attestation: All medical record entries made by the Ericaibe were at my direction and personall y dictated by me. I have reviewed the chart and agree that the record accurately reflects my personal performance of the history, physical exam, medical decision making, and the department course for this patient. I have also personally directed, reviewed, and agree with the discharge instructions and disposition.
[2018-07-07 18:35] LABS: HEMOGLOBIN 5.6 g/dL (12.0-18.0)
[2018-07-07 18:38] LABS: ALB/GLOB RATIO 1.5 (1.0-2.1); ALBUMIN 4.4 g/dL (3.5-5.0); CALCIUM 8.3 mg/dl (8.6-10.4); INR 1.2; PROTHROMBIN TIME 13.1 SECONDS (9.7-12.2)
[2018-07-07 18:39] LABS: TROPONIN I 0.016 ng/mL (0.00-0.120)
--- NOTE | 2018-07-07 18:46 | RAD ---
Date of service: 07/07/2018 PROCEDURE: CHEST RADIOGRAPH, 1 VIEW HISTORY: abd pain COMPARISON: 10/18/2017 FINDINGS: LUNGS: Clear. PLEURA: No pneumothorax or pleural fluid seen. CARDIOVASCULAR: No radiographic findings to suggest acute or significant cardiovascular disease. OSSEOUS STRUCTURES: No significant abnormalities. VISUALIZED UPPER ABDOMEN: Normal. OTHER FINDINGS: None. IMPRESSION: No active disease. No acute/significant interval changes.
[2018-07-08] MEDS: Pantoprazole 40 mg EC Tab PO SCH (09:31)
[2018-07-08] MEDS ORDERED: Home Med 1 UNIT (Febuxostat [Uloric] 80 MG) PO SCH (10:00)
--- NOTE | 2018-07-08 11:43 | CP.PCM.CON ---
History of Present Illness - History of Present Illness History of Present Illness: renal consult for management of dialysis 63 yo AA male, on dialysis, HTN, BPH, chronic anemia. Pt is seeing Heme, noted to have splenomegaly. Requiring multiple blood transfusions every 6 weeks. Notes mild fatigue. Last HD on Tuesday. Extensive GI w/u negative. Review of Systems - Constitutional Constitutional: Fatigue, Weakness. absent: Fever - EENT Eyes: absent: Blurred Vision, Change in Vision Nose/Mouth/Throat: absent: Epistaxis, Nasal Congestion - Cardiovascular Cardiovascular: Dyspnea on Exertion. absent: Chest Pain - Respiratory Respiratory: absent: Cough, Dyspnea - Gastrointestinal Gastrointestinal: absent: Abdominal Pain, Bloating - Genitourinary Genitourinary: absent: Change in Urinary Stream - Neurological Neurological: absent: Convulsions, Frequent Falls - Psychiatric Psychiatric: absent: Anxiety, Depression Past Patient History - Infectious Disease Hx of Infectious Diseases: None - Past Medical History & Family History Past Medical History?: Yes - Past Social History Smoking Status: Never Smoked - CARDIAC Hx Hypertension: Yes - PULMONARY Hx Respiratory Disorders: No - NEUROLOGICAL Hx Neurological Disorder: No - HEENT Hx HEENT Problems: No - RENAL Hx Chronic Kidney Disease: Yes - ENDOCRINE/METABOLIC Hx Endocrine Disorders: No - HEMATOLOGICAL/ONCOLOGICAL Hx Anemia: Yes - INTEGUMENTARY Hx Dermatological Problems: No - MUSCULOSKELETAL/RHEUMATOLOGICAL Hx Arthritis: Yes - GASTROINTESTINAL Hx Gastrointestinal Disorders: No - GENITOURINARY/GYNECOLOGICAL Hx Genitourinary Disorders: No - PSYCHIATRIC Hx Substance Use: No - SURGICAL HISTORY Hx Surgeries: Yes Hx Orthopedic Surgery: Yes (right knee , left foot) Hx Vascular Access Device: Yes (LEFT ARM GRAFT) Other/Comment: LEFT FOOT BUNION SURGERY-10YRS. - ANESTHESIA Hx Anesthesia: Yes Hx Anesthesia Reactions: No Hx Malignant Hyperthermia: No Meds Allergies/Adverse Reactions: Allergies Allergy/AdvReac Type Severity Reaction Status Date / Time No Known Allergies Allergy Verified 07/07/18 17:21 - Medications Medications: Current Medications Allopurinol (Zyloprim) 100 mg PO DAILY [facility] Last Admin: 07/08/18 09:31 Dose: 100 mg Calcium Acetate (Phoslo) 667 mg PO TIDCC [facility] Last Admin: 07/08/18 09:31 Dose: 667 mg Carvedilol (Coreg) 3.125 mg PO DAILY [facility] Last Admin: 07/08/18 09:31 Dose: 3.125 mg Cinacalcet (Sensipar) 30 mg PO DAILY [facility] Last Admin: 07/08/18 09:31 Dose: 30 mg Home Med (Febuxostat [Uloric]) 80 mg PO DAILY [facility] Pantoprazole Sodium (Protonix Ec Tab) 40 mg PO DAILY [facility] Last Admin: 07/08/18 09:31 Dose: 40 mg Tamsulosin HCl (Flomax) 0.4 mg PO DAILY [facility] Last Admin: 07/08/18 09:31 Dose: 0.4 mg Physical Exam - Constitutional Appears: Non-toxic, No Acute Distress - Head Exam Head Exam: ATRAUMATIC, NORMAL INSPECTION - Eye Exam Eye Exam: EOMI, Normal appearance - Neck Exam Neck exam: Positive for: Full Rom. Negative for: Lymphadenopathy - Respiratory Exam Respiratory Exam: Decreased Breath Sounds. absent: Accessory Muscle Use - Cardiovascular Exam Cardiovascular Exam: REGULAR RHYTHM. absent: Rubs - GI/Abdominal Exam GI & Abdominal Exam: Normal Bowel Sounds, Organomegaly. absent: Rebound - Extremities Exam Extremities exam: Negative for: pedal edema - Neurological Exam Neurological exam: Alert, Oriented x3 Results - Vital Signs Recent Vital Signs: Last Vital Signs Temp 98.3 F 07/08/18 08:18 Pulse 81 07/08/18 08:18 Resp 20 07/08/18 08:18 BP 151/80 H 07/08/18 08:18 Pulse Ox 98 07/08/18 08:18 - Labs Result Diagrams: 07/07/18 18:10 07/07/18 18:10 Labs: Laboratory Results - last 24 hr 07/07/18 07/07/18 07/07/18 18:10 18:10 18:10 WBC 7.3 D RBC 1.84 L Hgb 5.6 L* Hct 15.7 L MCV 85.3 MCH 30.6 MCHC 35.9 RDW 20.7 H Plt Count 305 MPV 8.1 Neut % (Auto) 72.9 Lymph % (Auto) 16.4 L [place] % (Auto) 7.1 Eos % (Auto) 1.5 Baso % (Auto) 2.1 H Neut # (Auto) 5.3 Lymph # (Auto) 1.2 [place] # (Auto) 0.5 Eos # (Auto) 0.1 Baso # (Auto) 0.2 PT 13.1 H INR 1.2 APTT 37 H Sodium 143 Potassium 4.5 Chloride 102 Carbon Dioxide 24 Anion Gap 23 H BUN 64 H Creatinine 9.0 H* D Est GFR ( Amer) 7 Est GFR (Non-Af Amer) 6 Random Glucose 85 Calcium 8.3 L Total Bilirubin 1.4 H AST 7 L D ALT 13 L D Alkaline Phosphatase 72 Troponin I 0.0160 Total Protein 7.3 Albumin 4.4 Globulin 2.9 Albumin/Globulin Ratio 1.5 Blood Type Antibody Screen 07/07/18 18:10 WBC RBC Hgb Hct MCV MCH MCHC RDW Plt Count MPV Neut % (Auto) Lymph % (Auto) [place] % (Auto) Eos % (Auto) Baso % (Auto) Neut # (Auto) Lymph # (Auto) [place] # (Auto) Eos # (Auto) Baso # (Auto) PT INR APTT Sodium Potassium Chloride Carbon Dioxide Anion Gap BUN Creatinine Est GFR ( Amer) Est GFR (Non-Af Amer) Random Glucose Calcium Total Bilirubin AST ALT Alkaline Phosphatase Troponin I Total Protein Albumin Globulin Albumin/Globulin Ratio Blood Type O POSITIVE Antibody Screen Negative Assessment & Plan - Assessment and Plan (Free Text) Assessment: chronic anemia, splenomegaly symptomatic esrd htn HD today with blood transfusions will probably need splenectomy has f/u with Heme this week
[2018-07-08 11:47] LABS: BASO # 0.2 K/uL (0.0-0.2); BASO % 2.3 % (0.0-2.0); EOS # 0.1 K/uL (0.0-0.7); EOS % 1.6 % (0.0-4.0); LYMPH # 1.1 K/uL (1.0-4.3); LYMPH % 13.4 % (20.0-40.0); MEAN CELL VOLUME 85.7 fL (80.0-94.0); MEAN CORPUSCULAR HEMOGLOBIN 30.2 pg (27.0-31.0); MEAN CORPUSCULAR HGB CONC 35.2 g/dL (33.0-37.0); MEAN PLATELET VOLUME 8.4 fL (7.2-11.7); MONO # 0.5 K/uL (0.0-0.8); MONO % 6.2 % (0.0-10.0); NEUT # 6.1 K/uL (1.8-7.0); NEUT % 76.5 % (50.0-75.0); NRBC % 0.2 % (0.0-2.0); RBC 1.84 Mil/uL (4.40-5.90); WHITE BLOOD COUNT 7.9 K/uL (4.8-10.8)
[2018-07-08 12:02] LABS: HEMOGLOBIN 5.5 g/dL (12.0-18.0)
--- NOTE | 2018-07-08 12:46 | CP.PCM.HP ---
Past Patient History - Infectious Disease Hx of Infectious Diseases: None - Past Medical History & Family History Past Medical History?: Yes - Past Social History Smoking Status: Never Smoked - CARDIAC Hx Hypertension: Yes - PULMONARY Hx Respiratory Disorders: No - NEUROLOGICAL Hx Neurological Disorder: No - HEENT Hx HEENT Problems: No - RENAL Hx Chronic Kidney Disease: Yes - ENDOCRINE/METABOLIC Hx Endocrine Disorders: No - HEMATOLOGICAL/ONCOLOGICAL Hx Anemia: Yes - INTEGUMENTARY Hx Dermatological Problems: No - MUSCULOSKELETAL/RHEUMATOLOGICAL Hx Arthritis: Yes - GASTROINTESTINAL Hx Gastrointestinal Disorders: No - GENITOURINARY/GYNECOLOGICAL Hx Genitourinary Disorders: No - PSYCHIATRIC Hx Substance Use: No - SURGICAL HISTORY Hx Surgeries: Yes Hx Orthopedic Surgery: Yes (right knee , left foot) Hx Vascular Access Device: Yes (LEFT ARM GRAFT) Other/Comment: LEFT FOOT BUNION SURGERY-10YRS. - ANESTHESIA Hx Anesthesia: Yes Hx Anesthesia Reactions: No Hx Malignant Hyperthermia: No Meds Allergies/Adverse Reactions: Allergies Allergy/AdvReac Type Severity Reaction Status Date / Time No Known Allergies Allergy Verified 07/07/18 17:21 Physical Exam - Constitutional Appears: Well - Head Exam Head Exam: ATRAUMATIC, NORMAL INSPECTION, NORMOCEPHALIC - Eye Exam Eye Exam: EOMI, Normal appearance, PERRL Pupil Exam: NORMAL ACCOMODATION, PERRL - ENT Exam ENT Exam: Mucous Membranes Moist, Normal Exam - Neck Exam Neck exam: Positive for: Normal Inspection - Respiratory Exam Respiratory Exam: Decreased Breath Sounds - Cardiovascular Exam Cardiovascular Exam: REGULAR RHYTHM, +S1, +S2 - GI/Abdominal Exam GI & Abdominal Exam: Diminished Bowel Sounds, Soft - Rectal Exam Rectal Exam: Deferred Results - Vital Signs Recent Vital Signs: Last Vital Signs Temp 98.3 F 07/08/18 08:18 Pulse 81 07/08/18 08:18 Resp 20 07/08/18 08:18 BP 151/80 H 07/08/18 08:18 Pulse Ox 98 07/08/18 08:18 - Labs Result Diagrams: 07/08/18 11:34 07/07/18 18:10 Labs: Laboratory Results - last 24 hr 07/07/18 07/07/18 07/07/18 18:10 18:10 18:10 WBC 7.3 D RBC 1.84 L Hgb 5.6 L* Hct 15.7 L MCV 85.3 MCH 30.6 MCHC 35.9 RDW 20.7 H Plt Count 305 MPV 8.1 Neut % (Auto) 72.9 Lymph % (Auto) 16.4 L [place] % (Auto) 7.1 Eos % (Auto) 1.5 Baso % (Auto) 2.1 H Neut # (Auto) 5.3 Lymph # (Auto) 1.2 [place] # (Auto) 0.5 Eos # (Auto) 0.1 Baso # (Auto) 0.2 PT 13.1 H INR 1.2 APTT 37 H Sodium 143 Potassium 4.5 Chloride 102 Carbon Dioxide 24 Anion Gap 23 H BUN 64 H Creatinine 9.0 H* D Est GFR ( Amer) 7 Est GFR (Non-Af Amer) 6 Random Glucose 85 Calcium 8.3 L Total Bilirubin 1.4 H AST 7 L D ALT 13 L D Alkaline Phosphatase 72 Troponin I 0.0160 Total Protein 7.3 Albumin 4.4 Globulin 2.9 Albumin/Globulin Ratio 1.5 Blood Type Antibody Screen 07/07/18 07/08/18 18:10 11:34 WBC 7.9 RBC 1.84 L Hgb 5.5 L* Hct 15.8 L MCV 85.7 MCH 30.2 MCHC 35.2 RDW 20.0 H Plt Count 307 MPV 8.4 Neut % (Auto) 76.5 H Lymph % (Auto) 13.4 L [place] % (Auto) 6.2 Eos % (Auto) 1.6 Baso % (Auto) 2.3 H Neut # (Auto) 6.1 Lymph # (Auto) 1.1 [place] # (Auto) 0.5 Eos # (Auto) 0.1 Baso # (Auto) 0.2 PT INR APTT Sodium Potassium Chloride Carbon Dioxide Anion Gap BUN Creatinine Est GFR ( Amer) Est GFR (Non-Af Amer) Random Glucose Calcium Total Bilirubin AST ALT Alkaline Phosphatase Troponin I Total Protein Albumin Globulin Albumin/Globulin Ratio Blood Type O POSITIVE Antibody Screen Negative
--- NOTE | 2018-07-08 18:47 | CP.PCM.CON ---
History of Present Illness - History of Present Illness History of Present Illness: 62 year old male with a history of HTN, BPH, ESRD on HD, chronic anemia, admitted with symptomatic anemia. The patient is well known to me and underwent an extensive work up for his anemia. A GI work up and one marrow biopsy failed to find pathology contributing to his anemia. He had been receiving transfusion 2-3x weekly but a switch in his MIS therapy decreased this transfusion dependence greatly but unfortunetly is now requiring more transfusion dependence. He has been seeing a limb driver at [facility] and noted to have splenom egaly. Past medical history: HTN, BPH, ESRD on HD, anemia Past surgical history: AV fistula Family history: Denies hematologic and oncologic problems Social history: Denies tobacco, alcohol, and illicit drug use. Allergies: NKA Review of systems: All remaining review of systems including HEENT, cardiovascular, respiratory, gastrointestinal, genitourinary, musculoskeletal, dermatologic, neurologic, and psychiatric are negative unless mentioned in the HPI. Past Patient History - Infectious Disease Hx of Infectious Diseases: None - Past Medical History & Family History Past Medical History?: Yes - Past Social History Smoking Status: Never Smoked - CARDIAC Hx Hypertension: Yes - PULMONARY Hx Respiratory Disorders: No - NEUROLOGICAL Hx Neurological Disorder: No - HEENT Hx HEENT Problems: No - RENAL Hx Chronic Kidney Disease: Yes - ENDOCRINE/METABOLIC Hx Endocrine Disorders: No - HEMATOLOGICAL/ONCOLOGICAL Hx Anemia: Yes - INTEGUMENTARY Hx Dermatological Problems: No - MUSCULOSKELETAL/RHEUMATOLOGICAL Hx Arthritis: Yes - GASTROINTESTINAL Hx Gastrointestinal Disorders: No - GENITOURINARY/GYNECOLOGICAL Hx Genitourinary Disorders: No - PSYCHIATRIC Hx Substance Use: No - SURGICAL HISTORY Hx Surgeries: Yes Hx Orthopedic Surgery: Yes (right knee , left foot) Hx Vascular Access Device: Yes (LEFT ARM GRAFT) Other/Comment: LEFT FOOT BUNION SURGERY-10YRS. - ANESTHESIA Hx Anesthesia: Yes Hx Anesthesia Reactions: No Hx Malignant Hyperthermia: No Meds Allergies/Adverse Reactions: Allergies Allergy/AdvReac Type Severity Reaction Status Date / Time No Known Allergies Allergy Verified 07/07/18 17:21 - Medications Medications: Current Medications Allopurinol (Zyloprim) 100 mg PO DAILY [facility] Last Admin: 07/08/18 09:31 Dose: 100 mg Calcium Acetate (Phoslo) 667 mg PO TIDCC [facility] Last Admin: 07/08/18 18:01 Dose: 667 mg Carvedilol (Coreg) 3.125 mg PO DAILY [facility] Last Admin: 07/08/18 09:31 Dose: 3.125 mg Cinacalcet (Sensipar) 30 mg PO DAILY [facility] Last Admin: 07/08/18 09:31 Dose: 30 mg Home Med (Febuxostat [Uloric]) 80 mg PO DAILY [facility] Pantoprazole Sodium (Protonix Ec Tab) 40 mg PO DAILY [facility] Last Admin: 07/08/18 09:31 Dose: 40 mg Tamsulosin HCl (Flomax) 0.4 mg PO DAILY [facility] Last Admin: 07/08/18 09:31 Dose: 0.4 mg Physical Exam - Head Exam Head Exam: ATRAUMATIC - Eye Exam Eye Exam: Normal appearance - ENT Exam ENT Exam: Mucous Membranes Dry - Respiratory Exam Respiratory Exam: NORMAL BREATHING PATTERN - Cardiovascular Exam Cardiovascular Exam: +S1, +S2 - GI/Abdominal Exam GI & Abdominal Exam: Normal Bowel Sounds - Extremities Exam Extremities exam: Positive for: normal inspection - Neurological Exam Neurological exam: Oriented x3 - Psychiatric Exam Psychiatric exam: Normal Affect, Normal Mood - Skin Skin Exam: Warm Results - Vital Signs Recent Vital Signs: Last Vital Signs Temp 97.9 F 07/08/18 16:30 Pulse 74 07/08/18 16:30 Resp 20 07/08/18 16:30 BP 145/87 07/08/18 16:30 Pulse Ox 99 07/08/18 16:30 - Labs Result Diagrams: 07/08/18 11:34 07/07/18 18:10 Labs: Laboratory Results - last 24 hr 07/07/18 07/08/18 18:10 11:34 WBC 7.9 RBC 1.84 L Hgb 5.5 L* Hct 15.8 L MCV 85.7 MCH 30.2 MCHC 35.2 RDW 20.0 H Plt Count 307 MPV 8.4 Neut % (Auto) 76.5 H Lymph % (Auto) 13.4 L [place] % (Auto) 6.2 Eos % (Auto) 1.6 Baso % (Auto) 2.3 H Neut # (Auto) 6.1 Lymph # (Auto) 1.1 [place] # (Auto) 0.5 Eos # (Auto) 0.1 Baso # (Auto) 0.2 Blood Type O POSITIVE Antibody Screen Negative Assessment & Plan (1) Hepatosplenomegaly Assessment and Plan: suspect related to extramedullary hematopoiesis; bone marrow negative for malignancy unable to rule out infiltrative pathology without biopsy/splenectomy, however risk of bleeding/increased infection Status: Acute (2) Anemia Assessment and Plan: hypoproliferative erythroid response; erythroid cellularity in bone marrow shou ld be elevated with MIS ? MIS antibody no iron/b12/folate deficiency no pathology noted on bone marrow pathology no evidence of bleeding Thank you for this interesting consult. Status: Acute
[2018-07-09 08:01] LABS: BASO # 0.1 K/uL (0.0-0.2); EOS # 0.1 K/uL (0.0-0.7); EOS % 1.9 % (0.0-4.0); HEMOGLOBIN 7.1 g/dL (12.0-18.0); LYMPH # 0.9 K/uL (1.0-4.3); LYMPH % 13.3 % (20.0-40.0); MEAN CELL VOLUME 83.3 fL (80.0-94.0); MEAN CORPUSCULAR HEMOGLOBIN 30.8 pg (27.0-31.0); MEAN PLATELET VOLUME 7.8 fL (7.2-11.7); MONO # 0.4 K/uL (0.0-0.8); MONO % 6.3 % (0.0-10.0); NEUT % 76.5 % (50.0-75.0); RBC 2.29 Mil/uL (4.40-5.90); RED CELL DISTRIBUTION WIDTH 17.9 % (11.5-14.5); WHITE BLOOD COUNT 6.5 K/uL (4.8-10.8)
[2018-07-09] MEDS: Pantoprazole 40 mg EC Tab PO SCH (09:23)
--- NOTE | 2018-07-09 16:17 | CP.PCM.PN ---
Subjective - Date & Time of Evaluation Date of Evaluation: 07/09/18 Time of Evaluation: 10:00 - Subjective Subjective: clinically same Objective - Vital Signs/Intake and Output Vital Signs (last 24 hours): Temp Pulse Resp BP Pulse Ox 97.8 F 72 18 145/81 99 07/09/18 07:00 07/09/18 07:00 07/09/18 07:00 07/09/18 07:00 07/09/18 07:00 Intake and Output: 07/09/18 07/09/18 06:59 18:59 Intake Total 400 Balance 400 - Medications Medications: Current Medications Allopurinol (Zyloprim) 100 mg PO DAILY [facility] Last Admin: 07/09/18 09:23 Dose: 100 mg Calcium Acetate (Phoslo) 667 mg PO TIDCC [facility] Last Admin: 07/09/18 12:08 Dose: 667 mg Carvedilol (Coreg) 3.125 mg PO DAILY [facility] Last Admin: 07/09/18 09:23 Dose: 3.125 mg Cinacalcet (Sensipar) 30 mg PO DAILY [facility] Last Admin: 07/09/18 09:23 Dose: 30 mg Pantoprazole Sodium (Protonix Ec Tab) 40 mg PO DAILY [facility] Last Admin: 07/09/18 09:23 Dose: 40 mg Tamsulosin HCl (Flomax) 0.4 mg PO DAILY [facility] Last Admin: 07/09/18 09:23 Dose: 0.4 mg - Labs Labs: 07/09/18 07:49 07/07/18 18:10 PT 13.1 SECONDS (9.7-12.2) H 07/07/18 18:10 INR 1.2 07/07/18 18:10 APTT 37 SECONDS (21-34) H 07/07/18 18:10 - Constitutional Appears: Well - Head Exam Head Exam: ATRAUMATIC, NORMAL INSPECTION, NORMOCEPHALIC - Eye Exam Eye Exam: EOMI, Normal appearance, PERRL Pupil Exam: NORMAL ACCOMODATION, PERRL - ENT Exam ENT Exam: Mucous Membranes Moist, Normal Exam - Neck Exam Neck Exam: Full ROM, Normal Inspection. absent: Lymphadenopathy - Respiratory Exam Respiratory Exam: Decreased Breath Sounds - Cardiovascular Exam Cardiovascular Exam: REGULAR RHYTHM, +S1, +S2 - GI/Abdominal Exam GI & Abdominal Exam: Soft, Diminished Bowel Sounds - Rectal Exam Rectal Exam: Deferred
[2018-07-10] MEDS: Pantoprazole 40 mg EC Tab PO SCH (09:43)
--- NOTE | 2018-07-10 12:44 | CP.PCM.PN ---
Subjective - Date & Time of Evaluation Date of Evaluation: 07/10/18 Time of Evaluation: 12:43 - Subjective Subjective: seen and examined on hd received 1 unit prbc no complaints Objective - Vital Signs/Intake and Output Vital Signs (last 24 hours): Temp Pulse Resp BP Pulse Ox 97.8 F 67 16 149/88 100 07/10/18 12:07 07/10/18 12:07 07/10/18 12:07 07/10/18 12:07 07/10/18 10:20 Intake and Output: 07/10/18 07/10/18 06:59 18:59 Intake Total 0 Balance 0 - Medications Medications: Current Medications Allopurinol (Zyloprim) 100 mg PO DAILY [facility] Last Admin: 07/10/18 09:41 Dose: 100 mg Calcium Acetate (Phoslo) 667 mg PO TIDCC [facility] Last Admin: 07/10/18 09:41 Dose: 667 mg Carvedilol (Coreg) 3.125 mg PO DAILY [facility] Last Admin: 07/10/18 09:44 Dose: 3.125 mg Cinacalcet (Sensipar) 30 mg PO DAILY [facility] Last Admin: 07/10/18 09:44 Dose: 30 mg Pantoprazole Sodium (Protonix Ec Tab) 40 mg PO DAILY [facility] Last Admin: 07/10/18 09:43 Dose: 40 mg Tamsulosin HCl (Flomax) 0.4 mg PO DAILY [facility] Last Admin: 07/10/18 09:43 Dose: 0.4 mg - Labs Labs: 07/09/18 07:49 07/07/18 18:10 PT 13.1 SECONDS (9.7-12.2) H 07/07/18 18:10 INR 1.2 07/07/18 18:10 APTT 37 SECONDS (21-34) H 07/07/18 18:10 - Constitutional Appears: Non-toxic, No Acute Distress - Head Exam Head Exam: NORMAL INSPECTION, NORMOCEPHALIC - Eye Exam Eye Exam: Normal appearance, PERRL - ENT Exam ENT Exam: Mucous Membranes Moist, Normal Exam - Neck Exam Neck Exam: Full ROM, Normal Inspection - Respiratory Exam Respiratory Exam: Clear to Ausculation Bilateral, NORMAL BREATHING PATTERN - Cardiovascular Exam Cardiovascular Exam: REGULAR RHYTHM, RRR - GI/Abdominal Exam GI & Abdominal Exam: Distended, Soft - Extremities Exam Extremities Exam: Full ROM, Normal Inspection - Neurological Exam Neurological Exam: Alert, Awake, Oriented x3 - Psychiatric Exam Psychiatric exam: Normal Affect, Normal Mood - Skin Skin Exam: Dry, Intact, Normal Color Assessment and Plan (1) Anemia Status: Acute (2) ESRD (end stage renal disease) Status: Acute (3) Hepatosplenomegaly Status: Acute - Assessment and Plan (Free Text) Assessment: maintain hd mwf blood transfusion w/ hd f/u w/ hematology
[2018-07-10 14:07] LABS: HEMOGLOBIN 6.7 g/dL (12.0-18.0); MEAN CELL VOLUME 83.5 fL (80.0-94.0); MEAN CORPUSCULAR HEMOGLOBIN 30.2 pg (27.0-31.0); MEAN CORPUSCULAR HGB CONC 36.2 g/dL (33.0-37.0); MEAN PLATELET VOLUME 7.4 fL (7.2-11.7); RBC 2.21 Mil/uL (4.40-5.90); WHITE BLOOD COUNT 4.1 K/uL (4.8-10.8)
--- NOTE | 2018-07-10 18:39 | CP.PCM.PN ---
Subjective - Date & Time of Evaluation Date of Evaluation: 07/10/18 Time of Evaluation: 11:30 - Subjective Subjective: clinically same Objective - Vital Signs/Intake and Output Vital Signs (last 24 hours): Temp Pulse Resp BP Pulse Ox 98 F 81 20 157/84 H 100 07/10/18 16:06 07/10/18 16:06 07/10/18 16:06 07/10/18 16:06 07/10/18 16:06 Intake and Output: 07/10/18 07/10/18 06:59 18:59 Intake Total 355 Balance 355 - Medications Medications: Current Medications Allopurinol (Zyloprim) 100 mg PO DAILY [facility] Last Admin: 07/10/18 09:41 Dose: 100 mg Calcium Acetate (Phoslo) 667 mg PO TIDCC [facility] Last Admin: 07/10/18 17:29 Dose: 667 mg Carvedilol (Coreg) 3.125 mg PO DAILY [facility] Last Admin: 07/10/18 09:44 Dose: 3.125 mg Cinacalcet (Sensipar) 30 mg PO DAILY [facility] Last Admin: 07/10/18 09:44 Dose: 30 mg Pantoprazole Sodium (Protonix Ec Tab) 40 mg PO DAILY [facility] Last Admin: 07/10/18 09:43 Dose: 40 mg Tamsulosin HCl (Flomax) 0.4 mg PO DAILY [facility] Last Admin: 07/10/18 09:43 Dose: 0.4 mg - Labs Labs: 07/10/18 13:58 07/07/18 18:10 PT 13.1 SECONDS (9.7-12.2) H 07/07/18 18:10 INR 1.2 07/07/18 18:10 APTT 37 SECONDS (21-34) H 07/07/18 18:10 - Constitutional Appears: Well - Head Exam Head Exam: ATRAUMATIC, NORMAL INSPECTION, NORMOCEPHALIC - Eye Exam Eye Exam: EOMI, Normal appearance, PERRL Pupil Exam: NORMAL ACCOMODATION, PERRL - ENT Exam ENT Exam: Mucous Membranes Moist, Normal Exam - Neck Exam Neck Exam: Full ROM, Normal Inspection. absent: Lymphadenopathy - Respiratory Exam Respiratory Exam: Decreased Breath Sounds - Cardiovascular Exam Cardiovascular Exam: REGULAR RHYTHM, +S1, +S2 - GI/Abdominal Exam GI & Abdominal Exam: Soft, Diminished Bowel Sounds - Rectal Exam Rectal Exam: Deferred
--- NOTE | 2018-07-10 22:08 | CP.PCM.PN ---
Subjective - Date & Time of Evaluation Date of Evaluation: 07/10/18 Time of Evaluation: 19:00 - Subjective Subjective: No complaints. Objective - Vital Signs/Intake and Output Vital Signs (last 24 hours): Temp Pulse Resp BP Pulse Ox 98 F 81 20 157/84 H 100 07/10/18 16:06 07/10/18 16:06 07/10/18 16:06 07/10/18 16:06 07/10/18 16:06 Intake and Output: 07/10/18 07/11/18 18:59 06:59 Intake Total 355 Balance 355 - Medications Medications: Current Medications Allopurinol (Zyloprim) 100 mg PO DAILY [facility] Last Admin: 07/10/18 09:41 Dose: 100 mg Calcium Acetate (Phoslo) 667 mg PO TIDCC [facility] Last Admin: 07/10/18 17:29 Dose: 667 mg Carvedilol (Coreg) 3.125 mg PO DAILY [facility] Last Admin: 07/10/18 09:44 Dose: 3.125 mg Cinacalcet (Sensipar) 30 mg PO DAILY [facility] Last Admin: 07/10/18 09:44 Dose: 30 mg Pantoprazole Sodium (Protonix Ec Tab) 40 mg PO DAILY [facility] Last Admin: 07/10/18 09:43 Dose: 40 mg Tamsulosin HCl (Flomax) 0.4 mg PO DAILY [facility] Last Admin: 07/10/18 09:43 Dose: 0.4 mg - Labs Labs: 07/10/18 13:58 07/07/18 18:10 PT 13.1 SECONDS (9.7-12.2) H 07/07/18 18:10 INR 1.2 07/07/18 18:10 APTT 37 SECONDS (21-34) H 07/07/18 18:10 - Head Exam Head Exam: ATRAUMATIC - Eye Exam Eye Exam: Normal appearance - ENT Exam ENT Exam: Mucous Membranes Dry - Respiratory Exam Respiratory Exam: NORMAL BREATHING PATTERN - Cardiovascular Exam Cardiovascular Exam: +S1, +S2 - GI/Abdominal Exam GI & Abdominal Exam: Normal Bowel Sounds Assessment and Plan (1) Hepatosplenomegaly Assessment & Plan: 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 MIS antibody no iron/b12/folate deficiency no pathology noted on bone marrow pathology no evidence of bleeding Status: Acute
[2018-07-11 07:47] LABS: BASO # 0.1 K/uL (0.0-0.2); BASO % 1.3 % (0.0-2.0); EOS # 0.1 K/uL (0.0-0.7); EOS % 1.9 % (0.0-4.0); HEMOGLOBIN 6.6 g/dL (12.0-18.0); LYMPH # 0.7 K/uL (1.0-4.3); LYMPH % 13.8 % (20.0-40.0); MEAN CELL VOLUME 84.5 fL (80.0-94.0); MEAN CORPUSCULAR HEMOGLOBIN 30.4 pg (27.0-31.0); MEAN PLATELET VOLUME 8.1 fL (7.2-11.7); MONO # 0.3 K/uL (0.0-0.8); MONO % 7.2 % (0.0-10.0); NEUT # 3.6 K/uL (1.8-7.0); NEUT % 75.8 % (50.0-75.0); RBC 2.18 Mil/uL (4.40-5.90); RED CELL DISTRIBUTION WIDTH 17.6 % (11.5-14.5); WHITE BLOOD COUNT 4.8 K/uL (4.8-10.8)
[2018-07-11 08:18] LABS: ALB/GLOB RATIO 1.3 (1.0-2.1); ALBUMIN 3.6 g/dL (3.5-5.0); CALCIUM 8.2 mg/dl (8.6-10.4)
[2018-07-11] MEDS: Pantoprazole 40 mg EC Tab PO SCH (09:51)
--- NOTE | 2018-07-11 10:19 | CP.PCM.PN ---
Subjective - Date & Time of Evaluation Date of Evaluation: 07/11/18 Time of Evaluation: 11:42 - Subjective Subjective: seen and examined hgb 6.7 mg/dl no complaints denies any n/v/d/sob/cp/dizziness/fevers / chills/headache/rash Objective - Vital Signs/Intake and Output Vital Signs (last 24 hours): Temp Pulse Resp BP Pulse Ox 97.9 F 84 20 173/92 H 97 07/11/18 07:24 07/11/18 09:50 07/11/18 07:24 07/11/18 09:50 07/11/18 07:24 Intake and Output: 07/11/18 07/11/18 06:59 18:59 Intake Total 350 Balance 350 - Medications Medications: Current Medications Allopurinol (Zyloprim) 100 mg PO DAILY [facility] Last Admin: 07/11/18 09:51 Dose: 100 mg Calcium Acetate (Phoslo) 667 mg PO TIDCC [facility] Last Admin: 07/11/18 08:35 Dose: 667 mg Carvedilol (Coreg) 3.125 mg PO DAILY [facility] Last Admin: 07/11/18 09:51 Dose: 3.125 mg Cinacalcet (Sensipar) 30 mg PO DAILY [facility] Last Admin: 07/11/18 09:51 Dose: 30 mg Pantoprazole Sodium (Protonix Ec Tab) 40 mg PO DAILY [facility] Last Admin: 07/11/18 09:51 Dose: 40 mg Tamsulosin HCl (Flomax) 0.4 mg PO DAILY [facility] Last Admin: 07/10/18 09:43 Dose: 0.4 mg - Labs Labs: 07/11/18 07:35 07/11/18 07:35 PT 13.1 SECONDS (9.7-12.2) H 07/07/18 18:10 INR 1.2 07/07/18 18:10 APTT 37 SECONDS (21-34) H 07/07/18 18:10 - Constitutional Appears: No Acute Distress - Head Exam Head Exam: NORMAL INSPECTION, NORMOCEPHALIC - Eye Exam Eye Exam: Normal appearance, PERRL Pupil Exam: PERRL - ENT Exam ENT Exam: Mucous Membranes Moist, Normal Exam - Neck Exam Neck Exam: Full ROM, Normal Inspection - Respiratory Exam Respiratory Exam: Clear to Ausculation Bilateral, NORMAL BREATHING PATTERN - Cardiovascular Exam Cardiovascular Exam: REGULAR RHYTHM, RRR - GI/Abdominal Exam GI & Abdominal Exam: Distended, Soft - Extremities Exam Extremities Exam: Full ROM, Normal Inspection - Neurological Exam Neurological Exam: Alert, Awake, Oriented x3 - Psychiatric Exam Psychiatric exam: Normal Affect, Normal Mood - Skin Skin Exam: Normal Color, Warm Assessment and Plan (1) Anemia Status: Acute (2) ESRD (end stage renal disease) Status: Acute (3) Hepatosplenomegaly Status: Acute - Assessment and Plan (Free Text) Assessment: esrd anemia , unclear etiology splenomegaly htn plan: hd tomorrow will defer lisa to hematology add norvasc for bp
--- NOTE | 2018-07-11 18:20 | CP.PCM.PN ---
Subjective - Date & Time of Evaluation Date of Evaluation: 07/11/18 Time of Evaluation: 09:30 - Subjective Subjective: clinically same Objective - Vital Signs/Intake and Output Vital Signs (last 24 hours): Temp Pulse Resp BP Pulse Ox 98.2 F 75 20 152/74 H 100 07/11/18 18:04 07/11/18 18:04 07/11/18 18:04 07/11/18 18:04 07/11/18 15:00 Intake and Output: 07/11/18 07/11/18 06:59 18:59 Intake Total 350 650 Balance 350 650 - Medications Medications: Current Medications Allopurinol (Zyloprim) 100 mg PO DAILY [facility] Last Admin: 07/11/18 09:51 Dose: 100 mg Amlodipine Besylate (Norvasc) 10 mg PO DAILY [facility] Last Admin: 07/11/18 10:55 Dose: 10 mg Calcium Acetate (Phoslo) 667 mg PO TIDCC [facility] Last Admin: 07/11/18 17:13 Dose: 667 mg Carvedilol (Coreg) 3.125 mg PO DAILY [facility] Last Admin: 07/11/18 09:51 Dose: 3.125 mg Cinacalcet (Sensipar) 30 mg PO DAILY [facility] Last Admin: 07/11/18 09:51 Dose: 30 mg Pantoprazole Sodium (Protonix Ec Tab) 40 mg PO DAILY [facility] Last Admin: 07/11/18 09:51 Dose: 40 mg Tamsulosin HCl (Flomax) 0.4 mg PO DAILY [facility] Last Admin: 07/11/18 09:50 Dose: 0.4 mg - Labs Labs: 07/11/18 07:35 07/11/18 07:35 PT 13.1 SECONDS (9.7-12.2) H 07/07/18 18:10 INR 1.2 07/07/18 18:10 APTT 37 SECONDS (21-34) H 07/07/18 18:10 - Constitutional Appears: Well - Head Exam Head Exam: ATRAUMATIC, NORMAL INSPECTION, NORMOCEPHALIC - Eye Exam Eye Exam: EOMI, Normal appearance, PERRL Pupil Exam: NORMAL ACCOMODATION, PERRL - ENT Exam ENT Exam: Mucous Membranes Moist, Normal Exam - Neck Exam Neck Exam: Full ROM, Normal Inspection. absent: Lymphadenopathy - Respiratory Exam Respiratory Exam: Decreased Breath Sounds - Cardiovascular Exam Cardiovascular Exam: REGULAR RHYTHM, +S1, +S2 - GI/Abdominal Exam GI & Abdominal Exam: Soft, Diminished Bowel Sounds - Rectal Exam Rectal Exam: Deferred
--- NOTE | 2018-07-12 07:43 | CP.PCM.PN ---
Subjective - Date & Time of Evaluation Date of Evaluation: 07/12/18 Time of Evaluation: 07:41 - Subjective Subjective: s/p 4 U PRBC no complaints HD today Heme consult noted no chest pain no fatigue no fevers no sob no nausea no diarrhea minimal u/o no edema no rash no headache no sinus tenderness Objective - Vital Signs/Intake and Output Vital Signs (last 24 hours): Temp Pulse Resp BP Pulse Ox 97.9 F 74 20 163/87 H 98 07/12/18 00:00 07/12/18 00:00 07/12/18 00:00 07/12/18 00:00 07/12/18 00:00 Intake and Output: 07/12/18 07/12/18 06:59 18:59 Intake Total 281 Balance 281 - Medications Medications: Current Medications Allopurinol (Zyloprim) 100 mg PO DAILY [facility] Last Admin: 07/11/18 09:51 Dose: 100 mg Amlodipine Besylate (Norvasc) 10 mg PO DAILY [facility] Last Admin: 07/11/18 10:55 Dose: 10 mg Calcium Acetate (Phoslo) 667 mg PO TIDCC [facility] Last Admin: 07/11/18 17:13 Dose: 667 mg Carvedilol (Coreg) 3.125 mg PO DAILY [facility] Last Admin: 07/11/18 09:51 Dose: 3.125 mg Cinacalcet (Sensipar) 30 mg PO DAILY [facility] Last Admin: 07/11/18 09:51 Dose: 30 mg Pantoprazole Sodium (Protonix Ec Tab) 40 mg PO DAILY [facility] Last Admin: 07/11/18 09:51 Dose: 40 mg Tamsulosin HCl (Flomax) 0.4 mg PO DAILY [facility] Last Admin: 07/11/18 09:50 Dose: 0.4 mg - Labs Labs: 07/11/18 07:35 07/11/18 07:35 PT 13.1 SECONDS (9.7-12.2) H 07/07/18 18:10 INR 1.2 07/07/18 18:10 APTT 37 SECONDS (21-34) H 07/07/18 18:10 - Constitutional Appears: Non-toxic - Head Exam Head Exam: ATRAUMATIC, NORMAL INSPECTION - Eye Exam Eye Exam: EOMI - ENT Exam ENT Exam: Mucous Membranes Moist - Neck Exam Neck Exam: Full ROM. absent: Lymphadenopathy - Respiratory Exam Respiratory Exam: Decreased Breath Sounds - Cardiovascular Exam Cardiovascular Exam: REGULAR RHYTHM. absent: Rubs - GI/Abdominal Exam GI & Abdominal Exam: Soft. absent: Tenderness - Extremities Exam Extremities Exam: absent: Pedal Edema Assessment and Plan - Assessment and Plan (Free Text) Assessment: esrd, HD today chronic anemia, s/p 4 u prbc Heme recommendations
[2018-07-12] MEDS ORDERED: Epoetin Alfa 10,000 unit/ml Dialysis IV SCH (09:00)
[2018-07-12 09:59] LABS: BASO # 0.2 K/uL (0.0-0.2); BASO % 2.3 % (0.0-2.0); EOS # 0.2 K/uL (0.0-0.7); EOS % 2.6 % (0.0-4.0); LYMPH # 0.9 K/uL (1.0-4.3); LYMPH % 11.5 % (20.0-40.0); MEAN CORPUSCULAR HEMOGLOBIN 30.4 pg (27.0-31.0); MEAN CORPUSCULAR HGB CONC 35.1 g/dL (33.0-37.0); MEAN PLATELET VOLUME 8.3 fL (7.2-11.7); MONO # 0.6 K/uL (0.0-0.8); MONO % 8.2 % (0.0-10.0); NEUT # 5.6 K/uL (1.8-7.0); NEUT % 75.4 % (50.0-75.0); RBC 2.97 Mil/uL (4.40-5.90); RED CELL DISTRIBUTION WIDTH 16.4 % (11.5-14.5)
[2018-07-12] MEDS: Pantoprazole 40 mg EC Tab PO SCH (10:07)
[2018-07-12 10:11] LABS: WHITE BLOOD COUNT 7.5 K/uL (4.8-10.8)
[2018-07-12 10:12] LABS: MEAN CELL VOLUME 86.5 fL (80.0-94.0)
[2018-07-12 10:39] LABS: CALCIUM 8.6 mg/dl (8.6-10.4)
--- NOTE | 2018-07-12 11:53 | CP.PCM.PN ---
Subjective - Date & Time of Evaluation Date of Evaluation: 07/11/18 Time of Evaluation: 19:00 - Subjective Subjective: No complaints Receiving 2U PRBC Objective - Vital Signs/Intake and Output Vital Signs (last 24 hours): Temp Pulse Resp BP Pulse Ox 98.2 F 80 20 148/82 99 07/12/18 07:57 07/12/18 07:57 07/12/18 07:57 07/12/18 07:57 07/12/18 07:57 Intake and Output: 07/12/18 07/12/18 06:59 18:59 Intake Total 281 Balance 281 - Medications Medications: Current Medications Allopurinol (Zyloprim) 100 mg PO DAILY [facility] Last Admin: 07/12/18 10:08 Dose: 100 mg Amlodipine Besylate (Norvasc) 10 mg PO DAILY [facility] Last Admin: 07/12/18 10:07 Dose: Not Given Calcium Acetate (Phoslo) 667 mg PO TIDCC [facility] Last Admin: 07/12/18 08:33 Dose: 667 mg Carvedilol (Coreg) 3.125 mg PO DAILY [facility] Last Admin: 07/12/18 10:07 Dose: Not Given Cinacalcet (Sensipar) 30 mg PO DAILY [facility] Last Admin: 07/12/18 10:09 Dose: 30 mg Epoetin Johnson (Pro[facility]) [facility] Pantoprazole Sodium (Protonix Ec Tab) 40 mg PO DAILY [facility] Last Admin: 07/12/18 10:07 Dose: 40 mg Tamsulosin HCl (Flomax) 0.4 mg PO DAILY [facility] Last Admin: 07/12/18 10:08 Dose: 0.4 mg - Labs Labs: 07/12/18 09:51 07/12/18 09:51 PT 13.1 SECONDS (9.7-12.2) H 07/07/18 18:10 INR 1.2 07/07/18 18:10 APTT 37 SECONDS (21-34) H 07/07/18 18:10 - Head Exam Head Exam: ATRAUMATIC - Eye Exam Eye Exam: Normal appearance - ENT Exam ENT Exam: Mucous Membranes Dry - Respiratory Exam Respiratory Exam: NORMAL BREATHING PATTERN - Cardiovascular Exam Cardiovascular Exam: +S1, +S2 - GI/Abdominal Exam GI & Abdominal Exam: Normal Bowel Sounds Assessment and Plan (1) Hepatosplenomegaly Assessment & Plan: 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 MIS antibody no iron/b12/folate deficiency no pathology noted on bone marrow pathology no evidence of bleeding Status: Acute
--- NOTE | 2018-07-12 16:46 | CP.PCM.PN ---
Subjective - Date & Time of Evaluation Date of Evaluation: 07/12/18 Time of Evaluation: 16:46 Objective - Vital Signs/Intake and Output Vital Signs (last 24 hours): Temp Pulse Resp BP Pulse Ox 97.5 F L 75 16 160/86 H 100 07/12/18 13:55 07/12/18 13:55 07/12/18 13:55 07/12/18 15:25 07/12/18 13:55 Intake and Output: 07/12/18 07/12/18 06:59 18:59 Intake Total 281 Balance 281 - Medications Medications: Current Medications Allopurinol (Zyloprim) 100 mg PO DAILY [facility] Last Admin: 07/12/18 10:08 Dose: 100 mg Amlodipine Besylate (Norvasc) 10 mg PO DAILY [facility] Last Admin: 07/12/18 10:07 Dose: Not Given Calcium Acetate (Phoslo) 667 mg PO TIDCC [facility] Last Admin: 07/12/18 12:56 Dose: 667 mg Carvedilol (Coreg) 3.125 mg PO DAILY [facility] Last Admin: 07/12/18 10:07 Dose: Not Given Cinacalcet (Sensipar) 30 mg PO DAILY [facility] Last Admin: 07/12/18 10:09 Dose: 30 mg Epoetin Johnson (Procrit) 10,000 unit IV [facility] Pantoprazole Sodium (Protonix Ec Tab) 40 mg PO DAILY [facility] Last Admin: 07/12/18 10:07 Dose: 40 mg Tamsulosin HCl (Flomax) 0.4 mg PO DAILY [facility] Last Admin: 07/12/18 10:08 Dose: 0.4 mg - Labs Labs: 07/12/18 09:51 07/12/18 09:51 PT 13.1 SECONDS (9.7-12.2) H 07/07/18 18:10 INR 1.2 07/07/18 18:10 APTT 37 SECONDS (21-34) H 07/07/18 18:10 Assessment and Plan - Assessment and Plan (Free Text) Assessment: FOLLOW UP WITH DR Alba PETERSON IN HIS OFFICE ----CALL FOR APPOINTMENT FOLLOW UP WITH YOUR OWN HEMO/ONCO IN HIS OFFICE ----CALL FOR APPOINTMENT CONTINUE HOME MEDICATION NEW PRESCRIPTION GIVEN NORVASC 10 MG PO DIALY ACTIVITY TOLERATED HEMODIALYSIS SCHEDULE CALL DR J PETERSON OR GO TO THE EMERGENCY ROOM IF SYMPTOM RETURN OR WORSENING
[2018-07-12 19:27] VITALS: BP 158/80; PULSE 79; RESP 18; TEMP 98.1; O2SAT 100
--- NOTE | 2018-07-12 20:44 | CP.PCM.PN ---
Subjective - Date & Time of Evaluation Date of Evaluation: 07/12/18 Time of Evaluation: 10:00 - Subjective Subjective: clinically same Objective - Vital Signs/Intake and Output Vital Signs (last 24 hours): Temp Pulse Resp BP Pulse Ox 98.1 F 79 18 158/80 H 100 07/12/18 18:35 07/12/18 18:35 07/12/18 18:35 07/12/18 18:35 07/12/18 18:35 - Medications Medications: Current Medications Allopurinol (Zyloprim) 100 mg PO DAILY [facility] Last Admin: 07/12/18 10:08 Dose: 100 mg Amlodipine Besylate (Norvasc) 10 mg PO DAILY [facility] Last Admin: 07/12/18 10:07 Dose: Not Given Calcium Acetate (Phoslo) 667 mg PO TIDCC [facility] Last Admin: 07/12/18 12:56 Dose: 667 mg Carvedilol (Coreg) 3.125 mg PO DAILY [facility] Last Admin: 07/12/18 10:07 Dose: Not Given Cinacalcet (Sensipar) 30 mg PO DAILY [facility] Last Admin: 07/12/18 10:09 Dose: 30 mg Epoetin Johnson (Procrit) 10,000 unit IV MWF [facility] Last Admin: 07/12/18 17:12 Dose: 10,000 unit Pantoprazole Sodium (Protonix Ec Tab) 40 mg PO DAILY [facility] Last Admin: 07/12/18 10:07 Dose: 40 mg Tamsulosin HCl (Flomax) 0.4 mg PO DAILY [facility] Last Admin: 07/12/18 10:08 Dose: 0.4 mg - Labs Labs: 07/12/18 09:51 07/12/18 09:51 PT 13.1 SECONDS (9.7-12.2) H 07/07/18 18:10 INR 1.2 07/07/18 18:10 APTT 37 SECONDS (21-34) H 07/07/18 18:10
--- NOTE | 2018-07-13 19:22 | CP.PCM.PN ---
Subjective - Date & Time of Evaluation Date of Evaluation: 07/12/18 Time of Evaluation: 10:00 - Subjective Subjective: Feeling better. Objective - Vital Signs/Intake and Output Vital Signs (last 24 hours): Temp Pulse Resp BP Pulse Ox 98.1 F 79 18 158/80 H 100 07/12/18 18:35 07/12/18 18:35 07/12/18 18:35 07/12/18 18:35 07/12/18 18:35 - Labs Labs: 07/12/18 09:51 07/12/18 09:51 PT 13.1 SECONDS (9.7-12.2) H 07/07/18 18:10 INR 1.2 07/07/18 18:10 APTT 37 SECONDS (21-34) H 07/07/18 18:10 - Head Exam Head Exam: ATRAUMATIC - Eye Exam Eye Exam: Normal appearance - ENT Exam ENT Exam: Mucous Membranes Dry - Respiratory Exam Respiratory Exam: NORMAL BREATHING PATTERN - Cardiovascular Exam Cardiovascular Exam: +S1, +S2 - GI/Abdominal Exam GI & Abdominal Exam: Normal Bowel Sounds Assessment and Plan (1) Hepatosplenomegaly Assessment & Plan: 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 MIS antibody no iron/b12/folate deficiency no pathology noted on bone marrow pathology no evidence of bleeding Status: Acute
== END 2018-07-12 21:28 | disposition home or self-care (01) | DRG 811 ==
LOC: C.ER 17:04 → C.9E 19:00 → C.5S 21:01
PROVIDERS: ADMIT Internal Medicine Nephrology; ATTEND Internal Medicine Nephrology
PROC: 30233N1 Transfusion of Nonautologous Red Blood Cells into Peripheral Vein, Percutaneous Approach (ICD-10-PCS; principal; 2018-07-08)
PROC: 5A1D70Z Performance of Urinary Filtration, Intermittent, Less than 6 Hours Per Day (ICD-10-PCS; 2018-07-08)
PROC: 5A1D70Z Performance of Urinary Filtration, Intermittent, Less than 6 Hours Per Day (ICD-10-PCS; 2018-07-10)
PROC: 30233N1 Transfusion of Nonautologous Red Blood Cells into Peripheral Vein, Percutaneous Approach (ICD-10-PCS; 2018-07-11)
PROC: 5A1D70Z Performance of Urinary Filtration, Intermittent, Less than 6 Hours Per Day (ICD-10-PCS; 2018-07-12)
DX: D64.9 Anemia, unspecified (principal); N18.6 End stage renal disease; I12.0 Hypertensive chronic kidney disease with stage 5 chronic kidney disease or end stage renal disease; N40.0 Benign prostatic hyperplasia without lower urinary tract symptoms; M19.90 Unspecified osteoarthritis, unspecified site; R16.1 Splenomegaly, not elsewhere classified; Z99.2 Dependence on renal dialysis

== ENCOUNTER 2018-08-31 19:40 | Inpatient (IN) | payer MEDICARE ==
[2018-08-31 19:41] VITALS: BMI 25.0
--- NOTE | 2018-08-31 20:09 | C.PDOC ---
History Of Present Illness Patient sent in by PMD for weakness, tiredness, and hemoglobin of 5.5. Patient has Tuesday dialysis. Denies chest pain. Time Seen by Provider: 08/31/18 20:09 Chief Complaint (Nursing): Infusion Therapy History Per: Patient History/Exam Limitations: no limitations Onset/Duration Of Symptoms: Days Current Symptoms Are (Timing): Still Present Severity: Moderate Pain Scale Rating Of: 4 Reports Recently: Seen In ED, Treated By A Physician, Hospitalized Recent travel outside of the [place]: No Additional History Per: Patient Past Medical History Reviewed: Historical Data, Nursing Documentation, Vital Signs Vital Signs: Last Vital Signs Temp 98.1 F 08/31/18 20:00 Pulse 88 08/31/18 20:00 Resp 20 08/31/18 20:00 BP 160/84 H 08/31/18 20:00 Pulse Ox 99 08/31/18 20:00 - Medical History PMH: Anemia, Arthritis, Benign Prostatic Hyperplasia, HTN, End Stage Renal Disease, Chronic Kidney Disease Denies: Kidney Stones - [facility] Procedures (07/07/18) BYPASS LEFT BRACHIAL ARTERY TO UPPER ARM VEIN, OPEN APPROACH (05/31/17) DILATION OF LEFT BRACHIAL ARTERY, PERCUTANEOUS APPROACH (10/18/17) INSERTION OF INFUSION DEV INTO SUP VENA CAVA, PERC APPROACH (05/31/17) PERFORMANCE OF URINARY FILTRATION, MULTIPLE (05/31/17) REVISION OF INFUSION DEVICE IN UPPER ARTERY, OPEN APPROACH (10/18/17) TRANSFUSE NONAUT RED BLOOD CELLS IN PERIPH VEIN, PERC (07/07/18) Family History: States: No Known Family Hx - Social History Hx Alcohol Use: No Hx Substance Use: No - Immunization History Hx Tetanus Toxoid Vaccination: Yes Hx Influenza Vaccination: Yes Hx Pneumococcal Vaccination: Yes Review Of Systems Constitutional: Positive for: Weakness, Other (Tiredness). Negative for: Fever, Chills ENT: Negative for: Throat Pain Cardiovascular: Negative for: Chest Pain, Palpitations Respiratory: Negative for: Cough, Shortness of Breath Gastrointestinal: Negative for: Nausea, Vomiting Genitourinary: Negative for: Rash Musculoskeletal: Negative for: Back Pain Skin: Negative for: Rash Neurological: Negative for: Weakness, Numbness Psych: Negative for: Anxiety Physical Exam - Physical Exam Appears: Non-toxic Skin: Warm, Dry, Pale Head: Normacephalic Eye(s): bilateral: Conjunctiva Pale Oral Mucosa: Moist Neck: Trachea Midline, Supple Chest: Symmetrical, No Tenderness Cardiovascular: Rhythm Regular Respiratory: No Rales, No Rhonchi, No Wheezing Gastrointestinal/Abdominal: Soft, No Tenderness Rectal: Normal Exam, Heme Negative, No Hemorrhoids, No Tenderness Back: Normal Inspection Extremity: No Tenderness, No Pedal Edema, Other (Left hemodialysis shunt with good thrill and bruit) Extremity: Bilateral: Atraumatic, Normal Color And Temperature, Normal ROM Pulses: Left Dorsalis Pedis: Normal, Right Dorsalis Pedis: Normal Neurological/Psych: Oriented x3 Gait: Steady ED Course And Treatment - Laboratory Results Result Diagrams: 08/31/18 20:23 08/31/18 20:23 ECG: Interpreted By Me, Viewed By Me ECG Rhythm: Sinus Rhythm O2 Sat by Pulse Oximetry: 99 (Room air) Pulse Ox Interpretation: Normal - Radiology CXR: Interpreted by Me, Viewed By Me CXR Interpretation: No: Infiltrates, Fracture, Pnemothorax Progress Note: EKG, blood work, and CXR ordered. Disposition Discussed With : Karoline Reeves Comment: accepte dora pt on his service and took over the care at 9:45 PM Doctor Will See Patient In The: Hospital Counseled Patient/Family Regarding: Studies Performed, Diagnosis - Disposition Disposition: HOSPITALIZED Disposition Time: 20:09 Condition: FAIR Forms: [facility] (Palestinian) - Clinical Impression Clinical Impression: Severe anemia, End-stage renal disease needing dialysis - Scribe Statement The provider has reviewed the documentation as recorded by the Ericaibnaye Cardenas All medical record entries made by the Ericaibnaye were at my direction and personally dictated by me. I have reviewed the chart and agree that the record accurately reflects my personal performance of the history, physical exam, medical decision making, and the department course for this patient. I have also personally directed, reviewed, and agree with the discharge instructions and disposition. Decision To Admit - Pt Status Changed To: Hospital Disposition Of: Inpatient - Admit Certification Admit to Inpatient:: After my assessment, the patient will require ho spitalization for at least two midnights. This is because of the severity of symptoms shown, intensity of services needed, and/or the medical risk in this patient being treated as an outpatient. - InPatient: Physician Admission Certification: I certify that this patient requires 2 or more midnights of care for the following reason:: After my assessment, the patient will require hospitalization for at least two midnights. This is because of the severity of symptoms shown, intensity of services needed, and/or the medical risk in this patient being treated as an outpatient. - . Bed Request Type: Telemetry Admitting Physician: Karoline Reeves Patient Diagnosis: Severe anemia, End-stage renal disease needing dialysis
[2018-08-31 20:26] LABS: BASO # 0.1 K/uL (0.0-0.2); BASO % 1.2 % (0.0-2.0); EOS # 0.1 K/uL (0.0-0.7); EOS % 1.3 % (0.0-4.0); LYMPH % 14.7 % (20.0-40.0); MEAN CELL VOLUME 84.9 fL (80.0-94.0); MEAN CORPUSCULAR HGB CONC 36.5 g/dL (33.0-37.0); MONO # 0.4 K/uL (0.0-0.8); MONO % 6.6 % (0.0-10.0); NEUT # 5.2 K/uL (1.8-7.0); NEUT % 76.2 % (50.0-75.0); NRBC % 0.1 % (0.0-2.0); RBC 1.62 Mil/uL (4.40-5.90); RED CELL DISTRIBUTION WIDTH 18.7 % (11.5-14.5); WHITE BLOOD COUNT 6.8 K/uL (4.8-10.8)
[2018-08-31 20:34] LABS: INR 1.2; PROTHROMBIN TIME 13.5 SECONDS (9.7-12.2)
[2018-08-31 20:46] LABS: ALB/GLOB RATIO 1.5 (1.0-2.1); ALBUMIN 4.4 g/dL (3.5-5.0)
--- NOTE | 2018-08-31 23:44 | CP.PCM.HP ---
Past Patient History - Infectious Disease Hx of Infectious Diseases: None - Past Medical History & Family History Past Medical History?: Yes - Past Social History Smoking Status: Never Smoked - CARDIAC Hx Hypertension: Yes - PULMONARY Hx Respiratory Disorders: No - NEUROLOGICAL Hx Neurological Disorder: No - HEENT Hx HEENT Problems: No - RENAL Hx Chronic Kidney Disease: Yes Hx Kidney Stones: No - ENDOCRINE/METABOLIC Hx Endocrine Disorders: No - HEMATOLOGICAL/ONCOLOGICAL Hx Anemia: Yes - INTEGUMENTARY Hx Dermatological Problems: No - MUSCULOSKELETAL/RHEUMATOLOGICAL Hx Arthritis: Yes - GASTROINTESTINAL Hx Gastrointestinal Disorders: No - GENITOURINARY/GYNECOLOGICAL Hx Genitourinary Disorders: No - PSYCHIATRIC Hx Substance Use: No - SURGICAL HISTORY Hx Surgeries: Yes Hx Orthopedic Surgery: Yes (right knee , left foot) Hx Vascular Access Device: Yes (LEFT ARM GRAFT) Other/Comment: LEFT FOOT BUNION SURGERY-10YRS. - ANESTHESIA Hx Anesthesia: Yes Hx Anesthesia Reactions: No Hx Malignant Hyperthermia: No Meds Allergies/Adverse Reactions: Allergies Allergy/AdvReac Type Severity Reaction Status Date / Time No Known Allergies Allergy Verified 07/07/18 17:21 Results - Vital Signs Recent Vital Signs: Last Vital Signs Temp 97.9 F 08/31/18 23:18 Pulse 82 08/31/18 23:18 Resp 16 08/31/18 23:18 BP 148/55 L 08/31/18 23:18 Pulse Ox 100 08/31/18 23:18 - Labs Result Diagrams: 08/31/18 20:23 08/31/18 20:23 Labs: Laboratory Results - last 24 hr 08/31/18 08/31/18 08/31/18 20:23 20:23 20:23 WBC 6.8 RBC 1.62 L Hgb 5.0 L* D Hct 13.7 L MCV 84.9 MCH 31.0 MCHC 36.5 RDW 18.7 H Plt Count 270 MPV 8.0 Neut % (Auto) 76.2 H Lymph % (Auto) 14.7 L [place] % (Auto) 6.6 Eos % (Auto) 1.3 Baso % (Auto) 1.2 Neut # (Auto) 5.2 Lymph # (Auto) 1.0 [place] # (Auto) 0.4 Eos # (Auto) 0.1 Baso # (Auto) 0.1 PT 13.5 H INR 1.2 APTT 39 H Sodium 142 Potassium 5.6 H Chloride 101 Carbon Dioxide 19 L Anion Gap 27 H BUN 102 H* D Creatinine 13.3 H* D Est GFR ( Amer) 5 Est GFR (Non-Af Amer) 4 Random Glucose 110 Calcium 7.0 L Total Bilirubin 1.2 AST 10 L ALT 14 L D Alkaline Phosphatase 63 Total Protein 7.4 Albumin 4.4 Globulin 2.9 Albumin/Globulin Ratio 1.5 Stool Occult Blood Blood Type Antibody Screen 08/31/18 08/31/18 20:45 21:47 WBC RBC Hgb Hct MCV MCH MCHC RDW Plt Count MPV Neut % (Auto) Lymph % (Auto) [place] % (Auto) Eos % (Auto) Baso % (Auto) Neut # (Auto) Lymph # (Auto) [place] # (Auto) Eos # (Auto) Baso # (Auto) PT INR APTT Sodium Potassium Chloride Carbon Dioxide Anion Gap BUN Creatinine Est GFR ( Amer) Est GFR (Non-Af Amer) Random Glucose Calcium Total Bilirubin AST ALT Alkaline Phosphatase Total Protein Albumin Globulin Albumin/Globulin Ratio Stool Occult Blood Negative Blood Type O POSITIVE Antibody Screen Negative
--- NOTE | 2018-09-01 08:12 | RAD ---
Date of service: 08/31/2018 PROCEDURE: CHEST RADIOGRAPH, 1 VIEW HISTORY: SOB COMPARISON: 07/07/2018 FINDINGS: LUNGS: The lungs are well inflated and clear. PLEURA: No pneumothorax or pleural effusion. CARDIOVASCULAR: There is mild cardiomegaly. No aortic atherosclerotic calcifications present. OSSEOUS STRUCTURES: Within normal limits for the patient's age. VISUALIZED UPPER ABDOMEN: Normal. OTHER FINDINGS: None. IMPRESSION: No active pulmonary disease.
[2018-09-01 08:23] VITALS: O2SAT 100
[2018-09-01] MEDS ORDERED: Pantoprazole 40 mg EC Tab PO SCH (10:00)
[2018-09-01] MEDS ORDERED: Home Med 1 UNIT (Febuxostat [Uloric] 80 MG) PO SCH (10:00)
[2018-09-01 10:52] VITALS: RESP 18
[2018-09-01 11:32] LABS: MEAN CELL VOLUME 86.2 fL (80.0-94.0); MEAN CORPUSCULAR HEMOGLOBIN 31.1 pg (27.0-31.0); MEAN CORPUSCULAR HGB CONC 36.1 g/dL (33.0-37.0); RBC 1.59 Mil/uL (4.40-5.90); RED CELL DISTRIBUTION WIDTH 17.8 % (11.5-14.5); WHITE BLOOD COUNT 4.9 K/uL (4.8-10.8)
--- NOTE | 2018-09-01 12:50 | CP.PCM.CON ---
History of Present Illness - History of Present Illness History of Present Illness: 63 y/o AA man on dialysis x 1 year due to obstructive uropathy and HTN. Has had severe anemia, admitted through ER 08/31, received 1 unit prbcs on floor. Now at dialysis and to receive 2 more units prbcs. s/p BM bx- etiology severe anemia still unclear despite multiple studies. Awaiting CT scan and further workup for possible hemolytic anemia. Admitted for blood transfusions- 3 units- further workup as outpatient PMH: ESRD HTN OBSTRUCTIVE UROPATHY GOUT SEVERE ANEMIA SECONDARY HPT PSH: AV FISTULA BM BX Review of Systems - Constitutional Constitutional: Fatigue, Malaise, Weakness - EENT Eyes: absent: As Per HPI, Blind Spots, Blurred Vision, Change in Vision, Decreased Night Vision, Diplopia, Discharge, Dry Eye, Exophthalmos, Floaters, Irritation, Itchy Eyes, Loss of Peripheral Vision, Pain, Photophobia, Requires Corrective Lenses, Sees Flashes, Spots in Vision, Tunnel Vision, Other Visual Disturbances, Loss of Vision, Other Ears: absent: As Per HPI, Decreased Hearing, Ear Discharge, Ear Pain, Tinnitus, Abnormal Hearing, Disequilibrium, Dizziness, Other - Cardiovascular Cardiovascular: absent: As Per HPI, Acrocyanosis, Chest Pain, Chest Pain at Rest , Chest Pain with Activity, Claudication, Diaphoresis, Dyspnea, Dyspnea on Exertion, Edema, Irregular Heart Rhythm, Pain Radiating to Arm/Neck/Jaw, Leg Edema, Leg Ulcers, Lightheadedness, Orthopnea, Palpitations, Paroxysmal Nocturnal Dyspnea, Pedal Edema, Radiating Pain, Rapid Heart Rate, Slow Heart Rate, Syncope, Other - Respiratory Respiratory: absent: As Per HPI, Cough, Dyspnea, Hemoptysis, Dyspnea on Exertion, Wheezing, Snoring, Stridor, Pain on Inspiration, Chest Congestion, Excessive Mucous Production, Change in Mucous Color, Pain with Coughing, Other - Gastrointestinal Gastrointestinal: absent: As Per HPI, Abdominal Pain, Belching, Bloating, Change in Bowel Habits, Change in Stool Character, Coffee Ground Emesis, Constipation, Cramping, Diarrhea, Dyspepsia, Dysphagia, Early Satiety, Excessive Flatus, Fecal Incontinence, Heartburn, Hematemesis, Hematochezia, Loose Stools, Melena, Nausea, Odynophagia, Temesmus, Vomiting, Other - Genitourinary Genitourinary: As Per HPI - Musculoskeletal Musculoskeletal: Muscle Weakness, Myalgias - Integumentary Integumentary: absent: As Per HPI, Acne, Alopecia, Bleeding Lesions, Change in Hair, Change in Nails, Change in Pigmentation, Changing Lesions, Dry Skin, Erythema, Furuncle, Hirsutism, Lesions, New Lesions, Non-Healing Lesions, Photosensitivity, Pruritus, Rash, Skin Pain, Skin Ulcer, Sores, Striae, Swelling, Unusual Bruising, Wounds, Jaundice, Other - Neurological Neurological: Weakness - Hematologic/Lymphatic Hematologic: As Per HPI Past Patient History - Infectious Disease Hx of Infectious Diseases: None - Past Medical History & Family History Past Medical History?: Yes Past Family History: Reviewed and not pertinent - Past Social History Smoking Status: Never Smoked Chewing Tobacco Use: No Cigar Use: No Alcohol: Occasional Drugs: Denies Home Situation {Lives}: Alone - CARDIAC Hx Hypertension: Yes - PULMONARY Hx Respiratory Disorders: No - NEUROLOGICAL Hx Neurological Disorder: No - HEENT Hx HEENT Problems: No - RENAL Hx Chronic Kidney Disease: Yes Date of Last Dialysis Treatment: 08/30/18 Hx Kidney Stones: No - ENDOCRINE/METABOLIC Hx Endocrine Disorders: No - HEMATOLOGICAL/ONCOLOGICAL Hx Anemia: Yes - INTEGUMENTARY Hx Dermatological Problems: No - MUSCULOSKELETAL/RHEUMATOLOGICAL Hx Arthritis: Yes Hx Falls: No - GASTROINTESTINAL Hx Gastrointestinal Disorders: No - GENITOURINARY/GYNECOLOGICAL Hx Genitourinary Disorders: No - PSYCHIATRIC Hx Substance Use: No - SURGICAL HISTORY Hx Surgeries: Yes Hx Orthopedic Surgery: Yes (right knee , left foot) Hx Vascular Access Device: Yes (LEFT ARM GRAFT) Other/Comment: LEFT FOOT BUNION SURGERY-10YRS. - ANESTHESIA Hx Anesthesia: Yes Hx Anesthesia Reactions: No Hx Malignant Hyperthermia: No Meds Allergies/Adverse Reactions: Allergies Allergy/AdvReac Type Severity Reaction Status Date / Time No Known Allergies Allergy Verified 07/07/18 17:21 - Medications Medications: Current Medications Allopurinol (Zyloprim) 100 mg PO DAILY [facility] Calcium Acetate (Phoslo) 667 mg PO TIDCC [facility] Last Admin: 09/01/18 08:05 Dose: 667 mg Carvedilol (Coreg) 3.125 mg PO DAILY [facility] Cinacalcet (Sensipar) 30 mg PO DAILY [facility] Home Med (Febuxostat [Uloric]) 80 mg PO DAILY [facility] Pantoprazole Sodium (Protonix Ec Tab) 40 mg PO DAILY [facility] Tamsulosin HCl (Flomax) 0.4 mg PO DAILY [facility] Physical Exam - Constitutional Appears: No Acute Distress, Chronically Ill - Head Exam Head Exam: ATRAUMATIC, NORMAL INSPECTION - Eye Exam Eye Exam: EOMI, Normal appearance - Neck Exam Neck exam: Positive for: Normal Inspection. Negative for: Tenderness - Respiratory Exam Respiratory Exam: Clear to Auscultation Bilateral, NORMAL BREATHING PATTERN - Cardiovascular Exam Cardiovascular Exam: REGULAR RHYTHM, +S1 - GI/Abdominal Exam GI & Abdominal Exam: Soft. absent: Tenderness - Extremities Exam Extremities exam: Positive for: pedal edema. Negative for: tenderness - Neurological Exam Neurological exam: Alert, CN II-XII Intact - Skin Skin Exam: Dry, Warm Results - Vital Signs Recent Vital Signs: Last Vital Signs Temp 97.3 F L 09/01/18 12:05 Pulse 60 09/01/18 12:05 Resp 18 09/01/18 12:05 BP 152/81 H 09/01/18 12:10 Pulse Ox 100 09/01/18 10:40 - Labs Result Diagrams: 09/01/18 11:20 08/31/18 20:23 Labs: Laboratory Results - last 24 hr 08/31/18 08/31/18 08/31/18 20:23 20:23 20:23 WBC 6.8 RBC 1.62 L Hgb 5.0 L* D Hct 13.7 L MCV 84.9 MCH 31.0 MCHC 36.5 RDW 18.7 H Plt Count 270 MPV 8.0 Neut % (Auto) 76.2 H Lymph % (Auto) 14.7 L [place] % (Auto) 6.6 Eos % (Auto) 1.3 Baso % (Auto) 1.2 Neut # (Auto) 5.2 Lymph # (Auto) 1.0 [place] # (Auto) 0.4 Eos # (Auto) 0.1 Baso # (Auto) 0.1 PT 13.5 H INR 1.2 APTT 39 H Sodium 142 Potassium 5.6 H Chloride 101 Carbon Dioxide 19 L Anion Gap 27 H BUN 102 H* D Creatinine 13.3 H* D Est GFR ( Amer) 5 Est GFR (Non-Af Amer) 4 Random Glucose 110 Calcium 7.0 L Total Bilirubin 1.2 AST 10 L ALT 14 L D Alkaline Phosphatase 63 Total Protein 7.4 Albumin 4.4 Globulin 2.9 Albumin/Globulin Ratio 1.5 Stool Occult Blood Blood Type Antibody Screen 08/31/18 08/31/18 09/01/18 20:45 21:47 11:20 WBC 4.9 RBC 1.59 L Hgb 5.0 L* Hct 13.7 L MCV 86.2 MCH 31.1 H MCHC 36.1 RDW 17.8 H Plt Count 194 MPV 8.0 Neut % (Auto) Lymph % (Auto) [place] % (Auto) Eos % (Auto) Baso % (Auto) Neut # (Auto) Lymph # (Auto) [place] # (Auto) Eos # (Auto) Baso # (Auto) PT INR APTT Sodium Potassium Chloride Carbon Dioxide Anion Gap BUN Creatinine Est GFR ( Amer) Est GFR (Non-Af Amer) Random Glucose Calcium Total Bilirubin AST ALT Alkaline Phosphatase Total Protein Albumin Globulin Albumin/Globulin Ratio Stool Occult Blood Negative Blood Type O POSITIVE Antibody Screen Negative Assessment & Plan (1) ESRD (end stage renal disease) Status: Acute (2) Severe anemia Status: Acute (3) Hypertensive chronic kidney disease with stage 5 chronic kidney disease or end stage renal disease Status: Acute (4) Obstructive nephropathy Status: Acute - Assessment and Plan (Free Text) Plan: DIALYSIS NOW TRANSFUSE 2 MORE UNITS PRBCS Can complete anemia workup as outpatient
[2018-09-01 13:53] VITALS: TEMP 97.2
[2018-09-01 14:22] VITALS: BP 160/85; PULSE 54
--- NOTE | 2018-09-01 14:34 | CP.PCM.PN ---
Subjective - Date & Time of Evaluation Date of Evaluation: 09/01/18 Time of Evaluation: 11:15 - Subjective Subjective: clinically same Objective - Vital Signs/Intake and Output Vital Signs (last 24 hours): Temp Pulse Resp BP Pulse Ox 97.2 F L 54 L 18 160/85 H 100 09/01/18 13:54 09/01/18 13:54 09/01/18 13:54 09/01/18 13:54 09/01/18 13:54 Intake and Output: 09/01/18 09/01/18 06:59 18:59 Intake Total 325 604 Balance 325 604 - Medications Medications: Current Medications Allopurinol (Zyloprim) 100 mg PO DAILY [facility] Last Admin: 09/01/18 10:15 Dose: Not Given Calcium Acetate (Phoslo) 667 mg PO TIDCC [facility] Last Admin: 09/01/18 12:00 Dose: Not Given Carvedilol (Coreg) 3.125 mg PO DAILY [facility] Last Admin: 09/01/18 10:15 Dose: Not Given Cinacalcet (Sensipar) 30 mg PO DAILY [facility] Last Admin: 09/01/18 10:15 Dose: Not Given Home Med (Febuxostat [Uloric]) 80 mg PO DAILY [facility] Pantoprazole Sodium (Protonix Ec Tab) 40 mg PO DAILY [facility] Last Admin: 09/01/18 10:15 Dose: Not Given Tamsulosin HCl (Flomax) 0.4 mg PO DAILY [facility] Last Admin: 09/01/18 10:15 Dose: Not Given - Labs Labs: 09/01/18 11:20 08/31/18 20:23 PT 13.5 SECONDS (9.7-12.2) H 08/31/18 20:23 INR 1.2 08/31/18 20:23 APTT 39 SECONDS (21-34) H 08/31/18 20:23
--- NOTE | 2018-09-01 23:46 | CARD ---
APPROVED REPORT Date of service: 08/31/2018 EKG Measurement Heart [id number] CO 140P-12 [id number] <Conclusion> Normal sinus rhythm Baseline artifact
== END 2018-09-01 15:50 | disposition left against medical advice (07) | DRG 811 ==
LOC: C.ER 19:40 → C.9E 22:26 → C.6T 22:52
PROVIDERS: ADMIT Internal Medicine Nephrology; ATTEND Internal Medicine Nephrology
PROC: 30233N1 Transfusion of Nonautologous Red Blood Cells into Peripheral Vein, Percutaneous Approach (ICD-10-PCS; principal; 2018-08-31)
DX: D64.9 Anemia, unspecified (principal); N18.6 End stage renal disease; I12.0 Hypertensive chronic kidney disease with stage 5 chronic kidney disease or end stage renal disease; N13.8 Other obstructive and reflux uropathy; N25.81 Secondary hyperparathyroidism of renal origin; M10.9 Gout, unspecified; N40.1 Benign prostatic hyperplasia with lower urinary tract symptoms; Z99.2 Dependence on renal dialysis

== ENCOUNTER 2018-10-09 18:07 | Inpatient (IN) | payer BC, MEDICARE ==
[2018-10-09 18:22] VITALS: BMI 25.3
[2018-10-09] MEDS ORDERED: Sodium Chloride 0.9% 1,000 ML IV ONE (19:09)
[2018-10-09] MEDS ORDERED: Pantoprazole 80 MG in Sodium Chloride 0.9% 100 ML IV STA (19:09)
--- NOTE | 2018-10-09 19:09 | C.PDOC ---
History Of Present Illness 63 year old male with PMHx of ESRD presents to the ED for evaluation of abnormal labs. Patient reports he has been feeling weak and tired. Patient is a Tuesday, Tuesday and Tuesday dialysis patient. Patient missed her dialysis today. Patient denies fever, chills, headache, dizziness, CP, SOB, palpitations, nausea, vomit, diarrhea, numbness. Time Seen by Provider: 10/09/18 19:09 Chief Complaint (Nursing): Abnormal Labs History Per: Patient History/Exam Limitations: no limitations Onset/Duration Of Symptoms: Days Current Symptoms Are (Timing): Still Present Recent travel outside of the [place]: No Additional History Per: Patient Past Medical History Reviewed: Historical Data, Nursing Documentation, Vital Signs Vital Signs: Last Vital Signs Temp 97.2 F L 10/09/18 18:21 Pulse 73 10/09/18 18:21 Resp 18 10/09/18 18:21 BP 168/93 H 10/09/18 18:21 Pulse Ox 100 10/09/18 18:21 - Medical History PMH: Anemia, Arthritis, Benign Prostatic Hyperplasia, HTN, End Stage Renal Disease, Chronic Kidney Disease Denies: Kidney Stones Surgical History: No Surg Hx - [facility] Procedures (07/07/18) BYPASS LEFT BRACHIAL ARTERY TO UPPER ARM VEIN, OPEN APPROACH (05/31/17) DILATION OF LEFT BRACHIAL ARTERY, PERCUTANEOUS APPROACH (10/18/17) INSERTION OF INFUSION DEV INTO SUP VENA CAVA, PERC APPROACH (05/31/17) PERFORMANCE OF URINARY FILTRATION, MULTIPLE (05/31/17) REVISION OF INFUSION DEVICE IN UPPER ARTERY, OPEN APPROACH (10/18/17) TRANSFUSE NONAUT RED BLOOD CELLS IN PERIPH VEIN, PERC (08/31/18) Family History: States: No Known Family Hx - Social History Hx Alcohol Use: No Hx Substance Use: No - Immunization History Hx Tetanus Toxoid Vaccination: Yes Hx Influenza Vaccination: Yes Hx Pneumococcal Vaccination: Yes Review Of Systems Constitutional: Positive for: Weakness, Malaise. Negative for: Fever, Chills Eyes: Negative for: Vision Change Cardiovascular: Negative for: Chest Pain Respiratory: Negative for: Cough, Shortness of Breath Gastrointestinal: Negative for: Nausea, Vomiting, Abdominal Pain Skin: Negative for: Rash Neurological: Negative for: Weakness, Numbness Physical Exam - Physical Exam Appears: Non-toxic, No Acute Distress Skin: Warm, Dry Head: Normacephalic Eye(s): bilateral: Normal Inspection Oral Mucosa: Moist Neck: Trachea Midline, Supple Chest: Symmetrical Cardiovascular: Rhythm Regular Respiratory: No Rales, No Rhonchi, No Wheezing Gastrointestinal/Abdominal: Soft, No Tenderness, No Guarding, No Rebound, Other (midline umbilical hernia) Rectal: Heme Negative, [place] Stool Back: Normal Inspection Extremity: Normal ROM, Other (left arm av shunt with good thrill and bruit) Extremity: Left: Other (shunt good thrill and bruit), Bilateral: Atraumatic, Normal Color And Temperature, Normal ROM Pulses: Left Radial: Normal, Right Radial: Normal Neurological/Psych: Oriented x3, Normal Speech, Normal Cognition Gait: Steady ED Course And Treatment - Laboratory Results Result Diagrams: 10/09/18 19:12 10/09/18 19:12 ECG: Interpreted By Me, Viewed By Me ECG Rhythm: Sinus Rhythm (71), Nonspecific Changes (prolongued qt) O2 Sat by Pulse Oximetry: 100 (ON RA) Pulse Ox Interpretation: Normal - Radiology CXR: Interpreted by Me, Viewed By Me CXR Interpretation: Yes: Other (unchanged from 08/31/18). No: Infiltrates, Frac ture, Pnemothorax Progress Note: Plan: - Labs. - CT abd/pelvis. - Labs. - CXR. - Protonix 40 mg IVO. - IV fluids. - UA Disposition Discussed With : Celestino Tate Comment: accepted the pt on his service and took over the care at 9:09 PM Counseled Patient/Family Regarding: Studies Performed, Diagnosis - Disposition Disposition: HOSPITALIZED Disposition Time: 19:09 Condition: FAIR Forms: [employer] (Romanian) - POA Present On Arrival: Poor Glycemic Control - Clinical Impression Clinical Impression: Severe anemia, ESRD needing dialysis - Scribe Statement The provider has reviewed the documentation as recorded by the Scribe Jaya Dodge All medical record entries made by the Scribe were at my direction and personally dictated by me. I have reviewed the chart and agree that the record accurately reflects my personal performance of the history, physical exam, medical decision making, and the department course for this patient. I have also personally directed, reviewed, and agree with the discharge instructions and disposition. Decision To Admit - Pt Status Changed To: Hospital Disposition Of: Inpatient - Admit Certification Admit to Inpatient:: After my assessment, the patient will require hospitalization for at least two midnights. This is because of the severity of symptoms shown, intensity of services needed, and/or the medical risk in this patient being treated as an outpatient. - InPatient: Physician Admission Certification: I certify that this patient requires 2 or mo re midnights of care for the following reason:: After my assessment, the patient will require hospitalization for at least two midnights. This is because of the severity of symptoms shown, intensity of services needed, and/or the medical risk in this patient being treated as an outpatient. - . Bed Request Type: Telemetry Admitting Physician: Celestino Tate Patient Diagnosis: Severe anemia, ESRD needing dialysis
[2018-10-09 19:15] LABS: BASO # 0.2 K/uL (0.0-0.2); BASO % 1.8 % (0.0-2.0); EOS # 0.2 K/uL (0.0-0.7); EOS % 2.8 % (0.0-4.0); LYMPH # 1.5 K/uL (1.0-4.3); LYMPH % 18.7 % (20.0-40.0); MEAN CORPUSCULAR HEMOGLOBIN 32.1 pg (27.0-31.0); MEAN CORPUSCULAR HGB CONC 36.2 g/dL (33.0-37.0); MEAN PLATELET VOLUME 7.7 fL (7.2-11.7); MONO # 0.5 K/uL (0.0-0.8); MONO % 5.7 % (0.0-10.0); NEUT # 5.9 K/uL (1.8-7.0); NRBC % 0.2 % (0.0-2.0); RBC 1.85 Mil/uL (4.40-5.90); RED CELL DISTRIBUTION WIDTH 19.1 % (11.5-14.5)
[2018-10-09 19:18] LABS: MEAN CELL VOLUME 88.7 fL (80.0-94.0); WHITE BLOOD COUNT 8.3 K/uL (4.8-10.8)
[2018-10-09 19:32] LABS: INR 1.2; PROTHROMBIN TIME 12.8 SECONDS (9.7-12.2)
[2018-10-09] MEDS ORDERED: Iohexol 240 (50 ml) PO ONE (19:41)
[2018-10-09] MEDS ORDERED: Sodium Chloride 0.9% 1,000 ML ONE (19:46)
[2018-10-09 19:49] LABS: ALB/GLOB RATIO 1.7 (1.0-2.1); ALBUMIN 4.5 g/dL (3.5-5.0); CALCIUM 7.7 mg/dl (8.6-10.4)
[2018-10-09] MEDS ORDERED: Iohexol 240 (50 ml) ONE (19:58)
[2018-10-10 07:17] LABS: BASO # 0.2 K/uL (0.0-0.2); EOS # 0.2 K/uL (0.0-0.7); EOS % 2.4 % (0.0-4.0); HEMOGLOBIN 7.4 g/dL (12.0-18.0); LYMPH # 0.8 K/uL (1.0-4.3); MEAN CELL VOLUME 88.7 fL (80.0-94.0); MEAN CORPUSCULAR HEMOGLOBIN 31.8 pg (27.0-31.0); MEAN CORPUSCULAR HGB CONC 35.8 g/dL (33.0-37.0); MEAN PLATELET VOLUME 8.4 fL (7.2-11.7); MONO # 0.4 K/uL (0.0-0.8); MONO % 4.9 % (0.0-10.0); NEUT # 6.5 K/uL (1.8-7.0); NEUT % 80.7 % (50.0-75.0); RBC 2.33 Mil/uL (4.40-5.90); RED CELL DISTRIBUTION WIDTH 18.1 % (11.5-14.5)
[2018-10-10 07:51] LABS: ALB/GLOB RATIO 1.7 (1.0-2.1); ALBUMIN 4.4 g/dL (3.5-5.0); CALCIUM 7.1 mg/dl (8.6-10.4)
--- NOTE | 2018-10-10 08:33 | RAD ---
Date of service: 10/09/2018 HISTORY: GI Bleeding COMPARISON: Portable chest 08/31/2018. FINDINGS: LUNGS: No active pulmonary disease. PLEURA: No significant pleural effusion identified, no pneumothorax apparent. CARDIOVASCULAR: No aortic atherosclerotic calcification present. Stable cardiomegaly. No pulmonary vascular congestion. OSSEOUS STRUCTURES: No significant abnormalities. VISUALIZED UPPER ABDOMEN: Normal. OTHER FINDINGS: None. IMPRESSION: Stable cardiomegaly. No pulmonary vascular congestion, infiltrate or pleural effusion appreciable.
[2018-10-10 09:34] LABS: SQUAMOUS EPITHIAL < 1 /hpf (0-5); URINE BILIRUBIN NEGATIVE (NEGATIVE); URINE BLOOD NEGATIVE (NEGATIVE); URINE CLARITY Clear (Clear); URINE COLOR Yellow (YELLOW); URINE GLUCOSE (UA) NORMAL (Normal); URINE LEUKOCYTE ESTERASE TRACE Leu/uL (Negative); URINE PROTEIN 1+ mg/dL (NEGATIVE); URINE UROBILINOGEN NORMAL mg/dL (0.2-1.0)
[2018-10-10] MEDS ORDERED: Pantoprazole 40 mg EC Tab PO SCH (10:00)
[2018-10-10] MEDS ORDERED: Home Med 1 UNIT (Febuxostat [Uloric] 80 MG) PO SCH ×2 (10:00)
[2018-10-10 11:11] LABS: ALB/GLOB RATIO 1.7 (1.0-2.1); ALBUMIN 4.4 g/dL (3.5-5.0); CALCIUM 7.3 mg/dl (8.6-10.4)
--- NOTE | 2018-10-10 11:44 | CP.PCM.CON ---
History of Present Illness - History of Present Illness History of Present Illness: 63 year old male with PMHx of ESRD presents to the ED for evaluation of abnormal labs. Patient reports he has been feeling weak and tired. Patient is a Tuesday, Tuesday and Tuesday dialysis patient. Patient missed her dialysis today. P atient denies fever, chills, headache, dizziness, CP, SOB, palpitations, nausea, vomit, diarrhea, numbness. Undergoing work up for chronic anemia, requires frequent blood transfusions. Pt missed hd yesetrday as hhe came to ER for transfusion. received 2 unit sprbc in ER PMH: ESRD HTN OBSTRUCTIVE UROPATHY GOUT SEVERE ANEMIA SECONDARY HPT PSH: AV FISTULA BM BX all: nkda soc hx: no toxic habits Review of Systems - Review of Systems All systems: reviewed and no additional remarkable complaints except (as per HPI) Past Patient History - Infectious Disease Hx of Infectious Diseases: None - Past Medical History & Family History Past Medical History?: Yes - Past Social History Smoking Status: Never Smoked - CARDIAC Hx Cardiac Disorders: Yes Hx Hypertension: Yes - PULMONARY Hx Respiratory Disorders: No - NEUROLOGICAL Hx Neurological Disorder: No - HEENT Hx HEENT Problems: No - RENAL Hx Chronic Kidney Disease: Yes Hx Dialysis: Yes Type of Dialysis Access: HD Date of Last Dialysis Treatment: 10/06/18 Hx Kidney Stones: No - ENDOCRINE/METABOLIC Hx Endocrine Disorders: No - HEMATOLOGICAL/ONCOLOGICAL Hx Blood Disorders: Yes Hx Anemia: Yes (chronic) - INTEGUMENTARY Hx Dermatological Problems: No - MUSCULOSKELETAL/RHEUMATOLOGICAL Hx Musculoskeletal Disorders: Yes Hx Arthritis: Yes Hx Falls: No - GASTROINTESTINAL Hx Gastrointestinal Disorders: No - GENITOURINARY/GYNECOLOGICAL Hx Genitourinary Disorders: No - PSYCHIATRIC Hx Substance Use: No - SURGICAL HISTORY Hx Surgeries: Yes Hx Orthopedic Surgery: Yes (right knee , left foot) Hx Vascular Access Device: Yes (LEFT ARM GRAFT) Other/Comment: LEFT FOOT BUNION SURGERY-10YRS. - ANESTHESIA Hx Anesthesia: Yes Hx Anesthesia Reactions: No Hx Malignant Hyperthermia: No Meds Allergies/Adverse Reactions: Allergies Allergy/AdvReac Type Severity Reaction Status Date / Time No Known Allergies Allergy Verified 10/09/18 18:20 - Medications Medications: Current Medications Allopurinol (Zyloprim) 100 mg PO DAILY [facility] Last Admin: 10/10/18 10:12 Dose: 100 mg Calcium Acetate (Phoslo) 667 mg PO TIDCC [facility] Last Admin: 10/10/18 08:10 Dose: 667 mg Carvedilol (Coreg) 3.125 mg PO DAILY [facility] Last Admin: 10/10/18 10:12 Dose: 3.125 mg Cinacalcet (Sensipar) 30 mg PO DAILY [facility] Last Admin: 10/10/18 10:12 Dose: 30 mg Home Med (Febuxostat [Uloric]) 80 mg PO DAILY [facility] Ondansetron HCl (Zofran Inj) 4 mg IVP Q6 PRN PRN Reason: Nausea/Vomiting Last Admin: 10/10/18 07:53 Dose: 4 mg Pantoprazole Sodium (Protonix Ec Tab) 40 mg PO DAILY [facility] Last Admin: 10/10/18 10:12 Dose: 40 mg Tamsulosin HCl (Flomax) 0.4 mg PO DAILY [facility] Last Admin: 10/10/18 10:12 Dose: 0.4 mg Physical Exam - Constitutional Appears: No Acute Distress, Chronically Ill - Head Exam Head Exam: NORMAL INSPECTION, NORMOCEPHALIC - Eye Exam Eye Exam: Normal appearance, PERRL - ENT Exam ENT Exam: Mucous Membranes Moist, Normal Exam - Neck Exam Neck exam: Positive for: Normal Inspection - Respiratory Exam Respiratory Exam: Clear to Auscultation Bilateral, NORMAL BREATHING PATTERN - Cardiovascular Exam Cardiovascular Exam: REGULAR RHYTHM, RRR - GI/Abdominal Exam GI & Abdominal Exam: Distended, Normal Bowel Sounds, Soft - Extremities Exam Extremities exam: Positive for: normal inspection (LUE avf w/ thrill) - Neurological Exam Neurological exam: Alert, Oriented x3 - Psychiatric Exam Psychiatric exam: Normal Affect, Normal Mood - Skin Skin Exam: Dry, Intact Results - Vital Signs Recent Vital Signs: Last Vital Signs Temp 98.4 F 10/10/18 11:43 Pulse 62 10/10/18 11:43 Resp 16 10/10/18 11:43 BP 151/88 H 10/10/18 11:43 Pulse Ox 98 10/10/18 11:43 - Labs Result Diagrams: 10/10/18 07:14 10/10/18 10:13 Labs: Laboratory Results - last 24 hr 10/09/18 10/09/18 10/09/18 19:12 19:12 19:22 WBC 8.3 D RBC 1.85 L Hgb 6.0 L* Hct 16.4 L MCV 88.7 D MCH 32.1 H MCHC 36.2 RDW 19.1 H Plt Count 287 MPV 7.7 Neut % (Auto) 71.0 Lymph % (Auto) 18.7 L [place] % (Auto) 5.7 Eos % (Auto) 2.8 Baso % (Auto) 1.8 Neut # (Auto) 5.9 Lymph # (Auto) 1.5 [place] # (Auto) 0.5 Eos # (Auto) 0.2 Baso # (Auto) 0.2 PT 12.8 H INR 1.2 APTT 40 H Sodium 140 Potassium 4.8 Chloride 100 Carbon Dioxide 25 Anion Gap 21 H BUN 75 H Creatinine 11.3 H* Est GFR ( Amer) 6 Est GFR (Non-Af Amer) 5 Random Glucose 127 H Calcium 7.7 L Total Bilirubin 1.3 AST 22 ALT 28 Alkaline Phosphatase 60 Total Protein 7.2 Albumin 4.5 Globulin 2.7 Albumin/Globulin Ratio 1.7 Lipase 57 Urine Color Urine Clarity Urine pH Ur Specific [place] Urine Protein Urine Glucose (UA) Urine Ketones Urine Blood Urine Nitrate Urine Bilirubin Urine Urobilinogen Ur Leukocyte Esterase Urine WBC (Auto) Urine RBC (Auto) Ur Squamous Epith Cells Blood Type Antibody Screen 10/09/18 10/10/18 10/10/18 19:22 07:14 07:14 WBC 8.0 RBC 2.33 L Hgb 7.4 L Hct 20.7 L MCV 88.7 MCH 31.8 H MCHC 35.8 RDW 18.1 H Plt Count 219 MPV 8.4 Neut % (Auto) 80.7 H Lymph % (Auto) 10.0 L [place] % (Auto) 4.9 Eos % (Auto) 2.4 Baso % (Auto) 2.0 Neut # (Auto) 6.5 Lymph # (Auto) 0.8 L [place] # (Auto) 0.4 Eos # (Auto) 0.2 Baso # (Auto) 0.2 PT INR APTT Sodium 139 Potassium 6.2 H* D Chloride 103 Carbon Dioxide 18 L Anion Gap 24 H BUN 82 H Creatinine 11.3 H* Est GFR ( Amer) 6 Est GFR (Non-Af Amer) 5 Random Glucose 88 D Calcium 7.1 L Total Bilirubin 1.6 H AST 28 ALT 28 Alkaline Phosphatase 66 Total Protein 7.0 Albumin 4.4 Globulin 2.6 Albumin/Globulin Ratio 1.7 Lipase Urine Color Urine Clarity Urine pH Ur Specific [place] Urine Protein Urine Glucose (UA) Urine Ketones Urine Blood Urine Nitrate Urine Bilirubin Urine Urobilinogen Ur Leukocyte Esterase Urine WBC (Auto) Urine RBC (Auto) Ur Squamous Epith Cells Blood Type O POSITIVE Antibody Screen Negative 10/10/18 10/10/18 09:19 10:13 WBC RBC Hgb Hct MCV MCH MCHC RDW Plt Count MPV Neut % (Auto) Lymph % (Auto) [place] % (Auto) Eos % (Auto) Baso % (Auto) Neut # (Auto) Lymph # (Auto) [place] # (Auto) Eos # (Auto) Baso # (Auto) PT INR APTT Sodium 141 Potassium 6.7 H* Chloride 104 Carbon Dioxide 21 L Anion Gap 22 H BUN 83 H Creatinine 12.2 H* Est GFR ( Amer) 5 Est GFR (Non-Af Amer) 4 Random Glucose 103 Calcium 7.3 L Total Bilirubin 1.5 H AST 27 ALT 31 Alkaline Phosphatase 64 Total Protein 7.0 Albumin 4.4 Globulin 2.6 Albumin/Globulin Ratio 1.7 Lipase Urine Color Yellow Urine Clarity Clear Urine pH 9.0 Ur Specific [place] 1.008 Urine Protein 1+ H Urine Glucose (UA) Normal Urine Ketones Negative Urine Blood Negative Urine Nitrate Negative Urine Bilirubin Negative Urine Urobilinogen Normal Ur Leukocyte Esterase Trace Urine WBC (Auto) 3 Urine RBC (Auto) < 1 Ur Squamous Epith Cells < 1 Blood Type Antibody Screen Assessment & Plan (1) End-stage renal disease needing dialysis Status: Acute (2) Severe anemia Status: Acute - Assessment and Plan (Free Text) Assessment: esrd hyperkalemia anemia htn plan: hd today resume home antihypertensives s/p 2 units prbc f/u outpt hematology
--- NOTE | 2018-10-10 11:52 | CT ---
PROCEDURE: CT Abdomen and Pelvis without IV contrast. HISTORY: low hb COMPARISON: CT abdomen and pelvis without IV contrast performed 03/02/17 TECHNIQUE: Contiguous axial images of the abdomen and pelvis. Oral contrast was administered. No IV contrast given. Coronal and Sagittal reformats generated and reviewed. Radiation dose: Total exam DLP = 499.06 mGy-cm. This CT exam was performed using one or more of the following dose reduction techniques: Automated exposure control, adjustment of the mA and/or kV according to patient size, and/or use of iterative reconstruction technique. FINDINGS: There is limited evaluation of the solid organs without the administration of IV contrast. LOWER THORAX: Small bilateral pleural effusions. Mild bibasilar atelectasis. No visible pneumothorax. Partially imaged cardiomegaly. Markedly thick-walled distal esophagus and small hiatal hernia. LIVER: Hepatomegaly. Liver remains mildly diffusely increased in attenuation. GALLBLADDER AND BILE DUCTS: Contracted gallbladder with gallstones. PANCREAS: Pancreatic atrophy. SPLEEN: Splenomegaly. ADRENALS: Mild bilateral adrenal gland hypertrophy. KIDNEYS AND URETERS: Bilateral renal atrophy. Severe bilateral hydroureteronephrosis. BLADDER: Thick-walled massively distended urinary bladder. REPRODUCTIVE: The prostate gland measures approximately 5.4 x 5.5 cm. APPENDIX: The appendix appears within normal limits of caliber. No secondary signs of acute appendicitis. BOWEL: The stomach is nondistended. The bowel loops appear within normal limits of caliber without evidence of intestinal obstruction. PERITONEUM: No significant free fluid. No definite free air. LYMPH NODES: No bulky lymphadenopathy identified. VASCULATURE: No aortic aneurysm. BONES: Mild degenerative changes. OTHER FINDINGS: None. IMPRESSION: Massively distended and thick-walled urinary bladder. Correlate with urinalysis and cystoscopy if indicated. Enlarged heterogeneous prostate gland. Recommend correlation with PSA. Contracted state of gallbladder. Cholelithiasis. Hepatomegaly. Liver remains mildly diffusely increased in attenuation. Splenomegaly. Atrophic kidneys. Severe bilateral hydroureteronephrosis. Mild bilateral adrenal gland hypertrophy. Markedly thick-walled distal esophageal wall. Small hiatal hernia. Small bilateral pleural effusions. Partially imaged cardiomegaly. Additional findings as above. Preliminary impression was provided by [employer].
--- NOTE | 2018-10-10 14:33 | CP.PCM.CON ---
History of Present Illness - History of Present Illness History of Present Illness: GI Fellow PGY4, consult note. Pipe Goel is a very pleasant 63M who presents with recurrent anemia. 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 Previous bone marrow biopsies, EGD and colonoscopy have been negative thus far. Recently, patient has developed splenomegaly. Labs show elevated bilirubin and reticulocytosis. He has had several NEGATIVE fecal occults completed. He has a history of significant gout, on Fuboxustat. He denies abdominal pain, rash, family history of similar problems. He has extensive w/u, but no clear cause of the recurrent anemia. PMHx - As above. PSHx - AV fistula FMHx - Denies hematologic problems SocHx - Denies, alcohol, tobacco 12pt ROS completed and negative except for above. Past Patient History - Infectious Disease Hx of Infectious Diseases: None - Past Medical History & Family History Past Medical History?: Yes - Past Social History Smoking Status: Never Smoked - CARDIAC Hx Cardiac Disorders: Yes Hx Hypertension: Yes - PULMONARY Hx Respiratory Disorders: No - NEUROLOGICAL Hx Neurological Disorder: No - HEENT Hx HEENT Problems: No - RENAL Hx Chronic Kidney Disease: Yes Hx Dialysis: Yes Type of Dialysis Access: HD Date of Last Dialysis Treatment: 10/06/18 Hx Kidney Stones: No - ENDOCRINE/METABOLIC Hx Endocrine Disorders: No - HEMATOLOGICAL/ONCOLOGICAL Hx Blood Disorders: Yes Hx Anemia: Yes (chronic) - INTEGUMENTARY Hx Dermatological Problems: No - MUSCULOSKELETAL/RHEUMATOLOGICAL Hx Musculoskeletal Disorders: Yes Hx Arthritis: Yes Hx Falls: No - GASTROINTESTINAL Hx Gastrointestinal Disorders: No - GENITOURINARY/GYNECOLOGICAL Hx Genitourinary Disorders: No - PSYCHIATRIC Hx Substance Use: No - SURGICAL HISTORY Hx Surgeries: Yes Hx Orthopedic Surgery: Yes (right knee , left foot) Hx Vascular Access Device: Yes (LEFT ARM GRAFT) Other/Comment: LEFT FOOT BUNION SURGERY-10YRS. - ANESTHESIA Hx Anesthesia: Yes Hx Anesthesia Reactions: No Hx Malignant Hyperthermia: No Meds Allergies/Adverse Reactions: Allergies Allergy/AdvReac Type Severity Reaction Status Date / Time No Known Allergies Allergy Verified 10/09/18 18:20 - Medications Medications: Current Medications Allopurinol (Zyloprim) 100 mg PO DAILY [facility] Last Admin: 10/10/18 10:12 Dose: 100 mg Calcium Acetate (Phoslo) 667 mg PO TIDCC [facility] [place] Last Admin: 10/10/18 14:01 Dose: Not Given Carvedilol (Coreg) 3.125 mg PO DAILY [facility] [place] Last Admin: 10/10/18 10:12 Dose: 3.125 mg Cinacalcet (Sensipar) 30 mg PO DAILY [facility] [place] Last Admin: 10/10/18 10:12 Dose: 30 mg Home Med (Febuxostat [Uloric]) 80 mg PO DAILY [facility] [place] Ondansetron HCl (Zofran Inj) 4 mg IVP Q6 PRN PRN Reason: Nausea/Vomiting Last Admin: 10/10/18 07:53 Dose: 4 mg Pantoprazole Sodium (Protonix Ec Tab) 40 mg PO DAILY [facility] [place] Last Admin: 10/10/18 10:12 Dose: 40 mg Tamsulosin HCl (Flomax) 0.4 mg PO DAILY [facility] [place] Last Admin: 10/10/18 10:12 Dose: 0.4 mg Physical Exam - Constitutional Appears: Non-toxic, No Acute Distress - Head Exam Head Exam: ATRAUMATIC, NORMAL INSPECTION - Eye Exam Eye Exam: EOMI, Scleral icterus - Respiratory Exam Respiratory Exam: Clear to Auscultation Bilateral, NORMAL BREATHING PATTERN - Cardiovascular Exam Cardiovascular Exam: REGULAR RHYTHM, +S1, +S2 - GI/Abdominal Exam GI & Abdominal Exam: Normal Bowel Sounds, Organomegaly, Soft. absent: Tenderness - Extremities Exam Extremities exam: Positive for: normal inspection. Negative for: pedal edema - Neurological Exam Neurological exam: Alert, CN II-XII Intact, Oriented x3 - Psychiatric Exam Psychiatric exam: Normal Affect, Normal Mood - Skin Skin Exam: Dry, Normal Color Results - Vital Signs Recent Vital Signs: Last Vital Signs Temp 98.4 F 10/10/18 11:43 Pulse 62 10/10/18 11:43 Resp 16 10/10/18 11:43 BP 151/88 H 10/10/18 11:43 Pulse Ox 98 10/10/18 11:43 - Labs Result Diagrams: 10/10/18 07:14 10/10/18 10:13 Labs: Laboratory Results - last 24 hr 10/09/18 10/09/18 10/09/18 19:12 19:12 19:22 WBC 8.3 D RBC 1.85 L Hgb 6.0 L* Hct 16.4 L MCV 88.7 D MCH 32.1 H MCHC 36.2 RDW 19.1 H Plt Count 287 MPV 7.7 Neut % (Auto) 71.0 Lymph % (Auto) 18.7 L [place] % (Auto) 5.7 Eos % (Auto) 2.8 Baso % (Auto) 1.8 Neut # (Auto) 5.9 Lymph # (Auto) 1.5 [place] # (Auto) 0.5 Eos # (Auto) 0.2 Baso # (Auto) 0.2 PT 12.8 H INR 1.2 APTT 40 H Sodium 140 Potassium 4.8 Chloride 100 Carbon Dioxide 25 Anion Gap 21 H BUN 75 H Creatinine 11.3 H* Est GFR ( Amer) 6 Est GFR (Non-Af Amer) 5 Random Glucose 127 H Calcium 7.7 L Total Bilirubin 1.3 AST 22 ALT 28 Alkaline Phosphatase 60 Total Protein 7.2 Albumin 4.5 Globulin 2.7 Albumin/Globulin Ratio 1.7 Lipase 57 Urine Color Urine Clarity Urine pH Ur Specific [place] Urine Protein Urine Glucose (UA) Urine Ketones Urine Blood Urine Nitrate Urine Bilirubin Urine Urobilinogen Ur Leukocyte Esterase Urine WBC (Auto) Urine RBC (Auto) Ur Squamous Epith Cells Blood Type Antibody Screen 10/09/18 10/10/18 10/10/18 19:22 07:14 07:14 WBC 8.0 RBC 2.33 L Hgb 7.4 L Hct 20.7 L MCV 88.7 MCH 31.8 H MCHC 35.8 RDW 18.1 H Plt Count 219 MPV 8.4 Neut % (Auto) 80.7 H Lymph % (Auto) 10.0 L [place] % (Auto) 4.9 Eos % (Auto) 2.4 Baso % (Auto) 2.0 Neut # (Auto) 6.5 Lymph # (Auto) 0.8 L [place] # (Auto) 0.4 Eos # (Auto) 0.2 Baso # (Auto) 0.2 PT INR APTT Sodium 139 Potassium 6.2 H* D Chloride 103 Carbon Dioxide 18 L Anion Gap 24 H BUN 82 H Creatinine 11.3 H* Est GFR ( Amer) 6 Est GFR (Non-Af Amer) 5 Random Glucose 88 D Calcium 7.1 L Total Bilirubin 1.6 H AST 28 ALT 28 Alkaline Phosphatase 66 Total Protein 7.0 Albumin 4.4 Globulin 2.6 Albumin/Globulin Ratio 1.7 Lipase Urine Color Urine Clarity Urine pH Ur Specific [place] Urine Protein Urine Glucose (UA) Urine Ketones Urine Blood Urine Nitrate Urine Bilirubin Urine Urobilinogen Ur Leukocyte Esterase Urine WBC (Auto) Urine RBC (Auto) Ur Squamous Epith Cells Blood Type O POSITIVE Antibody Screen Negative 10/10/18 10/10/18 09:19 10:13 WBC RBC Hgb Hct MCV MCH MCHC RDW Plt Count MPV Neut % (Auto) Lymph % (Auto) [place] % (Auto) Eos % (Auto) Baso % (Auto) Neut # (Auto) Lymph # (Auto) [place] # (Auto) Eos # (Auto) Baso # (Auto) PT INR APTT Sodium 141 Potassium 6.7 H* Chloride 104 Carbon Dioxide 21 L Anion Gap 22 H BUN 83 H Creatinine 12.2 H* Est GFR ( Amer) 5 Est GFR (Non-Af Amer) 4 Random Glucose 103 Calcium 7.3 L Total Bilirubin 1.5 H AST 27 ALT 31 Alkaline Phosphatase 64 Total Protein 7.0 Albumin 4.4 Globulin 2.6 Albumin/Globulin Ratio 1.7 Lipase Urine Color Yellow Urine Clarity Clear Urine pH 9.0 Ur Specific [place] 1.008 Urine Protein 1+ H Urine Glucose (UA) Normal Urine Ketones Negative Urine Blood Negative Urine Nitrate Negative Urine Bilirubin Negative Urine Urobilinogen Normal Ur Leukocyte Esterase Trace Urine WBC (Auto) 3 Urine RBC (Auto) < 1 Ur Squamous Epith Cells < 1 Blood Type Antibody Screen Assessment & Plan - Assessment and Plan (Free Text) Assessment: #Recurrent symptomatic anemia #Splenomegaly #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 Previous negative stool occults as well as negative EGD, colonoscopy. - CT reviewed: splenomegaly, gallstones - Previous labs reviewed. Noted abnormal CATRACHITA titers - Clinical scenario is concerning for hemolytic anemia: Elevated reticulocytes, hyperbilirubinemia, splenomegaly, gallstones - Follow-up Hematology recommendations. - PENDING direct bilirubin, LDH, haptoglobin. These values must take account for recent blood transfusion and should follow up these test as outpatient to compare after a few weeks. - Date & Time Date: 10/10/18 Time: 14:44
[2018-10-10 15:02] VITALS: RESP 17
[2018-10-10 15:32] LABS: BILIRUBIN,DIRECT 0.7 mg/dL (0.0-0.4)
--- NOTE | 2018-10-10 16:01 | CP.PCM.HP ---
Past Patient History - Infectious Disease Hx of Infectious Diseases: None - Past Medical History & Family History Past Medical History?: Yes - Past Social History Smoking Status: Never Smoked - CARDIAC Hx Cardiac Disorders: Yes Hx Hypertension: Yes - PULMONARY Hx Respiratory Disorders: No - NEUROLOGICAL Hx Neurological Disorder: No - HEENT Hx HEENT Problems: No - RENAL Hx Chronic Kidney Disease: Yes Hx Dialysis: Yes Type of Dialysis Access: HD Date of Last Dialysis Treatment: 10/06/18 Hx Kidney Stones: No - ENDOCRINE/METABOLIC Hx Endocrine Disorders: No - HEMATOLOGICAL/ONCOLOGICAL Hx Blood Disorders: Yes Hx Anemia: Yes (chronic) - INTEGUMENTARY Hx Dermatological Problems: No - MUSCULOSKELETAL/RHEUMATOLOGICAL Hx Musculoskeletal Disorders: Yes Hx Arthritis: Yes Hx Falls: No - GASTROINTESTINAL Hx Gastrointestinal Disorders: No - GENITOURINARY/GYNECOLOGICAL Hx Genitourinary Disorders: No - PSYCHIATRIC Hx Substance Use: No - SURGICAL HISTORY Hx Surgeries: Yes Hx Orthopedic Surgery: Yes (right knee , left foot) Hx Vascular Access Device: Yes (LEFT ARM GRAFT) Other/Comment: LEFT FOOT BUNION SURGERY-10YRS. - ANESTHESIA Hx Anesthesia: Yes Hx Anesthesia Reactions: No Hx Malignant Hyperthermia: No Meds Allergies/Adverse Reactions: Allergies Allergy/AdvReac Type Severity Reaction Status Date / Time No Known Allergies Allergy Verified 10/09/18 18:20 Results - Vital Signs Recent Vital Signs: Last Vital Signs Temp 97.5 F L 10/10/18 13:00 Pulse 69 10/10/18 14:54 Resp 17 10/10/18 14:54 BP 143/79 10/10/18 15:30 Pulse Ox 99 10/10/18 13:00 - Labs Result Diagrams: 10/10/18 07:14 10/10/18 10:13 Labs: Laboratory Results - last 24 hr 10/09/18 10/09/18 10/09/18 19:12 19:12 19:22 WBC 8.3 D RBC 1.85 L Hgb 6.0 L* Hct 16.4 L MCV 88.7 D MCH 32.1 H MCHC 36.2 RDW 19.1 H Plt Count 287 MPV 7.7 Neut % (Auto) 71.0 Lymph % (Auto) 18.7 L [place] % (Auto) 5.7 Eos % (Auto) 2.8 Baso % (Auto) 1.8 Neut # (Auto) 5.9 Lymph # (Auto) 1.5 [place] # (Auto) 0.5 Eos # (Auto) 0.2 Baso # (Auto) 0.2 Haptoglobin PT 12.8 H INR 1.2 APTT 40 H Sodium 140 Potassium 4.8 Chloride 100 Carbon Dioxide 25 Anion Gap 21 H BUN 75 H Creatinine 11.3 H* Est GFR ( Amer) 6 Est GFR (Non-Af Amer) 5 Random Glucose 127 H Calcium 7.7 L Total Bilirubin 1.3 Direct Bilirubin AST 22 ALT 28 Alkaline Phosphatase 60 Lactate Dehydrogenase Total Protein 7.2 Albumin 4.5 Globulin 2.7 Albumin/Globulin Ratio 1.7 Lipase 57 Urine Color Urine Clarity Urine pH Ur Specific [place] Urine Protein Urine Glucose (UA) Urine Ketones Urine Blood Urine Nitrate Urine Bilirubin Urine Urobilinogen Ur Leukocyte Esterase Urine WBC (Auto) Urine RBC (Auto) Ur Squamous Epith Cells Blood Type Antibody Screen 10/09/18 10/10/18 10/10/18 19:22 07:14 07:14 WBC 8.0 RBC 2.33 L Hgb 7.4 L Hct 20.7 L MCV 88.7 MCH 31.8 H MCHC 35.8 RDW 18.1 H Plt Count 219 MPV 8.4 Neut % (Auto) 80.7 H Lymph % (Auto) 10.0 L [place] % (Auto) 4.9 Eos % (Auto) 2.4 Baso % (Auto) 2.0 Neut # (Auto) 6.5 Lymph # (Auto) 0.8 L [place] # (Auto) 0.4 Eos # (Auto) 0.2 Baso # (Auto) 0.2 Haptoglobin PT INR APTT Sodium 139 Potassium 6.2 H* D Chloride 103 Carbon Dioxide 18 L Anion Gap 24 H BUN 82 H Creatinine 11.3 H* Est GFR ( Amer) 6 Est GFR (Non-Af Amer) 5 Random Glucose 88 D Calcium 7.1 L Total Bilirubin 1.6 H Direct Bilirubin AST 28 ALT 28 Alkaline Phosphatase 66 Lactate Dehydrogenase Total Protein 7.0 Albumin 4.4 Globulin 2.6 Albumin/Globulin Ratio 1.7 Lipase Urine Color Urine Clarity Urine pH Ur Specific [place] Urine Protein Urine Glucose (UA) Urine Ketones Urine Blood Urine Nitrate Urine Bilirubin Urine Urobilinogen Ur Leukocyte Esterase Urine WBC (Auto) Urine RBC (Auto) Ur Squamous Epith Cells Blood Type O POSITIVE Antibody Screen Negative 0110/10/18 10/10/18 09:19 10:13 15:14 WBC RBC Hgb Hct MCV MCH MCHC RDW Plt Count MPV Neut % (Auto) Lymph % (Auto) [place] % (Auto) Eos % (Auto) Baso % (Auto) Neut # (Auto) Lymph # (Auto) [place] # (Auto) Eos # (Auto) Baso # (Auto) Haptoglobin PT INR APTT Sodium 141 Potassium 6.7 H* Chloride 104 Carbon Dioxide 21 L Anion Gap 22 H BUN 83 H Creatinine 12.2 H* Est GFR ( Amer) 5 Est GFR (Non-Af Amer) 4 Random Glucose 103 Calcium 7.3 L Total Bilirubin 1.5 H Direct Bilirubin 0.7 H AST 27 ALT 31 Alkaline Phosphatase 64 Lactate Dehydrogenase 565 Total Protein 7.0 Albumin 4.4 Globulin 2.6 Albumin/Globulin Ratio 1.7 Lipase Urine Color Yellow Urine Clarity Clear Urine pH 9.0 Ur Specific [place] 1.008 Urine Protein 1+ H Urine Glucose (UA) Normal Urine Ketones Negative Urine Blood Negative Urine Nitrate Negative Urine Bilirubin Negative Urine Urobilinogen Normal Ur Leukocyte Esterase Trace Urine WBC (Auto) 3 Urine RBC (Auto) < 1 Ur Squamous Epith Cells < 1 Blood Type Antibody Screen 10/10/18 15:14 WBC RBC Hgb Hct MCV MCH MCHC RDW Plt Count MPV Neut % (Auto) Lymph % (Auto) [place] % (Auto) Eos % (Auto) Baso % (Auto) Neut # (Auto) Lymph # (Auto) [place] # (Auto) Eos # (Auto) Baso # (Auto) Haptoglobin < 20.0 L PT INR APTT Sodium Potassium Chloride Carbon Dioxide Anion Gap BUN Creatinine Est GFR ( Amer) Est GFR (Non-Af Amer) Random Glucose Calcium Total Bilirubin Direct Bilirubin AST ALT Alkaline Phosphatase Lactate Dehydrogenase Total Protein Albumin Globulin Albumin/Globulin Ratio Lipase Urine Color Urine Clarity Urine pH Ur Specific [place] Urine Protein Urine Glucose (UA) Urine Ketones Urine Blood Urine Nitrate Urine Bilirubin Urine Urobilinogen Ur Leukocyte Esterase Urine WBC (Auto) Urine RBC (Auto) Ur Squamous Epith Cells Blood Type Antibody Screen
[2018-10-10 17:47] VITALS: BP 149/79; PULSE 74; TEMP 98; O2SAT 100
--- NOTE | 2018-10-11 05:51 | CARD ---
APPROVED REPORT Date of service: 10/09/2018 EKG Measurement Heart [id number] <Conclusion> Normal sinus rhythm Nonspecific T wave abnormality Prolonged QT Abnormal ECG
== END 2018-10-10 17:50 | disposition left against medical advice (07) | DRG 811 ==
LOC: C.ER 18:07 → C.9E 21:08 → C.5S 10-10 12:39
PROVIDERS: ADMIT Internal Medicine Critical Care Medicine; ATTEND Internal Medicine Critical Care Medicine
PROC: 30233N1 Transfusion of Nonautologous Red Blood Cells into Peripheral Vein, Percutaneous Approach (ICD-10-PCS; principal; 2018-10-09)
PROC: 5A1D70Z Performance of Urinary Filtration, Intermittent, Less than 6 Hours Per Day (ICD-10-PCS; 2018-10-10)
DX: D58.9 Hereditary hemolytic anemia, unspecified (principal); N18.6 End stage renal disease; I12.0 Hypertensive chronic kidney disease with stage 5 chronic kidney disease or end stage renal disease; N13.8 Other obstructive and reflux uropathy; N25.81 Secondary hyperparathyroidism of renal origin; K80.20 Calculus of gallbladder without cholecystitis without obstruction; M10.9 Gout, unspecified; N40.1 Benign prostatic hyperplasia with lower urinary tract symptoms; Z99.2 Dependence on renal dialysis; D63.1 Anemia in chronic kidney disease; E87.5 Hyperkalemia

== ENCOUNTER 2018-11-21 17:32 | Observation (INO) | payer MEDICARE ==
[2018-11-21 17:32] VITALS: BMI 25.3
--- NOTE | 2018-11-21 18:17 | C.PDOC ---
History Of Present Illness 63 y/o male with a PMHx of ESRD (on hemodialysis) and chronic anemia presents to the ED due to abnormal labs. Many prior ED visits for the same. Patient reports having outpatient labs last week, hemoglobin was found to be 4.9. States he was tired and missed his dialysis yesterday. Patient has no other complaints besides feeling tired. no gi bleeding reported. Time Seen by Provider: 11/21/18 17:50 Chief Complaint (Nursing): Abnormal Labs History Per: Patient History/Exam Limitations: no limitations Onset/Duration Of Symptoms: Days Current Symptoms Are (Timing): Still Present Past Medical History Reviewed: Historical Data, Nursing Documentation, Vital Signs Vital Signs: Last Vital Signs Temp 97.9 F 11/21/18 17:40 Pulse 82 11/21/18 17:40 Resp 20 11/21/18 17:40 BP 169/89 H 11/21/18 17:40 Pulse Ox 100 11/21/18 17:40 - Medical History PMH: Anemia (chronic), Arthritis, Benign Prostatic Hyperplasia, HTN, End Stage R enal Disease, Chronic Kidney Disease Denies: Kidney Stones - [facility] Procedures (10/09/18) BYPASS LEFT BRACHIAL ARTERY TO UPPER ARM VEIN, OPEN APPROACH (05/31/17) DILATION OF LEFT BRACHIAL ARTERY, PERCUTANEOUS APPROACH (10/18/17) INSERTION OF INFUSION DEV INTO SUP VENA CAVA, PERC APPROACH (05/31/17) PERFORMANCE OF URINARY FILTRATION, MULTIPLE (05/31/17) REVISION OF INFUSION DEVICE IN UPPER ARTERY, OPEN APPROACH (10/18/17) TRANSFUSE NONAUT RED BLOOD CELLS IN PERIPH VEIN, PERC (10/09/18) Family History: States: Unknown Family Hx - Social History Hx Alcohol Use: No Hx Substance Use: No - Immunization History Hx Tetanus Toxoid Vaccination: Yes Hx Influenza Vaccination: Yes (2019) Hx Pneumococcal Vaccination: Yes (2019) Review Of Systems Constitutional: Positive for: Malaise (feeling tired). Negative for: Fever, Chills Eyes: Negative for: Vision Change Cardiovascular: Negative for: Chest Pain, Palpitations Respiratory: Negative for: Shortness of Breath Gastrointestinal: Negative for: Vomiting, Diarrhea Musculoskeletal: Negative for: Back Pain Skin: Negative for: Rash, Other (Pale) Neurological: Negative for: Weakness, Numbness, Change in Speech, Altered Mental Status, Headache, Dizziness Physical Exam - Physical Exam Appears: Non-toxic, No Acute Distress Skin: Normal Color, Warm, No Pale Head: Atraumatic, Normacephalic Eye(s): bilateral: Normal Inspection (no pale conjunctiva), PERRL, EOMI Nose: Normal Oral Mucosa: Moist Neck: Normal ROM Chest: Symmetrical, No Tenderness Cardiovascular: Rhythm Regular, No Murmur Respiratory: No Rales, No Rhonchi, No Wheezing, Other (Lungs CTA bilaterally) Gastrointestinal/Abdominal: Soft, No Tenderness, No Distention Extremity: Bilateral: Atraumatic, Normal Color And Temperature Pulses: Left Dorsalis Pedis: Normal, Right Dorsalis Pedis: Normal Neurological/Psych: Oriented x3, Normal Speech, Normal Cognition, Normal Cranial Nerves, Other (No focal deficits) ED Course And Treatment - Laboratory Results Result Diagrams: 11/21/18 18:30 11/21/18 18:30 O2 Sat by Pulse Oximetry: 100 (RA) Pulse Ox Interpretation: Normal Medical Decision Making Medical Decision Making: chronic anemia numerous visits for transfusion Plan: - EKG - Chest x-ray - Blood type/screen - Basic blood work - Troponin - Coags Patient consents to receive transfusion. 18:[address] Contreras, covering for Dr. Paul, will plan on dialysis for tomorrow. plan for kayexalate now, 1 U blood, then rest during hd acceted chuy garcia. EKG: NSR @ 84 bpm, no ST/T wave changes Disposition - Disposition Disposition: HOSPITALIZED Disposition Time: 19:00 Condition: STABLE Forms: [employer] (Japanese) - Clinical Impression Clinical Impression: Anemia, End-stage renal disease needing dialysis, Hyperkalemia - Scribe Statement The provider has reviewed the documentation as recorded by the Ericaibnaye Villegas Provider Attestation: All medical record entries made by the Ericaibe were at my direction and personally dictated by me. I have reviewed the chart and agree that the record accurately reflects my personal performance of the history, physical exam, medical decision making, and the department course for this patient. I have also personally directed, reviewed, and agree with the discharge instructions and disposition. Decision To Admit - Pt Status Changed To: Hospital Disposition Of: Observation - . Bed Request Type: Telemetry Admitting Physician: Karoline Garcia Patient Diagnosis: Anemia, End-stage renal disease needing dialysis, Hyperkalemia
[2018-11-21 18:38] LABS: BASO # 0.2 K/uL (0.0-0.2); EOS # 0.1 K/uL (0.0-0.7); EOS % 2.1 % (0.0-4.0); LYMPH % 17.2 % (20.0-40.0); MEAN CELL VOLUME 88.9 fL (80.0-94.0); MEAN CORPUSCULAR HGB CONC 34.9 g/dL (33.0-37.0); MEAN PLATELET VOLUME 8.1 fL (7.2-11.7); MONO # 0.4 K/uL (0.0-0.8); MONO % 7.3 % (0.0-10.0); NEUT # 4.1 K/uL (1.8-7.0); NEUT % 70.4 % (50.0-75.0); NRBC % 0.1 % (0.0-2.0); RBC 1.67 Mil/uL (4.40-5.90); RED CELL DISTRIBUTION WIDTH 18.4 % (11.5-14.5); WHITE BLOOD COUNT 5.8 K/uL (4.8-10.8)
[2018-11-21 18:44] LABS: HEMOGLOBIN 5.2 g/dL (12.0-18.0)
[2018-11-21 18:54] LABS: INR 1.2; PROTHROMBIN TIME 13.1 SECONDS (9.7-12.2)
[2018-11-21 19:05] LABS: TROPONIN I 0.017 ng/mL (0.00-0.120)
[2018-11-21 19:12] LABS: ALB/GLOB RATIO 1.9 (1.0-2.1); ALBUMIN 4.6 g/dL (3.5-5.0); CALCIUM 7.2 mg/dl (8.6-10.4)
--- NOTE | 2018-11-21 21:05 | CP.PCM.HP ---
Present on Admission - Present on Admission Any Indicators Present on Admission: No Past Patient History - Infectious Disease Hx of Infectious Diseases: None - Past Medical History & Family History Past Medical History?: Yes - Past Social History Smoking Status: Never Smoked - CARDIAC Hx Hypertension: Yes - PULMONARY Hx Respiratory Disorders: No - NEUROLOGICAL Hx Neurological Disorder: No - HEENT Hx HEENT Problems: No - RENAL Hx Chronic Kidney Disease: Yes Hx Kidney Stones: No - ENDOCRINE/METABOLIC Hx Endocrine Disorders: No - HEMATOLOGICAL/ONCOLOGICAL Hx Anemia: Yes (chronic) - INTEGUMENTARY Hx Dermatological Problems: No - MUSCULOSKELETAL/RHEUMATOLOGICAL Hx Arthritis: Yes - GASTROINTESTINAL Hx Gastrointestinal Disorders: No - GENITOURINARY/GYNECOLOGICAL Hx Genitourinary Disorders: No - PSYCHIATRIC Hx Substance Use: No - SURGICAL HISTORY Hx Surgeries: Yes Hx Orthopedic Surgery: Yes (right knee , left foot) Hx Vascular Access Device: Yes (LEFT ARM GRAFT) Other/Comment: LEFT FOOT BUNION SURGERY-10YRS. - ANESTHESIA Hx Anesthesia: Yes Hx Anesthesia Reactions: No Hx Malignant Hyperthermia: No Meds Allergies/Adverse Reactions: Allergies Allergy/AdvReac Type Severity Reaction Status Date / Time No Known Allergies Allergy Verified 11/21/18 17:43 Results - Vital Signs Recent Vital Signs: Last Vital Signs Temp 97.6 F 11/21/18 20:08 Pulse 82 11/21/18 17:40 Resp 20 11/21/18 20:08 BP 164/100 H 11/21/18 20:08 Pulse Ox 100 11/21/18 20:08 - Labs Result Diagrams: 11/21/18 18:30 11/21/18 18:30 Labs: Laboratory Results - last 24 hr 11/21/18 11/21/18 11/21/18 18:30 18:30 18:30 WBC 5.8 RBC 1.67 L Hgb 5.2 L* D Hct 14.8 L MCV 88.9 MCH 31.0 MCHC 34.9 RDW 18.4 H Plt Count 245 MPV 8.1 Neut % (Auto) 70.4 Lymph % (Auto) 17.2 L [place] % (Auto) 7.3 Eos % (Auto) 2.1 Baso % (Auto) 3.0 H Neut # (Auto) 4.1 Lymph # (Auto) 1.0 [place] # (Auto) 0.4 Eos # (Auto) 0.1 Baso # (Auto) 0.2 PT 13.1 H INR 1.2 APTT 38 H Sodium Potassium Chloride Carbon Dioxide Anion Gap BUN Creatinine Est GFR ( Amer) Est GFR (Non-Af Amer) Random Glucose Calcium Total Bilirubin AST ALT Alkaline Phosphatase Troponin I Total Protein Albumin Globulin Albumin/Globulin Ratio Blood Type O POSITIVE Antibody Screen Negative 11/21/18 18:30 WBC RBC Hgb Hct MCV MCH MCHC RDW Plt Count MPV Neut % (Auto) Lymph % (Auto) [place] % (Auto) Eos % (Auto) Baso % (Auto) Neut # (Auto) Lymph # (Auto) [place] # (Auto) Eos # (Auto) Baso # (Auto) PT INR APTT Sodium 141 Potassium 5.8 H Chloride 106 Carbon Dioxide 18 L Anion Gap 23 H BUN 118 H* D Creatinine 15.2 H* D Est GFR ( Amer) 4 Est GFR (Non-Af Amer) 3 Random Glucose 121 H Calcium 7.2 L Total Bilirubin 1.0 AST 20 ALT 37 Alkaline Phosphatase 55 Troponin I 0.0170 Total Protein 7.1 Albumin 4.6 Globulin 2.5 Albumin/Globulin Ratio 1.9 Blood Type Antibody Screen Assessment & Plan - Assessment and Plan (Free Text) Plan: Will hold heparin Blood transfusion 2 units tomorrow Hemodialysis tomorrow Renal consult Protonix Flomax Sensipar Febuxostat Allopurinol Coreg in the As ordered
--- NOTE | 2018-11-22 08:09 | CP.PCM.CON ---
History of Present Illness - History of Present Illness History of Present Illness: renal consult for management of dialysis 63 yo male with ESRD, HTN, gout, chronic anemia, transfusion dependent, referred for hb of 4.9 . Pt with fatigue, chronic sob. Too tired to go to HD on Tuesday. last HD on Tuesday. No blood per rectum. Received 1 U PRBC in ER last night and kayexelate. Review of Systems - Constitutional Constitutional: Fatigue. absent: Chills, Fever - EENT Eyes: absent: Change in Vision, Decreased Night Vision Nose/Mouth/Throat: absent: Epistaxis, Nasal Congestion - Cardiovascular Cardiovascular: Dyspnea on Exertion. absent: Chest Pain - Respiratory Respiratory: absent: Chest Congestion, Excessive Mucous Production - Gastrointestinal Gastrointestinal: absent: Abdominal Pain, Bloating - Neurological Neurological: absent: Abnormal Gait Past Patient History - Infectious Disease Hx of Infectious Diseases: None - Past Medical History & Family History Past Medical History?: Yes - Past Social History Smoking Status: Never Smoked - CARDIAC Hx Hypertension: Yes - PULMONARY Hx Respiratory Disorders: No - NEUROLOGICAL Hx Neurological Disorder: No - HEENT Hx HEENT Problems: No - RENAL Hx Chronic Kidney Disease: Yes Hx Kidney Stones: No - ENDOCRINE/METABOLIC Hx Endocrine Disorders: No - HEMATOLOGICAL/ONCOLOGICAL Hx Anemia: Yes (chronic) - INTEGUMENTARY Hx Dermatological Problems: No - MUSCULOSKELETAL/RHEUMATOLOGICAL Hx Arthritis: Yes - GASTROINTESTINAL Hx Gastrointestinal Disorders: No - GENITOURINARY/GYNECOLOGICAL Hx Genitourinary Disorders: No - PSYCHIATRIC Hx Substance Use: No - SURGICAL HISTORY Hx Surgeries: Yes Hx Orthopedic Surgery: Yes (right knee , left foot) Hx Vascular Access Device: Yes (LEFT ARM GRAFT) Other/Comment: LEFT FOOT BUNION SURGERY-10YRS. - ANESTHESIA Hx Anesthesia: Yes Hx Anesthesia Reactions: No Hx Malignant Hyperthermia: No Meds Allergies/Adverse Reactions: Allergies Allergy/AdvReac Type Severity Reaction Status Date / Time No Known Allergies Allergy Verified 11/21/18 17:43 - Medications Medications: Current Medications Allopurinol (Zyloprim) 100 mg PO DAILY [facility] Calcium Acetate (Phoslo) 667 mg PO TIDCC [facility] Carvedilol (Coreg) 12.5 mg PO DAILY [facility] Cinacalcet (Sensipar) 30 mg PO DAILY [facility] Home Med (Febuxostat [Uloric]) 80 mg PO DAILY [facility] Tamsulosin HCl (Flomax) 0.4 mg PO DAILY [facility] Physical Exam - Constitutional Appears: Non-toxic, No Acute Distress - Head Exam Head Exam: ATRAUMATIC, NORMAL INSPECTION - Eye Exam Eye Exam: EOMI - ENT Exam ENT Exam: Mucous Membranes Moist - Neck Exam Neck exam: Positive for: Full Rom. Negative for: Lymphadenopathy - Respiratory Exam Respiratory Exam: Decreased Breath Sounds. absent: Accessory Muscle Use - Cardiovascular Exam Cardiovascular Exam: REGULAR RHYTHM. absent: Rubs - GI/Abdominal Exam GI & Abdominal Exam: Distended, Firm. absent: Guarding - Extremities Exam Extremities exam: Positive for: pedal edema - Neurological Exam Neurological exam: Alert, Oriented x3 - Psychiatric Exam Psychiatric exam: Normal Affect, Normal Mood Results - Vital Signs Recent Vital Signs: Last Vital Signs Temp 97.9 F 11/22/18 00:15 Pulse 82 11/22/18 07:44 Resp 20 11/22/18 05:06 BP 180/95 H 11/22/18 05:06 Pulse Ox 100 11/22/18 00:15 - Labs Result Diagrams: 11/21/18 18:30 11/21/18 18:30 Labs: Laboratory Results - last 24 hr 11/21/18 11/21/18 11/21/18 18:30 18:30 18:30 WBC 5.8 RBC 1.67 L Hgb 5.2 L* D Hct 14.8 L MCV 88.9 MCH 31.0 MCHC 34.9 RDW 18.4 H Plt Count 245 MPV 8.1 Neut % (Auto) 70.4 Lymph % (Auto) 17.2 L [place] % (Auto) 7.3 Eos % (Auto) 2.1 Baso % (Auto) 3.0 H Neut # (Auto) 4.1 Lymph # (Auto) 1.0 [place] # (Auto) 0.4 Eos # (Auto) 0.1 Baso # (Auto) 0.2 PT 13.1 H INR 1.2 APTT 38 H Sodium Potassium Chloride Carbon Dioxide Anion Gap BUN Creatinine Est GFR ( Amer) Est GFR (Non-Af Amer) Random Glucose Calcium Total Bilirubin AST ALT Alkaline Phosphatase Troponin I Total Protein Albumin Globulin Albumin/Globulin Ratio Blood Type O POSITIVE Antibody Screen Negative 11/21/18 18:30 WBC RBC Hgb Hct MCV MCH MCHC RDW Plt Count MPV Neut % (Auto) Lymph % (Auto) [place] % (Auto) Eos % (Auto) Baso % (Auto) Neut # (Auto) Lymph # (Auto) [place] # (Auto) Eos # (Auto) Baso # (Auto) PT INR APTT Sodium 141 Potassium 5.8 H Chloride 106 Carbon Dioxide 18 L Anion Gap 23 H BUN 118 H* D Creatinine 15.2 H* D Est GFR ( Amer) 4 Est GFR (Non-Af Amer) 3 Random Glucose 121 H Calcium 7.2 L Total Bilirubin 1.0 AST 20 ALT 37 Alkaline Phosphatase 55 Troponin I 0.0170 Total Protein 7.1 Albumin 4.6 Globulin 2.5 Albumin/Globulin Ratio 1.9 Blood Type Antibody Screen Assessment & Plan - Assessment and Plan (Free Text) Assessment: esrd, no HD in 5 days due to noncompliance chronic anemia, has been worked up by Heme extensively, transfusion dependent mild hyperkalemia transfuse 2 additional units on HD today coreg increased for HTN discharge planning
[2018-11-22] MEDS ORDERED: Home Med 1 UNIT (Febuxostat [Uloric] 80 MG) PO SCH (10:00)
--- NOTE | 2018-11-22 12:25 | CARD ---
APPROVED REPORT Date of service: 11/21/2018 EKG Measurement Heart [id number] <Conclusion> Normal sinus rhythm Normal ECG
[2018-11-22 16:22] VITALS: RESP 20
[2018-11-22 17:05] LABS: HEMOGLOBIN 6.9 g/dL (12.0-18.0); MEAN CELL VOLUME 84.3 fL (80.0-94.0); MEAN CORPUSCULAR HEMOGLOBIN 30.3 pg (27.0-31.0); MEAN PLATELET VOLUME 8.5 fL (7.2-11.7); RBC 2.27 Mil/uL (4.40-5.90); RED CELL DISTRIBUTION WIDTH 15.4 % (11.5-14.5); WHITE BLOOD COUNT 3.7 K/uL (4.8-10.8)
--- NOTE | 2018-11-22 19:39 | CP.PCM.PN ---
Subjective - Date & Time of Evaluation Date of Evaluation: 11/22/18 Time of Evaluation: 12:00 - Subjective Subjective: clinically same Objective - Vital Signs/Intake and Output Vital Signs (last 24 hours): Temp Pulse Resp BP Pulse Ox 98 F 67 20 195/88 H 99 11/22/18 15:00 11/22/18 15:00 11/22/18 15:00 11/22/18 15:00 11/22/18 15:00 Intake and Output: 11/22/18 11/23/18 18:59 06:59 Intake Total 355 Balance 355 - Medications Medications: Current Medications Allopurinol (Zyloprim) 100 mg PO DAILY [facility] Last Admin: 11/22/18 13:37 Dose: 100 mg Calcium Acetate (Phoslo) 667 mg PO TIDCC [facility] Last Admin: 11/22/18 18:00 Dose: 667 mg Carvedilol (Coreg) 12.5 mg PO DAILY [facility] Last Admin: 11/22/18 13:36 Dose: 12.5 mg Cinacalcet (Sensipar) 30 mg PO DAILY [facility] Last Admin: 11/22/18 10:00 Dose: Not Given Tamsulosin HCl (Flomax) 0.4 mg PO DAILY [facility] Last Admin: 11/22/18 13:37 Dose: 0.4 mg - Labs Labs: 11/22/18 16:56 11/21/18 18:30 PT 13.1 SECONDS (9.7-12.2) H 11/21/18 18:30 INR 1.2 11/21/18 18:30 APTT 38 SECONDS (21-34) H 11/21/18 18:30
[2018-11-23 07:27] LABS: BASO # 0.1 K/uL (0.0-0.2); BASO % 1.5 % (0.0-2.0); EOS # 0.1 K/uL (0.0-0.7); EOS % 1.3 % (0.0-4.0); HEMOGLOBIN 6.9 g/dL (12.0-18.0); LYMPH # 0.6 K/uL (1.0-4.3); MEAN CORPUSCULAR HEMOGLOBIN 30.5 pg (27.0-31.0); MEAN CORPUSCULAR HGB CONC 35.9 g/dL (33.0-37.0); MEAN PLATELET VOLUME 8.7 fL (7.2-11.7); MONO # 0.4 K/uL (0.0-0.8); MONO % 8.8 % (0.0-10.0); NEUT # 3.3 K/uL (1.8-7.0); NEUT % 74.4 % (50.0-75.0); RBC 2.26 Mil/uL (4.40-5.90); RED CELL DISTRIBUTION WIDTH 15.2 % (11.5-14.5); WHITE BLOOD COUNT 4.4 K/uL (4.8-10.8)
[2018-11-23 08:27] VITALS: BP 166/87; PULSE 66; TEMP 98; O2SAT 98
--- NOTE | 2018-11-23 10:30 | CP.PCM.PN ---
Subjective - Date & Time of Evaluation Date of Evaluation: 11/23/18 Time of Evaluation: 10:28 - Subjective Subjective: feels better Hg 6.9- stable for this patient has seen several hematologists wants to go home Objective - Vital Signs/Intake and Output Vital Signs (last 24 hours): Temp Pulse Resp BP Pulse Ox 98.0 F 66 20 166/87 H 98 11/23/18 08:26 11/23/18 08:26 11/23/18 08:26 11/23/18 10:01 11/23/18 08:26 Intake and Output: 11/23/18 11/23/18 06:59 18:59 Intake Total 355 Balance 355 - Medications Medications: Current Medications Allopurinol (Zyloprim) 100 mg PO DAILY [facility] Last Admin: 11/23/18 10:01 Dose: 100 mg Calcium Acetate (Phoslo) 667 mg PO TIDCC [facility] Last Admin: 11/23/18 08:30 Dose: 667 mg Carvedilol (Coreg) 12.5 mg PO DAILY [facility] Last Admin: 11/23/18 10:01 Dose: 12.5 mg Cinacalcet (Sensipar) 30 mg PO DAILY [facility] Last Admin: 11/23/18 10:05 Dose: 30 mg Tamsulosin HCl (Flomax) 0.4 mg PO DAILY [facility] Last Admin: 11/23/18 10:01 Dose: 0.4 mg - Labs Labs: 11/23/18 06:47 11/21/18 18:30 PT 13.1 SECONDS (9.7-12.2) H 11/21/18 18:30 INR 1.2 11/21/18 18:30 APTT 38 SECONDS (21-34) H 11/21/18 18:30 - Constitutional Appears: No Acute Distress, Chronically Ill - Head Exam Head Exam: ATRAUMATIC, NORMAL INSPECTION - Eye Exam Eye Exam: EOMI, Normal appearance - Neck Exam Neck Exam: Normal Inspection. absent: Tenderness - Respiratory Exam Respiratory Exam: Clear to Ausculation Bilateral, NORMAL BREATHING PATTERN - Cardiovascular Exam Cardiovascular Exam: REGULAR RHYTHM, +S1 - GI/Abdominal Exam GI & Abdominal Exam: Soft. absent: Tenderness - Extremities Exam Extremities Exam: Pedal Edema. absent: Tenderness - Neurological Exam Neurological Exam: Awake, CN II-XII Intact - Skin Skin Exam: Dry, Warm Assessment and Plan (1) End-stage renal disease needing dialysis Status: Acute (2) Chronic disease anemia Status: Acute (3) Obstructive and reflux uropathy Status: Acute - Assessment and Plan (Free Text) Plan: outpatient dialysis arranged for tomorrow recommend follow up with heme as outpt
== END 2018-11-23 14:00 | disposition left against medical advice (07) ==
LOC: C.ER 17:32 → C.6T 19:32
PROVIDERS: ADMIT Internal Medicine Nephrology; ATTEND Internal Medicine Nephrology
DX: I12.0 Hypertensive chronic kidney disease with stage 5 chronic kidney disease or end stage renal disease (principal); E87.5 Hyperkalemia; N18.6 End stage renal disease; N40.1 Benign prostatic hyperplasia with lower urinary tract symptoms; Z91.19 Patient's noncompliance with other medical treatment and regimen; Z99.2 Dependence on renal dialysis; M10.9 Gout, unspecified; D63.1 Anemia in chronic kidney disease
CPT/HCPCS: 36415; 36430; 80053; 84484; 85025; 85027; 85610; 85730; 86850; 86900; 86920; 93005; 99285; G0257; G0378; J2405; P9051